=== PATIENT | female | born 1950 | race Hispanic/Latino ===

== ENCOUNTER 2017-09-08 12:51 | Inpatient (IN) | payer MEDICARE ==
[~2017-09-08] VITALS: Ht 149.9 cm; Wt 135.8 kg
[2017-09-08] MEDS ORDERED: IPRATROPIUM/ALBUTEROL SULFATE 3 ML SOLUTION IH ONE (13:28)
[2017-09-08 13:49] LABS: BASOPHILS % (AUTO) 0.4 % (0.0-5.0); EOSINOPHILS % (AUTO) 0.2 % (0.0-8.0); HEMATOCRIT 46.8 % (36-48); LYMPHOCYTES % (AUTO) 23.1 % (21.0-51.0); MEAN CORPUSCULAR HEMOGLOBIN 30.1 pg (27.0-33.0); MEAN CORPUSCULAR HGB CONC 34.6 g/dL (32.0-36.0); MEAN CORPUSCULAR VOLUME 87.1 fL (79-99); MONOCYTES % (AUTO) 13.9 % (3.0-13.0); NEUTROPHILS % (AUTO) 62.4 % (40.0-77.0); NUCLEATED RED BLOOD CELLS 0.2 % (0.0-0.19); PLATELET COUNT (AUTO) 197 K/uL (130-400); RED BLOOD CELL COUNT(AUTO) 5.38 MIL/uL (4.00-5.50); RED CELL DISTRIBUTION WIDTH 12.9 % (11.0-15.5)
[2017-09-08 14:00] LABS: INR 1.13 (0.85-1.15); PARTIAL THROMBOPLASTIN TIME 31.4 SEC (26.3-35.5); PROTHROMBIN TIME 11.8 SEC (9.6-11.6)
[2017-09-08] MEDS ORDERED: ALBUTEROL SULFATE 0.083% 2.5 MG/3 ML INH IH ONE (14:17)
[2017-09-08] MEDS ORDERED: METHYLPREDNISOLONE SOD SUCC 125MG/2ML VIAL ONE (14:22)
[2017-09-08 14:31] LABS: ALBUMIN 3.3 g/dL (3.5-5.0); BILIRUBIN,TOTAL 0.8 mg/dL (0.2-1.0); CREATINE KINASE MB 2.2 ng/mL (0.5-3.6); CREATININE 0.5 mg/dL (0.5-1.5); POTASSIUM 4.3 mmol/L (3.5-5.1)
[2017-09-08] MEDS ORDERED: OSELTAMIVIR PHOSPHATE 75 MG CAP ONE (15:07)
[2017-09-08] MEDS ORDERED: MORPHINE SULFATE 4 MG/1ML SYG IV PRN (15:45)
[2017-09-08] MEDS ORDERED: POTASSIUM CHLORIDE 20MEQ/100ML 100 ML IV PRN (15:45)
[2017-09-08] MEDS ORDERED: ACETAMINOPHEN-CODEINE 300/30MG TAB PO PRN ×2 (15:45)
[2017-09-08] MEDS: AZITHROMYCIN 500MG+NS 250ML 250 ML IV SCH (15:45)
[2017-09-08] MEDS: METHYLPREDNISOLONE SOD SUCC 125MG/2ML VIAL IVP SCH ×2 (15:45→23:44)
[2017-09-08] MEDS ORDERED: MORPHINE SULFATE 2 MG/ML 1ML SYG IV PRN (15:45)
[2017-09-08] MEDS ORDERED: GUAIFENESIN-DM 200/20 MG 10 ML PO PRN (15:45)
[2017-09-08] MEDS ORDERED: ACETAMINOPHEN 325 MG TAB PO PRN ×2 (15:45)
[2017-09-08] MEDS ORDERED: POTASSIUM CHLORIDE 20 MEQ ERTAB PO PRN (15:45)
[2017-09-08] MEDS ORDERED: POTASSIUM CHLORIDE 10% ELIXIR 20 MEQ/15 ML UDCUP PO PRN (15:45)
[2017-09-08] MEDS ORDERED: LIDOCAINE HCL-MPF 1% 2ML VIAL IVP PRN (15:45)
[2017-09-08] MEDS ORDERED: ONDANSETRON HCL 4 MG/2 ML VIAL IV PRN (15:45)
[2017-09-08 15:56] LABS: CREATININE 0.5 mg/dL (0.5-1.5); POTASSIUM 4.8 mmol/L (3.5-5.1)
[2017-09-08] MEDS ORDERED: AZITHROMYCIN 500MG+NS 250ML 250 ML IV ONE (16:12)
[2017-09-08 17:11] VITALS: BP 193/86
[2017-09-08] MEDS: IPRATROPIUM/ALBUTEROL SULFATE 3 ML SOLUTION IH SCH ×2 (18:56→23:45)
[2017-09-08 20:00] VITALS: BP 158/83
[2017-09-08] MEDS: OSELTAMIVIR PHOSPHATE 75 MG CAP PO SCH (21:11)
[2017-09-08] MEDS: FAMOTIDINE/PF 20 MG/2 ML VIAL IV SCH (21:11)
[2017-09-08] MEDS: SODIUM CHLORIDE 0.9% 1000ML 1,000 ML IV SCH (21:11)
[2017-09-08] MEDS ORDERED: AMLO5TAB2 PO (22:28)
[2017-09-08] MEDS ORDERED: VITA400C73 PO (22:28)
[2017-09-08] MEDS ORDERED: METO100T14 PO (22:28)
[2017-09-08] MEDS ORDERED: AMLO1CAP11 PO (22:28)
[2017-09-08] MEDS ORDERED: CHOL200012 PO (22:28)
[2017-09-08] MEDS ORDERED: METF500T6 PO (22:28)
[2017-09-08] MEDS ORDERED: GLYB5TAB8 PO (22:28)
[2017-09-08] MEDS ORDERED: FISH1CAP27 PO (22:28)
[2017-09-08] MEDS ORDERED: DOCU-272 PO (22:28)
[2017-09-08] MEDS ORDERED: ZOLPIDEM TARTRATE 5 MG TAB PO PRN (22:30)
[2017-09-09] VITALS: BP 161/77
[2017-09-09] MEDS: HYDRALAZINE HCL 20 MG/ML VIAL IV PRN (00:15)
[2017-09-09] MEDS: SODIUM CHLORIDE 0.9% 1000ML 1,000 ML IV SCH ×2 (01:49→17:15)
[2017-09-09 04:00] VITALS: BP 160/78
[2017-09-09] MEDS: IPRATROPIUM/ALBUTEROL SULFATE 3 ML SOLUTION IH SCH ×4 (04:59→23:15)
[2017-09-09] MEDS: INSULIN HUMULIN R 100 UNIT/ML 3ML SQ SCH ×4 (06:15→21:06)
[2017-09-09] MEDS: METHYLPREDNISOLONE SOD SUCC 125MG/2ML VIAL IVP SCH ×2 (06:54→09:16)
[2017-09-09 07:30] VITALS: BP 159/81
[2017-09-09] MEDS: Cholecalciferol (Vitamin D3) 2,000 UNIT PO SCH (09:00)
[2017-09-09] MEDS: METOPROLOL TARTRATE 50 MG TAB PO SCH ×2 (09:12→20:42)
[2017-09-09] MEDS: DOCUSATE SODIUM 100 MG CAP PO SCH ×2 (09:12→20:41)
[2017-09-09] MEDS: AMLODIPINE BESYLATE 5 MG TAB PO SCH (09:13)
[2017-09-09] MEDS: GLYBURIDE 5 MG TABLET PO SCH ×2 (09:13→16:48)
[2017-09-09] MEDS: METFORMIN HCL 500 MG TABLET PO SCH ×2 (09:13→16:48)
[2017-09-09] MEDS: OSELTAMIVIR PHOSPHATE 75 MG CAP PO SCH ×2 (09:14→20:42)
[2017-09-09] MEDS: FISH OIL 1000 MG/CAP PO SCH (09:14)
[2017-09-09] MEDS: FAMOTIDINE/PF 20 MG/2 ML VIAL IV SCH ×2 (09:14→20:42)
[2017-09-09] MEDS: ENOXAPARIN SODIUM 40 MG/0.4 ML SYRINGE SQ SCH (09:17)
[2017-09-09] MEDS: VITAMIN E 400 UNIT CAPSULE PO SCH (09:29)
[2017-09-09] MEDS: AMLODIPINE-BENAZEPRIL 5-10 MG PO SCH (09:29)
[2017-09-09 11:00] VITALS: BP 143/73
[2017-09-09 13:00] LABS: CREATININE 0.8 mg/dL (0.5-1.5); POTASSIUM 4.3 mmol/L (3.5-5.1)
[2017-09-09 16:00] VITALS: BP 164/78
[2017-09-09] MEDS ORDERED: SODIUM CHLORIDE 0.9% 1000ML 1,000 ML IV ONE (16:43)
[2017-09-09] MEDS: AZITHROMYCIN 500MG+NS 250ML 250 ML IV SCH (16:45)
[2017-09-09 20:00] VITALS: BP 152/64
[2017-09-09] MEDS: METHYLPREDNISOLONE SOD SUCC 40MG/ML 1ML IVP SCH (20:41)
[2017-09-10] VITALS: BP 153/66
[2017-09-10] MEDS: SODIUM CHLORIDE 0.9% 1000ML 1,000 ML IV SCH ×3 (02:44→23:15)
[2017-09-10 04:00] VITALS: BP 161/69
[2017-09-10] MEDS: IPRATROPIUM/ALBUTEROL SULFATE 3 ML SOLUTION IH SCH ×3 (04:39→17:51)
[2017-09-10 05:37] LABS: HEMATOCRIT 41.1 % (36-48); MEAN CORPUSCULAR HEMOGLOBIN 31.3 pg (27.0-33.0); MEAN CORPUSCULAR HGB CONC 35.8 g/dL (32.0-36.0); MEAN CORPUSCULAR VOLUME 87.5 fL (79-99); PLATELET COUNT (AUTO) 190 K/uL (130-400); RED CELL DISTRIBUTION WIDTH 12.9 % (11.0-15.5)
[2017-09-10 05:41] LABS: CREATININE 0.6 mg/dL (0.5-1.5); POTASSIUM 4.6 mmol/L (3.5-5.1)
[2017-09-10] MEDS: HYDRALAZINE HCL 20 MG/ML VIAL IV PRN (06:17)
[2017-09-10] MEDS: INSULIN HUMULIN R 100 UNIT/ML 3ML SQ SCH ×4 (06:22→21:02)
[2017-09-10 07:30] VITALS: BP 156/75
[2017-09-10] MEDS: Cholecalciferol (Vitamin D3) 2,000 UNIT PO SCH (09:00)
[2017-09-10] MEDS: FISH OIL 1000 MG/CAP PO SCH (09:39)
[2017-09-10] MEDS: AMLODIPINE-BENAZEPRIL 5-10 MG PO SCH (09:39)
[2017-09-10] MEDS: METOPROLOL TARTRATE 50 MG TAB PO SCH ×2 (09:40→20:51)
[2017-09-10] MEDS: AMLODIPINE BESYLATE 5 MG TAB PO SCH (09:40)
[2017-09-10] MEDS: FAMOTIDINE/PF 20 MG/2 ML VIAL IV SCH ×2 (09:40→20:51)
[2017-09-10] MEDS: METHYLPREDNISOLONE SOD SUCC 40MG/ML 1ML IVP SCH ×3 (09:40→20:51)
[2017-09-10] MEDS: OSELTAMIVIR PHOSPHATE 75 MG CAP PO SCH ×2 (09:40→20:51)
[2017-09-10] MEDS: LACTULOSE 20 GM/30 ML UDCUP PO PRN (09:40)
[2017-09-10] MEDS: DOCUSATE SODIUM 100 MG CAP PO SCH ×2 (09:40→20:51)
[2017-09-10] MEDS: VITAMIN E 400 UNIT CAPSULE PO SCH (09:41)
[2017-09-10] MEDS: ENOXAPARIN SODIUM 40 MG/0.4 ML SYRINGE SQ SCH (09:41)
[2017-09-10] MEDS: METFORMIN HCL 500 MG TABLET PO SCH ×2 (09:43→17:11)
[2017-09-10] MEDS: GLYBURIDE 5 MG TABLET PO SCH ×2 (09:43→17:11)
[2017-09-10 11:00] VITALS: BP 149/81
[2017-09-10] MEDS ORDERED: SODIUM CHLORIDE 0.9% 1000ML 1,000 ML IV SCH (12:58)
[2017-09-10] MEDS ORDERED: CEFTRIAXONE 1GM/D5W 50ML 50 ML IV SCH (13:15)
[2017-09-10] MEDS: CEFTRIAXONE SODIUM 1 GM IVP SCH (14:57)
[2017-09-10] MEDS: AZITHROMYCIN 500MG+NS 250ML 250 ML IV SCH (15:05)
[2017-09-10] MEDS: INSULIN NPH 100 UNIT/ML 3ML SQ SCH (15:16)
[2017-09-10 16:00] VITALS: BP 109/75
[2017-09-10] MEDS: BUDESONIDE 0.5 MG/2 ML INH IH SCH ×2 (18:00→18:17)
[2017-09-10 20:00] VITALS: BP 152/75
[2017-09-10] MEDS: ALBUTEROL SULFATE 0.083% 2.5 MG/3 ML INH IH SCH (23:04)
[2017-09-11] VITALS (7 sets, daily range): BP systolic 143–177; BP diastolic 72–89
[2017-09-11] MEDS: IPRATROPIUM/ALBUTEROL SULFATE 3 ML SOLUTION IH SCH ×4 (04:45→16:35)
[2017-09-11] MEDS: BUDESONIDE 0.5 MG/2 ML INH IH SCH (04:51)
[2017-09-11 05:21] LABS: CREATININE 0.5 mg/dL (0.5-1.5); POTASSIUM 4.8 mmol/L (3.5-5.1)
[2017-09-11] MEDS: ALBUTEROL SULFATE 0.083% 2.5 MG/3 ML INH IH SCH ×3 (06:00→18:00)
[2017-09-11] MEDS: INSULIN HUMULIN R 100 UNIT/ML 3ML SQ SCH ×4 (06:32→21:46)
[2017-09-11] MEDS: INSULIN NPH 100 UNIT/ML 3ML SQ SCH ×2 (07:04→17:02)
[2017-09-11] MEDS: Cholecalciferol (Vitamin D3) 2,000 UNIT PO SCH (09:00)
[2017-09-11] MEDS: METOPROLOL TARTRATE 50 MG TAB PO SCH ×2 (10:03→21:23)
[2017-09-11] MEDS: AMLODIPINE-BENAZEPRIL 5-10 MG PO SCH (10:03)
[2017-09-11] MEDS: VITAMIN E 400 UNIT CAPSULE PO SCH (10:03)
[2017-09-11] MEDS: FISH OIL 1000 MG/CAP PO SCH (10:04)
[2017-09-11] MEDS: GLYBURIDE 5 MG TABLET PO SCH ×2 (10:04→16:58)
[2017-09-11] MEDS: METHYLPREDNISOLONE SOD SUCC 40MG/ML 1ML IVP SCH ×3 (10:04→21:24)
[2017-09-11] MEDS: AMLODIPINE BESYLATE 5 MG TAB PO SCH (10:04)
[2017-09-11] MEDS: DOCUSATE SODIUM 100 MG CAP PO SCH ×2 (10:04→21:23)
[2017-09-11] MEDS: FAMOTIDINE/PF 20 MG/2 ML VIAL IV SCH ×2 (10:04→21:24)
[2017-09-11] MEDS: OSELTAMIVIR PHOSPHATE 75 MG CAP PO SCH ×2 (10:04→21:23)
[2017-09-11] MEDS: METFORMIN HCL 500 MG TABLET PO SCH ×2 (10:04→16:58)
[2017-09-11] MEDS: ENOXAPARIN SODIUM 40 MG/0.4 ML SYRINGE SQ SCH (10:06)
[2017-09-11] MEDS ORDERED: SODIUM CHLORIDE 3% FOR INHALATION 4 ML/AMP VIAL.NEB IH ONE (12:26)
[2017-09-11] MEDS: CEFTRIAXONE SODIUM 1 GM IVP SCH (13:22)
[2017-09-11] MEDS ORDERED: ACETYLCYSTEINE 20% 200MG/ML 4ML VIAL IH SCH (14:00)
[2017-09-11] MEDS: AZITHROMYCIN 500MG+NS 250ML 250 ML IV SCH (14:54)
[2017-09-11] MEDS: HYDRALAZINE HCL 20 MG/ML VIAL IV PRN (23:18)
[2017-09-12] VITALS (10 sets, daily range): BP systolic 132–188; BP diastolic 63–88
[2017-09-12] MEDS: IPRATROPIUM/ALBUTEROL SULFATE 3 ML SOLUTION IH SCH ×4 (00:32→20:34)
[2017-09-12] MEDS: BUDESONIDE 0.5 MG/2 ML INH IH SCH ×3 (00:32→20:49)
[2017-09-12 05:08] LABS: HEMATOCRIT 41.8 % (36-48); MEAN CORPUSCULAR HEMOGLOBIN 30.5 pg (27.0-33.0); MEAN CORPUSCULAR HGB CONC 34.3 g/dL (32.0-36.0); PLATELET COUNT (AUTO) 211 K/uL (130-400); RED CELL DISTRIBUTION WIDTH 13.5 % (11.0-15.5); WHITE BLOOD COUNT (AUTO) 11.8 K/uL (4.8-10.8)
[2017-09-12 05:17] LABS: CREATININE 0.5 mg/dL (0.5-1.5); POTASSIUM 4.5 mmol/L (3.5-5.1)
[2017-09-12] MEDS: ALBUTEROL SULFATE 0.083% 2.5 MG/3 ML INH IH SCH ×3 (06:00→18:00)
[2017-09-12] MEDS: INSULIN HUMULIN R 100 UNIT/ML 3ML SQ SCH ×4 (07:30→20:45)
[2017-09-12] MEDS ORDERED: SODIUM CHLORIDE 3% FOR INHALATION 4 ML/AMP VIAL.NEB IH ONE (07:42)
[2017-09-12] MEDS: FAMOTIDINE/PF 20 MG/2 ML VIAL IV SCH ×2 (08:35→20:13)
[2017-09-12] MEDS: METHYLPREDNISOLONE SOD SUCC 40MG/ML 1ML IVP SCH ×2 (08:35→20:13)
[2017-09-12] MEDS: VITAMIN E 400 UNIT CAPSULE PO SCH (08:36)
[2017-09-12] MEDS: ENOXAPARIN SODIUM 40 MG/0.4 ML SYRINGE SQ SCH (08:36)
[2017-09-12] MEDS: OSELTAMIVIR PHOSPHATE 75 MG CAP PO SCH ×2 (08:36→20:13)
[2017-09-12] MEDS: AMLODIPINE BESYLATE 5 MG TAB PO SCH (08:36)
[2017-09-12] MEDS: AMLODIPINE-BENAZEPRIL 5-10 MG PO SCH (08:36)
[2017-09-12] MEDS: FISH OIL 1000 MG/CAP PO SCH (08:36)
[2017-09-12] MEDS: DOCUSATE SODIUM 100 MG CAP PO SCH ×2 (08:37→20:13)
[2017-09-12] MEDS: METFORMIN HCL 500 MG TABLET PO SCH ×2 (08:37→16:56)
[2017-09-12] MEDS: GLYBURIDE 5 MG TABLET PO SCH ×2 (08:37→16:56)
[2017-09-12] MEDS: METOPROLOL TARTRATE 50 MG TAB PO SCH ×2 (08:37→16:57)
[2017-09-12] MEDS: Cholecalciferol (Vitamin D3) 2,000 UNIT PO SCH (09:00)
[2017-09-12] MEDS: INSULIN NPH 100 UNIT/ML 3ML SQ SCH ×2 (09:01→17:06)
[2017-09-12] MEDS: LACTULOSE 20 GM/30 ML UDCUP PO PRN (09:05)
[2017-09-12] MEDS: HYDRALAZINE HCL 20 MG/ML VIAL IV PRN ×2 (13:00→20:29)
[2017-09-12] MEDS: CEFTRIAXONE SODIUM 1 GM IVP SCH (13:00)
[2017-09-12] MEDS: AZITHROMYCIN 500MG+NS 250ML 250 ML IV SCH (16:01)
[2017-09-12] MEDS ORDERED: INSULIN NPH 100 UNIT/ML 3ML SQ ONE (16:50)
[2017-09-13] VITALS: BP 178/78
[2017-09-13] MEDS: IPRATROPIUM/ALBUTEROL SULFATE 3 ML SOLUTION IH SCH ×4 (00:27→19:27)
[2017-09-13 04:00] VITALS: BP 168/82
[2017-09-13] MEDS: HYDRALAZINE HCL 20 MG/ML VIAL IV PRN (05:23)
[2017-09-13] MEDS: BUDESONIDE 0.5 MG/2 ML INH IH SCH ×2 (05:55→19:42)
[2017-09-13] MEDS: ALBUTEROL SULFATE 0.083% 2.5 MG/3 ML INH IH SCH ×3 (06:00→12:00)
[2017-09-13] MEDS ORDERED: SODIUM CHLORIDE 3% FOR INHALATION 4 ML/AMP VIAL.NEB IH ONE (06:28)
[2017-09-13] MEDS: INSULIN HUMULIN R 100 UNIT/ML 3ML SQ SCH ×4 (06:42→21:00)
[2017-09-13] MEDS: INSULIN NPH 100 UNIT/ML 3ML SQ SCH ×2 (06:43→15:56)
[2017-09-13 07:40] VITALS: BP 155/71
[2017-09-13] MEDS: Cholecalciferol (Vitamin D3) 2,000 UNIT PO SCH (09:00)
[2017-09-13] MEDS: FAMOTIDINE/PF 20 MG/2 ML VIAL IV SCH ×2 (09:36→20:18)
[2017-09-13] MEDS: METHYLPREDNISOLONE SOD SUCC 40MG/ML 1ML IVP SCH ×2 (09:36→20:18)
[2017-09-13] MEDS: VITAMIN E 400 UNIT CAPSULE PO SCH (09:37)
[2017-09-13] MEDS: METOPROLOL TARTRATE 50 MG TAB PO SCH ×2 (09:37→20:17)
[2017-09-13] MEDS: AMLODIPINE-BENAZEPRIL 5-10 MG PO SCH (09:37)
[2017-09-13] MEDS: GLYBURIDE 5 MG TABLET PO SCH ×2 (09:37→16:12)
[2017-09-13] MEDS: METFORMIN HCL 500 MG TABLET PO SCH ×2 (09:37→16:12)
[2017-09-13] MEDS: AMLODIPINE BESYLATE 5 MG TAB PO SCH (09:38)
[2017-09-13] MEDS: DOCUSATE SODIUM 100 MG CAP PO SCH ×2 (09:38→20:18)
[2017-09-13] MEDS: OSELTAMIVIR PHOSPHATE 75 MG CAP PO SCH (09:38)
[2017-09-13] MEDS: FISH OIL 1000 MG/CAP PO SCH (09:39)
[2017-09-13] MEDS: ENOXAPARIN SODIUM 40 MG/0.4 ML SYRINGE SQ SCH (09:39)
[2017-09-13 11:18] VITALS: BP 135/65
[2017-09-13] MEDS: HYDRALAZINE HCL 25 MG TABLET PO SCH ×2 (15:45→20:18)
[2017-09-13] MEDS: CEFTRIAXONE SODIUM 1 GM IVP SCH (15:45)
[2017-09-13] MEDS: AZITHROMYCIN 500MG+NS 250ML 250 ML IV SCH (15:45)
[2017-09-13 16:10] VITALS: BP 162/73
[2017-09-13 19:00] VITALS: BP 188/79
[2017-09-14] VITALS: BP 150/69
[2017-09-14] MEDS: IPRATROPIUM/ALBUTEROL SULFATE 3 ML SOLUTION IH SCH ×2 (00:10→06:40)
[2017-09-14 04:00] VITALS: BP 175/77
[2017-09-14] MEDS: INSULIN HUMULIN R 100 UNIT/ML 3ML SQ SCH (05:24)
[2017-09-14 05:40] LABS: HEMATOCRIT 43.5 % (36-48); MEAN CORPUSCULAR HEMOGLOBIN 30.3 pg (27.0-33.0); MEAN CORPUSCULAR HGB CONC 34.3 g/dL (32.0-36.0); MEAN CORPUSCULAR VOLUME 88.3 fL (79-99); NUCLEATED RED BLOOD CELLS 0.1 % (0.0-0.19); PLATELET COUNT (AUTO) 245 K/uL (130-400); RED BLOOD CELL COUNT(AUTO) 4.93 MIL/uL (4.00-5.50); RED CELL DISTRIBUTION WIDTH 13.2 % (11.0-15.5); WHITE BLOOD COUNT (AUTO) 10.7 K/uL (4.8-10.8)
[2017-09-14 05:56] LABS: CREATININE 0.7 mg/dL (0.5-1.5); POTASSIUM 4.6 mmol/L (3.5-5.1)
[2017-09-14] MEDS: BUDESONIDE 0.5 MG/2 ML INH IH SCH (06:00)
[2017-09-14] MEDS: ALBUTEROL SULFATE 0.083% 2.5 MG/3 ML INH IH SCH ×2 (06:00)
[2017-09-14] MEDS: INSULIN NPH 100 UNIT/ML 3ML SQ SCH (07:51)
[2017-09-14 08:00] VITALS: BP 163/72
[2017-09-14] MEDS: DOCUSATE SODIUM 100 MG CAP PO SCH (08:55)
[2017-09-14] MEDS: FAMOTIDINE/PF 20 MG/2 ML VIAL IV SCH (08:55)
[2017-09-14] MEDS: AMLODIPINE BESYLATE 5 MG TAB PO SCH (08:55)
[2017-09-14] MEDS: HYDRALAZINE HCL 25 MG TABLET PO SCH (08:55)
[2017-09-14] MEDS: METFORMIN HCL 500 MG TABLET PO SCH (08:56)
[2017-09-14] MEDS: FISH OIL 1000 MG/CAP PO SCH (08:56)
[2017-09-14] MEDS: METHYLPREDNISOLONE SOD SUCC 40MG/ML 1ML IVP SCH (08:56)
[2017-09-14] MEDS: METOPROLOL TARTRATE 50 MG TAB PO SCH (08:56)
[2017-09-14] MEDS: ENOXAPARIN SODIUM 40 MG/0.4 ML SYRINGE SQ SCH (08:57)
[2017-09-14] MEDS: Cholecalciferol (Vitamin D3) 2,000 UNIT PO SCH (09:00)
[2017-09-14] MEDS: AMLODIPINE-BENAZEPRIL 5-10 MG PO SCH (10:11)
[2017-09-14] MEDS: VITAMIN E 400 UNIT CAPSULE PO SCH (10:11)
[2017-09-14] MEDS: GLYBURIDE 5 MG TABLET PO SCH (10:12)
[2017-09-14] MEDS: LACTULOSE 20 GM/30 ML UDCUP PO PRN (10:12)
== END 2017-09-14 12:00 | disposition home or self-care (01) | DRG 194 ==
LOC: EDH 12:51 → OBSVTOIN 15:35 → EDHIP 15:35 → 4BH 17:04
PROVIDERS: ADMIT Internal Medicine; ATTEND Internal Medicine
DX: J10.00 Influenza due to other identified influenza virus with unspecified type of pneumonia (principal); E87.1 Hypo-osmolality and hyponatremia; E66.01 Morbid (severe) obesity due to excess calories; E11.9 Type 2 diabetes mellitus without complications; I10 Essential (primary) hypertension; J20.9 Acute bronchitis, unspecified; Z91.19 Patient's noncompliance with other medical treatment and regimen; G47.33 Obstructive sleep apnea (adult) (pediatric)
CPT/HCPCS: 36415; 71010; 71045; 71046; 80048; 80053; 82550; 82553; 82948; 83880; 84484; 85025; 85027; 85610; 85730; 87804; 93005; 94640; 94664; A4218; J0360; J0456; J0696; J1650; J1815; J2920; J2930; J3490; J7030

== ENCOUNTER → 2018-08-28 | Outpatient (CLI) | payer MEDICARE ==
[~2018-08-28] MED LIST: AMLO1CAP PO; CHOL200012 PO; CLON0.2T PO; DOCU-272 PO; FISH1CAP27 PO; GLIM4TAB3 PO; HYDR25 PO; METF-444 PO; METO100T14 PO; VITA400C73 PO
== END | disposition home or self-care (01) ==
LOC: RAH 10:40
PROVIDERS: ATTEND Specialist
DX: Z12.31 Encounter for screening mammogram for malignant neoplasm of breast (principal)
CPT/HCPCS: 77067

== ENCOUNTER 2019-04-06 10:58 | Emergency (ER) | payer MEDICARE ==
[2019-04-06] MEDS ORDERED: ACETAMINOPHEN-CODEINE 300/30MG TAB ONE (11:16)
== END 2019-04-06 14:23 | disposition home or self-care (01) ==
LOC: EDH 10:58
DX: S80.02XA Contusion of left knee, initial encounter (principal); E11.9 Type 2 diabetes mellitus without complications; I10 Essential (primary) hypertension; Z90.710 Acquired absence of both cervix and uterus; W18.39XA Other fall on same level, initial encounter; Y93.01 Activity, walking, marching and hiking; Y92.22 Religious institution as the place of occurrence of the external cause; Y99.8 Other external cause status
CPT/HCPCS: 73502; 73552; 73562

== ENCOUNTER 2019-07-02 20:23 | Emergency (ER) | payer MEDICARE ==
[~2019-07-02 20:23] MED LIST changes: -GLIM4TAB3 PO; +GLIM4TAB5 PO
== END 2019-07-02 21:28 | disposition home or self-care (01) ==
LOC: EDH 20:23
DX: R04.0 Epistaxis (principal); I10 Essential (primary) hypertension; E11.9 Type 2 diabetes mellitus without complications; Z90.710 Acquired absence of both cervix and uterus
CPT/HCPCS: 99281

== ENCOUNTER → 2019-08-29 | Outpatient (CLI) | payer MEDICARE | END | disposition home or self-care (01) | LOC: RAH 10:56 | PROVIDERS: ATTEND Family Medicine | DX: Z12.31 Encounter for screening mammogram for malignant neoplasm of breast (principal) | CPT/HCPCS: 77067 ==

== ENCOUNTER 2023-05-18 21:59 | Inpatient (IN) | payer MEDICARE ==
[~2023-05-18] VITALS: Ht 157.5 cm; Wt 129.5 kg
[~2023-05-18 21:59] MED LIST changes: -DOCU-272 PO; +DOCU-280 PO; +GLIM4TAB36 PO; -GLIM4TAB5 PO
[2023-05-18 22:47] LABS: BASOPHILS # (AUTO) 0.02 K/uL (0.00-0.20); BASOPHILS % (AUTO) 0.1 % (0.0-5.0); EOSINOPHILS # (AUTO) 0.03 K/uL (0.00-0.70); EOSINOPHILS % (AUTO) 0.2 % (0.0-8.0); IMMATURE GRANULOCYTE ABSOLUTE 0.16 K/uL (0-1); LYMPHOCYTES # (AUTO) 1.4 K/uL (1.0-4.8); LYMPHOCYTES % (AUTO) 10.3 % (21.0-51.0); MEAN CORPUSCULAR HEMOGLOBIN 30.6 pg (27.0-33.0); MEAN CORPUSCULAR HGB CONC 32.6 g/dL (32.0-36.0); MEAN CORPUSCULAR VOLUME 94.1 fL (79-99); MONOCYTES # (AUTO) 1.5 K/uL (0.1-1.0); MONOCYTES % (AUTO) 10.9 % (3.0-13.0); NEUTROPHILS # (AUTO) 10.5 K/uL (1.8-7.7); NEUTROPHILS % (AUTO) 77.3 % (40.0-77.0); PLATELET COUNT (AUTO) 196 K/uL (130-400); RED BLOOD CELL COUNT(AUTO) 4.57 MIL/uL (4.00-5.50); RED CELL DISTRIBUTION WIDTH 13.2 % (11.0-15.5); WHITE BLOOD COUNT (AUTO) 13.7 K/uL (4.8-10.8)
[2023-05-18 22:55] LABS: SARS-CoV-2, RNA, NAAT NEGATIVE SARS CoV-2 (NEGATIVE)
[2023-05-18 22:56] LABS: CREATININE 0.5 mg/dL (0.5-1.5); POTASSIUM 4.8 mmol/L (3.5-5.1)
[2023-05-18 22:59] LABS: INFLUENZA TYPE A Negative For Type A (NEGATIVE); INFLUENZA TYPE B Negative For Type B (NEGATIVE)
[2023-05-18] MEDS ORDERED: ALBUTEROL 0.083% 2.5 MG/3 ML INH IH ONE (23:00)
[2023-05-18 23:01] LABS: BILIRUBIN,TOTAL 0.8 mg/dL (0.2-1.0); TOTAL PROTEIN, SERUM 6.8 g/dL (6.0-8.3)
[2023-05-18 23:04] VITALS: PULSE 80; RESP 22
[2023-05-18 23:20] LABS: B-TYPE NATRIURETIC PEPTIDE 153 pg/mL (0-100)
[2023-05-18 23:36] LABS: ABG BASE EXCESS 2.9 mmol/L (-2.0-3.0); ABG HCO3 31.5 mmol/L (21.0-28.0); ABG OXYGEN SATURATION 86.4 % (95.0-99.0); ABG PCO2 66 mmHg (32-45); ABG PH 7.295 (7.35-7.450); PO2, ARTERIAL BG 58.2 mmHg (83.0-108.0); VENT MODE, BG ROOM AIR (ROOM AIR)
[2023-05-19] VITALS (17 sets, daily range): BP systolic 133–155; BP diastolic 52–92; PULSE 72–94; RESP 18–28; O2SAT 95–100
[2023-05-19] MEDS ORDERED: AZITHROMYCIN 500MG+NS 250ML 250 ML ONE (00:30)
[2023-05-19] MEDS ORDERED: CEFTRIAXONE 2GM VIAL IVPB ONE (00:30)
[2023-05-19] MEDS ORDERED: MORPHINE 2 MG SYG IV PRN (01:00)
[2023-05-19] MEDS ORDERED: MORPHINE 4 MG SYG IV PRN (01:00)
[2023-05-19] MEDS ORDERED: GUAIFENESIN-DM 200/20 MG 10 ML PO PRN (01:00)
[2023-05-19] MEDS ORDERED: SOLU-MEDROL 125MG VIAL IVP ONE (01:00)
[2023-05-19] MEDS ORDERED: ACETAMINOPHEN 325 MG TAB PO PRN ×2 (01:00)
[2023-05-19] MEDS ORDERED: ONDANSETRON 4MG INJ IV PRN (01:00)
[2023-05-19 01:29] LABS: ABG BASE EXCESS -0.3 mmol/L (-2.0-3.0); ABG HCO3 29.4 mmol/L (21.0-28.0); ABG PCO2 72 mmHg (32-45); ABG PH 7.231 (7.35-7.450)
[2023-05-19 01:58] LABS: APPEARANCE,URINE CLEAR (CLEAR); BILIRUBIN,URINE NEGATIVE (NEGATIVE); COLOR,URINE YELLOW (YELLOW); GLUCOSE, URINE (UA) NEGATIVE (NEGATIVE); KETONES,URINE NEGATIVE (NEGATIVE); LEUKOCYTE ESTERASE ,URINE NEGATIVE Leu/uL (NEGATIVE); NITRATE,URINE NEGATIVE (NEGATIVE); OCCULT BLOOD,URINE NEGATIVE (NEGATIVE); PROTEIN,URINE 10 mg/dL (NEGATIVE); UROBILINOGEN,URINE 3 mg/dL (0.2-1.0)
[2023-05-19 02:02] LABS: ADD UA MICROSCOPIC NO
[2023-05-19] MEDS: AZITHROMYCIN 500MG+NS 250ML IVPB SCH (02:16)
[2023-05-19] MEDS: LACTATED RINGERS 1000ML 1,000 ML IV SCH ×2 (02:16→18:00)
[2023-05-19] MEDS ORDERED: LACTATED RINGERS IV ONE (02:30)
[2023-05-19] MEDS: ZOSYN 3.375GM+NS 50ML 50 ML IVPB SCH ×3 (04:28→21:54)
[2023-05-19 04:46] LABS: ABG BASE EXCESS 5.4 mmol/L (-2.0-3.0); ABG HCO3 34.3 mmol/L (21.0-28.0); ABG OXYGEN SATURATION 93.2 % (95.0-99.0); ABG PCO2 70 mmHg (32-45); ABG PH 7.309 (7.35-7.450); PO2, ARTERIAL BG 74.6 mmHg (83.0-108.0)
[2023-05-19] MEDS ORDERED: SODIUM CHLORIDE 3% FOR INHALATION 4 ML/AMP VIAL.NEB IH ONE ×3 (06:12→18:05)
[2023-05-19 06:48] LABS: BASOPHILS # (AUTO) 0.02 K/uL (0.00-0.20); BASOPHILS % (AUTO) 0.2 % (0.0-5.0); EOSINOPHILS # (AUTO) 0.01 K/uL (0.00-0.70); EOSINOPHILS % (AUTO) 0.1 % (0.0-8.0); HEMATOCRIT 41.8 % (36-48); IMMATURE GRANULOCYTE ABSOLUTE 0.06 K/uL (0-1); LYMPHOCYTES # (AUTO) 0.6 K/uL (1.0-4.8); LYMPHOCYTES % (AUTO) 6.1 % (21.0-51.0); MEAN CORPUSCULAR HEMOGLOBIN 30.8 pg (27.0-33.0); MEAN CORPUSCULAR HGB CONC 32.5 g/dL (32.0-36.0); MEAN CORPUSCULAR VOLUME 94.6 fL (79-99); MONOCYTES # (AUTO) 0.4 K/uL (0.1-1.0); MONOCYTES % (AUTO) 3.8 % (3.0-13.0); NEUTROPHILS # (AUTO) 9.3 K/uL (1.8-7.7); NEUTROPHILS % (AUTO) 89.2 % (40.0-77.0); PLATELET COUNT (AUTO) 154 K/uL (130-400); RED BLOOD CELL COUNT(AUTO) 4.42 MIL/uL (4.00-5.50); RED CELL DISTRIBUTION WIDTH 13.2 % (11.0-15.5); WHITE BLOOD COUNT (AUTO) 10.4 K/uL (4.8-10.8)
[2023-05-19] MEDS: ALBUTEROL 0.083% 2.5 MG/3 ML INH IH SCH ×4 (06:55→22:44)
[2023-05-19] MEDS: INSULIN HUMULIN R 100 UNIT/ML 3ML SQ SCH ×4 (07:30→21:56)
[2023-05-19 08:08] LABS: CREATININE 0.6 mg/dL (0.5-1.5); MAGNESIUM 1.3 mg/dL (1.80-2.40); PHOSPHORUS 3.6 mg/dL (2.5-4.9); POTASSIUM 4.6 mmol/L (3.5-5.1)
[2023-05-19] MEDS ORDERED: SOLU-MEDROL 40MG VIAL IVP SCH (09:00)
[2023-05-19] MEDS: APIXABAN 5 MG TABLET PO SCH ×2 (09:21→21:54)
[2023-05-19] MEDS: FAMOTIDINE 20MG VIAL IV SCH (09:21)
[2023-05-19] MEDS: BALSAM PERU/CASTOR OIL 60 GM TUBE TP SCH ×3 (09:22→22:02)
[2023-05-19] MEDS ORDERED: POTASSIUM CHLORIDE 10% ELIXIR 20 MEQ/15 ML UDCUP PO PRN (11:30)
[2023-05-19] MEDS ORDERED: KCL 20 MEQ ERTAB PO PRN (11:30)
[2023-05-19] MEDS ORDERED: POTASSIUM CHLORIDE 20MEQ/100ML 100 ML IV PRN ×2 (11:30)
[2023-05-19] MEDS: SOLU-MEDROL 40MG VIAL IVP SCH (21:54)
[2023-05-20] VITALS (16 sets, daily range): BP systolic 113–132; BP diastolic 54–71; PULSE 70–79; RESP 18–27; O2SAT 93–100
[2023-05-20] MEDS: AZITHROMYCIN 500MG+NS 250ML IVPB SCH ×2 (01:08→23:58)
[2023-05-20 03:43] LABS: BASOPHILS # (AUTO) 0.01 K/uL (0.00-0.20); BASOPHILS % (AUTO) 0.1 % (0.0-5.0); HEMATOCRIT 38.1 % (36-48); IMMATURE GRANULOCYTE ABSOLUTE 0.13 K/uL (0-1); LYMPHOCYTES # (AUTO) 0.8 K/uL (1.0-4.8); LYMPHOCYTES % (AUTO) 7.6 % (21.0-51.0); MEAN CORPUSCULAR HEMOGLOBIN 31.3 pg (27.0-33.0); MEAN CORPUSCULAR HGB CONC 32.8 g/dL (32.0-36.0); MEAN CORPUSCULAR VOLUME 95.3 fL (79-99); MONOCYTES # (AUTO) 0.6 K/uL (0.1-1.0); MONOCYTES % (AUTO) 5.8 % (3.0-13.0); NEUTROPHILS # (AUTO) 8.8 K/uL (1.8-7.7); NEUTROPHILS % (AUTO) 85.2 % (40.0-77.0); PLATELET COUNT (AUTO) 153 K/uL (130-400); RED CELL DISTRIBUTION WIDTH 13.2 % (11.0-15.5); WHITE BLOOD COUNT (AUTO) 10.4 K/uL (4.8-10.8)
[2023-05-20 04:10] LABS: CREATININE 0.5 mg/dL (0.5-1.5); MAGNESIUM 1.5 mg/dL (1.80-2.40); POTASSIUM 4.6 mmol/L (3.5-5.1)
[2023-05-20] MEDS: ZOSYN 3.375GM+NS 50ML 50 ML IVPB SCH ×3 (05:08→20:01)
[2023-05-20] MEDS: INSULIN HUMULIN R 100 UNIT/ML 3ML SQ SCH ×4 (06:17→20:18)
[2023-05-20] MEDS: ALBUTEROL 0.083% 2.5 MG/3 ML INH IH SCH ×4 (06:50→23:14)
[2023-05-20] MEDS: SOLU-MEDROL 40MG VIAL IVP SCH ×2 (08:44→20:00)
[2023-05-20] MEDS: FAMOTIDINE 20MG VIAL IV SCH (08:44)
[2023-05-20] MEDS: APIXABAN 5 MG TABLET PO SCH ×2 (08:48→20:01)
[2023-05-20] MEDS: BALSAM PERU/CASTOR OIL 60 GM TUBE TP SCH ×3 (08:48→20:12)
[2023-05-20] MEDS: MAGNESIUM 2GM PREMIX 50ML 50 ML IV PRN (10:39)
[2023-05-20] MEDS ORDERED: POTASSIUM CHLORIDE 10% ELIXIR 20 MEQ/15 ML UDCUP PO PRN (11:30)
[2023-05-20] MEDS ORDERED: MAGNESIUM 2GM PREMIX 50ML 50 ML IV PRN (11:30)
[2023-05-20] MEDS ORDERED: KCL 20 MEQ ERTAB PO PRN (11:30)
[2023-05-20] MEDS ORDERED: POTASSIUM CHLORIDE 20MEQ/100ML 100 ML IV PRN ×2 (11:30)
[2023-05-20 11:46] LABS: ABG OXYGEN SATURATION 81.9 % (95.0-99.0); BASE EXCESS,VENOUS BLOOD GAS 3.9 (-2.0-3.0); DEVICE COMMENT RN SERGIO; HCO3,VENOUS BLOOD GAS 32.9 (21.0-28.0); PCO2,VENOUS BLOOD GAS 70 (32-45); PH,VENOUS BLOOD GAS 7.291 (7.350-7.450); PO2,VENOUS BLOOD GAS 52.3 mmHg (35.0-45.0); VENT MODE, BG NC (ROOM AIR)
[2023-05-20] MEDS: FUROSEMIDE 40MG VIAL IV SCH (12:52)
[2023-05-20] MEDS: DOCUSATE NA 100MG/10ML UDCUP PO SCH (17:30)
[2023-05-20] MEDS ORDERED: POLYETHYLENE GLYCOL 3350 17 GM POWD.PACK PO ONE (17:30)
[2023-05-20] MEDS ORDERED: DOCUSATE SODIUM 100 MG CAP PO ONE (17:38)
[2023-05-20] MEDS ORDERED: POLYETHYLENE GLYCOL 3350 17 GM POWD.PACK ONE (17:38)
[2023-05-21] VITALS (16 sets, daily range): BP systolic 116–142; BP diastolic 61–80; PULSE 61–85; RESP 18–26; O2SAT 95–99
[2023-05-21 03:47] LABS: BASOPHILS # (AUTO) 0.01 K/uL (0.00-0.20); BASOPHILS % (AUTO) 0.1 % (0.0-5.0); HEMATOCRIT 39.4 % (36-48); IMMATURE GRANULOCYTE ABSOLUTE 0.08 K/uL (0-1); LYMPHOCYTES # (AUTO) 0.8 K/uL (1.0-4.8); LYMPHOCYTES % (AUTO) 7.2 % (21.0-51.0); MEAN CORPUSCULAR HEMOGLOBIN 30.7 pg (27.0-33.0); MEAN CORPUSCULAR VOLUME 96.1 fL (79-99); MONOCYTES # (AUTO) 0.7 K/uL (0.1-1.0); NEUTROPHILS # (AUTO) 9.4 K/uL (1.8-7.7); PLATELET COUNT (AUTO) 141 K/uL (130-400); RED CELL DISTRIBUTION WIDTH 13.1 % (11.0-15.5)
[2023-05-21 04:01] LABS: CREATININE 0.6 mg/dL (0.5-1.5); MAGNESIUM 1.9 mg/dL (1.80-2.40); PHOSPHORUS 3.2 mg/dL (2.5-4.9); POTASSIUM 4.5 mmol/L (3.5-5.1)
[2023-05-21] MEDS: ZOSYN 3.375GM+NS 50ML 50 ML IVPB SCH ×3 (04:52→21:34)
[2023-05-21] MEDS: INSULIN HUMULIN R 100 UNIT/ML 3ML SQ SCH ×4 (06:45→21:37)
[2023-05-21] MEDS: ALBUTEROL 0.083% 2.5 MG/3 ML INH IH SCH ×4 (07:33→23:50)
[2023-05-21] MEDS: APIXABAN 5 MG TABLET PO SCH ×2 (09:23→21:34)
[2023-05-21] MEDS: FUROSEMIDE 40MG VIAL IV SCH (09:24)
[2023-05-21] MEDS: SOLU-MEDROL 40MG VIAL IVP SCH (09:24)
[2023-05-21] MEDS: POLYETHYLENE GLYCOL 3350 17 GM POWD.PACK PO SCH (09:24)
[2023-05-21] MEDS: FAMOTIDINE 20MG VIAL IV SCH (09:24)
[2023-05-21] MEDS: BALSAM PERU/CASTOR OIL 60 GM TUBE TP SCH ×3 (09:25→21:45)
[2023-05-21] MEDS: MAGNESIUM 2GM PREMIX 50ML 50 ML IV PRN (09:25)
[2023-05-21] MEDS: DOCUSATE NA 100MG/10ML UDCUP PO SCH (17:04)
[2023-05-21] MEDS: LACTULOSE 20 GM/30 ML UDCUP PO SCH (21:34)
[2023-05-22] VITALS (13 sets, daily range): BP systolic 119–167; BP diastolic 52–86; PULSE 72–86; RESP 18–26; O2SAT 95–98
[2023-05-22] MEDS: AZITHROMYCIN 500MG+NS 250ML IVPB SCH (00:11)
[2023-05-22 03:58] LABS: BASOPHILS # (AUTO) 0.02 K/uL (0.00-0.20); BASOPHILS % (AUTO) 0.2 % (0.0-5.0); EOSINOPHILS # (AUTO) 0.03 K/uL (0.00-0.70); EOSINOPHILS % (AUTO) 0.2 % (0.0-8.0); HEMATOCRIT 39.4 % (36-48); IMMATURE GRANULOCYTE ABSOLUTE 0.12 K/uL (0-1); LYMPHOCYTES # (AUTO) 1.3 K/uL (1.0-4.8); LYMPHOCYTES % (AUTO) 10.1 % (21.0-51.0); MEAN CORPUSCULAR HEMOGLOBIN 30.9 pg (27.0-33.0); MEAN CORPUSCULAR HGB CONC 32.5 g/dL (32.0-36.0); MEAN CORPUSCULAR VOLUME 95.2 fL (79-99); MONOCYTES # (AUTO) 1.4 K/uL (0.1-1.0); MONOCYTES % (AUTO) 10.3 % (3.0-13.0); NEUTROPHILS # (AUTO) 10.4 K/uL (1.8-7.7); NEUTROPHILS % (AUTO) 78.3 % (40.0-77.0); PLATELET COUNT (AUTO) 133 K/uL (130-400); RED BLOOD CELL COUNT(AUTO) 4.14 MIL/uL (4.00-5.50); RED CELL DISTRIBUTION WIDTH 12.9 % (11.0-15.5); WHITE BLOOD COUNT (AUTO) 13.3 K/uL (4.8-10.8)
[2023-05-22 04:08] LABS: CREATININE 0.6 mg/dL (0.5-1.5); POTASSIUM 4.5 mmol/L (3.5-5.1)
[2023-05-22] MEDS: ZOSYN 3.375GM+NS 50ML 50 ML IVPB SCH ×3 (04:51→20:47)
[2023-05-22] MEDS: INSULIN HUMULIN R 100 UNIT/ML 3ML SQ SCH ×4 (06:35→20:49)
[2023-05-22] MEDS: ALBUTEROL 0.083% 2.5 MG/3 ML INH IH SCH ×4 (07:46→23:57)
[2023-05-22] MEDS: LACTULOSE 20 GM/30 ML UDCUP PO SCH ×3 (09:00→20:47)
[2023-05-22 09:07] LABS: ABG BASE EXCESS 13.7 mmol/L (-2.0-3.0); ABG HCO3 41.3 mmol/L (21.0-28.0); ABG OXYGEN SATURATION 96.6 % (95.0-99.0); ABG PCO2 64 mmHg (32-45); ABG PH 7.429 (7.35-7.450); PO2, ARTERIAL BG 87.4 mmHg (83.0-108.0)
[2023-05-22] MEDS: SOLU-MEDROL 40MG VIAL IVP SCH (11:26)
[2023-05-22] MEDS: POLYETHYLENE GLYCOL 3350 17 GM POWD.PACK PO SCH (11:27)
[2023-05-22] MEDS: APIXABAN 5 MG TABLET PO SCH ×2 (11:27→20:48)
[2023-05-22] MEDS: FAMOTIDINE 20MG VIAL IV SCH (11:27)
[2023-05-22] MEDS: FUROSEMIDE 40MG VIAL IV SCH (11:27)
[2023-05-22] MEDS: BALSAM PERU/CASTOR OIL 60 GM TUBE TP SCH ×3 (11:28→20:51)
[2023-05-22] MEDS: DOCUSATE NA 100MG/10ML UDCUP PO SCH (16:49)
[2023-05-23] VITALS (11 sets, daily range): BP systolic 115–141; BP diastolic 51–76; PULSE 64–79; RESP 18–24; O2SAT 96–97
[2023-05-23] MEDS: AZITHROMYCIN 500MG+NS 250ML IVPB SCH (00:01)
[2023-05-23 05:09] LABS: BASOPHILS # (AUTO) 0.02 K/uL (0.00-0.20); BASOPHILS % (AUTO) 0.2 % (0.0-5.0); EOSINOPHILS # (AUTO) 0.05 K/uL (0.00-0.70); EOSINOPHILS % (AUTO) 0.5 % (0.0-8.0); HEMATOCRIT 40.7 % (36-48); IMMATURE GRANULOCYTE ABSOLUTE 0.13 K/uL (0-1); LYMPHOCYTES # (AUTO) 1.2 K/uL (1.0-4.8); LYMPHOCYTES % (AUTO) 11.6 % (21.0-51.0); MEAN CORPUSCULAR HEMOGLOBIN 30.6 pg (27.0-33.0); MEAN CORPUSCULAR HGB CONC 32.7 g/dL (32.0-36.0); MEAN CORPUSCULAR VOLUME 93.8 fL (79-99); MONOCYTES # (AUTO) 1.1 K/uL (0.1-1.0); MONOCYTES % (AUTO) 9.9 % (3.0-13.0); NEUTROPHILS # (AUTO) 8.1 K/uL (1.8-7.7); NEUTROPHILS % (AUTO) 76.6 % (40.0-77.0); PLATELET COUNT (AUTO) 150 K/uL (130-400); RED BLOOD CELL COUNT(AUTO) 4.34 MIL/uL (4.00-5.50); RED CELL DISTRIBUTION WIDTH 12.7 % (11.0-15.5); WHITE BLOOD COUNT (AUTO) 10.6 K/uL (4.8-10.8)
[2023-05-23 05:22] LABS: ALBUMIN 2.5 g/dL (3.5-5.0); BILIRUBIN,TOTAL 0.9 mg/dL (0.2-1.0); CREATININE 0.5 mg/dL (0.5-1.5); MAGNESIUM 1.6 mg/dL (1.80-2.40); POTASSIUM 4.5 mmol/L (3.5-5.1); TOTAL PROTEIN, SERUM 5.5 g/dL (6.0-8.3)
[2023-05-23] MEDS: ZOSYN 3.375GM+NS 50ML 50 ML IVPB SCH ×2 (05:58→12:17)
[2023-05-23] MEDS: MAGNESIUM 2GM PREMIX 50ML 50 ML IV PRN (06:03)
[2023-05-23] MEDS: INSULIN HUMULIN R 100 UNIT/ML 3ML SQ SCH ×3 (06:08→16:08)
[2023-05-23] MEDS: ALBUTEROL 0.083% 2.5 MG/3 ML INH IH SCH ×2 (07:03→11:20)
[2023-05-23] MEDS ORDERED: MAGNESIUM 2GM PREMIX 50ML 50 ML IV SCH (08:00)
[2023-05-23] MEDS: FUROSEMIDE 40MG VIAL IV SCH (08:19)
[2023-05-23] MEDS: FAMOTIDINE 20MG VIAL IV SCH (08:19)
[2023-05-23] MEDS: POLYETHYLENE GLYCOL 3350 17 GM POWD.PACK PO SCH (08:19)
[2023-05-23] MEDS: LACTULOSE 20 GM/30 ML UDCUP PO SCH ×2 (08:20→14:00)
[2023-05-23] MEDS: APIXABAN 5 MG TABLET PO SCH (08:20)
[2023-05-23] MEDS: BALSAM PERU/CASTOR OIL 60 GM TUBE TP SCH ×2 (08:21→14:46)
[2023-05-23] MEDS: DOCUSATE NA 100MG/10ML UDCUP PO SCH (16:08)
== END 2023-05-23 16:41 | DRG 871 ==
LOC: EDH 21:59 → EDHIP 05-19 00:38 → 2AH 05-19 01:50
PROVIDERS: ADMIT Internal Medicine; ATTEND Internal Medicine
PROC: 5A09357 Assistance with Respiratory Ventilation, Less than 24 Consecutive Hours, Continuous Positive Airway Pressure (ICD-10-PCS; principal; 2023-05-19)
PROC: 5A09357 Assistance with Respiratory Ventilation, Less than 24 Consecutive Hours, Continuous Positive Airway Pressure (ICD-10-PCS; 2023-05-20)
PROC: 5A09357 Assistance with Respiratory Ventilation, Less than 24 Consecutive Hours, Continuous Positive Airway Pressure (ICD-10-PCS; 2023-05-21)
PROC: 5A09357 Assistance with Respiratory Ventilation, Less than 24 Consecutive Hours, Continuous Positive Airway Pressure (ICD-10-PCS; 2023-05-22)
PROC: 5A09357 Assistance with Respiratory Ventilation, Less than 24 Consecutive Hours, Continuous Positive Airway Pressure (ICD-10-PCS; 2023-05-23)
DX: A41.9 Sepsis, unspecified organism (principal); J18.9 Pneumonia, unspecified organism; J96.01 Acute respiratory failure with hypoxia; J96.02 Acute respiratory failure with hypercapnia; E87.29 Other acidosis; J44.0 Chronic obstructive pulmonary disease with (acute) lower respiratory infection; Z68.43 Body mass index [BMI] 50.0-59.9, adult; Z20.822 Contact with and (suspected) exposure to COVID-19; I10 Essential (primary) hypertension; E11.9 Type 2 diabetes mellitus without complications; E66.01 Morbid (severe) obesity due to excess calories; E78.00 Pure hypercholesterolemia, unspecified; L30.4 Erythema intertrigo; I48.91 Unspecified atrial fibrillation; G47.33 Obstructive sleep apnea (adult) (pediatric); I25.10 Atherosclerotic heart disease of native coronary artery without angina pectoris; Z51.5 Encounter for palliative care; Z79.01 Long term (current) use of anticoagulants; Z90.710 Acquired absence of both cervix and uterus; Z86.73 Personal history of transient ischemic attack (TIA), and cerebral infarction without residual deficits
CPT/HCPCS: 36415; 36600; 71045; 80048; 80053; 81003; 82803; 82948; 83036; 83605; 83735; 83880; 84100; 84145; 84484; 85025; 85378; 87040; 87070; 87076; 87635; 87804; 92522; 92610; 93005; 93306; 94640; 94660; 94664; 97039; A6250; C9803; G0378; J0456; J0696; J1815; J1940; J2543; J2920; J2930; J3475; J3490

== ENCOUNTER 2025-06-22 13:20 | Inpatient (IN) | payer MEDICARE ==
[~2025-06-22] VITALS: Ht 142.2 cm; Wt 127.0 kg
[2025-06-22] VITALS (27 sets, daily range): BP systolic 109–161; BP diastolic 46–83; PULSE 44–71; RESP 18–82; TEMP 96.7–97.6; O2SAT 96–98
--- NOTE | 2025-06-22 13:53 | NUR ---
SWABS STREP/COVID/FLU COLLECTED, LABELED AND SENT TO LAB
[2025-06-22 14:09] LABS: IMMATURE GRANULOCYTE ABSOLUTE 0.13 K/uL (0-1); NUCLEATED RED BLOOD CELLS 0.0 % (0.0-0.19); PLATELET COUNT (AUTO) 171 K/uL (130-400); RED BLOOD CELL COUNT(AUTO) 4.93 MIL/uL (4.00-5.50); RED CELL DISTRIBUTION WIDTH 11.9 % (11.0-15.5); WHITE BLOOD COUNT (AUTO) 9.9 K/uL (4.8-10.8)
[2025-06-22 14:20] LABS: CREATININE 0.4 mg/dL (0.5-1.0); GLOMERULAR FILTR. RATE CALC 103.0 mL/min (>90); GLUCOSE,RANDOM 183.0 mg/dL (70-105); SODIUM SERUM 114.0 mmol/L (136-145); UREA NITROGEN, BLOOD 13.0 mg/dL (7-18)
[2025-06-22 14:24] LABS: ABG BASE EXCESS 2.7 mmol/L (-2.0-3.0); ABG HCO3 28.8 mmol/L (21.0-28.0); ABG OXYGEN SATURATION 98.6 % (94.0-98.0); ABG PCO2 50 mmHg (32-45); ABG PH 7.379 (7.350-7.450); CARBON MONOXIDE 1.6 % (0.5-1.5); PO2, ARTERIAL BG 127.5 mmHg (83.0-108.0); TEMPERATURE, CELSIUS BG 37.0 CELSIUS (35.5-37.0); VENT MODE, BG NC (ROOM AIR)
[2025-06-22 14:34] LABS: RAPID GROUP A STREP negative (NEGATIVE)
--- NOTE | 2025-06-22 14:34 | EKG ---
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
[2025-06-22 14:41] LABS: SARS-CoV-2, RNA, NAAT NEGATIVE SARS CoV-2 (NEGATIVE)
--- NOTE | 2025-06-22 14:43 | HMCIMG ---
EXAM: CR Chest, 1 View. CLINICAL HISTORY: sob COMPARISON: May 22 2023 FINDINGS: LUNGS: There is no mass, infiltrate, or acute pulmonary abnormality. PLEURAL SPACES: No evidence of pleural effusion or pneumothorax. MEDIASTINUM: There is cardiomegaly BONES: No aggressive appearing osseous lesion seen. IMPRESSION: No acute cardiopulmonary pathology is evident. /[place]
[2025-06-22 14:44] LABS: INFLUENZA TYPE A Negative For Type A (NEGATIVE)
[2025-06-22 14:51] LABS: INFLUENZA TYPE B Positive For Type B (NEGATIVE)
[2025-06-22] MEDS: 0.9% NACL 500ML IV.SOLN 500 ML IV ONE (14:59)
--- NOTE | 2025-06-22 15:02 | ERN ---
General Chief Complaint: Mechanical Fall Stated Complaint: FALL WITH WEAKNESS AND LEFT KNEE PAIN Time Seen by MD: 13:25 Source: patient History of Present Illness Initial Comments Patient is a 74-year-old female coming in to be evaluated for shortness of breath and generalized body weakness. Per patient these symptoms began earlier today. Patient states he has a history of COPD and asthma. EMS states that patient was saturating in the low 90s. Allergies: Coded Allergies: No Known Drug Allergies (Verified Allergy, 12/27/12) Home Meds Active Scripts Hydralazine HCl (Apresoline) 25 Mg Tab, 50 MG PO TID for 30 Days, TAB Prov:GAL ALVAREZ [facility] 05/05/18 Amlodipine Besylate/Benazepril (Lotrel 10-20 mg Capsule) 1 Each Capsule, 1 EACH PO DAILY, #30 CAP Prov:GAL ALVAREZ [facility] 05/05/18 Reported Medications Glimepiride (Glimepiride) 4 Mg Tablet, 4 MG PO BIDAC, TAB 05/04/18 Clonidine HCl (Clonidine HCl) 0.2 Mg Tablet, 0.2 MG PO [id number] PRN for IF SBP GREATER THAN 150, TAB 05/04/18 [place]-3 Fatty Acids/Fish Oil ([place] 3 1,000 mg Softgel) 1 Each Capsule, 1 EACH PO DAILY, CAP 09/08/17 Docusate Sodium (Stool Softener) 100 Mg Capsule, 100 MG PO BID, CAP 09/08/17 Cholecalciferol (Vitamin D3) (D3-2000) 2,000 Unit Capsule, 2000 UNIT PO DAILY, CAP 09/08/17 Vitamin E Acetate (Vitamin E) 400 Unit Capsule, 400 UNIT PO DAILY, CAP 09/08/17 Metoprolol Tartrate (Metoprolol Tartrate) 100 Mg Tablet, 100 MG PO BID, TAB 09/08/17 Metformin HCl (Metformin HCl) 500 Mg Tablet, 1000 MG PO BID, TAB 09/08/17 Past Medical History Past Medical History: A-Fib, Diabetes-Type II, High Cholesterol, Hypertension Past Surgical History: Hysterectomy, Other Surgical History Other: BILATERAL OVARIAN CYSTS, L FEMUR FX W/APPLIANCE 13 YRS AGO ROS Dictation CONSTITUTIONAL: No chills, no fever, no weakness, no diaphoresis, no malaise. HEAD/FACE: No signs of trauma. EENT: No eye pain, no blurred vision, no tearing, no double vision, no ear pain, no ear discharge, no nose pain, no nasal congestion, no throat pain, no throat swelling, no mouth pain. RESPIRATORY: No cough, no orthopnea, SOB, no stridor, no wheezing. CARDIOVASCULAR: No chest pain, no edema, no palpitations, no syncope. GASTROINTESTINAL/ABDOMINAL: No abdominal pain, no constipation, no diarrhea, no nausea, no vomiting. GENITOURINARY: No abnormal discharge, no dysuria, no frequent urination, no hematuria. No complaints of pain in the genitals. MUSCULOSKELETAL: No back pain, no gout, no joint pain, no joint swelling, no muscle pain, no muscle stiffness, no neck pain. INTEGUMENTARY: No change in color, no change in hair/nails, no dryness, no lesion, no lumps, no rash. NEUROLOGICAL/PSYCH: No anxiety, not depressed, no emotional problem, no h eadache, no numbness, no pre-existing deficit, no history of seizures, no tremors, no weakness. HEMATOLOGIC/LYMPHATIC: Not anemic, no history of blood clots, no apparent bleeding, no bruising, glands not swollen. All Systems Negative, Except as Noted. Physical Exam Physical Exam Dictation VITAL SIGNS: Reviewed. GENERAL APPEARANCE: Alert, oriented x3, no acute distress, obese. HEAD AND FACE: Non-traumatic. EYES: PERRL, pink conjunctivas, eyelid no trauma, anterior chamber clear. EARS: Pinnas intact and no signs of trauma or erythema. Ear canals clear and no discharge. TMs no erythema. NOSE: No discharge, no bleeding. OROPHARYNX: Mouth normal, teeth no caries, tongue pink. Pharynx clear, no erythema. Tonsils no exudates, no abscesses noted. Mucous membrane moist. NECK: Supple, non-tender, no thyromegaly, no masses, no JVD, no bruits. BREAST: Deferred. CHEST: No tenderness, no crepitus, no paradoxical movement, no retractions. LUNGS: Clear, well-ventilated, symmetric, no rales, no wheezing, no rhonchi, no stridor, good breath sounds bilaterally. HEART: Regular rate, regular rhythm, no murmur, no gallops. VASCULAR: No peripheral edema. ABDOMEN: Soft, positive bowel sounds, nondistended, no guarding, nontender, no rebound, no masses no hepatomegaly, no splenomegaly, no Manley's sign, no hernias. RECTAL: Deferred. GENITAL: Deferred. NEUROLOGICAL: Normal speech, gross motor function intact, gross sensory function intact. MUSCULOSKELETAL: Neck nontender, full range of motion, back nontender, full range of motion. EXTREMITIES: Nontender, full range of motion. SKIN: Color pink, dry, no turgor, no rash, no lacerations, no abrasions, no contusions. LYMPHATICS: Deferred. Results Laboratory and Microbiology Lab and Micro Result Laboratory Tests Test 06/22/25 13:48 06/22/25 13:50 06/22/25 14:19 06/22/25 14:22 White Blood Count 9.9 K/uL (4.8-10.8) Red Blood Count 4.93 MIL/uL (4.00-5.50) Hemoglobin 15.3 g/dL (12.0-16.0) Hematocrit 40.6 % (36-48) Mean Corpuscular Volume 82.4 fL (79-99) Mean Corpuscular Hemoglobin 31.0 pg (27.0-33.0) Mean Corpuscular Hemoglobin Concent 37.7 g/dL (32.0-36.0) H Red Cell Distribution Width 11.9 % (11.0-15.5) Platelet Count 171 K/uL (130-400) Mean Platelet Volume 10.8 fL (7.5-10.5) H Immature Granulocyte % (Auto) 1.3 % (0-1) H Neutrophils (%) (Auto) 82.5 % (40.0-77.0) H Lymphocytes (%) (Auto) 8.8 % (21.0-51.0) L Monocytes (%) (Auto) 7.0 % (3.0-13.0) Eosinophils (%) (Auto) 0.1 % (0.0-8.0) Basophils (%) (Auto) 0.3 % (0.0-5.0) Neutrophils # (Auto) 8.2 K/uL (1.8-7.7) H Lymphocytes # (Auto) 0.9 K/uL (1.0-4.8) L Monocytes # (Auto) 0.7 K/uL (0.1-1.0) Eosinophils # (Auto) 0.01 K/uL (0.00-0.70) Basophils # (Auto) 0.03 K/uL (0.00-0.20) Absolute Immature Granulocyte (auto 0.13 K/uL (0-1) Nucleated Red Blood Cells 0.0 % (0.0-0.19) Sodium Level 114 mmol/L (136-145) L Potassium Level 4.2 mmol/L (3.5-5.1) Chloride Level 76 mmol/L (101-111) *L Carbon Dioxide Level 31 mmol/L (21-32) Blood Urea Nitrogen 13 mg/dL (7-18) Creatinine 0.4 mg/dL (0.5-1.0) L Glomerular Filtration Rate Calc 103 mL/min (>90) Random Glucose 183 mg/dL (70-105) H Total Calcium 8.5 mg/dL (8.5-10.1) Magnesium Level 1.30 mg/dL (1.80-2.40) L Troponin I High Sensitivity 11 ng/L (4-50) B-Type Natriuretic Peptide 146 pg/mL (0-100) H Influenza Type A Antigen Negative For Type A Influenza Type B Antigen Positive For Type B SARS-CoV-2, RNA, NAAT NEGATIVE SARS CoV-2 Group A Streptococcus Rapid negative (NEGATIVE) Blood Gas Specimen Type Arterial Arterial Arterial Blood pH 7.362 (7.350-7.450) 7.379 (7.350-7.450) Arterial Blood Partial Pressure CO2 54 mmHg (32-45) H 50 mmHg (32-45) H Arterial Blood HCO3 29.8 mmol/L (21.0-28.0) H 28.8 mmol/L (21.0-28.0) H Arterial Blood Oxygen Saturation 98.4 % (94.0-98.0) H 98.6 % (94.0-98.0) H Arterial Blood Base Excess 3.0 mmol/L (-2.0-3.0) 2.7 mmol/L (-2.0-3.0) Hemoglobin (Blood Gas) 15.8 g/dL (12.0-16.0) 15.7 g/dL (12.0-16.0) Sodium (Blood Gas) 111 MMOL/L (136-145) L 111 MMOL/L (136-145) L Bedside Potassium (Blood Gas) 4.1 MMOL/L (3.4-4.5) 4.0 MMOL/L (3.4-4.5) Bedside Chloride (Blood Gas) 77 MMOL/L (98-107) *L 77 MMOL/L (98-107) *L Bedside Glucose (Blood Gas) 180 MG/DL (65-95) H 175 MG/DL (65-95) H Bedside Ionized Calcium (Blood Gas) 1.09 MMOL/L (1.15-1.33) L 1.06 MMOL/L (1.15-1.33) L Bedside Lactic Acid (Blood Gas) 1.41 MMOL/L (0.36-0.75) H 1.40 MMOL/L (0.36-0.75) H Blood Gas Temperature 37.0 CELSIUS (35.5-37.0) 37.0 CELSIUS (35.5-37.0) Blood Gas Flow-by 3.00 L/min (0.00-15.00) 3.00 L/min (0.00-15.00) Blood Gas Vent Mode NC (ROOM AIR) NC (ROOM AIR) FiO2 32.0 % 32.0 % Blood Gas Specimen Comment RR DR WEEMS RR DR WEEMS Arterial Blood Partial Pressure O2 127.5 mmHg (83.0-108.0) H Labs Reviewed?: Yes EKG/XRAY/US/CT/MRI EKG Comment 10/23/2024 time 2:18 p.m. Ventricular rate [address] wave elevation or depression X-RAY Comment IMAGING REPORT Signed PATIENT: YUMIKO CARLOS MR#: [id number] : 1950 SEX: F AGE: 74 LOCATION: [facility] ORDER 36 STATUS: REG ER REPORT#: [id number] SERVICE 34 REASON: sob ORDERING PHYSICIAN: SATISH WEEMS MD PROCEDURE: CXR1VW - CHEST 1VW EXAM: CR Chest, 1 View. CLINICAL HISTORY: sob COMPARISON: May 22 2023 FINDINGS: LUNGS: There is no mass, infiltrate, or acute pulmonary abnormality. PLEURAL SPACES: No evidence of pleural effusion or pneumothorax. MEDIASTINUM: There is cardiomegaly BONES: No aggressive appearing osseous lesion seen. IMPRESSION: No acute cardiopulmonary pathology is evident. /[place] DICTATED BY: SWATHI AHM MD DATE: 06/22/251541 ELECTRONICALLY SIGNED BY: SWATHI HAM MD DATE: 06/22/251541 MDM MDM: Differential diagnosis: Shortness of breath, hyponatremia, hypochloremia, influenza, Rationale: Tests considered and ordered secondary to shared decision making inc lude: labs, ECG and radiology Previous outside records reviewed: Old ER visits. Risk of complication and/or morbidity or mortality of patient management: None Medications-Per medication reconciliation Need for hospitalization: Patient does meet criteria for hospitalization. Need for emergency major/minor surgery: No There are no social concerns with this patient. Prescription drug management Prescriptions will include symptomatic care Patient's prior external medical records from other ER visits were reviewed by me as indicated. Prior testing and results from previous visits were reviewed. Prior tests were taken into account with medical decision making and resource utilization, independent historian/historians were used to obtain complete medical history. I independently interpreted the test that were performed, results were reviewed by me and considered findings on radiology if ordered. Medical management and examination interpretation discussions were had by me with other qualified healthcare professionals as indicated for the patient's care. Patient will be admitted under the care of hospitalist group. ED Course Orders Procedure Category Date Status Time Cbc With Differential LAB 06/22/25 In Process 13:35 Chest 1vw RAD 06/22/25 Resulted 13:35 12 Lead Ekg Tracing- EKG 06/22/25 Complete Technical 13:35 Magnesium LAB 06/22/25 Complete 13:35 Troponin I High LAB 06/22/25 Complete Sensitivity 13:35 Urinalysis Profile LAB 06/22/25 Logged 13:35 Basic Metabolic Panel LAB 06/22/25 Complete 13:35 Arterial Blood Gas + RT 06/22/25 Transmitted 13:35 Covid Rna Naat LAB 06/22/25 Complete 13:35 Influenza Type A & B, LAB 06/22/25 Complete Rapid 13:35 Rapid (Group A Strep) LAB 06/22/25 Complete 13:35 B-Type Natriuretic LAB 06/22/25 In Process Peptide 13:35 Arterial Blood Gas LAB 06/22/25 In Process Arterial + 14:19 Arterial Blood Gas LAB 06/22/25 Complete Arterial + 14:22 0.9% Nacl 500ml PHA 06/22/25 In Process Iv.Soln (Ns 500ml 15:00 Ipratropium/Albuterol PHA 06/22/25 Logged Neb (Duoneb) 15:30 Current Medications Medications (Trade) Dose Ordered Sig/Conchis Route PRN Reason Start Time Stop Time Status Last Admin Dose Admin Albuterol (DUOneb) 2 udvial ONCE ONCE IH 06/22/25 15:30 06/22/25 15:31 UNV Sodium Chloride 500 ml @ 125 mls/hr Q4H ONCE IV 06/22/25 15:00 06/22/25 18:59 06/22/25 14:59 Vital Signs Date Time Temp Pulse Resp B/P (MAP) Pulse Ox O2 Delivery O2 Flow Rate FiO2 06/22/25 14:41 97.7 65 22 197/91 99 Room Air* 0 21 06/22/25 13:24 98.2 72 24 187/78 99 Nasal Cannula 3.0 DX & DISP Disposition: Inpatient Decision to Admit Time: 15:05 Departure Impression: Primary Impression: Respiratory distress Additional Impressions: Influenza, Hyponatremia, Hypochloremia Condition: Stable Referrals: CARIDAD OLSEN (PCP) SATISH WEEMS MD Jun 22, 2025 15:02
[2025-06-22] MEDS ORDERED: PoTASSium chl 10% ELIXIR 20MEQ 20 MEQ/15 ML UDCUP PO PRN (15:30)
[2025-06-22] MEDS ORDERED: PoTASSium chloRIDE 20MEQ ER 20 MEQ ERTAB PO PRN (15:30)
[2025-06-22 16:02] LABS: INR 1.47 (0.85-1.15)
[2025-06-22] MEDS: 0.9%NACL 1000ML 1,000 ML IV SCH (16:03)
[2025-06-22] MEDS: OSELTAMIVIR PHOSPHATE 75 MG CAP PO ONE (16:04)
[2025-06-22] MEDS: MAGNESIUM 2GM PREMIX 50ML 50 ML IV SCH (16:04)
[2025-06-22 16:23] LABS: ASPARTATE AMINOTRANSFERASE 28.0 U/L (10-37); LACTATE DEHYDROGENASE 257.0 U/L (81-234); TOTAL PROTEIN, SERUM 6.9 g/dL (6.0-8.3)
[2025-06-22] MEDS ORDERED: CARV25TA PO (16:33)
[2025-06-22] MEDS ORDERED: APIX5TAB PO (16:33)
[2025-06-22] MEDS ORDERED: HYDR25TA PO (16:33)
[2025-06-22] MEDS ORDERED: ATOR10 PO (16:33)
[2025-06-22] MEDS ORDERED: [UNRECOGNIZED DRUG - CODE] PO (16:33)
[2025-06-22] MEDS ORDERED: LOSA100T59 PO (16:33)
--- NOTE | 2025-06-22 16:47 | HP ---
[facility] PHYS[facility] Date of Service: Jun 22, 2025 Time of Service: 16:32 HISTORY OF PRESENT ILLNESS: Date of service: 06/22/2025, patient was seen in ER room 18 This is a 74-year-old female with underlying history of severe morbid obesity, suspected ohs/LINDA with chronic hypercapnic respiratory failure, history of atrial fibrillation maintained on chronic anticoagulation with Eliquis, hyperlip idemia presented to the ER secondary to fall, dizziness, poor oral intake with nausea. Patient states that as she was ambulating to the restroom, she lost balance and fell and landed on her back. Denies hitting her head. She has been maintained on chronic anticoagulation with Eliquis as outpatient. She is followed by Cardiology as outpatient due to prior history of atrial fibri llation. She is mostly sedentary at home and has been having issues with weight for long time. She reports that she has been slowly gaining weight over the last several years. She is having pain involving the left knee since the fall. She does report having history of sleep apnea but does not use CPAP machine at home. She reports drinking about 2L of water daily to maintain hydration. Has been having some cough, congestion and mild wheezing. Denies any previous history of COPD or asthma. She has been having some mild nausea but denies any headache or significant weakness of bilateral upper or lower extremity. She does have history of hypertension and is maintained on antihypertensives with losartan 100 mg daily, [id number] mg b.i.d., HCTZ 25 mg daily. She reports taking all her antihypertensives this morning prior to coming to the ER. On presentation to the hospital, patient was noted to have T-max of 98.2 F, heart rate of 72, blood pressure of 187/78. Labs on presentation showed WBC count of 9900, hemoglobin 15.3, platelet count of [id number]. BMP remarkable for sodium of 114, potassium 4.2, chloride of 76, creatinine of 0.4, magnesium 1.3, BNP of 146. Chest x-ray showed no acute infiltrates. Patient will be admitted to ICU for management of severe hyponatremia, hypertensive urgency, active influenza infection, and we will monitor this patient closely due to underlying obesity and underlying comorbidities. Including untreated OHS/LINDA All antihypertensives will be resumed. Condition remains critical. REVIEW OF SYSTEMS: CONSTITUTIONAL: generalized malaise, weight gain, obesity NEUROLOGICAL: Denies headache, amaurosis fugax, motor weakness, sensory deficit, vertigo/spinning sensation, gait abnormalities, or tremors. ENT: No hearing loss, otalgia, otorrhea, rhinitis, rhinorrhea, hoarseness, or sore throat. CARDIOVASCULAR: denies any chest pain, denies palpitations PULMONARY: cough, congestion , rhinorrhea SLEEP: Denies morning headaches, daytime somnolence or napping. Denies difficulty falling asleep, staying asleep, waking from sleep. Denies knowledge of snoring. GASTROINTESTINAL: Denies any type of dysphagia to either liquids or solids. Denies nausea, vomiting, pyrosis, early satiety, abdominal pain, diarrhea, constipation, or changes in stool consistency or caliber. Denies coffee-ground emesis, hematemesis, hematochezia, or melanotic stools. GENITOURINARY: Denies frequency, urgency, nocturia, hematuria or incontinence (Storage/Irritative symptoms.) Low urinary stream, straining to void, urinary intermittency or hesitancy, splitting of the voiding stream, terminal dribbling. ENDOCRINOLOGIC: Denies polyuria, polydipsia, polyphagia or heat/cold intolera nces. HEMATOLOGIC: Denies thrombophilia/previous clots, or coagulopathy/bleeding disorders. ONCOLOGIC: Denies personal history of malignancy. DERMATOLOGIC: Denies rashes or pruritus. PSYCHIATRIC: Denies any suicidal or homicidal ideation. Denies hallucinations. ADDITIONAL PAST MEDICAL HISTORY: [Diabetes mellitus type 2, severe morbid obesity, hypertension, A-fib on chronic anticoagulation with Eliquis 5 mg twice daily, untreated LINDA/OHS] SOCIAL HISTORY: [Negative for smoking, alcohol use, drug use. Patient requires assistance with IADLs. 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 neurological exam is non focal, patient has pain to left knee, strength exam is limited due to pain HEENT: Face is symmetric. Pupils are equal and reactive. Extraocular movements are intact. NECK: Supple. No JVD. No thyromegaly. No submental, submandibular, pre- /postauricular, occipital or supraclavicular lymphadenopathy. CHEST: Normal chest expansion. No Telemetry. LUNGS: minimal crackles noted of the bilateral lung bases CARDIOVASCULAR: Regular. S1 and S2 normal. No appreciable rubs, murmurs or gallops. ABDOMEN: Soft, nontender, and nondistended. There is no rebound, voluntary guarding, or rigidity. : Deferred. No Sharpe. EXTREMITIES: trace edema noted of the bilateral lower extremities SKIN: No skin breakdown. Vital Sign (Last 24 Hours) 06/22/25 06/22/25 06/22/25 14:41 16:04 16:05 Temp 97.7 Pulse 61 Resp 18 B/P (MAP) 193/83 Pulse Ox 99 O2 Delivery N/Cannula Low lpm O2 Flow Rate 2.0 FiO2 28 LABS: Laboratory: Test 06/22/25 14:22 06/22/25 13:58 06/22/25 13:50 06/22/25 13:48 Range/Units Blood Gas Specimen Type Arterial Arterial Blood pH 7.379 7.350-7.450 Arterial Blood Partial Pressure CO2 50 H 32-45 mmHg Arterial Blood Partial Pressure O2 127.5 H 83.0-108.0 mmHg Arterial Blood HCO3 28.8 H 21.0-28.0 mmol/L Arterial Blood Oxygen Saturation 98.6 H 94.0-98.0 % Arterial Blood Base Excess 2.7 -2.0-3.0 mmol/L Hemoglobin (Blood Gas) 15.7 12.0-16.0 g/dL Sodium (Blood Gas) 111 L 136-145 MMOL/L Bedside Potassium (Blood Gas) 4.0 3.4-4.5 MMOL/L Bedside Chloride (Blood Gas) 77 *L 98-107 MMOL/L Bedside Glucose (Blood Gas) 175 H 65-95 MG/DL Bedside Ionized Calcium (Blood Gas) 1.06 L 1.15-1.33 MMOL/L Bedside Lactic Acid (Blood Gas) 1.40 H 0.36-0.75 MMOL/L Blood Gas Temperature 37.0 35.5-37.0 CELSIUS Blood Gas Flow-by 3.00 0.00-15.00 L/min Blood Gas Vent Mode NC ROOM AIR FiO2 32.0 % Blood Gas Specimen Comment RR DR WEEMS Prothrombin Time 15.0 H 9.6-11.6 SEC Prothromb Time International Ratio 1.47 H 0.85-1.15 Activated Partial Thromboplast Time 33.6 26.3-35.5 SEC Influenza Type A Antigen Negative For Type A NEGATIVE Influenza Type B Antigen Positive For Type B *A NEGATIVE SARS-CoV-2, RNA, NAAT NEGATIVE SARS CoV-2 NEGATIVE Group A Streptococcus Rapid negative NEGATIVE White Blood Count 9.9 4.8-10.8 K/uL Red Blood Count 4.93 4.00-5.50 MIL/uL Hemoglobin 15.3 12.0-16.0 g/dL Hematocrit 40.6 36-48 % Mean Corpuscular Volume 82.4 79-99 fL Mean Corpuscular Hemoglobin 31.0 27.0-33.0 pg Mean Corpuscular Hemoglobin Concent 37.7 H 32.0-36.0 g/dL Red Cell Distribution Width 11.9 11.0-15.5 % Platelet Count 171 130-400 K/uL Mean Platelet Volume 10.8 H 7.5-10.5 fL Immature Granulocyte % (Auto) 1.3 H 0-1 % Neutrophils (%) (Auto) 82.5 H 40.0-77.0 % Lymphocytes (%) (Auto) 8.8 L 21.0-51.0 % Monocytes (%) (Auto) 7.0 3.0-13.0 % Eosinophils (%) (Auto) 0.1 0.0-8.0 % Basophils (%) (Auto) 0.3 0.0-5.0 % Neutrophils # (Auto) 8.2 H 1.8-7.7 K/uL Lymphocytes # (Auto) 0.9 L 1.0-4.8 K/uL Monocytes # (Auto) 0.7 0.1-1.0 K/uL Eosinophils # (Auto) 0.01 0.00-0.70 K/uL Basophils # (Auto) 0.03 0.00-0.20 K/uL Absolute Immature Granulocyte (auto 0.13 0-1 K/uL Nucleated Red Blood Cells 0.0 0.0-0.19 % White Cell Morphology Comment See comments Red Blood Cell Morphology See comments Erythrocyte Sedimentation Rate 15 0-30 MM/HR Sodium Level 114 L 136-145 mmol/L Potassium Level 4.2 3.5-5.1 mmol/L Chloride Level 76 *L 101-111 mmol/L Carbon Dioxide Level 31 21-32 mmol/L Blood Urea Nitrogen 13 7-18 mg/dL Creatinine 0.4 L 0.5-1.0 mg/dL Glomerular Filtration Rate Calc 103 >90 mL/min Random Glucose 183 H 70-105 mg/dL Hemoglobin A1c 6.1 H 4.0-6.0 % Estimated Average Glucose (eAG) 128 H 70-126 mg/dL Total Calcium 8.5 8.5-10.1 mg/dL Magnesium Level 1.30 L 1.80-2.40 mg/dL Total Bilirubin 1.4 H 0.2-1.0 mg/dL Direct Bilirubin 0.5 H 0.0-0.3 mg/dL Aspartate Amino Transf (AST/SGOT) 28 10-37 U/L Alanine Aminotransferase (ALT/SGPT) 27 12-78 U/L Alkaline Phosphatase 84 50-136 U/L Lactate Dehydrogenase 257 H 81-234 U/L Troponin I High Sensitivity 11 4-50 ng/L C-Reactive Protein, Quantitative 3.40 H 0.5-3.0 mg/L B-Type Natriuretic Peptide 146 H 0-100 pg/mL Total Protein 6.9 6.0-8.3 g/dL Albumin 3.3 L 3.5-5.0 g/dL Thyroid Stimulating Hormone (TSH) 1.91 0.36-3.74 uIU/mL Current Medications Medications (Trade) Dose Ordered Sig/Conchis Route PRN Reason Start Time Stop Time Status Last Admin Dose Admin Acetaminophen (TYLenol 325MG TAB) 650 mg Q6H PRN PO MILD PAIN (1-3) 06/22/25 15:30 07/22/25 15:29 Budesonide (Pulmicort 0.5 Mg/2ml) 0.5 mg BIDRESP IH 06/22/25 18:00 07/22/25 17:59 Carvedilol (Coreg 25MG) 25 mg BID PO 06/22/25 21:00 07/22/25 20:59 Ceftriaxone Sodium (ROCEphine 1G INJ) 1 gm Q12H IVPB 06/22/25 15:30 07/02/25 15:29 06/22/25 16:04 1 GM Doxycycline Hyclate (Doxycycline Hyclate) 100 mg BID PO 06/22/25 21:00 07/02/25 20:59 Hydralazine HCl (APRESOLine 20MG INJ) 10 mg Q6H PRN IV ADMINISTER FOR SBP > 170 06/22/25 15:30 07/22/25 15:29 06/22/25 16:05 10 MG Insulin Human Regular (humuLIN R 100 UNIT/ML 3ML) INSULIN SLIDING SCAL... ACHS SQ 06/22/25 16:30 07/22/25 16:29 Ipratropium [place] (AtrovENT UD) 0.5 mg [id number] IH 06/22/25 18:00 07/22/25 17:59 Losartan Potassium (CozAAR 100MG TAB) 100 mg DAILY PO 06/23/25 09:00 07/23/25 08:59 Magnesium Sulfate 50 ml @ 0 mls/hr PROTOCOL IV 06/22/25 15:30 07/22/25 15:29 06/22/25 16:04 25 MLS/HR Ondansetron HCl (zoFRAN 4MG INJ) 4 mg Q6H PRN IVP NAUSEA/VOMITING 06/22/25 15:30 07/22/25 15:29 Oseltamivir Phosphate (Tamiflu) 75 mg BID PO 06/22/25 21:00 06/27/25 20:59 Potassium Chloride 100 ml @ 100 mls/hr AD PRN IV POTASSIUM PROTOCOL 06/22/25 15:30 07/22/25 15:29 Potassium Chloride (K-Dur/Klor-Con 20meq) 20 meq AD PRN PO POTASSIUM PROTOCOL 06/22/25 15:30 07/22/25 15:29 Potassium Chloride (KCl 10% Elixir 20meq/15ml) 20 meq AD PRN PO POTASSIUM PROTOCOL 06/22/25 15:30 07/22/25 15:29 Sodium Chloride 1,000 ml @ 75 mls/hr [id number] IV 06/22/25 15:30 07/22/25 15:29 06/22/25 16:03 75 MLS/HR Thiamine HCl (Vitamin B-1) 100 mg DAILY IVP 06/23/25 09:00 07/23/25 08:59 DIAGNOSTICS / RADIOLOGY: SERVICE 1335 REASON: sob ORDERING PHYSICIAN: SATISH WEEMS MD PROCEDURE: CXR1VW - CHEST 1VW EXAM: CR Chest, 1 View. CLINICAL HISTORY: sob COMPARISON: May 22 2023 FINDINGS: LUNGS: There is no mass, infiltrate, or acute pulmonary abnormality. PLEURAL SPACES: No evidence of pleural effusion or pneumothorax. MEDIASTINUM: There is cardiomegaly BONES: No aggressive appearing osseous lesion seen. IMPRESSION: No acute cardiopulmonary pathology is evident. /[place] DICTATED BY: SWATHI HAM MD DATE: 06/22/251541 ELECTRONICALLY SIGNED BY: SWATHI HAM MD DATE: 06/22/251541 ASSESSMENT: Severe hyponatremia, POA Hypertensive urgency, POA History of HCTZ use as outpatient, POA Active influenza bronchitis, POA Super morbid obesity (BMI 62), POA Underlying history of atrial fibrillation, POA History of chronic anticoagulation with Eliquis, POA Hypomagnesemia, POA Debility, POA Chronic hypercapnic respiratory failure, POA Untreated ohs/LINDA, POA History of hypertension, POA Hyperlipidemia, POA Type 2 diabetes mellitus, POA PLAN: Patient is presenting with severe hyponatremia, fall, hypertensive urgency with active influenza infection Patient will be admitted to ICU We will start patient on gentle IV hydration with NS at 75 mL/hour, HCTZ will be discontinued altogether, we will keep patient on fluid restrictions of 1.5 L daily We will check BMP q.6 hours, in case of any worsening neurologic deterioration, we will consider hypertonic saline,but for now, patient is alert and oriented and mentating well, we will keep patient on gentle IV hydration and avoid any hypotonic fluids We will aim for correction of sodium of 6-8 mEq per24 hours We will start patient on thiamine supplementation Consultation with Nephrology and fashion merchandiser will be requested We will keep patient on IV hydralazine 10 mg q.6 hours p.r.n. for SBP greater than 170, all antihypertensives including losartan 100 mg daily and carvedilol will be resumed, if blood pressure remains uncontrolled tonight, we will consider starting nicardipine drip, we will have ICU service follow up with blo od pressure control We will obtain a 2D echocardiogram We will start patient on [id number] mg twice daily, we will keep patient on IV Rocephin/doxycycline to reduce the risk of superimposed bacterial pneumonia, patient remains high-risk due to severe obesity and chronic hypercapnic respiratory failure with metabolic compensation Patient does report having fall at home, she has been maintained on anticoagulation with Eliquis, we will follow up CT head without contrast, we will obtain a CT chest as well We will request consultation with Physical therapy in the morning We will obtain radiographs including x-rays of the knee and pelvis to rule out any fractures post fall We will check TSH, cortisol, A1c level, patient will benefit from endocrinologic evaluation, we will rule out Dillard's disease, patient will benefit from outpatient follow up for weight loss medication as well We will avoid any narcotics/sedatives to reduce risk of any worsening acute on chronic hypercapnia Patient will benefit from BiPAP/CPAP therapy at bedtime All labs will be repeated in the morning Condition remains critical, critical care minutes: 45 minutes Date of service: 06/22/2025 Plan of care was discussed with patient and at bedside, Rai Coker MD Advanced Care Planning: Which of the following were discussed: Hospice care: Yes __ No _X_ Therapeutic options: Yes _X_ No __ Advance directives: Yes _X_ No __ Other discussions: Discussed with who?: Patient Voluntary nature of this service was explained to the patient? Yes _x_ No __ Amount of time spent: 20 minutes RAI COKER MD Jun 22, 2025 16:47
--- NOTE | 2025-06-22 17:59 | HMCIMG ---
EXAM: CT Head Without IV contrast. CLINICAL HISTORY: fall, on eliquis, hyponatremia TECHNIQUE: Axial computed tomography images of the head/brain without intravenous contrast. COMPARISON: None provided. FINDINGS: BRAIN: No evidence of acute hemorrhage. No mass lesion. No CT evidence for acute territorial infarct. No midline shift or extra-axial collections. VENTRICLES: No hydrocephalus. ORBITS: The orbits are unremarkable. SINUSES AND MASTOIDS: The paranasal sinuses and mastoid air cells are clear. BONES: No fracture. SOFT TISSUES: Unremarkable. IMPRESSION: No acute intracranial abnormality. /[place]
[2025-06-22] MEDS: BUDESONIDE 0.5 MG/2 ML INH IH SCH (18:46)
--- NOTE | 2025-06-22 18:52 | HMCIMG ---
EXAM: CR Pelvis, 1 View. CLINICAL HISTORY: s/p fall, r/o any fractures COMPARISON: None provided. FINDINGS: BONES: Generalized osteopenia No definitive acute fracture JOINTS: Degenerative changes SOFT TISSUES: The soft tissues are unremarkable. IMPRESSION: 1. Degenerative changes 2. Generalized osteopenia 3. No definitive acute fracture /[place]
--- NOTE | 2025-06-22 19:06 | CONS ---
[facility] CONSULTATION NOTE Date Patient Seen: Jun 22, 2025 Time of Visit: 19:06 Supervising Physician: Dr. Lucius Dunne Reason for Consultation: Severe hyponatremia Consulting Physician: Hospitalist Outpatient Specialists: [ ] Inpatient Consults: [ ] PROBLEM LIST: Acute hypoxic respiratory failure, likely from viral infection POA Positive for influenza, POA Ground level fall, POA Hyponatremia, initial sodium level of 114, currently on NS at 75 cc/ hour, POA Obesity hypoventilation syndrome, does not use CPAP at home, POA Paroxysmal atrial fibrillation, rate controlled, currently on Eliquis Hyperlipidemia, POA Hypertension urgency, POA PLAN: Admit per primary Continue slow sodium correction, 6-8 mEq in 24 hours BNP q.6 Continue NS at 75 cc an hour Continue O2 to keep O2 saturation above 90% May use CPAP at night DuoNeb q.6 Aspiration precaution Isolation precaution Continue Tamiflu Pulmonary toilet Early mobilization Keep SBP less than 160 P.r.n. hydralazine and labetalol Treat fever aggressively Monitor temperature curve CBC, CMP, magnesium level daily HPI: 74-year-old female with past medical history of paroxysmal atrial fibrillation, on chronic anticoagulation, morbidly obese, hyperlipidemia, LINDA/obesity hypoventilation syndrome who presented to ED via EMS with complaint of fall, with associated shortness of breaths and generalized body weakness and found to have hypertensive urgency, severe hyponatremia, and acute respiratory failure. Patient was seen and examined in ED with no relatives present at bedside. At present patient is currently on nasal cannula with appropriate oxygen saturation, according to her she has been having generalized body weakness, and shortness of breaths for the past several days had multiple abscess of falling at home. Initial evaluation in ED patient was noted to have T-max of 98.2 F, heart rate of 72, blood pressure of 187/78. BMP is remarkable for sodium of 114, potassium 4.2, chloride of 76, creatinine of 0.4, magnesium 1.3, BNP of 146. Chest x-ray showed no acute infiltrates on consolidation, CT of the head unrevealing for any acute injury. Patient was also found to be positive with flu virus. Patient is currently on Tamiflu. ICU consulted for critical care evaluation and hyponatremia management. At present patient is currently hemodynamically stable, GCS 15, able to answer q uestions appropriately, still with scattered wheezing on auscultation, and mild respiratory distress. In ED patient was given1 L of NS then subsequently decreased to 75 cc/hour. PAST MEDICAL HX: see above PAST SURGICAL HX: noncontributory SOCIAL HISTORY: No tobacco, ETOH, or illicit drug use Coded Allergies: No Known Drug Allergies (Verified Allergy, 12/27/12) REVIEW OF SYSTEMS: 12 point ROS reviewed with patient. Pertinent positives mentioned above. Otherwise negative. PHYSICAL EXAM: GENERAL: alert, weak, awake oriented x 3 HEENT: EOMI, Sclera non icteric, moist mucosa NECK: Supple, no JVD, trachea midline LUNGS: Coarse bilateral lung sounds on auscultation HEART: Regular rate and rhythm. Normal S1 and S2, without murmurs ABD: Large body habitus EXT: No clubbing cyanosis or edema NEURO: Alert and oriented to person, follows commands Vital Signs (last 8hr) Date Time Temp Pulse Resp B/P (MAP) Pulse Ox O2 Delivery O2 Flow Rate FiO2 06/22/25 18:49 61 22 N/Cannula Low lpm 3.0 32 06/22/25 18:48 61 22 06/22/25 18:25 97.5 67 25 167/81 97 Nasal Cannula* 3 32 06/22/25 16:05 61 193/83 06/22/25 16:04 18 N/Cannula Low lpm 2.0 28 06/22/25 15:40 71 18 06/22/25 14:41 97.7 65 22 197/91 99 Room Air* 0 21 06/22/25 13:24 98.2 72 24 187/78 99 Nasal Cannula 3.0 LABS: Hematology Labs: Test 06/22/25 13:48 Range/Units White Blood Count 9.9 4.8-10.8 K/uL Red Blood Count 4.93 4.00-5.50 MIL/uL Hemoglobin 15.3 12.0-16.0 g/dL Hematocrit 40.6 36-48 % Mean Corpuscular Volume 82.4 79-99 fL Mean Corpuscular Hemoglobin 31.0 27.0-33.0 pg Mean Corpuscular Hemoglobin Concent 37.7 H 32.0-36.0 g/dL Red Cell Distribution Width 11.9 11.0-15.5 % Platelet Count 171 130-400 K/uL Mean Platelet Volume 10.8 H 7.5-10.5 fL Immature Granulocyte % (Auto) 1.3 H 0-1 % Neutrophils (%) (Auto) 82.5 H 40.0-77.0 % Lymphocytes (%) (Auto) 8.8 L 21.0-51.0 % Monocytes (%) (Auto) 7.0 3.0-13.0 % Eosinophils (%) (Auto) 0.1 0.0-8.0 % Basophils (%) (Auto) 0.3 0.0-5.0 % Neutrophils # (Auto) 8.2 H 1.8-7.7 K/uL Lymphocytes # (Auto) 0.9 L 1.0-4.8 K/uL Monocytes # (Auto) 0.7 0.1-1.0 K/uL Eosinophils # (Auto) 0.01 0.00-0.70 K/uL Basophils # (Auto) 0.03 0.00-0.20 K/uL Absolute Immature Granulocyte (auto 0.13 0-1 K/uL Nucleated Red Blood Cells 0.0 0.0-0.19 % White Cell Morphology Comment See comments Red Blood Cell Morphology See comments Erythrocyte Sedimentation Rate 15 0-30 MM/HR Chemistry Labs: Test 06/22/25 18:06 06/22/25 13:48 Range/Units Whole Blood Glucose 167 H 70-110 MG/DL Sodium Level 114 L 136-145 mmol/L Potassium Level 4.2 3.5-5.1 mmol/L Chloride Level 76 *L 101-111 mmol/L Carbon Dioxide Level 31 21-32 mmol/L Blood Urea Nitrogen 13 7-18 mg/dL Creatinine 0.4 L 0.5-1.0 mg/dL Glomerular Filtration Rate Calc 103 >90 mL/min Random Glucose 183 H 70-105 mg/dL Hemoglobin A1c 6.1 H 4.0-6.0 % Estimated Average Glucose (eAG) 128 H 70-126 mg/dL Total Calcium 8.5 8.5-10.1 mg/dL Magnesium Level 1.30 L 1.80-2.40 mg/dL Total Bilirubin 1.4 H 0.2-1.0 mg/dL Direct Bilirubin 0.5 H 0.0-0.3 mg/dL Aspartate Amino Transf (AST/SGOT) 28 10-37 U/L Alanine Aminotransferase (ALT/SGPT) 27 12-78 U/L Alkaline Phosphatase 84 50-136 U/L Lactate Dehydrogenase 257 H 81-234 U/L Troponin I High Sensitivity 11 4-50 ng/L C-Reactive Protein, Quantitative 3.40 H 0.5-3.0 mg/L B-Type Natriuretic Peptide 146 H 0-100 pg/mL Total Protein 6.9 6.0-8.3 g/dL Albumin 3.3 L 3.5-5.0 g/dL Procalcitonin < 0.05 L 0.05-0.5 ng/mL Thyroid Stimulating Hormone (TSH) 1.91 0.36-3.74 uIU/mL Coagulation Labs: Test 06/22/25 13:58 Range/Units Prothrombin Time 15.0 H 9.6-11.6 SEC Prothromb Time International Ratio 1.47 H 0.85-1.15 Activated Partial Thromboplast Time 33.6 26.3-35.5 SEC DIAGNOSTICS / RADIOLOGY RESULTS: EXAM: CT Head Without IV contrast. CLINICAL HISTORY: fall, on eliquis, hyponatremia TECHNIQUE: Axial computed tomography images of the head/brain without intravenous contrast. COMPARISON: None provided. FINDINGS: BRAIN: No evidence of acute hemorrhage. No mass lesion. No CT evidence for acute territorial infarct. No midline shift or extra-axial collections. VENTRICLES: No hydrocephalus. ORBITS: The orbits are unremarkable. SINUSES AND MASTOIDS: The paranasal sinuses and mastoid air cells are clear. BONES: No fracture. SOFT TISSUES: Unremarkable. IMPRESSION: No acute intracranial abnormality. EXAM: CR Chest, 1 View. CLINICAL HISTORY: sob COMPARISON: May 22 2023 FINDINGS: LUNGS: There is no mass, infiltrate, or acute pulmonary abnormality. PLEURAL SPACES: No evidence of pleural effusion or pneumothorax. MEDIASTINUM: There is cardiomegaly BONES: No aggressive appearing osseous lesion seen. IMPRESSION: No acute cardiopulmonary pathology is evident. PLAN NEURO: Minimize central acting medications as possible. Fall Precautions. Well lighted room through the day and minimize interruptions through the night to prevent acute delirium. PULMONARY: Supplemental 02 as needed Titrate Fio2 to keep Spo2 > or = 90% DuoNebs and CPT as needed IS hourly while awake for pulmonary hygiene Out of bed to chair as tolerated CARDIOVASCULAR: Follow hemodynamics. Titrate vasopressor to keep MAP >65 or systolic blood pressure >95mmHg DIPS: Normal saline at 75 cc an hour LINES: PIV GI & NUTRITION: Continue nutritional support Aspirations precautions Prokinetic agents and laxatives as needed KIDNEYS & ELECTROLYTES: Strict monitoring of intake and output Daily weights Avoid nephrotoxic agents Monitor electrolytes and replace as needed Goal urine output of 30mL/hr or 0.5mL/kg/hr ENDOCRINE: Maintain blood glucose between 100-180 at all times. Insulin sliding scale for blood glucose management INFECTIOUS DISEASE: Trend temperature. Leigh-culture if febrile. Micro: [ ] Antibiotics: [ ] HEMATOLOGY & COAGULATION: Monitor H&H. Keep Hgb > 7 Transfuse 1 unit of PRBC for Hgb < 7 Transfuse 1 pack of platelets of platelets < 20, 000 Watch for any signs and symptoms of bleeding SKIN: Pressure ulcer prevention per facility protocol Rehab: PT/OT Prophylaxis: GI: PPI DVT: Bilateral SCDs Code Status: Full Resuscitation Disposition: ICU Other: Total patient care time exceeds 35 minutes excluding all procedures. Supervising physician: WILFREDO Bee AGACNP Jun 22, 2025 19:06
--- NOTE | 2025-06-22 19:09 | HMCIMG ---
EXAM: XR Both Knees, AP and Lateral (2) Views. CLINICAL HISTORY: Status post fall; clinical query for fracture or hardware-related complication. Known history of prior distal femur fixation. COMPARISON: No immediate prior imaging available for comparison. FINDINGS: BONES: No new acute fracture or focal osseous lesion identified in either knee. Left Knee (Post-operative Site): Internal plate fixation noted along the distal femur, consistent with prior fracture fixation. Cortical remodeling and signs of bony union seen at the prior fracture site ??? no evidence of non-union or millie-hardware lucency. One or more screw fixators appear broken at the proximal/superior end of the fixation plate, suggesting hardware fatigue or prior mechanical stress. No acute periprosthetic fracture or hardware migration seen. Right Knee: No prior fixation hardware or periarticular collection. JOINTS: No dislocation identified in either knee. Severe degenerative osteoarthritic changes seen in both knees, more pronounced in the medial tibiofemoral compartments. Marked reduction of tibiofemoral and patellofemoral joint spaces, with large periarticular osteophyte formation and subchondral sclerosis, consistent with advanced osteoarthritis. SOFT TISSUES: Mild diffuse periarticular soft tissue thickening noted, likely chronic degenerative or post-traumatic in nature. No significant joint effusion or soft tissue gas. IMPRESSION: 1. No acute fracture or dislocation in either knee. 2. Status post left distal femur fixation with plate and screws, with bony union. Broken screw(s) at the proximal aspect of the fixation plate without acute periprosthetic fracture or hardware migration. 3. Severe tricompartmental osteoarthritic changes in both knees, more pronounced in the medial tibiofemoral compartments. /[place]
[2025-06-22 19:13] LABS: CREATININE 0.4 mg/dL (0.5-1.0); GLOMERULAR FILTR. RATE CALC 103.0 mL/min (>90); GLUCOSE,RANDOM 161.0 mg/dL (70-105); SODIUM SERUM 114.0 mmol/L (136-145); UREA NITROGEN, BLOOD 13.0 mg/dL (7-18)
--- NOTE | 2025-06-22 19:49 | NUR ---
PATIENT REPORT GIVEN TO SIMON TODD
--- NOTE | 2025-06-22 20:07 | HMCIMG ---
EXAM: COMPUTED TOMOGRAPHY OF THE CHEST WITHOUT INTRAVENOUS CONTRAST Technique: Computed tomography of the chest was performed without intravenous contrast from the thoracic inlet through the upper abdomen with axial acquisition and coronal and sagittal reformations. Dose optimization included automated exposure control, patient size???based tube current and tube voltage modulation, and iterative reconstruction. Cardiac and vascular assessment is limited without contrast. Clinical Information: Influenza positive; morbid obesity; evaluation for pneumonia versus edema. Comparison: No prior chest computed tomography available. Findings: The chest wall and imaged lower neck soft tissues show no focal mass or acute abnormality. The trachea and main bronchi are patent without endoluminal lesion. There is no focal lobar consolidation identified. There are no suspicious pulmonary nodules identified. There are minimal bilateral pleural effusions. There is dependent basilar atelectasis adjacent to the effusions. There is no pneumothorax detected. The cardiac silhouette is mildly enlarged. There is no pericardial effusion identified. There are mild calcifications of the thoracic aorta. There are mild calcifications of the coronary arteries. There is calcification along the mitral annulus. There is no mediastinal or hilar lymphadenopathy by size criteria. The visualized upper abdomen shows no acute abnormality. The visualized osseous structures show mild degenerative changes of the thoracic spine without acute fracture. Impression: * Minimal bilateral pleural effusions with adjacent dependent basilar atelectasis; no focal lobar consolidation to suggest bacterial pneumonia on this noncontrast computed tomography. * Mild cardiomegaly. Interlobular septal prominence. Pulmonary venous congestion likely * Atherosclerotic calcifications of the thoracic aorta and coronary arteries, and mitral annular calcification. /[place]
--- NOTE | 2025-06-22 20:36 | HMCIMG ---
EXAM: US Duplex BILATERAL Lower Extremity Veins. CLINICAL HISTORY: Swelling after a fall with clinical concern for deep venous thrombosis of the lower extremities. TECHNIQUE: Grayscale imaging with compression maneuvers, color Doppler, and pulsed-wave spectral Doppler was performed where anatomically feasible from the common femoral veins through the femoral, popliteal, and calf veins bilaterally. Respiratory phasicity and augmentation responses were assessed when obtainable. Evaluation of the left common femoral and left popliteal veins is limited by body habitus. COMPARISON: None provided. FINDINGS: DEEP VEINS: The right common femoral vein is fully compressible without intraluminal echogenic thrombus. The right femoral vein is fully compressible with normal color Doppler filling and normal spectral Doppler phasicity. The right popliteal vein is fully compressible without thrombus. The right posterior tibial veins are compressible without thrombus. The left femoral vein is fully compressible with normal color Doppler filling and normal spectral Doppler phasicity. The left posterior tibial veins are compressible without thrombus. The left common femoral vein is not adequately visualized because of body habitus, and compressibility could not be assessed; thrombus at this nonvisualized level cannot be excluded. The left popliteal vein is not adequately visualized because of body habitus, and compressibility could not be assessed; thrombus at this nonvisualized level cannot be excluded. No abnormal focal fluid collection is identified along the imaged course of the veins. SUPERFICIAL VEINS: Superficial veins were not evaluated. SOFT TISSUES: No popliteal fossa cyst or other abnormalities. IMPRESSION: 1. No sonographic evidence of deep venous thrombosis in the visualized segments of the right lower extremity and in the visualized segments of the left femoral and left posterior tibial veins. 2. Technical limitation: the left common femoral vein and the left popliteal vein are not adequately visualized because of body habitus; thrombus at these nonvisualized levels cannot be excluded. /[place]
[2025-06-22] MEDS: DOXYCYCLINE HYCLATE 100 MG TABLET PO SCH (21:18)
[2025-06-22] MEDS: OSELTAMIVIR PHOSPHATE 75 MG CAP PO SCH (21:19)
--- NOTE | 2025-06-22 21:33 | HMCIMG ---
EXAM: CT Abdomen and Pelvis without Intravenous Contrast CLINICAL HISTORY: Persistent nausea for one week, hyponatremia, abdominal bloating, and morbid obesity. TECHNIQUE: Axial helical CT scan of the abdomen and pelvis was performed without intravenous contrast. Multiplanar reformatted images were obtained in coronal and sagittal planes. Radiation dose optimization techniques utilized (CTDIvol: 26.9 mGy; DLP: 1698.6 mGy???cm). CONTRAST: Without COMPARISON: No prior CT available for comparison. FINDINGS: LUNG BASES: Visualized bilateral lung bases show mild pleural-based thickening and subpleural scarring, likely representing chronic post-inflammatory or fibrotic change. No active consolidation or pleural effusion. Cardiomegaly with calcific atherosclerosis involving coronary arteries, notably along the LAD and RCA courses. LIVER: Liver normal in size and contour with homogeneous attenuation; no focal hepatic lesions or biliary dilatation. GALLBLADDER AND BILE DUCTS: Gallbladder contains a large calcified calculus (3.5 x 2.5 cm) with normal wall thickness and no pericholecystic fluid or surrounding inflammatory change. Common bile duct of normal caliber. PANCREAS: Pancreas appears normal with preserved morphology and attenuation. No focal lesion or peripancreatic fat stranding. SPLEEN: Spleen appears normal with preserved morphology and attenuation. ADRENAL GLANDS: Adrenal glands appear normal with preserved morphology and attenuation. KIDNEYS, URETERS, AND BLADDER: Right mid-pole cortical scarring with coarse calcification consistent with prior inflammatory or ischemic insult. Mild bilateral perinephric fat stranding, nonspecific???may reflect chronic venous congestion or low-grade inflammation. No hydronephrosis, renal calculus, or hydroureter. Urinary bladder well distended, normal wall thickness, no intraluminal calculi. STOMACH AND BOWEL: Stomach and small bowel loops are mildly distended but nondilated; normal wall thickness. Colonic diverticulosis involving sigmoid and descending colon without pericolic stranding???uncomplicated diverticulosis. APPENDIX: Appendix visualized, normal in caliber with no periappendiceal inflammation???no CT evidence of appendicitis. PERITONEUM: Minimal localized internal fluid collection noted in the lower abdomen, measuring small in volume and without gas locules???nonspecific, could represent mild sterile or resolving inflammatory collection. Calcified intraperitoneal lymph node (2.3 x 1.6 cm) in right anterior lower abdomen???likely chronic, healed granulomatous origin. No ascites or pneumoperitoneum. LYMPH NODES: Calcified intraperitoneal lymph node (2.3 x 1.6 cm) in right anterior lower abdomen???likely chronic, healed granulomatous origin. No other significant lymphadenopathy. REPRODUCTIVE: Uterus surgically absent. Adnexal regions and pelvic soft tissues appear unremarkable. VASCULATURE: No aortic aneurysm. ABDOMINAL WALL AND SOFT TISSUES: Anterior abdominal wall oedema, most prominent in the lumbar region extending into bilateral iliac fossae. BONES: Age-appropriate thoracolumbar spondylosis with anterior osteophytes and facet arthropathy. No acute fracture or lytic/sclerotic lesions. IMPRESSION: 1. No acute intraabdominal or pelvic findings. 2. Mild gastric and small bowel distension without obstruction. 3. Minimal localized internal fluid collection in the lower abdomen, nonspecific. 4. Large gallbladder calculus (3.5 ??? 2.5 cm) without acute cholecystitis. 5. Right mid-pole renal cortical scarring with coarse calcification. 6. Uncomplicated colonic diverticulosis. 7. Age-appropriate thoracolumbar spondylosis with anterior osteophytes and facet arthropathy. 8. Several stable chronic and incidental findings are noted, as detailed in the body of the report, including mild pleural/subpleural scarring at the lung bases, cardiomegaly with coronary artery atherosclerosis, mild bilateral perinephric fat stranding, calcified intraperitoneal lymph node likely granulomatous in origin, anterior abdominal wall edema, and postsurgical absence of the uterus. /[place]
[2025-06-22 23:49] LABS: ABG BASE EXCESS 2.1 mmol/L (-2.0-3.0); ABG HCO3 29.6 mmol/L (21.0-28.0); ABG OXYGEN SATURATION 97.8 % (94.0-98.0); ABG PCO2 58 mmHg (32-45); ABG PH 7.324 (7.350-7.450); CARBON MONOXIDE 1.5 % (0.5-1.5); DEVICE COMMENT CRYSTAL RN, RB; PO2, ARTERIAL BG 106.0 mmHg (83.0-108.0); TEMPERATURE, CELSIUS BG 37.0 CELSIUS (35.5-37.0); VENT MODE, BG A.M (ROOM AIR)
[2025-06-23] VITALS (57 sets, daily range): BP systolic 93–156; BP diastolic 42–91; PULSE 38–79; RESP 8–41; TEMP 96.8–98.1; O2SAT 97–98
[2025-06-23 01:19] LABS: CREATININE 0.4 mg/dL (0.5-1.0); GLOMERULAR FILTR. RATE CALC 103.0 mL/min (>90); GLUCOSE,RANDOM 107.0 mg/dL (70-105); SODIUM SERUM 116.0 mmol/L (136-145); UREA NITROGEN, BLOOD 14.0 mg/dL (7-18)
--- NOTE | 2025-06-23 02:06 | EKG ---
[facility] Test Date: 2025-06-23 Test Time: 00:52:54 Pat Name: YUMIKO CARLOS Department: [facility] Room: 210 1 Gender: F Fiction And Nonfiction Author: Morteza SIMMONS RN : 1950 Requested By: WILFREDO BENZ Order Number: [id number] Reading MD: Hoa Dodge Measurements Intervals [place] Rate: 50 P: 0 WV: 0 QRS: 73 QRSD: 70 T: 43 QT: 468 QTc: 426 Interpretive Statements Atrial fibrillation with slow ventricular response Nonspecific ST and T wave abnormality Compared to ECG 06/22/2025 14:18:02 ST (T wave) deviation now present Electronically Signed On 06-24-2025 10:24:15 CDT by Hoa Dodge Please click the below link to view image of tracing.
--- NOTE | 2025-06-23 03:58 | CONS ---
NEPHROLOGY CONSULTATION REASON FOR CONSULTATION: The patient has hyponatremia htn and multiple other comorbidities. HISTORY OF PRESENT ILLNESS: This 74-year-old lady who came to the emergency room, critically ill, morbidly obese, suspected sleep apnea, history of atrial fibrillation. The patient had a fall. The patient also has very low sodium of 114 and the patient has a low magnesium. Severe hypertension has been detected. The patient is detected of influenza and being admitted with these problems to the ICU. PAST MEDICAL HISTORY: As above, significant for diabetes, obesity, hypertension, atrial fibrillation, and possibly obstructive sleep apnea. PAST SURGICAL HISTORY: Hysterectomy. SOCIAL HISTORY: No reported smoking or alcohol or drug abuse reported. ALLERGIES: None. MEDICATIONS: None. FAMILY HISTORY: Unremarkable. REVIEW OF SYSTEMS: CONSTITUTIONAL: Has been weak. No fever, chills, or rigors. HEENT: No headache,With no headache or sore throat or difficulty swallowing. No new vision complaints. RESPIRATORY: No hemoptysis or shortness of breath. Cough and congestion present. GASTROINTESTINAL: Negative for nausea, vomiting or diarrhea. : Negative for hematuria. DERMATOLOGIC: No rashes, pruritus or skin lesion. ENDOCRINE: No polyuria, polydipsia or polyphagia. PSYCHIATRIC: Negative for anxiety, depression or hallucinations. NEUROLOGIC: No seizures or syncope. PHYSICAL EXAMINATION: GENERAL: Pale, in no other distress or deformities. Lying in bed. VITAL SIGNS: Blood pressure is 193/83, pulse 61. Respiratory rate is 18 and afebrile. HEENT: Head is atraumatic, normocephalic. Pupils are round, reactive to light. Sclerae anicteric. Conjunctivae not pale. Oral mucosa is not dry. NECK: Without masses or bruits. Thyroid is palpable. Neck has no bruits. CHEST: Shows equal thoracic percussion note being resonant in all areas. CARDIAC: Regular rhythm. No rubs. No S3 or S4. No parasternal heave. ABDOMEN: No guarding or tenderness. Bowel sounds are normoactive. No free fluid. EXTREMITIES: Extremities with no edema and no cyanosis or clubbing. BACK: No back tenderness or back deformities. LYMPHATIC: Lymphatic with no lymph node swelling. NEUROLOGIC: Awake, alert, nonfocal ____. LABORATORY DATA: We have reviewed available labs and hemoglobin is up to 15.3, hematocrit is 40.6. The patient has low sodium of 114, BUN of 13, creatinine 0.4. TSH is normal. Magnesium has been low. A1c was 6.1. IMAGING STUDIES: We have reviewed the imaging studies personally. Abdominal and pelvic CT has been ordered. X-rays, head CT was reviewed with no acute findings. Old records have been reviewed. External records reviewed. PROBLEMS: Include: * Severe hyponatremia. * The patient has underlying diabetes. * Underlying hypertension, was on hydrochlorothiazide at home. * Underlying obesity. * Underlying anemia. * Underlying type 2 diabetes. * Atrial fibrillation, on anticoagulation. * The patient has influenza now positive, B positive. PLAN: * The patient is critically ill being admitted to ICU. * Hydrochlorothiazide should be stopped. * Free water should be restricted. * Monitor blood pressure. * Alternating antihypertensives to use. * Serum osmolarity. * Uric acid. * TSH. * Urine electrolytes * Urine osmolality. * Serial monitoring of electrolytes very closely. * If neurological symptoms, hypotonic saline can be considered. For rate of correction, try not to exceed 6 to 8 mEq in a day. I will suggest to follow up on electrolyte, renal function and blood pressure overall status. We have discussed with Dr. Coker personally. We have reviewed the old record, external records. We have ordered the followup labs for continued monitoring on all these issues. Condition is critical and guarded. I will avoid drugs which can potentiate hyponatremia. Thank you for this patient. TID: [id number] RECEIPT: [id number] [facility] SYSTEM[facility]
[2025-06-23 08:16] LABS: ASPARTATE AMINOTRANSFERASE 35.0 U/L (10-37); CREATININE 0.3 mg/dL (0.5-1.0); GLOMERULAR FILTR. RATE CALC 110.0 mL/min (>90); GLUCOSE,RANDOM 95.0 mg/dL (70-105); PHOSPHORUS 3.2 mg/dL (2.5-4.9); SODIUM SERUM 115.0 mmol/L (136-145); TOTAL PROTEIN, SERUM 5.9 g/dL (6.0-8.3); UREA NITROGEN, BLOOD 14.0 mg/dL (7-18)
[2025-06-23] MEDS: [UNRECOGNIZED DRUG - OTHER] PO SCH (09:00)
[2025-06-23] MEDS: INULIN PO SCH (09:00)
[2025-06-23] MEDS: FISH OIL 1000 MG/CAP PO SCH (09:05)
[2025-06-23] MEDS: THIAMINE HCL 100 MG/ML 2ML VIAL IVP SCH (09:06)
--- NOTE | 2025-06-23 09:35 | NUR ---
consult was called in to Dr. Rodriguez's office .Spoke to [place].
[2025-06-23 09:40] LABS: APPEARANCE,URINE CLOUDY (CLEAR); GLUCOSE, URINE (UA) NEGATIVE (NEGATIVE); LEUKOCYTE ESTERASE ,URINE 250 Leu/uL (NEGATIVE); NITRATE,URINE NEGATIVE (NEGATIVE); OCCULT BLOOD,URINE LARGE (NEGATIVE)
--- NOTE | 2025-06-23 09:47 | NUR ---
DCP: [facility] lives a home with her Nigel Montes[id number]. 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 Pt reports she requires assist with her ADLS, transportation, home management, meal prep, shopping and her does it. Pt has no provider, HH or HD services. Pt has a walker, w/c, and shower chair. PCP is Han Garcia and uses [facility] for rx needs. Pt feels she would benefit from SNF for PT, has been to [facility] in past and wants to go there again. Consent signed and on chart. Luba WOOD made aware, Addendum: 06/23/25 at 0953 by WESLY GILL Amended: Links added.
[2025-06-23 09:48] LABS: CREATININE,URINE RANDOM 141.83 mg/dL (30-135)
[2025-06-23 09:51] LABS: ADD UA MICROSCOPIC YES
[2025-06-23 10:03] LABS: NON-SQUAMOUS EPITHELIAL CELL 2 /HPF (0-2); OTHER CASTS, URINE 4 /LPF (None Seen); SQUAMOUS EPITHELIAL CELL,UR RARE /HPF (0-2)
--- NOTE | 2025-06-23 11:00 | NUR ---
TOBIAS Thompson of Dr. Suero came and saw the patient. He okayed to start the patient on heparin or whatever anticoagulation will be ordered. TOBIAS Yo was notified . Addendum: 06/23/25 at 1248 by CHRISTIANA DAVIES RN RN above note charted on the wrong patient.
--- NOTE | 2025-06-23 11:29 | NUR ---
Spoke to Dr. Wood and got clarification for the heparin. ordered to start him on the heparin drip, TOBIAS Yo was notified. Addendum: 06/23/25 at 1248 by CHRISTIANA DAVIES RN RN Above note for another patient.-charted wrong.patient.
[2025-06-23] MEDS ORDERED: HYDROcodone/APAP 5/325 1 TAB TABLET PO PRN (11:30)
--- NOTE | 2025-06-23 12:41 | NUR ---
Dr. Bell was made aware that coreg was not given this morning due to HR in the low 50's though not sustained.MD ordered to put it on hold for now.
--- NOTE | 2025-06-23 13:09 | HMCSR ---
APPROVED REPORT EXAM: Two-dimensional and M-mode echocardiogram with Doppler and color Doppler. Study Details: Hx: A-Fib INDICATION ICD: Rule out cardiomyopathy 2D Dimensions RVDd4.3 cmLVEF(%)77.4 (>50%)LVED Vol(simp.)40.0 mL IVSd1.2 (0.7-1.1cm)FS(%)45 %LVES Vol(simp.)15.0 mL LVDd3.6 (3.8-5.6cm)LA (2D)4.5 (1.6-4.0cm)LVEF(%, simp.)62 % PWd1.3 (0.7-1.1cm)Ao Root(2D)2.6 (2.0-3.7cm)LA ESV INDEX (4CH)32.22 mL/m2 IVSs1.4 cmLVOT diam1.5 (1.8-2.4cm) LVDs2.0 (2.5-4.0cm) PWs1.7 cm M-Mode Dimensions EPSS0.4 cm LA (MM)4.0 (1.6-4.0cm) Ao Root(MM)2.4 (2.0-3.7cm) Aortic Valve AoV Vmax1.4 m/Cee Peak GR7.3 mmHgLVOT Vmax1.0 m/s AoV VTI0.3 mAo Mean GR3.7 mmHgLVOT VTI0.21 m [place] (VMAX)1.30 cm2AVA (VTI) 1.4 cm2 Mitral Valve MV E Zexq166.1 cm/sDECEL Fdkl383 ms MV A Vmax43.6 cm/sP 1/2 T44 ms E/A ratio3.1MVA (PHT)5.0 cm2 TDI E/E' Jsweqh07.1E/E' Jqyxjra03.6 Medial E' Peak V4.78 cm/sLateral E' Peak V3.57 cm/s Pulmonary Valve PV Vmax0.8 m/sPV VTI0.16 mPV Mean GR1.1 mmHg PV Peak GR2.5 mmHgPI End Gladis. Alexandr 64.3 cm/s Tricuspid Valve TR Vmax2.8 m/sRAP (EST) 3 idLdLTHV52.8 mmHg TR Peak GR33.8 mmHg Left Ventricle Left ventricular cavity size is normal. There is normal LV segmental wall motion. There is mild left ventricular wall thickness. The LVEF is > 65%. Stage III diastolic dysfunction. Right Ventricle The right ventricle is normal size. The right ventricular systolic function is normal. Atria The left atrium is mildly dilated. The right atrium is mildly dilated by visual assessment. Aortic Valve The aortic valve is normal in structure. No aortic regurgitation is present. There is no aortic valvu lar stenosis. Mitral Valve The mitral valve is normal in structure and function. There is trace mitral valve regurgitation noted . There is no mitral valve stenosis. Tricuspid Valve The tricuspid valve is normal in structure. There is trace of tricuspid valve regurgitation noted. Pulmonic Valve Pulmonic valve is not well visualized. There is trace of pulmonic valvular regurgitation. Great Vessels The aortic root is normal in size. The IVC is normal in size and collapses >50% with inspiration. Pericardium There is no pericardial effusion. Other Information Quality : Technically difficult study due to body habitus Conclusion Left ventricular cavity size is normal. The LVEF is > 65% with normal LV segmental wall motion. There is mild left ventricular wall thickness. Stage III diastolic dysfunction. The right ventricular systolic function is normal. The left atrium is mildly dilated. No hemodynamically signifcant valvular abnormalities. There is no pericardial effusion.
[2025-06-23] MEDS: SODIUM CHLORIDE 1,000 MG TAB PO SCH (14:39)
--- NOTE | 2025-06-23 14:45 | NUR ---
[facility] Consult: Patient assessed by wound healing team. Patient with moisture associated skin breakdown to labia. Assessment and recommendations provided to primary nurse. Education provided. Addendum: 06/24/25 at 1527 by PARISH QUINONES RN RN/ Amended: Links added.
--- NOTE | 2025-06-23 14:48 | PN ---
NEPHROLOGY PROGRESS NOTE Date/Time Patient Seen: Jun 23, 2025 SUBJECTIVE: This is a 74-year-old female with underlying history of severe morbid obesity, suspected ohs/LINDA with chronic hypercapnic respiratory failure, history of atrial fibrillation maintained on chronic anticoagulation with damari Baugh She presented to the ER secondary to fall, dizziness, poor oral intake with nausea. The patient had a fall. The patient also has very low sodium of 114 and the patient has a low magnesium. Severe hypertension has been detected. The patient is detected of influenza and being admitted with these problems to the ICU. She continues on gentle IV hydration. She continues on Tamiflu and antibiotics We are consulted for hyponatremia Sodium today was 115 mmol/L Renal function is stable Medication list was reviewed She was seen in the ICU, in no acute distress Family at the bedside Condition is critical REVIEW OF SYSTEMS: GENERAL: Negative for any nausea, vomiting, fevers, chills, or weight loss. NEUROLOGIC: Negative for any blurry vision, blind spots, double vision, facial asymmetry, dysphagia, dysarthria, hemiparesis, hemisensory deficits, vertigo, ataxia. HEENT: Negative for any head trauma, neck trauma, neck stiffness, photophobia, phonophobia, sinusitis, rhinitis. CARDIAC: Negative for any chest pain, dyspnea on exertion, paroxysmal nocturnal dyspnea, peripheral edema. PULMONARY: Negative for any shortness of breath, wheezing, COPD, or TB exposure. GASTROINTESTINAL: Negative for any abdominal pain, nausea, vomiting, bright red blood per rectum, melena. GENITOURINARY: Negative for any dysuria, hematuria, incontinence. INTEGUMENTARY: Negative for any rashes, cuts, insect bites. RHEUMATOLOGIC: Negative for any joint pains, photosensitive rashes, history of vasculitis or kidney problems. HEMATOLOGIC: Negative for any abnormal bruising, frequent infections or bleeding. Vital Signs (last 8hr) Date Time Temp Pulse Resp B/P (MAP) Pulse Ox O2 Delivery O2 Flow Rate FiO2 06/23/25 12:00 98 Nasal Cannula* 3 N/A Bi-PAP+ 06/23/25 12:00 97.9 06/23/25 11:39 52 20 124/61 (82) 97 06/23/25 11:20 60 22 06/23/25 11:19 60 18 N/Cannula Low lpm 2.0 28 06/23/25 11:09 57 19 135/66 (89) 98 06/23/25 10:39 59 20 125/57 (79) 97 06/23/25 10:09 60 20 133/54 (80) 96 06/23/25 09:39 62 19 139/55 (83) 94 06/23/25 09:09 67 18 118/61 (80) 96 06/23/25 08:59 67 25 107/61 (76) 95 06/23/25 08:39 64 25 93/69 (77) 96 06/23/25 08:12 97.3 06/23/25 08:09 60 41 124/62 (82) 95 06/23/25 08:00 98 Nasal Cannula* 3 N/A Bi-PAP+ 06/23/25 07:39 44 23 142/56 (84) 95 06/23/25 07:32 53 16 150/63 (92) 95 06/23/25 06:43 60 18 30 06/23/25 06:43 60 22 PHYSICAL EXAM: GENERAL: Alert and oriented x 3. No acute distress. Well-nourished. EYES: EOMI. Anicteric. HENT: Moist mucous membranes. No scleral icterus. No cervical lymphadenopathy. LUNGS: Clear to auscultation bilaterally. No accessory muscle use. CARDIOVASCULAR: Regular rate and rhythm. No murmur. No JVD. ABDOMEN: Soft, non-tender and non-distended. No palpable masses. EXTREMITIES: No edema. Non-tender. SKIN: No rashes or lesions. Warm. NEUROLOGIC: No focal neurological deficits. CN II-XII grossly intact, but not individually tested. PSYCHIATRIC: Cooperative. Appropriate mood and affect. Current Medications Medications (Trade) Dose Ordered Sig/Conchis Route PRN Reason Start Time Stop Time Status Last Admin Dose Admin Acetaminophen (TYLenol 325MG TAB) 650 mg Q6H PRN PO MILD PAIN (1-3) 06/22/25 15:30 07/22/25 15:29 Acetaminophen/ Hydrocodone Bitart (NORco 5/325MG) 1 tab Q6H PRN PO MODERATE PAIN (4-6) 06/23/25 11:30 06/23/25 11:13 DC Apixaban (EliquIS) 5 mg BID PO 06/23/25 09:00 07/23/25 08:59 06/23/25 09:05 5 MG Atorvastatin Calcium (LIPItor 10MG) 10 mg HS PO 06/22/25 21:00 07/22/25 20:59 06/22/25 21:18 10 MG Budesonide (Pulmicort 0.5 Mg/2ml) 0.5 mg BIDRESP IH 06/22/25 18:00 07/22/25 17:59 06/23/25 06:42 0.5 MG Carvedilol (Coreg 25MG) 25 mg BID PO 06/22/25 21:00 06/23/25 13:35 DC 06/22/25 21:18 25 MG Ceftriaxone Sodium (ROCEphine 1G INJ) 1 gm Q12H IVPB 06/22/25 15:30 07/02/25 15:29 06/23/25 03:29 1 GM Docusate Sodium (COLace 100MG CAP) 100 mg BID PO 06/22/25 21:00 07/22/25 20:59 06/23/25 09:05 100 MG Doxycycline Hyclate (Doxycycline Hyclate) 100 mg BID PO 06/22/25 21:00 07/02/25 20:59 06/23/25 09:05 100 MG Famotidine (Pepcid 20mg Tab) 20 mg BID PO 06/23/25 21:00 07/23/25 20:59 Fish Oil (Fish Oil 1000 Mg/Cap) 1,000 mg DAILY PO 06/23/25 09:00 07/23/25 08:59 06/23/25 09:05 1,000 MG Home Med (Home Medication) Soluble [place] Fiber/ Inu... DAILY PO 06/23/25 09:00 07/23/25 08:59 Hydralazine HCl (APRESOLine 20MG INJ) 10 mg Q6H PRN IV ADMINISTER FOR SBP > 170 06/22/25 15:30 07/22/25 15:29 06/22/25 16:05 10 MG Insulin Human Regular (humuLIN R 100 UNIT/ML 3ML) INSULIN SLIDING SCAL... ACHS SQ 06/22/25 16:30 07/22/25 16:29 Ipratropium [place] (AtrovENT UD) 0.5 mg [id number] IH 06/22/25 18:00 07/22/25 17:59 06/23/25 11:18 0.5 MG Losartan Potassium (CozAAR 100MG TAB) 100 mg DAILY PO 06/23/25 09:00 06/23/25 13:35 DC 06/23/25 10:19 100 MG Magnesium Sulfate 50 ml @ 0 mls/hr PROTOCOL IV 06/22/25 15:30 07/22/25 15:29 06/22/25 16:04 25 MLS/HR Ondansetron HCl (zoFRAN 4MG INJ) 4 mg Q6H PRN IVP NAUSEA/VOMITING 06/22/25 15:30 07/22/25 15:29 Oseltamivir Phosphate (Tamiflu) 75 mg BID PO 06/22/25 21:00 06/27/25 20:59 06/23/25 09:05 75 MG Potassium Chloride 100 ml @ 100 mls/hr AD PRN IV POTASSIUM PROTOCOL 06/22/25 15:30 07/22/25 15:29 Potassium Chloride (K-Dur/Klor-Con 20meq) 20 meq AD PRN PO POTASSIUM PROTOCOL 06/22/25 15:30 07/22/25 15:29 Potassium Chloride (KCl 10% Elixir 20meq/15ml) 20 meq AD PRN PO POTASSIUM PROTOCOL 06/22/25 15:30 07/22/25 15:29 Sodium Chloride 1,000 ml @ 75 mls/hr [id number] IV 06/22/25 15:30 06/23/25 13:34 DC 06/23/25 04:42 75 MLS/HR Sodium Chloride (Sodium Chloride) 2,000 mg Q8H6 PO 06/23/25 14:00 07/23/25 13:59 Thiamine HCl (Vitamin B-1) 100 mg DAILY IVP 06/23/25 09:00 07/23/25 08:59 06/23/25 09:06 100 MG LABORATORY: [ ] Hematology Labs: Test 06/22/25 13:48 Range/Units White Blood Count 9.9 4.8-10.8 K/uL Red Blood Count 4.93 4.00-5.50 MIL/uL Hemoglobin 15.3 12.0-16.0 g/dL Hematocrit 40.6 36-48 % Mean Corpuscular Volume 82.4 79-99 fL Mean Corpuscular Hemoglobin 31.0 27.0-33.0 pg Mean Corpuscular Hemoglobin Concent 37.7 H 32.0-36.0 g/dL Red Cell Distribution Width 11.9 11.0-15.5 % Platelet Count 171 130-400 K/uL Mean Platelet Volume 10.8 H 7.5-10.5 fL Immature Granulocyte % (Auto) 1.3 H 0-1 % Neutrophils (%) (Auto) 82.5 H 40.0-77.0 % Lymphocytes (%) (Auto) 8.8 L 21.0-51.0 % Monocytes (%) (Auto) 7.0 3.0-13.0 % Eosinophils (%) (Auto) 0.1 0.0-8.0 % Basophils (%) (Auto) 0.3 0.0-5.0 % Neutrophils # (Auto) 8.2 H 1.8-7.7 K/uL Lymphocytes # (Auto) 0.9 L 1.0-4.8 K/uL Monocytes # (Auto) 0.7 0.1-1.0 K/uL Eosinophils # (Auto) 0.01 0.00-0.70 K/uL Basophils # (Auto) 0.03 0.00-0.20 K/uL Absolute Immature Granulocyte (auto 0.13 0-1 K/uL Nucleated Red Blood Cells 0.0 0.0-0.19 % White Cell Morphology Comment See comments Red Blood Cell Morphology See comments Erythrocyte Sedimentation Rate 15 0-30 MM/HR Chemistry Labs: Test 06/23/25 12:14 06/23/25 07:16 06/22/25 13:48 Range/Units Whole Blood Glucose 134 H 70-110 MG/DL Sodium Level 115 L 136-145 mmol/L Potassium Level 4.4 3.5-5.1 mmol/L Chloride Level 79 *L 101-111 mmol/L Carbon Dioxide Level 33 H 21-32 mmol/L Blood Urea Nitrogen 14 7-18 mg/dL Creatinine 0.3 L 0.5-1.0 mg/dL Glomerular Filtration Rate Calc 110 >90 mL/min Random Glucose 95 70-105 mg/dL Uric Acid 2.0 L 2.6-7.2 mg/dL Total Calcium 8.1 L 8.5-10.1 mg/dL Phosphorus Level 3.2 2.5-4.9 mg/dL Magnesium Level 1.70 L 1.80-2.40 mg/dL Total Bilirubin 1.0 # 0.2-1.0 mg/dL Aspartate Amino Transf (AST/SGOT) 35 10-37 U/L Alanine Aminotransferase (ALT/SGPT) 28 12-78 U/L Alkaline Phosphatase 73 50-136 U/L Total Protein 5.9 L 6.0-8.3 g/dL Albumin 2.9 L 3.5-5.0 g/dL Hemoglobin A1c 6.1 H 4.0-6.0 % Estimated Average Glucose (eAG) 128 H 70-126 mg/dL Serum Osmolality 247 L 278-305 mOsm/kg Direct Bilirubin 0.5 H 0.0-0.3 mg/dL Lactate Dehydrogenase 257 H 81-234 U/L Troponin I High Sensitivity 11 4-50 ng/L C-Reactive Protein, Quantitative 3.40 H 0.5-3.0 mg/L B-Type Natriuretic Peptide 146 H 0-100 pg/mL Procalcitonin < 0.05 L 0.05-0.5 ng/mL Thyroid Stimulating Hormone (TSH) 1.91 0.36-3.74 uIU/mL Coagulation Labs: Test 06/22/25 13:58 Range/Units Prothrombin Time 15.0 H 9.6-11.6 SEC Prothromb Time International Ratio 1.47 H 0.85-1.15 Activated Partial Thromboplast Time 33.6 26.3-35.5 [facility] / RADIOLOGY: [place] [address] IMAGING REPORT Signed PATIENT: YUMIKO CARLOS MR#: [id number] : 1950 SEX: F AGE: 74 LOCATION: [facility] ORDER [id number] STATUS: ADM IN [facility] REPORT#: [id number] SERVICE 0818 REASON: hx of a fib, r/o cardiomyopathy ORDERING PHYSICIAN: MALIK VELASQUEZ MD PROCEDURE: ECHO CMP - ECHO 2-D COMPLETE APPROVED REPORT EXAM: Two-dimensional and M-mode echocardiogram with Doppler and color Doppler. Study Details: Hx: A-Fib INDICATION ICD: Rule out cardiomyopathy 2D Dimensions RVDd 4.3 cm LVEF(%) 77.4 (>50%) LVED Vol(simp.) 40.0 mL IVSd 1.2 (0.7-1.1cm) FS(%) 45 % LVES Vol(simp.) 15.0 mL LVDd 3.6 (3.8-5.6cm) LA (2D) 4.5 (1.6-4.0cm) LVEF(%, simp.) 62 % PWd 1.3 (0.7-1.1cm) Ao Root(2D) 2.6 (2.0-3.7cm) LA ESV INDEX (4CH) 32.22 mL/m2 IVSs 1.4 cm LVOT diam 1.5 (1.8-2.4cm) LVDs 2.0 (2.5-4.0cm) PWs 1.7 cm M-Mode Dimensions EPSS 0.4 cm LA (MM) 4.0 (1.6-4.0cm) Ao Root(MM) 2.4 (2.0-3.7cm) Aortic Valve AoV Vmax 1.4 m/s Ao Peak GR 7.3 mmHg LVOT Vmax 1.0 m/s AoV VTI 0.3 m Ao Mean GR 3.7 mmHg LVOT VTI 0.21 m DALLAS (VMAX) 1.30 cm2 D[place]AS (VTI) 1.4 cm2 Mitral Valve MV E Vmax 134.1 cm/s DECEL Time 192 ms MV A Vmax 43.6 cm/s P 1/2 T 44 ms E/A ratio 3.1 MVA (PHT) 5.0 cm2 TDI E/E' Medial 28.1 E/E' Lateral 37.6 Medial E' Peak V 4.78 cm/s Lateral E' Peak V 3.57 cm/s Pulmonary Valve PV Vmax 0.8 m/s PV VTI 0.16 m PV Mean GR 1.1 mmHg PV Peak GR 2.5 mmHg PI End Gladis. Alexandr 64.3 cm/s Tricuspid Valve TR Vmax 2.8 m/s RAP (EST) 3 mmHg RVSP 36.8 mmHg TR Peak GR 33.8 mmHg Left Ventricle Left ventricular cavity size is normal. There is normal LV segmental wall motion. There is mild left ventricular wall thickness. The LVEF is > 65%. Stage III diastolic dysfunction. Right Ventricle The right ventricle is normal size. The right ventricular systolic function is normal. Atria The left atrium is mildly dilated. The right atrium is mildly dilated by visual assessment. Aortic Valve The aortic valve is normal in structure. No aortic regurgitation is present. There is no aortic valvular stenosis. Mitral Valve The mitral valve is normal in structure and function. There is trace mitral valve regurgitation noted. There is no mitral valve stenosis. Tricuspid Valve The tricuspid valve is normal in structure. There is trace of tricuspid valve regurgitation noted. Pulmonic Valve Pulmonic valve is not well visualized. There is trace of pulmonic valvular regurgitation. Great Vessels The aortic root is normal in size. The IVC is normal in size and collapses >50% with inspiration. Pericardium There is no pericardial effusion. Other Information Quality : Technically difficult study due to body habitus Conclusion Left ventricular cavity size is normal. The LVEF is > 65% with normal LV segmental wall motion. There is mild left ventricular wall thickness. Stage III diastolic dysfunction. The right ventricular systolic function is normal. The left atrium is mildly dilated. No hemodynamically signifcant valvular abnormalities. There is no pericardial effusion. DICTATED BY: ROCHELLE BARRY MD DATE: 06/23/25826 ELECTRONICALLY SIGNED BY: ROCHELLE BARRY MD DATE: 06/23/251308 PATIENT: YUMIKO CARLOS MR#: [id number] : 1950 SEX: F AGE: 74 LOCATION: [facility] ORDER 44 STATUS: ADM IN REPORT#: [id number] SERVICE 42 REASON: persistent nausea x 1 week, hyponatremia, bloating, morbid obesity ORDERING PHYSICIAN: MALIK VELASQUEZ MD PROCEDURE: ABD PEL WO - CT ABDOMEN/PELVIS W/O CONTRAST EXAM: CT Abdomen and Pelvis without Intravenous Contrast CLINICAL HISTORY: Persistent nausea for one week, hyponatremia, abdominal bloating, and morbid obesity. TECHNIQUE: Axial helical CT scan of the abdomen and pelvis was performed without intravenous contrast. Multiplanar reformatted images were obtained in coronal and sagittal planes. Radiation dose optimization techniques utilized (CTDIvol: 26.9 mGy; DLP: 1698.6 mGy???cm). CONTRAST: Without COMPARISON: No prior CT available for comparison. FINDINGS: LUNG BASES: Visualized bilateral lung bases show mild pleural-based thickening and subpleural scarring, likely representing chronic post-inflammatory or fibrotic change. No active consolidation or pleural effusion. Cardiomegaly with calcific atherosclerosis involving coronary arteries, notably along the LAD and RCA courses. LIVER: Liver normal in size and contour with homogeneous attenuation; no focal hepatic lesions or biliary dilatation. GALLBLADDER AND BILE DUCTS: Gallbladder contains a large calcified calculus (3.5 x 2.5 cm) with normal wall thickness and no pericholecystic fluid or surrounding inflammatory change. Common bile duct of normal caliber. PANCREAS: Pancreas appears normal with preserved morphology and attenuation. No focal lesion or peripancreatic fat stranding. SPLEEN: Spleen appears normal with preserved morphology and attenuation. ADRENAL GLANDS: Adrenal glands appear normal with preserved morphology and attenuation. KIDNEYS, URETERS, AND BLADDER: Right mid-pole cortical scarring with coarse calcification consistent with prior inflammatory or ischemic insult. Mild bilateral perinephric fat stranding, nonspecific???may reflect chronic venous congestion or low-grade inflammation. No hydronephrosis, renal calculus, or hydroureter. Urinary bladder well distended, normal wall thickness, no intraluminal calculi. STOMACH AND BOWEL: Stomach and small bowel loops are mildly distended but nondilated; normal wall thickness. Colonic diverticulosis involving sigmoid and descending colon without pericolic stranding???uncomplicated diverticulosis. APPENDIX: Appendix visualized, normal in caliber with no periappendiceal inflammation???no CT evidence of appendicitis. PERITONEUM: Minimal localized internal fluid collection noted in the lower abdomen, measuring small in volume and without gas locules???nonspecific, could represent mild sterile or resolving inflammatory collection. Calcified intraperitoneal lymph node (2.3 x 1.6 cm) in right anterior lower abdomen???likely chronic, healed granulomatous origin. No ascites or pneumoperitoneum. LYMPH NODES: Calcified intraperitoneal lymph node (2.3 x 1.6 cm) in right anterior lower abdomen???likely chronic, healed granulomatous origin. No other significant lymphadenopathy. REPRODUCTIVE: Uterus surgically absent. Adnexal regions and pelvic soft tissues appear unremarkable. VASCULATURE: No aortic aneurysm. ABDOMINAL WALL AND SOFT TISSUES: Anterior abdominal wall oedema, most prominent in the lumbar region extending into bilateral iliac fossae. BONES: Age-appropriate thoracolumbar spondylosis with anterior osteophytes and facet arthropathy. No acute fracture or lytic/sclerotic lesions. IMPRESSION: 1. No acute intraabdominal or pelvic findings. 2. Mild gastric and small bowel distension without obstruction. 3. Minimal localized internal fluid collection in the lower abdomen, nonspecific. 4. Large gallbladder calculus (3.5 ??? 2.5 cm) without acute cholecystitis. 5. Right mid-pole renal cortical scarring with coarse calcification. 6. Uncomplicated colonic diverticulosis. 7. Age-appropriate thoracolumbar spondylosis with anterior osteophytes and facet arthropathy. 8. Several stable chronic and incidental findings are noted, as detailed in the body of the report, including mild pleural/subpleural scarring at the lung bases, cardiomegaly with coronary artery atherosclerosis, mild bilateral perinephric fat stranding, calcified intraperitoneal lymph node likely granulomatous in origin, anterior abdominal wall edema, and postsurgical absence of the uterus. /[place] DICTATED BY: KRYSTLE VEGA MD DATE: 06/22/252231 ELECTRONICALLY SIGNED BY: KRYSTLE VEGA MD DATE: 06/22/252231 PATIENT: YUMIKO CARLOS MR#: [id number] : 1950 SEX: F AGE: 74 LOCATION: [facility] ORDER 35 STATUS: ADM IN REPORT#: [id number] SERVICE 33 REASON: influenza positive, morbid obesity, r/o pneumonia vs edema ORDERING PHYSICIAN: MALIK VELASQUEZ MD PROCEDURE: CHEST WO - CT CHEST W/O CONTRAST EXAM: COMPUTED TOMOGRAPHY OF THE CHEST WITHOUT INTRAVENOUS CONTRAST Technique: Computed tomography of the chest was performed without intravenous contrast from the thoracic inlet through the upper abdomen with axial acquisition and coronal and sagittal reformations. Dose optimization included automated exposure control, patient size???based tube current and tube voltage modulation, and iterative reconstruction. Cardiac and vascular assessment is limited without contrast. Clinical Information: Influenza positive; morbid obesity; evaluation for pneumonia versus edema. Comparison: No prior chest computed tomography available. Findings: The chest wall and imaged lower neck soft tissues show no focal mass or acute abnormality. The trachea and main bronchi are patent without endoluminal lesion. There is no focal lobar consolidation identified. There are no suspicious pulmonary nodules identified. There are minimal bilateral pleural effusions. There is dependent basilar atelectasis adjacent to the effusions. There is no pneumothorax detected. The cardiac silhouette is mildly enlarged. There is no pericardial effusion identified. There are mild calcifications of the thoracic aorta. There are mild calcifications of the coronary arteries. There is calcification along the mitral annulus. There is no mediastinal or hilar lymphadenopathy by size criteria. The visualized upper abdomen shows no acute abnormality. The visualized osseous structures show mild degenerative changes of the thoracic spine without acute fracture. Impression: * Minimal bilateral pleural effusions with adjacent dependent basilar atelectasis; no focal lobar consolidation to suggest bacterial pneumonia on this noncontrast computed tomography. * Mild cardiomegaly. Interlobular septal prominence. Pulmonary venous congestion likely * Atherosclerotic calcifications of the thoracic aorta and coronary arteries, and mitral annular calcification. /[place] DICTATED BY: ROCHELLE COVARRUBIAS MD DATE: 06/22/252105 ELECTRONICALLY SIGNED BY: ROCHELLE COVARRUBIAS MD DATE: 06/22/252105 PATIENT: YUMIKO CARLOS MR#: [id number] : 1950 SEX: F AGE: 74 LOCATION: [facility] ORDER 33 STATUS: ADM IN REPORT#: [id number] SERVICE 153 REASON: fall, on eliquis, hyponatremia ORDERING PHYSICIAN: MALIK VELASQUEZ MD PROCEDURE: HEAD WO - CT HEAD/BRAIN W/O CONTRAST EXAM: CT Head Without IV contrast. CLINICAL HISTORY: fall, on eliquis, hyponatremia TECHNIQUE: Axial computed tomography images of the head/brain without intravenous contrast. COMPARISON: None provided. FINDINGS: BRAIN: No evidence of acute hemorrhage. No mass lesion. No CT evidence for acute territorial infarct. No midline shift or extra-axial collections. VENTRICLES: No hydrocephalus. ORBITS: The orbits are unremarkable. SINUSES AND MASTOIDS: The paranasal sinuses and mastoid air cells are clear. BONES: No fracture. SOFT TISSUES: Unremarkable. IMPRESSION: No acute intracranial abnormality. /[place] DICTATED BY: ROCHELLE COVARRUBIAS MD DATE: 06/22/251857 ELECTRONICALLY SIGNED BY: ROCHELLE COVARRUBIAS MD DATE: 06/22/251857 PATIENT: YUMIKO CARLOS MR#: [id number] : 1950 SEX: F AGE: 74 LOCATION: [facility] ORDER 31 STATUS: ADM IN REPORT#: [id number] SERVICE 29 REASON: s/p fall, r/o any fractures ORDERING PHYSICIAN: MALIK VELASQUEZ MD PROCEDURE: PELVIS - PELVIS 1-2VWS EXAM: CR Pelvis, 1 View. CLINICAL HISTORY: s/p fall, r/o any fractures COMPARISON: None provided. FINDINGS: BONES: Generalized osteopenia No definitive acute fracture JOINTS: Degenerative changes SOFT TISSUES: The soft tissues are unremarkable. IMPRESSION: 1. Degenerative changes 2. Generalized osteopenia 3. No definitive acute fracture /[place] DICTATED BY: ROCHELLE COVARRUBIAS MD DATE: 06/22/251950 ELECTRONICALLY SIGNED BY: ROCHELLE COVARRUBIAS MD DATE: 06/22/251950 PATIENT: YUMIKO CARLOS MR#: [id number] : 1950 SEX: F AGE: 74 LOCATION: [facility] ORDER 31 [facility]: [facility] REPORT#: [id number] SERVICE 29 REASON: s/p fall, r/o any fractures ORDERING PHYSICIAN: MALIK VELASQUEZ MD PROCEDURE: KNEE 2VBIL - KNEE 2VW BILATERAL EXAM: XR Both Knees, AP and Lateral (2) Views. CLINICAL HISTORY: Status post fall; clinical query for fracture or hardware-related complication. Known history of prior distal femur fixation. COMPARISON: No immediate prior imaging available for comparison. FINDINGS: BONES: No new acute fracture or focal osseous lesion identified in either knee. Left Knee (Post-operative Site): Internal plate fixation noted along the distal femur, consistent with prior fracture fixation. Cortical remodeling and signs of bony union seen at the prior fracture site ??? no evidence of non-union or millie-hardware lucency. One or more screw fixators appear broken at the proximal/superior end of the fixation plate, suggesting hardware fatigue or prior mechanical stress. No acute periprosthetic fracture or hardware migration seen. Right Knee: No prior fixation hardware or periarticular collection. JOINTS: No dislocation identified in either knee. Severe degenerative osteoarthritic changes seen in both knees, more pronounced in the medial tibiofemoral compartments. Marked reduction of tibiofemoral and patellofemoral joint spaces, with large periarticular osteophyte formation and subchondral sclerosis, consistent with advanced osteoarthritis. SOFT TISSUES: Mild diffuse periarticular soft tissue thickening noted, likely chronic degenerative or post-traumatic in nature. No significant joint effusion or soft tissue gas. IMPRESSION: 1. No acute fracture or dislocation in either knee. 2. Status post left distal femur fixation with plate and screws, with bony union. Broken screw(s) at the proximal aspect of the fixation plate without acute periprosthetic fracture or hardware migration. 3. Severe tricompartmental osteoarthritic changes in both knees, more pronounced in the medial tibiofemoral compartments. /[place] DICTATED BY: KRYSTLE VEGA MD DATE: 06/22/252008 ELECTRONICALLY SIGNED BY: KRYSTLE VEGA MD DATE: 06/22/252008 PATIENT: YUMIKO CARLOS MR#: [id number] : 1950 SEX: F AGE: 74 LOCATION: [facility] ORDER 28 STATUS: ADM IN REPORT#: [id number] SERVICE 24 REASON: r/o any DVT of the lowe etxremities, swellng, fall ORDERING PHYSICIAN: MALIK VELASQUEZ MD PROCEDURE: VENOUS BINA - US VENOUS DOPPLER BILATERAL EXAM: US Duplex BILATERAL Lower Extremity Veins. CLINICAL HISTORY: Swelling after a fall with clinical concern for deep venous thrombosis of the lower extremities. TECHNIQUE: Grayscale imaging with compression maneuvers, color Doppler, and pulsed-wave spectral Doppler was performed where anatomically feasible from the common femoral veins through the femoral, popliteal, and calf veins bilaterally. Respiratory phasicity and augmentation responses were assessed when obtainable. Evaluation of the left common femoral and left popliteal veins is limited by body habitus. COMPARISON: None provided. FINDINGS: DEEP VEINS: The right common femoral vein is fully compressible without intraluminal echogenic thrombus. The right femoral vein is fully compressible with normal color Doppler filling and normal spectral Doppler phasicity. The right popliteal vein is fully compressible without thrombus. The right posterior tibial veins are compressible without thrombus. The left femoral vein is fully compressible with normal color Doppler filling and normal spectral Doppler phasicity. The left posterior tibial veins are compressible without thrombus. The left common femoral vein is not adequately visualized because of body habitus, and compressibility could not be assessed; thrombus at this nonvisualized level cannot be excluded. The left popliteal vein is not adequately visualized because of body habitus, and compressibility could not be assessed; thrombus at this nonvisualized level cannot be excluded. No abnormal focal fluid collection is identified along the imaged course of the veins. SUPERFICIAL VEINS: Superficial veins were not evaluated. SOFT TISSUES: No popliteal fossa cyst or other abnormalities. IMPRESSION: 1. No sonographic evidence of deep venous thrombosis in the visualized segments of the right lower extremity and in the visualized segments of the left femoral and left posterior tibial veins. 2. Technical limitation: the left common femoral vein and the left popliteal vein are not adequately visualized because of body habitus; thrombus at these nonvisualized levels cannot be excluded. /[place] DICTATED BY: KRYSTLE VEGA MD DATE: 06/22/252134 ELECTRONICALLY SIGNED BY: KRYSTLE VEGA MD DATE: 06/22/252134 PATIENT: YUMIKO CARLOS MR#: [id number] : 1950 SEX: F AGE: 74 LOCATION: [facility] ORDER 36 STATUS: REG ER REPORT#: [id number] SERVICE 34 REASON: sob ORDERING PHYSICIAN: SATISH WEEMS MD PROCEDURE: CXR1VW - CHEST 1VW EXAM: CR Chest, 1 View. CLINICAL HISTORY: sob COMPARISON: May 22 2023 FINDINGS: LUNGS: There is no mass, infiltrate, or acute pulmonary abnormality. PLEURAL SPACES: No evidence of pleural effusion or pneumothorax. MEDIASTINUM: There is cardiomegaly BONES: No aggressive appearing osseous lesion seen. IMPRESSION: No acute cardiopulmonary pathology is evident. /[place] DICTATED BY: SWATHI HAM MD DATE: 06/22/251541 ELECTRONICALLY SIGNED BY: SWATHI HAM MD DATE: 06/22/251541 ASSESSMENT: Severe hyponatremia Acute hypoxic respiratory failure, likely from viral infection Positive for influenza Ground level fall Obesity hypoventilation syndrome, does not use CPAP at home Paroxysmal atrial fibrillation, rate controlled, currently on Eliquis Hyperlipidemia Hypertension urgency PLAN: Labs, diagnostic, radiologic exams reviewed and interpreted by myself and supervising physician. We have reviewed external records in detail Hydrochlorothiazide should be stopped. 1 L fluid restriction Hold antihypertensive medication Neurological symptoms, hypotonic saline can be considered For renal correction, try not to exceed 6-8 mEq in a day Avoid drugs which can potentiate hyponatremia Require close monitoring of renal function and electrolytes Order CBC, CMP, and electrolytes in am Continue with antibiotics BiPAP as necessary, for respiratory distress IV pressors as needed Monitor blood pressure adjust medication doses as needed Avoid hypotensive episodes May use Dilaudid 0.5 mg IV every 6 hours as needed for severe pain Monitor blood sugars Strict intake, output, and daily weight should be monitored Continue to monitor renal function, anemia, electrolytes Treatment plan discussed with patient Questions were answered We have discussed with the other team physicians in detail about the care plan We will continue to monitor the patient closely Total critical care time spent with patient, nursing staff, critical care team over 35 minutes ATTESTATION BY PHYSICIAN I have seen and examined the patient. I reviewed the documentation, medical decision making, and treatment plan as noted by the mid-level provider above. I agree with the findings and plan of care. ALENA PHILLIPS MD, [facility] Jun 23, 2025 14:48
--- NOTE | 2025-06-23 17:57 | PN ---
[facility] PROGRESS NOTE Date of Service: Jun 23, 2025 Time of Service: 17:45 SUBJECTIVE: This is a 74-year-old female with underlying history of severe morbid obesity, suspected ohs/LINDA with chronic hypercapnic respiratory failure, history of atrial fibrillation maintained on chronic anticoagulation with Eliquis, hyperlipidemia presented to the ER secondary to fall, dizziness, poor oral intake with nausea. Patient states that as she was ambulating to the restroom, she lost balance and fell and landed on her back. Denies hitting her head. She has been maintained on chronic anticoagulation with Eliquis as outpatient. She is followed by Cardiology as outpatient due to prior history of atrial fibrillation. She is mostly sedentary at home and has been having issues with weight for long time. She reports that she has been slowly gaining weight over the last several years. She is having pain involving the left knee since the fall. She does report having history of sleep apnea but does not use CPAP machi ne at home. She reports drinking about 2L of water daily to maintain hydration. Has been having some cough, congestion and mild wheezing. Denies any previous history of COPD or asthma. She has been having some mild nausea but denies any headache or significant weakness of bilateral upper or lower extremity. She does have history of hypertension and is maintained on antihypertensives with losartan 100 mg daily, [id number] mg b.i.d., HCTZ 25 mg daily. She reports taking all her antihypertensives this morning prior to coming to the ER. On presentation to the hospital, patient was noted to have T- max of 98.2 F, heart rate of 72, blood pressure of 187/78. Labs on presentation showed WBC count of 9900, hemoglobin 15.3, platelet count of 777003. BMP remarka ble for sodium of 114, potassium 4.2, chloride of 76, creatinine of 0.4, magnesium 1.3, BNP of 146. Chest x-ray showed no acute infiltrates. Patient will be admitted to ICU for management of severe hyponatremia, hypertensive urgency, active influenza infection, and we will monitor this patient closely due to underlying obesity and underlying comorbidities. Including untreated OHS /LINDA All antihypertensives will be resumed. Condition remains critical. 06/23/2025: Patient was seen and examined bedside in room 210. Patient is awake, alert, oriented x3. patient tested positive for influenza type B antigen, started on droplet precaution. Patient is receiving Tamiflu, IV doxycycline and Rocephin to prevent secondary bacterial infection. Lab shows sodium 116, potassium 3.7 and patient is on 1.5 L fluid restriction, receiving IV fluids NaCl at 75 mL/hour. Pending cortisol, urine sodium, urine potassium, echo 2D. nephrology on board, we will follow up with the recommendations. REVIEW OF SYSTEMS: CONSTITUTIONAL: generalized malaise, weight gain, obesity NEUROLOGICAL: Denies headache, amaurosis fugax, motor weakness, sensory deficit, vertigo/spinning sensation, gait abnormalities, or tremors. ENT: No hearing loss, otalgia, otorrhea, rhinitis, rhinorrhea, hoarseness, or sore throat. CARDIOVASCULAR: denies any chest pain, denies palpitations PULMONARY: cough, congestion , rhinorrhea SLEEP: Denies morning headaches, daytime somnolence or napping. Denies difficulty falling asleep, staying asleep, waking from sleep. Denies knowledge of snoring. GASTROINTESTINAL: Denies any type of dysphagia to either liquids or solids. Denies nausea, vomiting, pyrosis, early satiety, abdominal pain, diarrhea, constipation, or changes in stool consistency or caliber. Denies coffee-ground emesis, hematemesis, hematochezia, or melanotic stools. GENITOURINARY: Denies frequency, urgency, nocturia, hematuria or incontinence (Storage/Irritative symptoms.) Low urinary stream, straining to void, urinary intermittency or hesitancy, splitting of the voiding stream, terminal dribbling. ENDOCRINOLOGIC: Denies polyuria, polydipsia, polyphagia or heat/cold intolerances. HEMATOLOGIC: Denies thrombophilia/previous clots, or coagulopathy/bleeding disorders. ONCOLOGIC: Denies personal history of malignancy. DERMATOLOGIC: Denies rashes or pruritus. PSYCHIATRIC: Denies any suicidal or homicidal ideation. Denies hallucinations. PHYSICAL EXAM GENERAL APPEARANCE: The patient is awake, alert, appears chronically ill, on 2 L of O2 by nasal canula, patient is morbidly obese NEUROLOGICAL: Cranial nerves II-XII grossly intact. neurological exam is non focal, patient has pain to left knee, strength exam is limited due to pain HEENT: Face is symmetric. Pupils are equal and reactive. Extraocular movements are intact. NECK: Supple. No JVD. No thyromegaly. No submental, submandibular, pre- /postauricular, occipital or supraclavicular lymphadenopathy. CHEST: Normal chest expansion. No Telemetry. LUNGS: minimal crackles noted of the bilateral lung bases CARDIOVASCULAR: Regular. S1 and S2 normal. No appreciable rubs, murmurs or gallops. ABDOMEN: Soft, nontender, and nondistended. There is no rebound, voluntary guarding, or rigidity. : Deferred. No Sharpe. EXTREMITIES: trace edema noted of the bilateral lower extremities SKIN: No skin breakdown. Vital Signs (last 8hr) Date Time Temp Pulse Resp B/P (MAP) Pulse Ox O2 Delivery O2 Flow Rate FiO2 06/23/25 16:00 97.9 79 23 123/91 94 Nasal Cannula 2.0 06/23/25 12:00 98 Nasal Cannula* 3 N/A Bi-PAP+ 06/23/25 12:00 97.9 06/23/25 11:39 52 20 124/61 (82) 97 06/23/25 11:20 60 22 06/23/25 11:19 60 18 N/Cannula Low lpm 2.0 28 06/23/25 11:09 57 19 135/66 (89) 98 06/23/25 10:39 59 20 125/57 (79) 97 06/23/25 10:09 60 20 133/54 (80) 96 LABS: Laboratory: Test 06/23/25 12:14 06/23/25 09:20 06/23/25 07:16 06/22/25 23:47 Range/Units Whole Blood Glucose 134 H 70-110 MG/DL Urine Color YELLOW YELLOW Urine Appearance CLOUDY H CLEAR Urine pH 6.5 5.0-8.0 Urine Specific Fitzpatrick 1.026 1.001-1.031 Urine Protein 50 H NEGATIVE mg/dL Urine Glucose (UA) NEGATIVE NEGATIVE mg/dL Urine Ketones NEGATIVE NEGATIVE mg/dL Urine Occult Blood LARGE H NEGATIVE Urine Nitrate NEGATIVE NEGATIVE Urine Bilirubin NEGATIVE NEGATIVE mg/dL Urine Urobilinogen 4.0 H 0.2-1.0 mg/dL Urine Leukocyte Esterase 250 H NEGATIVE Dinora/uL Urine RBC TNTC H 0-1 /HPF Urine WBC 51-100 H 0-1 /HPF Urine Squamous Epithelial Cells RARE 0-2 /HPF Urine Non-Squamous Epithelial Cells 2 0-2 /HPF Urine Bacteria None None Seen /HPF Urine Other Casts 4 None Seen /LPF Urine Osmolality 676 50-1200 mOsm/kg Urine Random Creatinine 141.83 H 30-135 mg/dL Urine Random Sodium < 13 L 40-220 mmol/l Urine Random Potassium 14 L 25-125 mmol/L Urine Random Chloride < 21 L 110-250 mmol/L Sodium Level 115 L 136-145 mmol/L Potassium Level 4.4 3.5-5.1 mmol/L Chloride Level 79 *L 101-111 mmol/L Carbon Dioxide Level 33 H 21-32 mmol/L Blood Urea Nitrogen 14 7-18 mg/dL Creatinine 0.3 L 0.5-1.0 mg/dL Glomerular Filtration Rate Calc 110 >90 mL/min Random Glucose 95 70-105 mg/dL Uric Acid 2.0 L 2.6-7.2 mg/dL Total Calcium 8.1 L 8.5-10.1 mg/dL Phosphorus Level 3.2 2.5-4.9 mg/dL Magnesium Level 1.70 L 1.80-2.40 mg/dL Total Bilirubin 1.0 # 0.2-1.0 mg/dL Aspartate Amino Transf (AST/SGOT) 35 10-37 U/L Alanine Aminotransferase (ALT/SGPT) 28 12-78 U/L Alkaline Phosphatase 73 50-136 U/L Total Protein 5.9 L 6.0-8.3 g/dL Albumin 2.9 L 3.5-5.0 g/dL Blood Gas Specimen Type Arterial Arterial Blood pH 7.324 L 7.350-7.450 Arterial Blood Partial Pressure CO2 58 H 32-45 mmHg Arterial Blood Partial Pressure O2 106.0 83.0-108.0 mmHg Arterial Blood HCO3 29.6 H 21.0-28.0 mmol/L Arterial Blood Oxygen Saturation 97.8 94.0-98.0 % Arterial Blood Base Excess 2.1 -2.0-3.0 mmol/L Hemoglobin (Blood Gas) 14.7 12.0-16.0 g/dL Sodium (Blood Gas) 114 L 136-145 MMOL/L Bedside Potassium (Blood Gas) 3.7 3.4-4.5 MMOL/L Bedside Chloride (Blood Gas) 79 *L 98-107 MMOL/L Bedside Glucose (Blood Gas) 102 H 65-95 MG/DL Bedside Ionized Calcium (Blood Gas) 1.11 L 1.15-1.33 MMOL/L Bedside Lactic Acid (Blood Gas) 0.87 H 0.36-0.75 MMOL/L Blood Gas Temperature 37.0 35.5-37.0 CELSIUS Blood Gas Flow-by 5.00 0.00-15.00 L/min Blood Gas Vent Mode A.M ROOM AIR FiO2 40.0 % Blood Gas Specimen Comment CRYSTAL RN, RB Test 06/22/25 13:58 06/22/25 13:50 06/22/25 13:48 Range/Units Prothrombin Time 15.0 H 9.6-11.6 SEC Prothromb Time International Ratio 1.47 H 0.85-1.15 Activated Partial Thromboplast Time 33.6 26.3-35.5 SEC Influenza Type A Antigen Negative For Type A NEGATIVE Influenza Type B Antigen Positive For Type B *A NEGATIVE SARS-CoV-2, RNA, NAAT NEGATIVE SARS CoV-2 NEGATIVE Group A Streptococcus Rapid negative NEGATIVE White Blood Count 9.9 4.8-10.8 K/uL Red Blood Count 4.93 4.00-5.50 MIL/uL Hemoglobin 15.3 12.0-16.0 g/dL Hematocrit 40.6 36-48 % Mean Corpuscular Volume 82.4 79-99 fL Mean Corpuscular Hemoglobin 31.0 27.0-33.0 pg Mean Corpuscular Hemoglobin Concent 37.7 H 32.0-36.0 g/dL Red Cell Distribution Width 11.9 11.0-15.5 % Platelet Count 171 130-400 K/uL Mean Platelet Volume 10.8 H 7.5-10.5 fL Immature Granulocyte % (Auto) 1.3 H 0-1 % Neutrophils (%) (Auto) 82.5 H 40.0-77.0 % Lymphocytes (%) (Auto) 8.8 L 21.0-51.0 % Monocytes (%) (Auto) 7.0 3.0-13.0 % Eosinophils (%) (Auto) 0.1 0.0-8.0 % Basophils (%) (Auto) 0.3 0.0-5.0 % Neutrophils # (Auto) 8.2 H 1.8-7.7 K/uL Lymphocytes # (Auto) 0.9 L 1.0-4.8 K/uL Monocytes # (Auto) 0.7 0.1-1.0 K/uL Eosinophils # (Auto) 0.01 0.00-0.70 K/uL Basophils # (Auto) 0.03 0.00-0.20 K/uL Absolute Immature Granulocyte (auto 0.13 0-1 K/uL Nucleated Red Blood Cells 0.0 0.0-0.19 % White Cell Morphology Comment See comments Red Blood Cell Morphology See comments Erythrocyte Sedimentation Rate 15 0-30 MM/HR Hemoglobin A1c 6.1 H 4.0-6.0 % Estimated Average Glucose (eAG) 128 H 70-126 mg/dL Serum Osmolality 247 L 278-305 mOsm/kg Direct Bilirubin 0.5 H 0.0-0.3 mg/dL Lactate Dehydrogenase 257 H 81-234 U/L Troponin I High Sensitivity 11 4-50 ng/L C-Reactive Protein, Quantitative 3.40 H 0.5-3.0 mg/L B-Type Natriuretic Peptide 146 H 0-100 pg/mL Procalcitonin < 0.05 L 0.05-0.5 ng/mL Thyroid Stimulating Hormone (TSH) 1.91 0.36-3.74 uIU/mL Current Medications Medications (Trade) Dose Ordered Sig/Conchis Route PRN Reason Start Time Stop Time Status Last Admin Dose Admin Acetaminophen (TYLenol 325MG TAB) 650 mg Q6H PRN PO MILD PAIN (1-3) 06/22/25 15:30 07/22/25 15:29 Acetaminophen/ Hydrocodone Bitart (NORco 5/325MG) 1 tab Q6H PRN PO MODERATE PAIN (4-6) 06/23/25 11:30 06/23/25 11:13 DC Apixaban (EliquIS) 5 mg BID PO 06/23/25 09:00 07/23/25 08:59 06/23/25 09:05 5 MG Atorvastatin Calcium (LIPItor 10MG) 10 mg HS PO 06/22/25 21:00 07/22/25 20:59 06/22/25 21:18 10 MG Budesonide (Pulmicort 0.5 Mg/2ml) 0.5 mg BIDRESP IH 06/22/25 18:00 07/22/25 17:59 06/23/25 06:42 0.5 MG Carvedilol (Coreg 25MG) 25 mg BID PO 06/22/25 21:00 06/23/25 13:35 DC 06/22/25 21:18 25 MG Ceftriaxone Sodium (ROCEphine 1G INJ) 1 gm Q12H IVPB 06/22/25 15:30 07/02/25 15:29 06/23/25 14:40 1 GM Docusate Sodium (COLace 100MG CAP) 100 mg BID PO 06/22/25 21:00 07/22/25 20:59 06/23/25 09:05 100 MG Doxycycline Hyclate (Doxycycline Hyclate) 100 mg BID PO 06/22/25 21:00 07/02/25 20:59 06/23/25 09:05 100 MG Famotidine (Pepcid 20mg Tab) 20 mg BID PO 06/23/25 21:00 07/23/25 20:59 Fish Oil (Fish Oil 1000 Mg/Cap) 1,000 mg DAILY PO 06/23/25 09:00 07/23/25 08:59 06/23/25 09:05 1,000 MG Home Med (Home Medication) Soluble [place] Fiber/ Inu... DAILY PO 06/23/25 09:00 07/23/25 08:59 Hydralazine HCl (APRESOLine 20MG INJ) 10 mg Q6H PRN IV ADMINISTER FOR SBP > 170 06/22/25 15:30 07/22/25 15:29 06/22/25 16:05 10 MG Insulin Human Regular (humuLIN R 100 UNIT/ML 3ML) INSULIN SLIDING SCAL... ACHS SQ 06/22/25 16:30 07/22/25 16:29 Ipratropium [place] (AtrovENT UD) 0.5 mg [id number] IH 06/22/25 18:00 07/22/25 17:59 06/23/25 11:18 0.5 MG Losartan Potassium (CozAAR 100MG TAB) 100 mg DAILY PO 06/23/25 09:00 06/23/25 13:35 DC 06/23/25 10:19 100 MG Magnesium Sulfate 50 ml @ 0 mls/hr PROTOCOL IV 06/22/25 15:30 07/22/25 15:29 06/22/25 16:04 25 MLS/HR Ondansetron HCl (zoFRAN 4MG INJ) 4 mg Q6H PRN IVP NAUSEA/VOMITING 06/22/25 15:30 07/22/25 15:29 Oseltamivir Phosphate (Tamiflu) 75 mg BID PO 06/22/25 21:00 06/27/25 20:59 06/23/25 09:05 75 MG Potassium Chloride 100 ml @ 100 mls/hr AD PRN IV POTASSIUM PROTOCOL 06/22/25 15:30 07/22/25 15:29 Potassium Chloride (K-Dur/Klor-Con 20meq) 20 meq AD PRN PO POTASSIUM PROTOCOL 06/22/25 15:30 07/22/25 15:29 Potassium Chloride (KCl 10% Elixir 20meq/15ml) 20 meq AD PRN PO POTASSIUM PROTOCOL 06/22/25 15:30 07/22/25 15:29 Sodium Chloride 1,000 ml @ 75 mls/hr [id number] IV 06/22/25 15:30 06/23/25 13:34 DC 06/23/25 04:42 75 MLS/HR Sodium Chloride (Sodium Chloride) 2,000 mg Q8H6 PO 06/23/25 14:00 07/23/25 13:59 06/23/25 14:39 2,000 MG Thiamine HCl (Vitamin B-1) 100 mg DAILY IVP 06/23/25 09:00 07/23/25 08:59 06/23/25 09:06 100 MG DIAGNOSTICS / RADIOLOGY: [ ] [place] [address] IMAGING REPORT Signed PATIENT: YUMIKO CARLOS MR#: [id number] : 1950 SEX: F AGE: 74 LOCATION: H ORDER 36 STATUS: REG ER REPORT#: [id number] SERVICE 34 REASON: sob ORDERING PHYSICIAN: SATISH WEEMS MD PROCEDURE: CXR1VW - CHEST 1VW EXAM: CR Chest, 1 View. CLINICAL HISTORY: sob COMPARISON: May 22 2023 FINDINGS: LUNGS: There is no mass, infiltrate, or acute pulmonary abnormality. PLEURAL SPACES: No evidence of pleural effusion or pneumothorax. MEDIASTINUM: There is cardiomegaly BONES: No aggressive appearing osseous lesion seen. IMPRESSION: No acute cardiopulmonary pathology is evident. /[place] DICTATED BY: SWATHI HAM MD DATE: 06/22/251541 ELECTRONICALLY SIGNED BY: SWATHI HAM MD DATE: 06/22/251541 [facility] [address] [place] [address] IMAGING REPORT Signed PATIENT: YUMIKO CARLOS MR#: [id number] : 1950 SEX: F AGE: 74 LOCATION: 2BH ORDER 28 STATUS: ADM IN REPORT#: [id number] SERVICE 24 REASON: r/o any DVT of the lowe etxremities, swellng, fall ORDERING PHYSICIAN: MALIK VELASQUEZ MD PROCEDURE: VENOUS BINA - US VENOUS DOPPLER BILATERAL EXAM: US Duplex BILATERAL Lower Extremity Veins. CLINICAL HISTORY: Swelling after a fall with clinical concern for deep venous thrombosis of the lower extremities. TECHNIQUE: Grayscale imaging with compression maneuvers, color Doppler, and pulsed-wave spectral Doppler was performed where anatomically feasible from the common femoral veins through the femoral, popliteal, and calf veins bilaterally. Respiratory phasicity and augmentation responses were assessed when obtainable. Evaluation of the left common femoral and left popliteal veins is limited by body habitus. COMPARISON: None provided. FINDINGS: DEEP VEINS: The right common femoral vein is fully compressible without intraluminal echogenic thrombus. The right femoral vein is fully compressible with normal color Doppler filling and normal spectral Doppler phasicity. The right popliteal vein is fully compressible without thrombus. The right posterior tibial veins are compressible without thrombus. The left femoral vein is fully compressible with normal color Doppler filling and normal spectral Doppler phasicity. The left posterior tibial veins are compressible without thrombus. The left common femoral vein is not adequately visualized because of body habitus, and compressibility could not be assessed; thrombus at this nonvisualized level cannot be excluded. The left popliteal vein is not adequately visualized because of body habitus, and compressibility could not be assessed; thrombus at this nonvisualized level cannot be excluded. No abnormal focal fluid collection is identified along the imaged course of the veins. SUPERFICIAL VEINS: Superficial veins were not evaluated. SOFT TISSUES: No popliteal fossa cyst or other abnormalities. IMPRESSION: 1. No sonographic evidence of deep venous thrombosis in the visualized segments of the right lower extremity and in the visualized segments of the left femoral and left posterior tibial veins. 2. Technical limitation: the left common femoral vein and the left popliteal vein are not adequately visualized because of body habitus; thrombus at these nonvisualized levels cannot be excluded. /[place] DICTATED BY: KRYSTLE VEGA MD DATE: 06/22/252134 ELECTRONICALLY SIGNED BY: KRYSTLE VEGA MD DATE: 06/22/252134 [address] [address] IMAGING REPORT Signed PATIENT: YUMIKO CARLOS MR#: [id number] : 1950 SEX: F AGE: 74 LOCATION: [facility] ORDER 31 [facility]: [facility] REPORT#: [id number] SERVICE 29 REASON: s/p fall, r/o any fractures ORDERING PHYSICIAN: MALIK VELASQUEZ MD PROCEDURE: KNEE 2VBIL - KNEE 2VW BILATERAL EXAM: XR Both Knees, AP and Lateral (2) Views. CLINICAL HISTORY: Status post fall; clinical query for fracture or hardware-related complication. Known history of prior distal femur fixation. COMPARISON: No immediate prior imaging available for comparison. FINDINGS: BONES: No new acute fracture or focal osseous lesion identified in either knee. Left Knee (Post-operative Site): Internal plate fixation noted along the distal femur, consistent with prior fracture fixation. Cortical remodeling and signs of bony union seen at the prior fracture site ??? no evidence of non-union or millie-hardware lucency. One or more screw fixators appear broken at the proximal/superior end of the fixation plate, suggesting hardware fatigue or prior mechanical stress. No acute periprosthetic fracture or hardware migration seen. Right Knee: No prior fixation hardware or periarticular collection. JOINTS: No dislocation identified in either knee. Severe degenerative osteoarthritic changes seen in both knees, more pronounced in the medial tibiofemoral compartments. Marked reduction of tibiofemoral and patellofemoral joint spaces, with large periarticular osteophyte formation and subchondral sclerosis, consistent with advanced osteoarthritis. SOFT TISSUES: Mild diffuse periarticular soft tissue thickening noted, likely chronic degenerative or post-traumatic in nature. No significant joint effusion or soft tissue gas. IMPRESSION: 1. No acute fracture or dislocation in either knee. 2. Status post left distal femur fixation with plate and screws, with bony union. Broken screw(s) at the proximal aspect of the fixation plate without acute periprosthetic fracture or hardware migration. 3. Severe tricompartmental osteoarthritic changes in both knees, more pronounced in the medial tibiofemoral compartments. /[place] DICTATED BY: KRYSTLE VEGA MD DATE: 06/22/252008 ELECTRONICALLY SIGNED BY: KRYSTLE VEGA MD DATE: 06/22/252008 [place] [address] IMAGING REPORT Signed PATIENT: YUMIKO CARLOS MR#: [id number] : 1950 SEX: F AGE: 74 LOCATION: [facility] ORDER 1532 STATUS: [facility] REPORT#: [id number] SERVICE 1530 REASON: s/p fall, r/o any fractures ORDERING PHYSICIAN: MALIK VELASQUEZ MD PROCEDURE: KNEE 2VBIL - KNEE 2VW BILATERAL EXAM: XR Both Knees, AP and Lateral (2) Views. CLINICAL HISTORY: Status post fall; clinical query for fracture or hardware-related complication. Known history of prior distal femur fixation. COMPARISON: No immediate prior imaging available for comparison. FINDINGS: BONES: No new acute fracture or focal osseous lesion identified in either knee. Left Knee (Post-operative Site): Internal plate fixation noted along the distal femur, consistent with prior fracture fixation. Cortical remodeling and signs of bony union seen at the prior fracture site ??? no evidence of non-union or millie-hardware lucency. One or more screw fixators appear broken at the proximal/superior end of the fixation plate, suggesting hardware fatigue or prior mechanical stress. No acute periprosthetic fracture or hardware migration seen. Right Knee: No prior fixation hardware or periarticular collection. JOINTS: No dislocation identified in either knee. Severe degenerative osteoarthritic changes seen in both knees, more pronounced in the medial tibiofemoral compartments. Marked reduction of tibiofemoral and patellofemoral joint spaces, with large periarticular osteophyte formation and subchondral sclerosis, consistent with advanced osteoarthritis. SOFT TISSUES: Mild diffuse periarticular soft tissue thickening noted, likely chronic degenerative or post-traumatic in nature. No significant joint effusion or soft tissue gas. IMPRESSION: 1. No acute fracture or dislocation in either knee. 2. Status post left distal femur fixation with plate and screws, with bony union. Broken screw(s) at the proximal aspect of the fixation plate without acute periprosthetic fracture or hardware migration. 3. Severe tricompartmental osteoarthritic changes in both knees, more pronounced in the medial tibiofemoral compartments. /[place] DICTATED BY: KRYSTLE VEGA MD DATE: 06/22/252008 ELECTRONICALLY SIGNED BY: KRYSTLE VEGA MD DATE: 06/22/252008 [place] [address] IMAGING REPORT Signed PATIENT: YUMIKO CARLOS MR#: [id number] : 1950 SEX: F AGE: 74 LOCATION: [facility] ORDER 1534 STATUS: ADM IN REPORT#: [id number] SERVICE 1532 REASON: fall, on eliquis, hyponatremia ORDERING PHYSICIAN: MALIK VELASQUEZ MD PROCEDURE: HEAD WO - CT HEAD/BRAIN W/O CONTRAST EXAM: CT Head Without IV contrast. CLINICAL HISTORY: fall, on eliquis, hyponatremia TECHNIQUE: Axial computed tomography images of the head/brain without intravenous contrast. COMPARISON: None provided. FINDINGS: BRAIN: No evidence of acute hemorrhage. No mass lesion. No CT evidence for acute territorial infarct. No midline shift or extra-axial collections. VENTRICLES: No hydrocephalus. ORBITS: The orbits are unremarkable. SINUSES AND MASTOIDS: The paranasal sinuses and mastoid air cells are clear. BONES: No fracture. SOFT TISSUES: Unremarkable. IMPRESSION: No acute intracranial abnormality. /[place] DICTATED BY: ROCHELLE COVARRUBIAS MD DATE: 06/22/251857 ELECTRONICALLY SIGNED BY: ROCHELLE COVARRUBIAS MD DATE: 06/22/251857 [address] [address] IMAGING REPORT Signed PATIENT: YUMIKO CARLOS MR#: [id number] : 1950 SEX: F AGE: 74 LOCATION: [facility] ORDER 35 STATUS: ADM IN REPORT#: [id number] SERVICE 33 REASON: influenza positive, morbid obesity, r/o pneumonia vs edema ORDERING PHYSICIAN: MALIK VELASQUEZ MD PROCEDURE: CHEST WO - CT CHEST W/O CONTRAST EXAM: COMPUTED TOMOGRAPHY OF THE CHEST WITHOUT INTRAVENOUS CONTRAST Technique: Computed tomography of the chest was performed without intravenous contrast from the thoracic inlet through the upper abdomen with axial acquisition and coronal and sagittal reformations. Dose optimization included automated exposure control, patient size???based tube current and tube voltage modulation, and iterative reconstruction. Cardiac and vascular assessment is limited without contrast. Clinical Information: Influenza positive; morbid obesity; evaluation for pneumonia versus edema. Comparison: No prior chest computed tomography available. Findings: The chest wall and imaged lower neck soft tissues show no focal mass or acute abnormality. The trachea and main bronchi are patent without endoluminal lesion. There is no focal lobar consolidation identified. There are no suspicious pulmonary nodules identified. There are minimal bilateral pleural effusions. There is dependent basilar atelectasis adjacent to the effusions. There is no pneumothorax detected. The cardiac silhouette is mildly enlarged. There is no pericardial effusion identified. There are mild calcifications of the thoracic aorta. There are mild calcifications of the coronary arteries. There is calcification along the mitral annulus. There is no mediastinal or hilar lymphadenopathy by size criteria. The visualized upper abdomen shows no acute abnormality. The visualized osseous structures show mild degenerative changes of the thoracic spine without acute fracture. Impression: * Minimal bilateral pleural effusions with adjacent dependent basilar atelectasis; no focal lobar consolidation to suggest bacterial pneumonia on this noncontrast computed tomography. * Mild cardiomegaly. Interlobular septal prominence. Pulmonary venous congestion likely * Atherosclerotic calcifications of the thoracic aorta and coronary arteries, and mitral annular calcification. /[place] DICTATED BY: ROCHELLE COVARRUBIAS MD DATE: 06/22/252105 ELECTRONICALLY SIGNED BY: ROCHELLE COVARRUBIAS MD DATE: 06/22/252105 [address] [address] IMAGING REPORT Signed PATIENT: YUMIKO CARLOS MR#: [id number] : 1950 SEX: F AGE: 74 LOCATION: 2BH ORDER 44 STATUS: ADM IN REPORT#: [id number] SERVICE 42 REASON: persistent nausea x 1 week, hyponatremia, bloating, morbid obesity ORDERING PHYSICIAN: MALIK VELASQUEZ MD PROCEDURE: ABD PEL WO - CT ABDOMEN/PELVIS W/O CONTRAST EXAM: CT Abdomen and Pelvis without Intravenous Contrast CLINICAL HISTORY: Persistent nausea for one week, hyponatremia, abdominal bloating, and morbid obesity. TECHNIQUE: Axial helical CT scan of the abdomen and pelvis was performed without intravenous contrast. Multiplanar reformatted images were obtained in coronal and sagittal planes. Radiation dose optimization techniques utilized (CTDIvol: 26.9 mGy; DLP: 1698.6 mGy???cm). CONTRAST: Without COMPARISON: No prior CT available for comparison. FINDINGS: LUNG BASES: Visualized bilateral lung bases show mild pleural-based thickening and subpleural scarring, likely representing chronic post-inflammatory or fibrotic change. No active consolidation or pleural effusion. Cardiomegaly with calcific atherosclerosis involving coronary arteries, notably along the LAD and RCA courses. LIVER: Liver normal in size and contour with homogeneous attenuation; no focal hepatic lesions or biliary dilatation. GALLBLADDER AND BILE DUCTS: Gallbladder contains a large calcified calculus (3.5 x 2.5 cm) with normal wall thickness and no pericholecystic fluid or surrounding inflammatory change. Common bile duct of normal caliber. PANCREAS: Pancreas appears normal with preserved morphology and attenuation. No focal lesion or peripancreatic fat stranding. SPLEEN: Spleen appears normal with preserved morphology and attenuation. ADRENAL GLANDS: Adrenal glands appear normal with preserved morphology and attenuation. KIDNEYS, URETERS, AND BLADDER: Right mid-pole cortical scarring with coarse calcification consistent with prior inflammatory or ischemic insult. Mild bilateral perinephric fat stranding, nonspecific???may reflect chronic venous congestion or low-grade inflammation. No hydronephrosis, renal calculus, or hydroureter. Urinary bladder well distended, normal wall thickness, no intraluminal calculi. STOMACH AND BOWEL: Stomach and small bowel loops are mildly distended but nondilated; normal wall thickness. Colonic diverticulosis involving sigmoid and descending colon without pericolic stranding???uncomplicated diverticulosis. APPENDIX: Appendix visualized, normal in caliber with no periappendiceal inflammation???no CT evidence of appendicitis. PERITONEUM: Minimal localized internal fluid collection noted in the lower abdomen, measuring small in volume and without gas locules???nonspecific, could represent mild sterile or resolving inflammatory collection. Calcified intraperitoneal lymph node (2.3 x 1.6 cm) in right anterior lower abdomen???likely chronic, healed granulomatous origin. No ascites or pneumoperitoneum. LYMPH NODES: Calcified intraperitoneal lymph node (2.3 x 1.6 cm) in right anterior lower abdomen???likely chronic, healed granulomatous origin. No other significant lymphadenopathy. REPRODUCTIVE: Uterus surgically absent. Adnexal regions and pelvic soft tissues appear unremarkable. VASCULATURE: No aortic aneurysm. ABDOMINAL WALL AND SOFT TISSUES: Anterior abdominal wall oedema, most prominent in the lumbar region extending into bilateral iliac fossae. BONES: Age-appropriate thoracolumbar spondylosis with anterior osteophytes and facet arthropathy. No acute fracture or lytic/sclerotic lesions. IMPRESSION: 1. No acute intraabdominal or pelvic findings. 2. Mild gastric and small bowel distension without obstruction. 3. Minimal localized internal fluid collection in the lower abdomen, nonspecific. 4. Large gallbladder calculus (3.5 ??? 2.5 cm) without acute cholecystitis. 5. Right mid-pole renal cortical scarring with coarse calcification. 6. Uncomplicated colonic diverticulosis. 7. Age-appropriate thoracolumbar spondylosis with anterior osteophytes and facet arthropathy. 8. Several stable chronic and incidental findings are noted, as detailed in the body of the report, including mild pleural/subpleural scarring at the lung bases, cardiomegaly with coronary artery atherosclerosis, mild bilateral perinephric fat stranding, calcified intraperitoneal lymph node likely granulomatous in origin, anterior abdominal wall edema, and postsurgical absence of the uterus. /[place] DICTATED BY: KYRSTLE VEGA MD DATE: 06/22/252231 ELECTRONICALLY SIGNED BY: KRYSTLE VEGA MD DATE: 06/22/252231 ASSESSMENT: Severe hyponatremia, POA Hypertensive urgency, POA History of HCTZ use as outpatient, POA Active influenza bronchitis, POA Super morbid obesity (BMI 62), POA Underlying history of atrial fibrillation, POA History of chronic anticoagulation with Eliquis, POA Hypomagnesemia, POA Debility, POA Chronic hypercapnic respiratory failure, POA Untreated ohs/LINDA, POA History of hypertension, POA Hyperlipidemia, POA Type 2 diabetes mellitus, POA PLAN: Severe hyponatremia, POA -patient's sodium level at presentation was 114. -we started IV fluid with normal saline at 75 mL/hour. -correction of sodium of 6-8 mEq per24 hours -hydrochlorothiazide was stopped and patient was put on fluid restriction of 1.5 L daily. -we will trend BMP 6 hourly -nephrology on board, we will follow up with the recommendations. Hypertensive urgency, POA -on presentation patient's blood pressure was 187/78 -patient received 1 dose of hydralazine 10 mg in ED -we will continue patient's home medication losartan 100 mg daily, carvedilol 25 mg b.i.d. -hydrochlorothiazide was discontinued due to severe hyponatremia -hydralazine 10 mg IV p.r.n. if systolic blood pressure greater than 170 mmHg. Active influenza bronchitis, POA -on presentation to ED patient tested positive for influenza type B antigen -patient was started on Tamiflu 75 mg b.i.d. PO -doxycycline 100 mg b.i.d. PO, Rocephin 1 g IV q.12h started to prevent secondary bacterial infection. -budesonide 0.5 mg b.i.d. resp IH, ipratropium bromide 0.5 mg Q 6 resp IH Underlying history of atrial fibrillation, POA -patient is known case of atrial fibrillation, on Eliquis 5 mg daily at home -EKG on presentation showed atrial fibrillation -patient was started on Eliquis 5 mg b.i.d. PO Patient receiving thiamine supplementation Patient remains high-risk due to severe obesity and chronic hypercapnic r espiratory failure with metabolic compensation We will request consultation with Physical therapy in the morning We will avoid any narcotics/sedatives to reduce risk of any worsening acute on chronic hypercapnia Patient will benefit from BiPAP/CPAP therapy at bedtime All labs will be repeated in the morning ATTESTATION BY PHYSICIAN I have seen and examined the patient. I reviewed the documentation, medical decision making, and treatment plan as noted by the resident physician above. I agree with the findings and plan of care. JANES CM MD, ADIL SHAH QUADRI MD Jun 23, 2025 17:57
[2025-06-23] MEDS: FAMOTIDINE 20MG TAB PO SCH (21:30)
[2025-06-23 22:01] LABS: CREATININE 0.3 mg/dL (0.5-1.0); GLOMERULAR FILTR. RATE CALC 110.0 mL/min (>90); GLUCOSE,RANDOM 113.0 mg/dL (70-105); SODIUM SERUM 117.0 mmol/L (136-145); UREA NITROGEN, BLOOD 17.0 mg/dL (7-18)
[2025-06-24] VITALS (16 sets, daily range): BP systolic 120–172; BP diastolic 40–76; PULSE 53–75; RESP 18–25; TEMP 97.3–97.6; O2SAT 97–99
[2025-06-24 04:32] LABS: NUCLEATED RED BLOOD CELLS 0.0 % (0.0-0.19); PLATELET COUNT (AUTO) 115 K/uL (130-400); RED BLOOD CELL COUNT(AUTO) 4.64 MIL/uL (4.00-5.50); RED CELL DISTRIBUTION WIDTH 12.0 % (11.0-15.5); WHITE BLOOD COUNT (AUTO) 8.4 K/uL (4.8-10.8)
[2025-06-24 04:41] LABS: CREATININE 0.3 mg/dL (0.5-1.0); GLOMERULAR FILTR. RATE CALC 110.0 mL/min (>90); GLUCOSE,RANDOM 72.0 mg/dL (70-105); SODIUM SERUM 117.0 mmol/L (136-145); UREA NITROGEN, BLOOD 14.0 mg/dL (7-18)
[2025-06-24 05:11] LABS: BAND NEUTROPHILS % (MANUAL) 1 % (0-2); EOSINOPHILS % (MANUAL) 1 % (1-6); LYMPHOCYTES % (MANUAL) 10 % (22-44); MAN.DIFF COMMENT-IMPRESSION MANUAL DIFFERENTIAL; MONOCYTES % (MANUAL) 6 % (2-9); PLATELET MORPHOLOGY COMMENT SLIGHTLY DECREASED; SEGMENTED NEUTROPHILS % 82 % (40-70)
[2025-06-24 06:26] LABS: ASPARTATE AMINOTRANSFERASE 23.0 U/L (10-37); LDL DIRECT 58.0 mg/dL (0-99); TOTAL PROTEIN, SERUM 6.2 g/dL (6.0-8.3)
--- NOTE | 2025-06-24 07:34 | CONS ---
CONSULT NOTE: Endocrinology Consult Chief complaint:secondary to fall, dizziness, poor oral intake with nausea. Reason for consult: rule out traci's disease DOS:06/24/25 HISTORY OF PRESENT ILLNESS: This is a 74-year-old female with underlying history of severe morbid obesity, suspected ohs/LINDA with chronic hypercapnic respiratory failure, history of atrial fibrillation maintained on chronic anticoagulation with Eliquis, hyperlipidemia presented to the ER secondary to fall, dizziness, poor oral intake with nausea. She has been maintained on chronic anticoagulation with E liquis as outpatient. She is followed by Cardiology as outpatient due to prior history of atrial fibrillation. She is mostly sedentary at home and has been having issues with weight for long time. She reports that she has been slowly gaining weight over the last several years. She is having pain involving the left knee since the fall. She does report having history of sleep apnea but does not use CPAP machine at home. She reports drinking about 2L of water daily to maintain hydration. Has been having some cough, congestion and mild wheezing. Denies any previous history of COPD or asthma. She has been having some mild nausea but denies any headache or significant weakness of bilateral upper or lower extremity. She does have history of hypertension and is maintained on antihypertensives with losartan 100 mg daily, [id number] mg b.i.d., HCTZ 25 mg daily. She reports taking all her antihypertensives this morning prior to coming to the ER. On presentation to the hospital, patient was noted to have T-max of 98.2 F, heart rate of 72, blood pressure of 187/78. Labs on presentation showed WBC count of 9900, hemoglobin 15.3, platelet count of [id number]. BMP remarkable for sodium of 114, potassium 4.2, chloride of 76, creatinine of 0.4, magnesium 1.3, BNP of 146. Chest x-ray showed no acute infiltrates. am cortisol 16.9, tsh 1.91 patient sodium was low at 114 that is improving to 124 now. neprology is following and hyponatremia likely caused by HCTZ. reports that she gained more than 30 lbs weight but otherwise denies any other signs/symptoms of traci syndrome. denies steroid intake. Hba1c 6.1% REVIEW OF SYSTEMS: CONSTITUTIONAL: generalized malaise, weight gain, obesity NEUROLOGICAL: Denies headache, amaurosis fugax, motor weakness, sensory deficit, vertigo/spinning sensation, gait abnormalities, or tremors. ENT: No hearing loss, otalgia, otorrhea, rhinitis, rhinorrhea, hoarseness, or sore throat. CARDIOVASCULAR: denies any chest pain, denies palpitations PULMONARY: cough, congestion , rhinorrhea SLEEP: Denies morning headaches, daytime somnolence or napping. Denies difficulty falling asleep, staying asleep, waking from sleep. Denies knowledge of snoring. GASTROINTESTINAL: Denies any type of dysphagia to either liquids or solids. Denies nausea, vomiting, pyrosis, early satiety, abdominal pain, diarrhea, constipation, or changes in stool consistency or caliber. Denies coffee-ground emesis, hematemesis, hematochezia, or melanotic stools. GENITOURINARY: Denies frequency, urgency, nocturia, hematuria or incontinence (Storage/Irritative symptoms.) Low urinary stream, straining to void, urinary intermittency or hesitancy, splitting of the voiding stream, terminal dribbling. ENDOCRINOLOGIC: Denies polyuria, polydipsia, polyphagia or heat/cold intolerances. HEMATOLOGIC: Denies thrombophilia/previous clots, or coagulopathy/bleeding disorders. ONCOLOGIC: Denies personal history of malignancy. DERMATOLOGIC: Denies rashes or pruritus. PSYCHIATRIC: Denies any suicidal or homicidal ideation. Denies hallucinations. ADDITIONAL PAST MEDICAL HISTORY: [Diabetes mellitus type 2, severe morbid obesity, hypertension, A-fib on chronic anticoagulation with Eliquis 5 mg twice daily, untreated LINDA/OHS] SOCIAL HISTORY: [Negative for smoking, alcohol use, drug use. Patient requires assistance with IADLs. 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 neurological exam is non focal, patient has pain to left knee, strength exam is limited due to pain HEENT: Face is symmetric. Pupils are equal and reactive. Extraocular movements are intact. NECK: Supple. No JVD. No thyromegaly. No submental, submandibular, pre-/post auricular, occipital or supraclavicular lymphadenopathy. CHEST: Normal chest expansion. No Telemetry. LUNGS: minimal crackles noted of the bilateral lung bases CARDIOVASCULAR: Regular. S1 and S2 normal. No appreciable rubs, murmurs or gallops. ABDOMEN: Soft, nontender, and nondistended. There is no rebound, voluntary guarding, or rigidity. : Deferred. No Sharpe. EXTREMITIES: trace edema noted of the bilateral lower extremities SKIN: No skin breakdown. DIAGNOSTICS / RADIOLOGY: SERVICE 34 REASON: sob ORDERING PHYSICIAN: SATISH WEEMS MD PROCEDURE: CXR1VW - CHEST 1VW EXAM: CR Chest, 1 View. CLINICAL HISTORY: sob COMPARISON: May 22 2023 FINDINGS: LUNGS: There is no mass, infiltrate, or acute pulmonary abnormality. PLEURAL SPACES: No evidence of pleural effusion or pneumothorax. MEDIASTINUM: There is cardiomegaly BONES: No aggressive appearing osseous lesion seen. IMPRESSION: No acute cardiopulmonary pathology is evident. /[place] DICTATED BY: SWATHI HAM MD DATE: 06/22/251541 ELECTRONICALLY SIGNED BY: SWATHI HAM MD DATE: 06/22/251541 ASSESSMENT: Severe hyponatremia, POA am cortisol 16.9, tsh 1.91 patient sodium was low at 114 that is improving to 124 now. nephrology is following and hyponatremia likely caused by HCTZ. reports that she gained more than 30 lbs weight but otherwise denies any other signs/symptoms of traci syndrome. denies steroid intake. Hypertensive urgency, POA History of HCTZ use as outpatient, POA Active influenza bronchitis, POA Super morbid obesity (BMI 62), POA Type 2 diabetes mellitus, POA Hba1c 6.1% controlled with diet Underlying history of atrial fibrillation, POA History of chronic anticoagulation with Eliquis, POA Hypomagnesemia, POA Debility, POA Chronic hypercapnic respiratory failure, POA Untreated ohs/LINDA, POA History of hypertension, POA Hyperlipidemia, POA PLAN: Patient wants traci work up as outpatient and will do detail traci labs as outpatient. off HCTZ monitor sodium. Monitor glucose q x 12 hourly. Continue carb consistent diet. Thanks for allowing me to participate in patient care and will continue to follow up. Vital Signs 06/23/25 06/23/25 06/24/25 06/24/25 06/24/25 16:00 22:30 04:00 06:45 06:46 Temp 97.5 Pulse 53 Resp 18 B/P (MAP) 120/40 Pulse Ox 96 O2 Delivery Bi-PAP+ O2 Flow Rate 2.0 FiO2 30 Hematology Labs: Test 06/24/25 04:01 06/22/25 13:48 Range/Units White Blood Count 8.4 4.8-10.8 K/uL Red Blood Count 4.64 4.00-5.50 MIL/uL Hemoglobin 14.4 12.0-16.0 g/dL Hematocrit 40.2 36-48 % Mean Corpuscular Volume 86.6 79-99 fL Mean Corpuscular Hemoglobin 31.0 27.0-33.0 pg Mean Corpuscular Hemoglobin Concent 35.8 32.0-36.0 g/dL Red Cell Distribution Width 12.0 11.0-15.5 % Platelet Count 115 #L 130-400 K/uL Mean Platelet Volume 10.5 7.5-10.5 fL Segmented Neutrophils % 82 H 40-70 % Band Neutrophils % 1 0-2 % Lymphocytes % (Manual) 10 L 22-44 % Monocytes % (Manual) 6 2-9 % Eosinophils % (Manual) 1 1-6 % Nucleated Red Blood Cells 0.0 0.0-0.19 % Differential Comment MANUAL DIFFERENTIAL White Cell Morphology Comment See comments Platelet Morphology Comment SLIGHTLY DECREASED Red Blood Cell Morphology NORMAL Immature Granulocyte % (Auto) 1.3 H 0-1 % Neutrophils (%) (Auto) 82.5 H 40.0-77.0 % Lymphocytes (%) (Auto) 8.8 L 21.0-51.0 % Monocytes (%) (Auto) 7.0 3.0-13.0 % Eosinophils (%) (Auto) 0.1 0.0-8.0 % Basophils (%) (Auto) 0.3 0.0-5.0 % Neutrophils # (Auto) 8.2 H 1.8-7.7 K/uL Lymphocytes # (Auto) 0.9 L 1.0-4.8 K/uL Monocytes # (Auto) 0.7 0.1-1.0 K/uL Eosinophils # (Auto) 0.01 0.00-0.70 K/uL Basophils # (Auto) 0.03 0.00-0.20 K/uL Absolute Immature Granulocyte (auto 0.13 0-1 K/uL Erythrocyte Sedimentation Rate 15 0-30 MM/HR Chemistry Labs: Test 06/24/25 06:02 06/24/25 05:50 06/24/25 04:01 06/23/25 07:16 Range/Units Whole Blood Glucose 80 70-110 MG/DL Total Bilirubin 0.8 0.2-1.0 mg/dL Direct Bilirubin 0.4 H 0.0-0.3 mg/dL Aspartate Amino Transf (AST/SGOT) 23 10-37 U/L Alanine Aminotransferase (ALT/SGPT) 25 12-78 U/L Alkaline Phosphatase 72 50-136 U/L Total Protein 6.2 6.0-8.3 g/dL Albumin 2.8 L 3.5-5.0 g/dL Triglycerides Level 45 30-200 mg/dL Cholesterol Level 108 <200 mg/dL LDL Cholesterol 58 0-99 mg/dL HDL Cholesterol 43 35-85 mg/dL Sodium Level 117 L 136-145 mmol/L Potassium Level 4.1 3.5-5.1 mmol/L Chloride Level 84 *L 101-111 mmol/L Carbon Dioxide Level 29 21-32 mmol/L Blood Urea Nitrogen 14 7-18 mg/dL Creatinine 0.3 L 0.5-1.0 mg/dL Glomerular Filtration Rate Calc 110 >90 mL/min Random Glucose 72 70-105 mg/dL Total Calcium 8.0 L 8.5-10.1 mg/dL Uric Acid 2.0 L 2.6-7.2 mg/dL Phosphorus Level 3.2 2.5-4.9 mg/dL Magnesium Level 1.70 L 1.80-2.40 mg/dL Test 06/22/25 13:48 Range/Units Hemoglobin A1c 6.1 H 4.0-6.0 % Estimated Average Glucose (eAG) 128 H 70-126 mg/dL Serum Osmolality 247 L 278-305 mOsm/kg Lactate Dehydrogenase 257 H 81-234 U/L Troponin I High Sensitivity 11 4-50 ng/L C-Reactive Protein, Quantitative 3.40 H 0.5-3.0 mg/L B-Type Natriuretic Peptide 146 H 0-100 pg/mL Procalcitonin < 0.05 L 0.05-0.5 ng/mL Thyroid Stimulating Hormone (TSH) 1.91 0.36-3.74 uIU/mL Coagulation Labs: Test 06/22/25 13:58 Range/Units Prothrombin Time 15.0 H 9.6-11.6 SEC Prothromb Time International Ratio 1.47 H 0.85-1.15 Activated Partial Thromboplast Time 33.6 26.3-35.5 SEC Current Medications Medications (Trade) Dose Ordered Sig/[place] Route Start Time Stop Time Status Last Admin Dose Admin Apixaban (EliquIS) 5 mg BID PO 06/23/25 09:00 07/23/25 08:59 06/23/25 21:30 5 MG Atorvastatin Calcium (LIPItor 10MG) 10 mg HS PO 06/22/25 21:00 07/22/25 20:59 06/23/25 21:30 10 MG Budesonide (Pulmicort 0.5 Mg/2ml) 0.5 mg BIDRESP IH 06/22/25 18:00 07/22/25 17:59 06/24/25 06:46 0.5 MG Carvedilol (Coreg 25MG) 25 mg BID PO 06/22/25 21:00 06/23/25 13:35 DC 06/22/25 21:18 25 MG Ceftriaxone Sodium (ROCEphine 1G INJ) 1 gm Q12H IVPB 06/22/25 15:30 07/02/25 15:29 06/24/25 03:32 1 GM Docusate Sodium (COLace 100MG CAP) 100 mg BID PO 06/22/25 21:00 07/22/25 20:59 06/23/25 21:30 100 MG Doxycycline Hyclate (Doxycycline Hyclate) 100 mg BID PO 06/22/25 21:00 07/02/25 20:59 06/23/25 21:30 100 MG Famotidine (Pepcid 20mg Tab) 20 mg BID PO 06/23/25 21:00 07/23/25 20:59 06/23/25 21:30 20 MG Fish Oil (Fish Oil 1000 Mg/Cap) 1,000 mg DAILY PO 06/23/25 09:00 07/23/25 08:59 06/23/25 09:05 1,000 MG Home Med (Home Medication) Soluble [place] Fiber/ Inu... DAILY PO 06/23/25 09:00 07/23/25 08:59 Insulin Human Regular (humuLIN R 100 UNIT/ML 3ML) INSULIN SLIDING SCAL... ACHS SQ 06/22/25 16:30 07/22/25 16:29 Ipratropium [place] (AtrovENT UD) 0.5 mg [id number] IH 06/22/25 18:00 07/22/25 17:59 06/24/25 06:46 0.5 MG Losartan Potassium (CozAAR 100MG TAB) 100 mg DAILY PO 06/23/25 09:00 06/23/25 13:35 DC 06/23/25 10:19 100 MG Magnesium Sulfate 50 ml @ 0 mls/hr PROTOCOL IV 06/22/25 15:30 07/22/25 15:29 06/24/25 04:23 25 MLS/HR Oseltamivir Phosphate (Tamiflu) 75 mg BID PO 06/22/25 21:00 06/27/25 20:59 06/23/25 21:30 75 MG Sodium Chloride 1,000 ml @ 75 mls/hr [id number] IV 06/22/25 15:30 06/23/25 13:34 DC 06/23/25 04:42 75 MLS/HR Sodium Chloride (Sodium Chloride) 2,000 mg Q8H6 PO 06/23/25 14:00 07/23/25 13:59 06/24/25 05:58 2,000 MG Thiamine HCl (Vitamin B-1) 100 mg DAILY IVP 06/23/25 09:00 07/23/25 08:59 06/23/25 09:06 100 MG JASSON TURJILLO MD Jun 24, 2025 07:34
[2025-06-24 09:16] LABS: CREATININE 0.3 mg/dL (0.5-1.0); GLOMERULAR FILTR. RATE CALC 110.0 mL/min (>90); GLUCOSE,RANDOM 96.0 mg/dL (70-105); SODIUM SERUM 120.0 mmol/L (136-145); UREA NITROGEN, BLOOD 13.0 mg/dL (7-18)
--- NOTE | 2025-06-24 12:07 | PN ---
[facility] PROGRESS NOTE Date of Service: Jun 24, 2025 Time of Service: 11:33 SUBJECTIVE: This is a 74-year-old female with underlying history of severe morbid obesity, suspected ohs/LINDA with chronic hypercapnic respiratory failure, history of atrial fibrillation maintained on chronic anticoagulation with Eliquis, hyperlipidemia presented to the ER secondary to fall, dizziness, poor oral intake with nausea. Patient states that as she was ambulating to the restroom, she lost balance and fell and landed on her back. Denies hitting her head. She has been maintained on chronic anticoagulation with Eliquis as outpatient. She is followed by Cardiology as outpatient due to prior history of atrial fibrillation. She is mostly sedentary at home and has been having issues with weight for long time. She reports that she has been slowly gaining weight over the last several years. She is having pain involving the left knee since the fall. She does report having history of sleep apnea but does not use CPAP machi ne at home. She reports drinking about 2L of water daily to maintain hydration. Has been having some cough, congestion and mild wheezing. Denies any previous history of COPD or asthma. She has been having some mild nausea but denies any headache or significant weakness of bilateral upper or lower extremity. She does have history of hypertension and is maintained on antihypertensives with losartan 100 mg daily, tuoshyspri16 mg b.i.d., HCTZ 25 mg daily. She reports taking all her antihypertensives this morning prior to coming to the ER. On presentation to the hospital, patient was noted to have T- max of 98.2 F, heart rate of 72, blood pressure of 187/78. Labs on presentation showed WBC count of 9900, hemoglobin 15.3, platelet count of [id number]. BMP remarka ble for sodium of 114, potassium 4.2, chloride of 76, creatinine of 0.4, magnesium 1.3, BNP of 146. Chest x-ray showed no acute infiltrates. Patient will be admitted to ICU for management of severe hyponatremia, hypertensive urgency, active influenza infection, and we will monitor this patient closely due to underlying obesity and underlying comorbidities. Including untreated OHS /LINDA All antihypertensives will be resumed. Condition remains critical. 06/23/2025: Patient was seen and examined bedside in room 210. Patient is awake, alert, oriented x3. patient tested positive for influenza type B antigen, started on droplet precaution. Patient is receiving Tamiflu, IV doxycycline and Rocephin to prevent secondary bacterial infection. Lab shows sodium 116, potassium 3.7 and patient is on 1.5 L fluid restriction, receiving IV fluids NaCl at 75 mL/hour. Pending cortisol, urine sodium, urine potassium, echo 2D. nephrology on board, we will follow up with the recommendations. 06/24/2025: Patient was seen and examined bedside in room 210. Patient is awake, alert, oriented x3. patient is requiring BiPAP with FiO2 30 during night probably due to obstructive sleep apnea. Her sodium has been improved from 116 to 120. Stopped NaCl75 mL/hour, losartan 100 mg and started sodium chloride pills 2g Q 8 as per Nephrology recommendation. 2D echo showed left ventricular ejection fraction > 65, stage III diastolic dysfunction. Urine Positive for leukocyte esterase, urine culture shows no growth at 18-24 hours. We will continue Tamiflu, IV antibiotics, salt pills. REVIEW OF SYSTEMS: CONSTITUTIONAL: generalized malaise, weight gain, obesity NEUROLOGICAL: Denies headache, amaurosis fugax, motor weakness, sensory deficit, vertigo/spinning sensation, gait abnormalities, or tremors. ENT: No hearing loss, otalgia, otorrhea, rhinitis, rhinorrhea, hoarseness, or sore throat. CARDIOVASCULAR: denies any chest pain, denies palpitations PULMONARY: cough, congestion , rhinorrhea SLEEP: Denies morning headaches, daytime somnolence or napping. Denies difficulty falling asleep, staying asleep, waking from sleep. Denies knowledge of snoring. GASTROINTESTINAL: Denies any type of dysphagia to either liquids or solids. Denies nausea, vomiting, pyrosis, early satiety, abdominal pain, diarrhea, constipation, or changes in stool consistency or caliber. Denies coffee-ground emesis, hematemesis, hematochezia, or melanotic stools. GENITOURINARY: Denies frequency, urgency, nocturia, hematuria or incontinence (Storage/Irritative symptoms.) Low urinary stream, straining to void, urinary intermittency or hesitancy, splitting of the voiding stream, terminal dribbling. ENDOCRINOLOGIC: Denies polyuria, polydipsia, polyphagia or heat/cold intolerances. HEMATOLOGIC: Denies thrombophilia/previous clots, or coagulopathy/bleeding disorders. ONCOLOGIC: Denies personal history of malignancy. DERMATOLOGIC: Denies rashes or pruritus. PSYCHIATRIC: Denies any suicidal or homicidal ideation. Denies hallucinations. PHYSICAL EXAM GENERAL APPEARANCE: The patient is awake, alert, appears chronically ill, on 2 L of O2 by nasal canula, patient is morbidly obese NEUROLOGICAL: Cranial nerves II-XII grossly intact. neurological exam is non focal, patient has pain to left knee, strength exam is limited due to pain HEENT: Face is symmetric. Pupils are equal and reactive. Extraocular movements are intact. NECK: Supple. No JVD. No thyromegaly. No submental, submandibular, pre- /postauricular, occipital or supraclavicular lymphadenopathy. CHEST: Normal chest expansion. No Telemetry. LUNGS: minimal crackles noted of the bilateral lung bases CARDIOVASCULAR: Regular. S1 and S2 normal. No appreciable rubs, murmurs or g allops. ABDOMEN: Soft, nontender, and nondistended. There is no rebound, voluntary gua rding, or rigidity. : Deferred. No Sharpe. EXTREMITIES: trace edema noted of the bilateral lower extremities SKIN: No skin breakdown. Vital Signs (last 8hr) Date Time Temp Pulse Resp B/P (MAP) Pulse Ox O2 Delivery O2 Flow Rate FiO2 06/24/25 11:16 97.3 65 21 143/68 100 Nasal Cannula 2.0 06/24/25 08:00 67 20 N/Cannula Low lpm 2.0 28 06/24/25 08:00 97.3 62 20 146/55 98 Nasal Cannula 2.0 06/24/25 08:00 97 Nasal Cannula* 2 28 06/24/25 06:46 53 18 06/24/25 06:45 53 18 30 06/24/25 04:20 60 18 30 06/24/25 04:00 97.5 58 19 120/40 96 LABS: Laboratory: Test 06/24/25 09:01 06/24/25 06:02 06/24/25 05:50 06/24/25 04:01 Range/Units Sodium Level 120 L 136-145 mmol/L Potassium Level 4.5 3.5-5.1 mmol/L Chloride Level 86 *L 101-111 mmol/L Carbon Dioxide Level 32 21-32 mmol/L Blood Urea Nitrogen 13 7-18 mg/dL Creatinine 0.3 L 0.5-1.0 mg/dL Glomerular Filtration Rate Calc 110 >90 mL/min Random Glucose 96 70-105 mg/dL Total Calcium 8.3 L 8.5-10.1 mg/dL Whole Blood Glucose 80 70-110 MG/DL Magnesium Level 1.90 1.80-2.40 mg/dL Total Bilirubin 0.8 0.2-1.0 mg/dL Direct Bilirubin 0.4 H 0.0-0.3 mg/dL Aspartate Amino Transf (AST/SGOT) 23 10-37 U/L Alanine Aminotransferase (ALT/SGPT) 25 12-78 U/L Alkaline Phosphatase 72 50-136 U/L Total Protein 6.2 6.0-8.3 g/dL Albumin 2.8 L 3.5-5.0 g/dL Triglycerides Level 45 30-200 mg/dL Cholesterol Level 108 <200 mg/dL LDL Cholesterol 58 0-99 mg/dL HDL Cholesterol 43 35-85 mg/dL White Blood Count 8.4 4.8-10.8 K/uL Red Blood Count 4.64 4.00-5.50 MIL/uL Hemoglobin 14.4 12.0-16.0 g/dL Hematocrit 40.2 36-48 % Mean Corpuscular Volume 86.6 79-99 fL Mean Corpuscular Hemoglobin 31.0 27.0-33.0 pg Mean Corpuscular Hemoglobin Concent 35.8 32.0-36.0 g/dL Red Cell Distribution Width 12.0 11.0-15.5 % Platelet Count 115 #L 130-400 K/uL Mean Platelet Volume 10.5 7.5-10.5 fL Segmented Neutrophils % 82 H 40-70 % Band Neutrophils % 1 0-2 % Lymphocytes % (Manual) 10 L 22-44 % Monocytes % (Manual) 6 2-9 % Eosinophils % (Manual) 1 1-6 % Nucleated Red Blood Cells 0.0 0.0-0.19 % Differential Comment MANUAL DIFFERENTIAL White Cell Morphology Comment See comments Platelet Morphology Comment SLIGHTLY DECREASED Red Blood Cell Morphology NORMAL Test 06/23/25 09:20 06/23/25 07:16 06/22/25 23:47 06/22/25 13:58 Range/Units Urine Color YELLOW YELLOW Urine Appearance CLOUDY H CLEAR Urine pH 6.5 5.0-8.0 Urine Specific [place] 1.026 1.001-1.031 Urine Protein 50 H NEGATIVE mg/dL Urine Glucose (UA) NEGATIVE NEGATIVE mg/dL Urine Ketones NEGATIVE NEGATIVE mg/dL Urine Occult Blood LARGE H NEGATIVE Urine Nitrate NEGATIVE NEGATIVE Urine Bilirubin NEGATIVE NEGATIVE mg/dL Urine Urobilinogen 4.0 H 0.2-1.0 mg/dL Urine Leukocyte Esterase 250 H NEGATIVE [place]ora/uL Urine RBC TNTC H 0-1 /HPF Urine WBC 51-100 H 0-1 /HPF Urine Squamous Epithelial Cells RARE 0-2 /HPF Urine Non-Squamous Epithelial Cells 2 0-2 /HPF Urine Bacteria None None Seen /HPF Urine Other Casts 4 None Seen /LPF Urine Osmolality 676 50-1200 mOsm/kg Urine Random Creatinine 141.83 H 30-135 mg/dL Urine Random Sodium < 13 L 40-220 mmol/l Urine Random Potassium 14 L 25-125 mmol/L Urine Random Chloride < 21 L 110-250 mmol/L Uric Acid 2.0 L 2.6-7.2 mg/dL Phosphorus Level 3.2 2.5-4.9 mg/dL Blood Gas Specimen Type Arterial Arterial Blood pH 7.324 L 7.350-7.450 Arterial Blood Partial Pressure CO2 58 H 32-45 mmHg Arterial Blood Partial Pressure O2 106.0 83.0-108.0 mmHg Arterial Blood HCO3 29.6 H 21.0-28.0 mmol/L Arterial Blood Oxygen Saturation 97.8 94.0-98.0 % Arterial Blood Base Excess 2.1 -2.0-3.0 mmol/L Hemoglobin (Blood Gas) 14.7 12.0-16.0 g/dL Sodium (Blood Gas) 114 L 136-145 MMOL/L Bedside Potassium (Blood Gas) 3.7 3.4-4.5 MMOL/L Bedside Chloride (Blood Gas) 79 *L 98-107 MMOL/L Bedside Glucose (Blood Gas) 102 H 65-95 MG/DL Bedside Ionized Calcium (Blood Gas) 1.11 L 1.15-1.33 MMOL/L Bedside Lactic Acid (Blood Gas) 0.87 H 0.36-0.75 MMOL/L Blood Gas Temperature 37.0 35.5-37.0 CELSIUS Blood Gas Flow-by 5.00 0.00-15.00 L/min Blood Gas Vent Mode A.M ROOM AIR FiO2 40.0 % Blood Gas Specimen Comment CRYSTAL RN, RB Prothrombin Time 15.0 H 9.6-11.6 SEC Prothromb Time International Ratio 1.47 H 0.85-1.15 Activated Partial Thromboplast Time 33.6 26.3-35.5 SEC Test 06/22/25 13:50 06/22/25 13:48 Range/Units Influenza Type A Antigen Negative For Type A NEGATIVE Influenza Type B Antigen Positive For Type B *A NEGATIVE SARS-CoV-2, RNA, NAAT NEGATIVE SARS CoV-2 NEGATIVE Group A Streptococcus Rapid negative NEGATIVE Immature Granulocyte % (Auto) 1.3 H 0-1 % Neutrophils (%) (Auto) 82.5 H 40.0-77.0 % Lymphocytes (%) (Auto) 8.8 L 21.0-51.0 % Monocytes (%) (Auto) 7.0 3.0-13.0 % Eosinophils (%) (Auto) 0.1 0.0-8.0 % Basophils (%) (Auto) 0.3 0.0-5.0 % Neutrophils # (Auto) 8.2 H 1.8-7.7 K/uL Lymphocytes # (Auto) 0.9 L 1.0-4.8 K/uL Monocytes # (Auto) 0.7 0.1-1.0 K/uL Eosinophils # (Auto) 0.01 0.00-0.70 K/uL Basophils # (Auto) 0.03 0.00-0.20 K/uL Absolute Immature Granulocyte (auto 0.13 0-1 K/uL Erythrocyte Sedimentation Rate 15 0-30 MM/HR Hemoglobin A1c 6.1 H 4.0-6.0 % Estimated Average Glucose (eAG) 128 H 70-126 mg/dL Serum Osmolality 247 L 278-305 mOsm/kg Lactate Dehydrogenase 257 H 81-234 U/L Troponin I High Sensitivity 11 4-50 ng/L C-Reactive Protein, Quantitative 3.40 H 0.5-3.0 mg/L B-Type Natriuretic Peptide 146 H 0-100 pg/mL Procalcitonin < 0.05 L 0.05-0.5 ng/mL Thyroid Stimulating Hormone (TSH) 1.91 0.36-3.74 uIU/mL Current Medications Medications (Trade) Dose Ordered Sig/Conchis Route PRN Reason Start Time Stop Time Status Last Admin Dose Admin Acetaminophen (TYLenol 325MG TAB) 650 mg Q6H PRN PO MILD PAIN (1-3) 06/22/25 15:30 07/22/25 15:29 Acetaminophen/ Hydrocodone Bitart (NORco 5/325MG) 1 tab Q6H PRN PO MODERATE PAIN (4-6) 06/23/25 11:30 06/23/25 11:13 DC Apixaban (EliquIS) 5 mg BID PO 06/23/25 09:00 07/23/25 08:59 06/24/25 08:42 5 MG Atorvastatin Calcium (LIPItor 10MG) 10 mg HS PO 06/22/25 21:00 07/22/25 20:59 06/23/25 21:30 10 MG Budesonide (Pulmicort 0.5 Mg/2ml) 0.5 mg BIDRESP IH 06/22/25 18:00 07/22/25 17:59 06/24/25 06:46 0.5 MG Carvedilol (Coreg 25MG) 25 mg BID PO 06/22/25 21:00 06/23/25 13:35 DC 06/22/25 21:18 25 MG Ceftriaxone Sodium (ROCEphine 1G INJ) 1 gm Q12H IVPB 06/22/25 15:30 07/02/25 15:29 06/24/25 03:32 1 GM Docusate Sodium (COLace 100MG CAP) 100 mg BID PO 06/22/25 21:00 07/22/25 20:59 06/24/25 08:42 100 MG Doxycycline Hyclate (Doxycycline Hyclate) 100 mg BID PO 06/22/25 21:00 07/02/25 20:59 06/24/25 08:42 100 MG Famotidine (Pepcid 20mg Tab) 20 mg BID PO 06/23/25 21:00 07/23/25 20:59 06/24/25 08:42 20 MG Fish Oil (Fish Oil 1000 Mg/Cap) 1,000 mg DAILY PO 06/23/25 09:00 07/23/25 08:59 06/24/25 08:42 1,000 MG Home Med (Home Medication) Soluble [place] Fiber/ Inu... DAILY PO 06/23/25 09:00 07/23/25 08:59 Hydralazine HCl (APRESOLine 20MG INJ) 10 mg Q6H PRN IV ADMINISTER FOR SBP > 170 06/22/25 15:30 07/22/25 15:29 06/22/25 16:05 10 MG Insulin Human Regular (humuLIN R 100 UNIT/ML 3ML) INSULIN SLIDING SCAL... ACHS SQ 06/22/25 16:30 07/22/25 16:29 Ipratropium [place] (AtrovENT UD) 0.5 mg [id number] IH 06/22/25 18:00 07/22/25 17:59 06/24/25 06:46 0.5 MG Losartan Potassium (CozAAR 100MG TAB) 100 mg DAILY PO 06/23/25 09:00 06/23/25 13:35 DC 06/23/25 10:19 100 MG Magnesium Sulfate 50 ml @ 0 mls/hr PROTOCOL IV 06/22/25 15:30 07/22/25 15:29 06/24/25 04:23 25 MLS/HR Ondansetron HCl (zoFRAN 4MG INJ) 4 mg Q6H PRN IVP NAUSEA/VOMITING 06/22/25 15:30 07/22/25 15:29 Oseltamivir Phosphate (Tamiflu) 75 mg BID PO 06/22/25 21:00 06/27/25 20:59 06/24/25 08:42 75 MG Potassium Chloride 100 ml @ 100 mls/hr AD PRN IV POTASSIUM PROTOCOL 06/22/25 15:30 07/22/25 15:29 Potassium Chloride (K-Dur/Klor-Con 20meq) 20 meq AD PRN PO POTASSIUM PROTOCOL 06/22/25 15:30 07/22/25 15:29 Potassium Chloride (KCl 10% Elixir 20meq/15ml) 20 meq AD PRN PO POTASSIUM PROTOCOL 06/22/25 15:30 07/22/25 15:29 Sodium Chloride 1,000 ml @ 75 mls/hr [id number] IV 06/22/25 15:30 06/23/25 13:34 DC 06/23/25 04:42 75 MLS/HR Sodium Chloride (Sodium Chloride) 2,000 mg Q8H6 PO 06/23/25 14:00 07/23/25 13:59 06/24/25 05:58 2,000 MG Thiamine HCl (Vitamin B-1) 100 mg DAILY IVP 06/23/25 09:00 07/23/25 08:59 06/24/25 08:43 100 MG DIAGNOSTICS / RADIOLOGY: [place] [id number] [place] [id number] IMAGING REPORT Signed PATIENT: YUMIKO CARLOS MR#: [id number] : 1950 SEX: F AGE: 74 LOCATION: 2B ORDER [id number] STATUS: ADM IN [facility] REPORT#: [id number] SERVICE REASON: hx of a fib, r/o cardiomyopathy ORDERING PHYSICIAN: MALIK VELASQUEZ MD PROCEDURE: ECHO CMP - ECHO 2-D COMPLETE APPROVED REPORT EXAM: Two-dimensional and M-mode echocardiogram with Doppler and color Doppler. Study Details: Hx: A-Fib INDICATION ICD: Rule out cardiomyopathy 2D Dimensions RVDd 4.3 cm LVEF(%) 77.4 (>50%) LVED Vol(simp.) 40.0 mL IVSd 1.2 (0.7-1.1cm) FS(%) 45 % LVES Vol(simp.) 15.0 mL LVDd 3.6 (3.8-5.6cm) LA (2D) 4.5 (1.6-4.0cm) LVEF(%, simp.) 62 % PWd 1.3 (0.7-1.1cm) Ao Root(2D) 2.6 (2.0-3.7cm) LA ESV INDEX (4CH) 32.22 mL/m2 IVSs 1.4 cm LVOT diam 1.5 (1.8-2.4cm) LVDs 2.0 (2.5-4.0cm) PWs 1.7 cm M-Mode Dimensions EPSS 0.4 cm LA (MM) 4.0 (1.6-4.0cm) Ao Root(MM) 2.4 (2.0-3.7cm) Aortic Valve AoV Vmax 1.4 m/s Ao Peak GR 7.3 mmHg LVOT Vmax 1.0 m/s AoV VTI 0.3 m Ao Mean GR 3.7 mmHg LVOT VTI 0.21 m [place] (VMAX) 1.30 cm2 [place] (VTI) 1.4 cm2 Mitral Valve MV E Vmax 134.1 cm/s DECEL Time 192 ms MV A Vmax 43.6 cm/s P 1/2 T 44 ms E/A ratio 3.1 MVA (PHT) 5.0 cm2 TDI E/E' Medial 28.1 E/E' Lateral 37.6 Medial E' Peak V 4.78 cm/s Lateral E' Peak V 3.57 cm/s Pulmonary Valve PV Vmax 0.8 m/s PV VTI 0.16 m PV Mean GR 1.1 mmHg PV Peak GR 2.5 mmHg PI End Gladis. Alexandr 64.3 cm/s Tricuspid Valve TR Vmax 2.8 m/s RAP (EST) 3 mmHg RVSP 36.8 mmHg TR Peak GR 33.8 mmHg Left Ventricle Left ventricular cavity size is normal. There is normal LV segmental wall motion. There is mild left ventricular wall thickness. The LVEF is > 65%. Stage III diastolic dysfunction. Right Ventricle The right ventricle is normal size. The right ventricular systolic function is normal. Atria The left atrium is mildly dilated. The right atrium is mildly dilated by visual assessment. Aortic Valve The aortic valve is normal in structure. No aortic regurgitation is present. There is no aortic valvular stenosis. Mitral Valve The mitral valve is normal in structure and function. There is trace mitral valve regurgitation noted. There is no mitral valve stenosis. Tricuspid Valve The tricuspid valve is normal in structure. There is trace of tricuspid valve regurgitation noted. Pulmonic Valve Pulmonic valve is not well visualized. There is trace of pulmonic valvular regurgitation. Great Vessels The aortic root is normal in size. The IVC is normal in size and collapses >50% with inspiration. Pericardium There is no pericardial effusion. Other Information Quality : Technically difficult study due to body habitus Conclusion Left ventricular cavity size is normal. The LVEF is > 65% with normal LV segmental wall motion. There is mild left ventricular wall thickness. Stage III diastolic dysfunction. The right ventricular systolic function is normal. The left atrium is mildly dilated. No hemodynamically signifcant valvular abnormalities. There is no pericardial effusion. DICTATED BY: ROCHELLE BARRY MD DATE: 06/23/25 2747 ELECTRONICALLY SIGNED BY: ROCHELLE BARRY MD DATE: 06/23/25 1309 ASSESSMENT: Severe hyponatremia, POA Hypertensive urgency, POA History of HCTZ use as outpatient, POA Active influenza bronchitis, POA Super morbid obesity (BMI 62), POA Underlying history of atrial fibrillation, POA History of chronic anticoagulation with Eliquis, POA Hypomagnesemia, POA Debility, POA Chronic hypercapnic respiratory failure, POA Untreated ohs/LINDA, POA History of hypertension, POA Hyperlipidemia, POA Type 2 diabetes mellitus, POA Urinary tract infection, POA PLAN: Severe hyponatremia, POA -patient's sodium level at presentation was 114. -patient's sodium level has been improved to 120 this morning. -started on sodium chloride2 g pills Q8 as per Nephrology recommendation. -correction of sodium of 6-8 mEq per24 hours -hydrochlorothiazide was stopped and patient was put on fluid restriction of 1 L daily. -stopped IV fluids, losartan as per Nephrology recommendations. -we will trend BMP 6 hourly -nephrology on board, we will follow up with the recommendations. Hypertensive urgency, POA -on presentation patient's blood pressure was 187/78 -patient received 1 dose of hydralazine 10 mg in ED -hydrochlorothiazide was discontinued due to severe hyponatremia -hydralazine 10 mg IV p.r.n. if systolic blood pressure greater than 170 mmHg. Active influenza bronchitis, POA -on presentation to ED patient tested positive for influenza type B antigen -patient was started on Tamiflu 75 mg b.i.d. PO (day 3) -doxycycline 100 mg b.i.d. PO (day 3) , Rocephin 1 g IV q.12h (day 3) to prevent secondary bacterial infection. -budesonide 0.5 mg b.i.d. resp IH, ipratropium bromide 0.5 mg Q 6 resp IH Urinary tract infection, POA -patient's urine positive for leukocyte esterase, WBC. -urine culture showed no growth after 18-24 hours. -continue Rocephin 1 g IV q.12h (day 3) -we will follow-up with final culture report. Underlying history of atrial fibrillation, POA -patient is known case of atrial fibrillation, on Eliquis 5 mg daily at home -EKG on presentation showed atrial fibrillation -patient was started on Eliquis 5 mg b.i.d. PO Super morbid obesity (BMI 62), POA -patients BMI was 62 on presentation to ED -patient is requiring BiPAP during night her maintaining saturations probably due to obstructive sleep apnea -we will recommend sleep study Patient receiving thiamine supplementation Patient remains high-risk due to severe obesity and chronic hypercapnic respiratory failure with metabolic compensation We will request consultation with Physical therapy in the morning We will avoid any narcotics/sedatives to reduce risk of any worsening acute on chronic hypercapnia Patient will benefit from BiPAP/CPAP therapy at bedtime All labs will be repeated in the morning ATTESTATION BY PHYSICIAN I have seen and examined the patient. I reviewed the documentation, medical decision making, and treatment plan as noted by the resident physician above. I agree with the findings and plan of care. JANES CM MD, ADIL SHAH QUADRI MD Jun 24, 2025 12:07
--- NOTE | 2025-06-24 12:26 | CONS ---
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 Physician: Hospitalist Outpatient Specialists: [ ] Inpatient Consults: [ ] PROBLEM LIST: Acute hypoxic respiratory failure, Positive for influenza, Hyponatremia Obesity hypoventilation syndrome, Paroxysmal atrial fibrillation on chronic anticoagulation therapy Hyperlipidemia Hypertension urgency HPI: 74-year-old female with past medical history of paroxysmal atrial fibrillation, on chronic anticoagulation, morbidly obese, hyperlipidemia, LINDA/obesity hypoventilation syndrome who presented to ED via EMS with complaint of fall, with associated shortness of breaths and generalized body weakness and found to have hypertensive urgency, severe hyponatremia, and acute respiratory failure. Patient was also found to be positive with flu virus. Patient is currently on Tamiflu. At present patient is currently hemodynamically stable, GCS 15, able to answer questions appropriately, still with scattered wheezing on auscultation, and mild respiratory distress. Patient's sodium level was 120 today. PAST MEDICAL HX: see above PAST SURGICAL HX: noncontributory SOCIAL HISTORY: No tobacco, ETOH, or illicit drug use Coded Allergies: No Known Drug Allergies (Verified Allergy, 12/27/12) REVIEW OF SYSTEMS: 12 point ROS reviewed with patient. Pertinent positives mentioned above. Otherwise negative. PHYSICAL EXAM: GENERAL: alert, weak, awake oriented x 3 HEENT: EOMI, Sclera non icteric, moist mucosa NECK: Supple, no JVD, trachea midline LUNGS: Coarse bilateral lung sounds on auscultation HEART: Regular rate and rhythm. Normal S1 and S2, without murmurs ABD: Large body habitus EXT: No clubbing cyanosis or edema NEURO: Alert and oriented to person, follows commands Vital Signs (last 8hr) Date Time Temp Pulse Resp B/P (MAP) Pulse Ox O2 Delivery O2 Flow Rate FiO2 06/24/25 11:16 97.3 65 21 143/68 100 Nasal Cannula 2.0 06/24/25 08:00 67 20 N/Cannula Low lpm 2.0 28 06/24/25 08:00 97.3 62 20 146/55 98 Nasal Cannula 2.0 06/24/25 08:00 97 Nasal Cannula* 2 28 06/24/25 06:46 53 18 06/24/25 06:45 53 18 30 LABS: Hematology Labs: Test 06/24/25 04:01 10/13/25 13:48 Range/Units White Blood Count 8.4 4.8-10.8 K/uL Red Blood Count 4.64 4.00-5.50 MIL/uL Hemoglobin 14.4 12.0-16.0 g/dL Hematocrit 40.2 36-48 % Mean Corpuscular Volume 86.6 79-99 fL Mean Corpuscular Hemoglobin 31.0 27.0-33.0 pg Mean Corpuscular Hemoglobin Concent 35.8 32.0-36.0 g/dL Red Cell Distribution Width 12.0 11.0-15.5 % Platelet Count 115 #L 130-400 K/uL Mean Platelet Volume 10.5 7.5-10.5 fL Segmented Neutrophils % 82 H 40-70 % Band Neutrophils % 1 0-2 % Lymphocytes % (Manual) 10 L 22-44 % Monocytes % (Manual) 6 2-9 % Eosinophils % (Manual) 1 1-6 % Nucleated Red Blood Cells 0.0 0.0-0.19 % Differential Comment MANUAL DIFFERENTIAL White Cell Morphology Comment See comments Platelet Morphology Comment SLIGHTLY DECREASED Red Blood Cell Morphology NORMAL Immature Granulocyte % (Auto) 1.3 H 0-1 % Neutrophils (%) (Auto) 82.5 H 40.0-77.0 % Lymphocytes (%) (Auto) 8.8 L 21.0-51.0 % Monocytes (%) (Auto) 7.0 3.0-13.0 % Eosinophils (%) (Auto) 0.1 0.0-8.0 % Basophils (%) (Auto) 0.3 0.0-5.0 % Neutrophils # (Auto) 8.2 H 1.8-7.7 K/uL Lymphocytes # (Auto) 0.9 L 1.0-4.8 K/uL Monocytes # (Auto) 0.7 0.1-1.0 K/uL Eosinophils # (Auto) 0.01 0.00-0.70 K/uL Basophils # (Auto) 0.03 0.00-0.20 K/uL Absolute Immature Granulocyte (auto 0.13 0-1 K/uL Erythrocyte Sedimentation Rate 15 0-30 MM/HR Chemistry Labs: Test 06/24/25 11:42 06/24/25 09:01 06/24/25 05:50 06/23/25 07:16 Range/Units Whole Blood Glucose 138 #H 70-110 MG/DL Sodium Level 120 L 136-145 mmol/L Potassium Level 4.5 3.5-5.1 mmol/L Chloride Level 86 *L 101-111 mmol/L Carbon Dioxide Level 32 21-32 mmol/L Blood Urea Nitrogen 13 7-18 mg/dL Creatinine 0.3 L 0.5-1.0 mg/dL Glomerular Filtration Rate Calc 110 >90 mL/min Random Glucose 96 70-105 mg/dL Total Calcium 8.3 L 8.5-10.1 mg/dL Magnesium Level 1.90 1.80-2.40 mg/dL Total Bilirubin 0.8 0.2-1.0 mg/dL Direct Bilirubin 0.4 H 0.0-0.3 mg/dL Aspartate Amino Transf (AST/SGOT) 23 10-37 U/L Alanine Aminotransferase (ALT/SGPT) 25 12-78 U/L Alkaline Phosphatase 72 50-136 U/L Total Protein 6.2 6.0-8.3 g/dL Albumin 2.8 L 3.5-5.0 g/dL Triglycerides Level 45 30-200 mg/dL Cholesterol Level 108 <200 mg/dL LDL Cholesterol 58 0-99 mg/dL HDL Cholesterol 43 35-85 mg/dL Uric Acid 2.0 L 2.6-7.2 mg/dL Phosphorus Level 3.2 2.5-4.9 mg/dL Test 06/22/25 13:48 Range/Units Hemoglobin A1c 6.1 H 4.0-6.0 % Estimated Average Glucose (eAG) 128 H 70-126 mg/dL Serum Osmolality 247 L 278-305 mOsm/kg Lactate Dehydrogenase 257 H 81-234 U/L Troponin I High Sensitivity 11 4-50 ng/L C-Reactive Protein, Quantitative 3.40 H 0.5-3.0 mg/L B-Type Natriuretic Peptide 146 H 0-100 pg/mL Procalcitonin < 0.05 L 0.05-0.5 ng/mL Thyroid Stimulating Hormone (TSH) 1.91 0.36-3.74 uIU/mL Coagulation Labs: Test 06/22/25 13:58 Range/Units Prothrombin Time 15.0 H 9.6-11.6 SEC Prothromb Time International Ratio 1.47 H 0.85-1.15 Activated Partial Thromboplast Time 33.6 26.3-35.5 SEC DIAGNOSTICS / RADIOLOGY RESULTS: [ ] PLAN: Patient's sodium level was 120 today We will sign off case Thank you for allowing us to participate in the care. NEURO: Minimize central acting medications as possible. Fall Precautions. Well lighted room through the day and minimize interruptions through the night to prevent acute delirium. PULMONARY: Supplemental 02 as needed Titrate Fio2 to keep Spo2 > or = 90% DuoNebs and CPT as needed IS hourly while awake for pulmonary hygiene Out of bed to chair as tolerated CARDIOVASCULAR: Follow hemodynamics. Titrate vasopressor to keep MAP >65 or systolic blood pressure >95mmHg DIPS: Normal saline at 75 cc an hour LINES: PIV GI & NUTRITION: Continue nutritional support Aspirations precautions Prokinetic agents and laxatives as needed KIDNEYS & ELECTROLYTES: Strict monitoring of intake and output Daily weights Avoid nephrotoxic agents Monitor electrolytes and replace as needed Goal urine output of 30mL/hr or 0.5mL/kg/hr ENDOCRINE: Maintain blood glucose between 100-180 at all times. Insulin sliding scale for blood glucose management INFECTIOUS DISEASE: Trend temperature. Leigh-culture if febrile. Micro: [ ] Antibiotics: [ ] HEMATOLOGY & COAGULATION: Monitor H&H. Keep Hgb > 7 Transfuse 1 unit of PRBC for Hgb < 7 Transfuse 1 pack of platelets of platelets < 20, 000 Watch for any signs and symptoms of bleeding SKIN: Pressure ulcer prevention per facility protocol Rehab: PT/OT Prophylaxis: GI: PPI DVT: Bilateral SCDs Code Status: Full Resuscitation Disposition: Telemetry Other: Total patient care time exceeds 35 minutes excluding all procedures. BELEN GAN PAC Jun 24, 2025 12:26
--- NOTE | 2025-06-24 14:09 | PN ---
NEPHROLOGY PROGRESS NOTE Date/Time Patient Seen: Jun 24, 2025 SUBJECTIVE: This is a 74-year-old female with underlying history of severe morbid obesity, suspected ohs/LINDA with chronic hypercapnic respiratory failure, history of atrial fibrillation maintained on chronic anticoagulation with damari Baugh She presented to the ER secondary to fall, dizziness, poor oral intake with nausea. The patient had a fall. The patient also has very low sodium of 114 and the patient has a low magnesium. Severe hypertension has been detected. The patient is detected of influenza and being admitted with these problems to the ICU. She continues on Tamiflu and antibiotics We are consulted for hyponatremia Sodium today was 120 mmol/L Renal function is stable Medication list was reviewed She has been started on sodium chloride tablets as per primary team She was seen in the ICU, in no acute distress Family at the bedside Condition is critical REVIEW OF SYSTEMS: GENERAL: Negative for any nausea, vomiting, fevers, chills, or weight loss. NEUROLOGIC: Negative for any blurry vision, blind spots, double vision, facial asymmetry, dysphagia, dysarthria, hemiparesis, hemisensory deficits, vertigo, ataxia. HEENT: Negative for any head trauma, neck trauma, neck stiffness, photophobia, phonophobia, sinusitis, rhinitis. CARDIAC: Negative for any chest pain, dyspnea on exertion, paroxysmal nocturnal dyspnea, peripheral edema. PULMONARY: Negative for any shortness of breath, wheezing, COPD, or TB exposure. GASTROINTESTINAL: Negative for any abdominal pain, nausea, vomiting, bright red blood per rectum, melena. GENITOURINARY: Negative for any dysuria, hematuria, incontinence. INTEGUMENTARY: Negative for any rashes, cuts, insect bites. RHEUMATOLOGIC: Negative for any joint pains, photosensitive rashes, history of vasculitis or kidney problems. HEMATOLOGIC: Negative for any abnormal bruising, frequent infections or bleeding. Vital Signs (last 8hr) Date Time Temp Pulse Resp B/P (MAP) Pulse Ox O2 Delivery O2 Flow Rate FiO2 06/24/25 12:32 65 20 06/24/25 12:32 65 20 N/Cannula Low lpm 2.0 28 06/24/25 11:16 97.3 65 21 143/68 100 Nasal Cannula 2.0 06/24/25 08:00 67 20 N/Cannula Low lpm 2.0 28 06/24/25 08:00 97.3 62 20 146/55 98 Nasal Cannula 2.0 06/24/25 08:00 97 Nasal Cannula* 2 28 06/24/25 06:46 53 18 06/24/25 06:45 53 18 30 PHYSICAL EXAM: GENERAL: Alert and oriented x 3. No acute distress. Well-nourished. EYES: EOMI. Anicteric. HENT: Moist mucous membranes. No scleral icterus. No cervical lymphadenopathy. LUNGS: Clear to auscultation bilaterally. No accessory muscle use. CARDIOVASCULAR: Regular rate and rhythm. No murmur. No JVD. ABDOMEN: Soft, non-tender and non-distended. No palpable masses. EXTREMITIES: No edema. Non-tender. SKIN: No rashes or lesions. Warm. NEUROLOGIC: No focal neurological deficits. CN II-XII grossly intact, but not individually tested. PSYCHIATRIC: Cooperative. Appropriate mood and affect. Current Medications Medications (Trade) Dose Ordered Sig/Conchis Route PRN Reason Start Time Stop Time Status Last Admin Dose Admin Acetaminophen (TYLenol 325MG TAB) 650 mg Q6H PRN PO MILD PAIN (1-3) 06/22/25 15:30 07/22/25 15:29 Acetaminophen/ Hydrocodone Bitart (NORco 5/325MG) 1 tab Q6H PRN PO MODERATE PAIN (4-6) 06/23/25 11:30 06/23/25 11:13 DC Apixaban (EliquIS) 5 mg BID PO 06/23/25 09:00 07/23/25 08:59 06/23/25 09:05 5 MG Atorvastatin Calcium (LIPItor 10MG) 10 mg HS PO 06/22/25 21:00 07/22/25 20:59 06/22/25 21:18 10 MG Budesonide (Pulmicort 0.5 Mg/2ml) 0.5 mg BIDRESP IH 06/22/25 18:00 07/22/25 17:59 06/23/25 06:42 0.5 MG Carvedilol (Coreg 25MG) 25 mg BID PO 06/22/25 21:00 06/23/25 13:35 DC 06/22/25 21:18 25 MG Ceftriaxone Sodium (ROCEphine 1G INJ) 1 gm Q12H IVPB 06/22/25 15:30 07/02/25 15:29 06/23/25 03:29 1 GM Docusate Sodium (COLace 100MG CAP) 100 mg BID PO 06/22/25 21:00 07/22/25 20:59 06/23/25 09:05 100 MG Doxycycline Hyclate (Doxycycline Hyclate) 100 mg BID PO 06/22/25 21:00 07/02/25 20:59 06/23/25 09:05 100 MG Famotidine (Pepcid 20mg Tab) 20 mg BID PO 06/23/25 21:00 07/23/25 20:59 Fish Oil (Fish Oil 1000 Mg/Cap) 1,000 mg DAILY PO 06/23/25 09:00 07/23/25 08:59 06/23/25 09:05 1,000 MG Home Med (Home Medication) Soluble [place] Fiber/ Inu... DAILY PO 06/23/25 09:00 07/23/25 08:59 Hydralazine HCl (APRESOLine 20MG INJ) 10 mg Q6H PRN IV ADMINISTER FOR SBP > 170 06/22/25 15:30 07/22/25 15:29 06/22/25 16:05 10 MG Insulin Human Regular (humuLIN R 100 UNIT/ML 3ML) INSULIN SLIDING SCAL... ACHS SQ 06/22/25 16:30 07/22/25 16:29 Ipratropium [place] (AtrovENT UD) 0.5 mg [id number] IH 06/22/25 18:00 07/22/25 17:59 06/23/25 11:18 0.5 MG Losartan Potassium (CozAAR 100MG TAB) 100 mg DAILY PO 06/23/25 09:00 06/23/25 13:35 DC 06/23/25 10:19 100 MG Magnesium Sulfate 50 ml @ 0 mls/hr PROTOCOL IV 06/22/25 15:30 07/22/25 15:29 06/22/25 16:04 25 MLS/HR Ondansetron HCl (zoFRAN 4MG INJ) 4 mg Q6H PRN IVP NAUSEA/VOMITING 06/22/25 15:30 07/22/25 15:29 Oseltamivir Phosphate (Tamiflu) 75 mg BID PO 06/22/25 21:00 06/27/25 20:59 06/23/25 09:05 75 MG Potassium Chloride 100 ml @ 100 mls/hr AD PRN IV POTASSIUM PROTOCOL 06/22/25 15:30 07/22/25 15:29 Potassium Chloride (K-Dur/Klor-Con 20meq) 20 meq AD PRN PO POTASSIUM PROTOCOL 06/22/25 15:30 07/22/25 15:29 Potassium Chloride (KCl 10% Elixir 20meq/15ml) 20 meq AD PRN PO POTASSIUM PROTOCOL 06/22/25 15:30 07/22/25 15:29 Sodium Chloride 1,000 ml @ 75 mls/hr [id number] IV 06/22/25 15:30 06/23/25 13:34 DC 06/23/25 04:42 75 MLS/HR Sodium Chloride (Sodium Chloride) 2,000 mg Q8H6 PO 06/23/25 14:00 07/23/25 13:59 Thiamine HCl (Vitamin B-1) 100 mg DAILY IVP 06/23/25 09:00 07/23/25 08:59 06/23/25 09:06 100 MG LABORATORY: [ ] Hematology Labs: Test 06/24/25 04:01 Range/Units White Blood Count 8.4 4.8-10.8 K/uL Red Blood Count 4.64 4.00-5.50 MIL/uL Hemoglobin 14.4 12.0-16.0 g/dL Hematocrit 40.2 36-48 % Mean Corpuscular Volume 86.6 79-99 fL Mean Corpuscular Hemoglobin 31.0 27.0-33.0 pg Mean Corpuscular Hemoglobin Concent 35.8 32.0-36.0 g/dL Red Cell Distribution Width 12.0 11.0-15.5 % Platelet Count 115 #L 130-400 K/uL Mean Platelet Volume 10.5 7.5-10.5 fL Segmented Neutrophils % 82 H 40-70 % Band Neutrophils % 1 0-2 % Lymphocytes % (Manual) 10 L 22-44 % Monocytes % (Manual) 6 2-9 % Eosinophils % (Manual) 1 1-6 % Nucleated Red Blood Cells 0.0 0.0-0.19 % Differential Comment MANUAL DIFFERENTIAL White Cell Morphology Comment See comments Platelet Morphology Comment SLIGHTLY DECREASED Red Blood Cell Morphology NORMAL Chemistry Labs: Test 06/24/25 11:42 06/24/25 09:01 06/24/25 05:50 06/23/25 07:16 Range/Units Whole Blood Glucose 138 #H 70-110 MG/DL Sodium Level 120 L 136-145 mmol/L Potassium Level 4.5 3.5-5.1 mmol/L Chloride Level 86 *L 101-111 mmol/L Carbon Dioxide Level 32 21-32 mmol/L Blood Urea Nitrogen 13 7-18 mg/dL Creatinine 0.3 L 0.5-1.0 mg/dL Glomerular Filtration Rate Calc 110 >90 mL/min Random Glucose 96 70-105 mg/dL Total Calcium 8.3 L 8.5-10.1 mg/dL Magnesium Level 1.90 1.80-2.40 mg/dL Total Bilirubin 0.8 0.2-1.0 mg/dL Direct Bilirubin 0.4 H 0.0-0.3 mg/dL Aspartate Amino Transf (AST/SGOT) 23 10-37 U/L Alanine Aminotransferase (ALT/SGPT) 25 12-78 U/L Alkaline Phosphatase 72 50-136 U/L Total Protein 6.2 6.0-8.3 g/dL Albumin 2.8 L 3.5-5.0 g/dL Triglycerides Level 45 30-200 mg/dL Cholesterol Level 108 <200 mg/dL LDL Cholesterol 58 0-99 mg/dL HDL Cholesterol 43 35-85 mg/dL Uric Acid 2.0 L 2.6-7.2 mg/dL Phosphorus Level 3.2 2.5-4.9 mg/dL Cortisol AM Sample 16.9 6.2-19.4 ug/dL DIAGNOSTICS / RADIOLOGY: [address] [address] IMAGING REPORT Signed PATIENT: YUMIKO CARLOS MR#: [id number] : 1950 SEX: F AGE: 74 LOCATION: [facility] ORDER 35 STATUS: ADM IN [facility] REPORT#: [id number] SERVICE REASON: hx of a fib, r/o cardiomyopathy ORDERING PHYSICIAN: MALIK VELASQUEZ MD PROCEDURE: ECHO CMP - ECHO 2-D COMPLETE APPROVED REPORT EXAM: Two-dimensional and M-mode echocardiogram with Doppler and color Doppler. Study Details: Hx: A-Fib INDICATION ICD: Rule out cardiomyopathy 2D Dimensions RVDd 4.3 cm LVEF(%) 77.4 (>50%) LVED Vol(simp.) 40.0 mL IVSd 1.2 (0.7-1.1cm) FS(%) 45 % LVES Vol(simp.) 15.0 mL LVDd 3.6 (3.8-5.6cm) LA (2D) 4.5 (1.6-4.0cm) LVEF(%, simp.) 62 % PWd 1.3 (0.7-1.1cm) Ao Root(2D) 2.6 (2.0-3.7cm) LA ESV INDEX (4CH) 32.22 mL/m2 IVSs 1.4 cm LVOT diam 1.5 (1.8-2.4cm) LVDs 2.0 (2.5-4.0cm) PWs 1.7 cm M-Mode Dimensions EPSS 0.4 cm LA (MM) 4.0 (1.6-4.0cm) Ao Root(MM) 2.4 (2.0-3.7cm) Aortic Valve AoV Vmax 1.4 m/s Ao Peak GR 7.3 mmHg LVOT Vmax 1.0 m/s AoV VTI 0.3 m Ao Mean GR 3.7 mmHg LVOT VTI 0.21 m [place] (VMAX) 1.30 cm2 [place] (VTI) 1.4 cm2 Mitral Valve MV E Vmax 134.1 cm/s DECEL Time 192 ms MV A Vmax 43.6 cm/s P 1/2 T 44 ms E/A ratio 3.1 MVA (PHT) 5.0 cm2 TDI E/E' Medial 28.1 E/E' Lateral 37.6 Medial E' Peak V 4.78 cm/s Lateral E' Peak V 3.57 cm/s Pulmonary Valve PV Vmax 0.8 m/s PV VTI 0.16 m PV Mean GR 1.1 mmHg PV Peak GR 2.5 mmHg PI End Gladis. Alexandr 64.3 cm/s Tricuspid Valve TR Vmax 2.8 m/s RAP (EST) 3 mmHg RVSP 36.8 mmHg TR Peak GR 33.8 mmHg Left Ventricle Left ventricular cavity size is normal. There is normal LV segmental wall motion. There is mild left ventricular wall thickness. The LVEF is > 65%. Stage III diastolic dysfunction. Right Ventricle The right ventricle is normal size. The right ventricular systolic function is normal. Atria The left atrium is mildly dilated. The right atrium is mildly dilated by visual assessment. Aortic Valve The aortic valve is normal in structure. No aortic regurgitation is present. There is no aortic valvular stenosis. Mitral Valve The mitral valve is normal in structure and function. There is trace mitral valve regurgitation noted. There is no mitral valve stenosis. Tricuspid Valve The tricuspid valve is normal in structure. There is trace of tricuspid valve regurgitation noted. Pulmonic Valve Pulmonic valve is not well visualized. There is trace of pulmonic valvular regurgitation. Great Vessels The aortic root is normal in size. The IVC is normal in size and collapses >50% with inspiration. Pericardium There is no pericardial effusion. Other Information Quality : Technically difficult study due to body habitus Conclusion Left ventricular cavity size is normal. The LVEF is > 65% with normal LV segmental wall motion. There is mild left ventricular wall thickness. Stage III diastolic dysfunction. The right ventricular systolic function is normal. The left atrium is mildly dilated. No hemodynamically signifcant valvular abnormalities. There is no pericardial effusion. DICTATED BY: ROCHELLE BARRY MD DATE: 06/23/25826 ELECTRONICALLY SIGNED BY: ROCHELLE BARRY MD DATE: 06/23/25 1309 PATIENT: YUMIKO CARLOS MR#: [id number] : 1950 SEX: F AGE: 74 LOCATION: [facility] ORDER 44 STATUS: ADM IN REPORT#: [id number] SERVICE 42 REASON: persistent nausea x 1 week, hyponatremia, bloating, morbid obesity ORDERING PHYSICIAN: MALIK VELASQUEZ MD PROCEDURE: ABD PEL WO - CT ABDOMEN/PELVIS W/O CONTRAST EXAM: CT Abdomen and Pelvis without Intravenous Contrast CLINICAL HISTORY: Persistent nausea for one week, hyponatremia, abdominal bloating, and morbid obesity. TECHNIQUE: Axial helical CT scan of the abdomen and pelvis was performed without intravenous contrast. Multiplanar reformatted images were obtained in coronal and sagittal planes. Radiation dose optimization techniques utilized (CTDIvol: 26.9 mGy; DLP: 1698.6 mGy???cm). CONTRAST: Without COMPARISON: No prior CT available for comparison. FINDINGS: LUNG BASES: Visualized bilateral lung bases show mild pleural-based thickening and subpleural scarring, likely representing chronic post-inflammatory or fibrotic change. No active consolidation or pleural effusion. Cardiomegaly with calcific atherosclerosis involving coronary arteries, notably along the LAD and RCA courses. LIVER: Liver normal in size and contour with homogeneous attenuation; no focal hepatic lesions or biliary dilatation. GALLBLADDER AND BILE DUCTS: Gallbladder contains a large calcified calculus (3.5 x 2.5 cm) with normal wall thickness and no pericholecystic fluid or surrounding inflammatory change. Common bile duct of normal caliber. PANCREAS: Pancreas appears normal with preserved morphology and attenuation. No focal lesion or peripancreatic fat stranding. SPLEEN: Spleen appears normal with preserved morphology and attenuation. ADRENAL GLANDS: Adrenal glands appear normal with preserved morphology and attenuation. KIDNEYS, URETERS, AND BLADDER: Right mid-pole cortical scarring with coarse calcification consistent with prior inflammatory or ischemic insult. Mild bilateral perinephric fat stranding, nonspecific???may reflect chronic venous congestion or low-grade inflammation. No hydronephrosis, renal calculus, or hydroureter. Urinary bladder well distended, normal wall thickness, no intraluminal calculi. STOMACH AND BOWEL: Stomach and small bowel loops are mildly distended but nondilated; normal wall thickness. Colonic diverticulosis involving sigmoid and descending colon without pericolic stranding???uncomplicated diverticulosis. APPENDIX: Appendix visualized, normal in caliber with no periappendiceal inflammation???no CT evidence of appendicitis. PERITONEUM: Minimal localized internal fluid collection noted in the lower abdomen, measuring small in volume and without gas locules???nonspecific, could represent mild sterile or resolving inflammatory collection. Calcified intraperitoneal lymph node (2.3 x 1.6 cm) in right anterior lower abdomen???likely chronic, healed granulomatous origin. No ascites or pneumoperitoneum. LYMPH NODES: Calcified intraperitoneal lymph node (2.3 x 1.6 cm) in right anterior lower abdomen???likely chronic, healed granulomatous origin. No other significant lymphadenopathy. REPRODUCTIVE: Uterus surgically absent. Adnexal regions and pelvic soft tissues appear unremarkable. VASCULATURE: No aortic aneurysm. ABDOMINAL WALL AND SOFT TISSUES: Anterior abdominal wall oedema, most prominent in the lumbar region extending into bilateral iliac fossae. BONES: Age-appropriate thoracolumbar spondylosis with anterior osteophytes and facet arthropathy. No acute fracture or lytic/sclerotic lesions. IMPRESSION: 1. No acute intraabdominal or pelvic findings. 2. Mild gastric and small bowel distension without obstruction. 3. Minimal localized internal fluid collection in the lower abdomen, nonspecific. 4. Large gallbladder calculus (3.5 ??? 2.5 cm) without acute cholecystitis. 5. Right mid-pole renal cortical scarring with coarse calcification. 6. Uncomplicated colonic diverticulosis. 7. Age-appropriate thoracolumbar spondylosis with anterior osteophytes and facet arthropathy. 8. Several stable chronic and incidental findings are noted, as detailed in the body of the report, including mild pleural/subpleural scarring at the lung bases, cardiomegaly with coronary artery atherosclerosis, mild bilateral perinephric fat stranding, calcified intraperitoneal lymph node likely granulomatous in origin, anterior abdominal wall edema, and postsurgical absence of the uterus. /[facility] DICTATED BY: KRYSTLE VEGA MD DATE: 06/22/252231 ELECTRONICALLY SIGNED BY: KRYSTLE VEGA MD DATE: 06/22/252231 PATIENT: YUMIKO CARLOS MR#: [id number] : 1950 SEX: F AGE: 74 LOCATION: [facility] ORDER 35 STATUS: ADM IN REPORT#: [id number] SERVICE 33 REASON: influenza positive, morbid obesity, r/o pneumonia vs edema ORDERING PHYSICIAN: MALIK VELASQUEZ MD PROCEDURE: CHEST WO - CT CHEST W/O CONTRAST EXAM: COMPUTED TOMOGRAPHY OF THE CHEST WITHOUT INTRAVENOUS CONTRAST Technique: Computed tomography of the chest was performed without intravenous contrast from the thoracic inlet through the upper abdomen with axial acquisition and coronal and sagittal reformations. Dose optimization included automated exposure control, patient size???based tube current and tube voltage modulation, and iterative reconstruction. Cardiac and vascular assessment is limited without contrast. Clinical Information: Influenza positive; morbid obesity; evaluation for pneumonia versus edema. Comparison: No prior chest computed tomography available. Findings: The chest wall and imaged lower neck soft tissues show no focal mass or acute abnormality. The trachea and main bronchi are patent without endoluminal lesion. There is no focal lobar consolidation identified. There are no suspicious pulmonary nodules identified. There are minimal bilateral pleural effusions. There is dependent basilar atelectasis adjacent to the effusions. There is no pneumothorax detected. The cardiac silhouette is mildly enlarged. There is no pericardial effusion identified. There are mild calcifications of the thoracic aorta. There are mild calcifications of the coronary arteries. There is calcification along the mitral annulus. There is no mediastinal or hilar lymphadenopathy by size criteria. The visualized upper abdomen shows no acute abnormality. The visualized osseous structures show mild degenerative changes of the thoracic spine without acute fracture. Impression: * Minimal bilateral pleural effusions with adjacent dependent basilar atelectasis; no focal lobar consolidation to suggest bacterial pneumonia on this noncontrast computed tomography. * Mild cardiomegaly. Interlobular septal prominence. Pulmonary venous congestion likely * Atherosclerotic calcifications of the thoracic aorta and coronary arteries, and mitral annular calcification. /[facility] DICTATED BY: ROCHELLE COVARRUBIAS MD DATE: 06/22/252105 ELECTRONICALLY SIGNED BY: ROCHELLE COVARRUBIAS MD DATE: 06/22/252105 PATIENT: YUMIKO CARLOS MR#: [id number] : 1950 SEX: F AGE: 74 LOCATION: [facility] ORDER 33 STATUS: ADM IN REPORT#: [id number] SERVICE 31 REASON: fall, on eliquis, hyponatremia ORDERING PHYSICIAN: MALIK VELASQUEZ MD PROCEDURE: HEAD WO - CT HEAD/BRAIN W/O CONTRAST EXAM: CT Head Without IV contrast. CLINICAL HISTORY: fall, on eliquis, hyponatremia TECHNIQUE: Axial computed tomography images of the head/brain without intravenous contrast. COMPARISON: None provided. FINDINGS: BRAIN: No evidence of acute hemorrhage. No mass lesion. No CT evidence for acute territorial infarct. No midline shift or extra-axial collections. VENTRICLES: No hydrocephalus. ORBITS: The orbits are unremarkable. SINUSES AND MASTOIDS: The paranasal sinuses and mastoid air cells are clear. BONES: No fracture. SOFT TISSUES: Unremarkable. IMPRESSION: No acute intracranial abnormality. /[facility] DICTATED BY: ROCHELLE COVARRUBIAS MD DATE: 06/22/251857 ELECTRONICALLY SIGNED BY: ROCHELLE COVARRUBIAS MD DATE: 06/22/251857 PATIENT: YUMIKO CARLOS MR#: [id number] : 1950 SEX: F AGE: 74 LOCATION: [facility] ORDER 31 STATUS: ADM IN REPORT#: [id number] SERVICE 29 REASON: s/p fall, r/o any fractures ORDERING PHYSICIAN: MALIK VELASQUEZ MD PROCEDURE: PELVIS - PELVIS 1-2VWS EXAM: CR Pelvis, 1 View. CLINICAL HISTORY: s/p fall, r/o any fractures COMPARISON: None provided. FINDINGS: BONES: Generalized osteopenia No definitive acute fracture JOINTS: Degenerative changes SOFT TISSUES: The soft tissues are unremarkable. IMPRESSION: 1. Degenerative changes 2. Generalized osteopenia 3. No definitive acute fracture /[facility] DICTATED BY: ROCHELLE COVARRUBIAS MD DATE: 06/22/251950 ELECTRONICALLY SIGNED BY: ROCHELLE COVARRUBIAS MD DATE: 06/22/251950 PATIENT: YUMIKO CARLOS MR#: [id number] : 1950 SEX: F AGE: 74 LOCATION: [facility] ORDER 31 STATUS: ADM [facility] REPORT#: [id number] SERVICE 29 REASON: s/p fall, r/o any fractures ORDERING PHYSICIAN: MALIK VELASQUEZ MD PROCEDURE: KNEE 2VBIL - KNEE 2VW BILATERAL EXAM: XR Both Knees, AP and Lateral (2) Views. CLINICAL HISTORY: Status post fall; clinical query for fracture or hardware-related complication. Known history of prior distal femur fixation. COMPARISON: No immediate prior imaging available for comparison. FINDINGS: BONES: No new acute fracture or focal osseous lesion identified in either knee. Left Knee (Post-operative Site): Internal plate fixation noted along the distal femur, consistent with prior fracture fixation. Cortical remodeling and signs of bony union seen at the prior fracture site ??? no evidence of non-union or millie-hardware lucency. One or more screw fixators appear broken at the proximal/superior end of the fixation plate, suggesting hardware fatigue or prior mechanical stress. No acute periprosthetic fracture or hardware migration seen. Right Knee: No prior fixation hardware or periarticular collection. JOINTS: No dislocation identified in either knee. Severe degenerative osteoarthritic changes seen in both knees, more pronounced in the medial tibiofemoral compartments. Marked reduction of tibiofemoral and patellofemoral joint spaces, with large periarticular osteophyte formation and subchondral sclerosis, consistent with advanced osteoarthritis. SOFT TISSUES: Mild diffuse periarticular soft tissue thickening noted, likely chronic degenerative or post-traumatic in nature. No significant joint effusion or soft tissue gas. IMPRESSION: 1. No acute fracture or dislocation in either knee. 2. Status post left distal femur fixation with plate and screws, with bony union. Broken screw(s) at the proximal aspect of the fixation plate without acute periprosthetic fracture or hardware migration. 3. Severe tricompartmental osteoarthritic changes in both knees, more pronounced in the medial tibiofemoral compartments. /[facility] DICTATED BY: KRYSTLE VEGA MD DATE: 06/22/252008 ELECTRONICALLY SIGNED BY: KRYSTLE VEGA MD DATE: 06/22/252008 PATIENT: YUMIKO CARLOS MR#: [id number] : 1950 SEX: F AGE: 74 LOCATION: [facility] ORDER 1528 STATUS: ADM IN REPORT#: [id number] SERVICE 1525 REASON: r/o any DVT of the lowe etxremities, swellng, fall ORDERING PHYSICIAN: MALIK VELASQUEZ MD PROCEDURE: VENOUS BINA - US VENOUS DOPPLER BILATERAL EXAM: US Duplex BILATERAL Lower Extremity Veins. CLINICAL HISTORY: Swelling after a fall with clinical concern for deep venous thrombosis of the lower extremities. TECHNIQUE: Grayscale imaging with compression maneuvers, color Doppler, and pulsed-wave spectral Doppler was performed where anatomically feasible from the common femoral veins through the femoral, popliteal, and calf veins bilaterally. Respiratory phasicity and augmentation responses were assessed when obtainable. Evaluation of the left common femoral and left popliteal veins is limited by body habitus. COMPARISON: None provided. FINDINGS: DEEP VEINS: The right common femoral vein is fully compressible without intraluminal echogenic thrombus. The right femoral vein is fully compressible with normal color Doppler filling and normal spectral Doppler phasicity. The right popliteal vein is fully compressible without thrombus. The right posterior tibial veins are compressible without thrombus. The left femoral vein is fully compressible with normal color Doppler filling and normal spectral Doppler phasicity. The left posterior tibial veins are compressible without thrombus. The left common femoral vein is not adequately visualized because of body habitus, and compressibility could not be assessed; thrombus at this nonvisualized level cannot be excluded. The left popliteal vein is not adequately visualized because of body habitus, and compressibility could not be assessed; thrombus at this nonvisualized level cannot be excluded. No abnormal focal fluid collection is identified along the imaged course of the veins. SUPERFICIAL VEINS: Superficial veins were not evaluated. SOFT TISSUES: No popliteal fossa cyst or other abnormalities. IMPRESSION: 1. No sonographic evidence of deep venous thrombosis in the visualized segments of the right lower extremity and in the visualized segments of the left femoral and left posterior tibial veins. 2. Technical limitation: the left common femoral vein and the left popliteal vein are not adequately visualized because of body habitus; thrombus at these nonvisualized levels cannot be excluded. /[facility] DICTATED BY: KRYSTLE VEGA MD DATE: 06/22/252134 ELECTRONICALLY SIGNED BY: KRYSTLE VEGA MD DATE: 06/22/252134 PATIENT: YUMIKO CARLOS MR#: [id number] : 1950 SEX: F AGE: 74 LOCATION: [facility] ORDER 36 STATUS: REG ER REPORT#: [id number] SERVICE 34 REASON: sob ORDERING PHYSICIAN: SATISH WEEMS MD PROCEDURE: CXR1VW - CHEST 1VW EXAM: CR Chest, 1 View. CLINICAL HISTORY: sob COMPARISON: May 22 2023 FINDINGS: LUNGS: There is no mass, infiltrate, or acute pulmonary abnormality. PLEURAL SPACES: No evidence of pleural effusion or pneumothorax. MEDIASTINUM: There is cardiomegaly BONES: No aggressive appearing osseous lesion seen. IMPRESSION: No acute cardiopulmonary pathology is evident. /[place] DICTATED BY: SWATHI HAM MD DATE: 06/22/251541 ELECTRONICALLY SIGNED BY: SWATHI HAM MD DATE: 06/22/251541 ASSESSMENT: Severe hyponatremia Acute hypoxic respiratory failure, likely from viral infection Positive for influenza Ground level fall Obesity hypoventilation syndrome, does not use CPAP at home Paroxysmal atrial fibrillation, rate controlled, currently on Eliquis Hyperlipidemia Hypertension urgency PLAN: Labs, diagnostic, radiologic exams reviewed and interpreted by myself and supervising physician. We have reviewed external records in detail Decrease sodium chloride tablets1 g p.o. b.i.d.. Hydrochlorothiazide should be stopped. 1 L fluid restriction Avoid drugs which can potentiate hyponatremia Require close monitoring of renal function and electrolytes Order CBC, CMP, and electrolytes in am Continue with antibiotics BiPAP as necessary, for respiratory distress IV pressors as needed Monitor blood pressure adjust medication doses as needed Avoid hypotensive episodes May use Dilaudid 0.5 mg IV every 6 hours as needed for severe pain Monitor blood sugars Strict intake, output, and daily weight should be monitored Continue to monitor renal function, anemia, electrolytes Treatment plan discussed with patient Questions were answered We have discussed with the other team physicians in detail about the care plan We will continue to monitor the patient closely Total critical care time spent with patient, nursing staff, critical care team over 35 minutes ATTESTATION BY PHYSICIAN I have seen and examined the patient. I reviewed the documentation, medical decision making, and treatment plan as noted by the mid-level provider above. I agree with the findings and plan of care. ALENA PHILLIPS MD, [facility] Jun 24, 2025 14:09
--- NOTE | 2025-06-24 14:51 | CONS ---
CONSULTATION NOTE Date of Service: Jun 24, 2025 Reason for Consultation: [ labial wound] Requesting Physician: [ ] HISTORY OF PRESENT ILLNESS: The patient is being evaluated at bedside in room 210 for initial wound care evaluation for wound to labial region. The patient reports she noted pain to left labial region about 1 week ago but denies any drainage noted. The patient is a 74-year-old female with underlying history of severe morbid obesity, suspected ohs/LINDA with chronic hypercapnic respiratory failure, history of atrial fibrillation maintained on chronic anticoagulation with Eliquis, hyperlipidemia presented to the ER secondary to fall, dizziness, poor oral intake with nausea. Patient states that as she was ambulating to the restroom, she lost balance and fell and landed on her back. Denies hitting her head. She has been maintained on chronic anticoagulation with Eliquis as outpatient. She is followed by Cardiology as outpatient due to prior history of atrial fibrillation. She is mostly sedentary at home and has been having issues with weight for long time. She reports that she has been slowly gaining weight over the last several years. She is having pain involving the left knee since the fall. She does report having history of sleep apnea but does not use CPAP machine at home. Chest x-ray showed no acute infiltrates. The patient is admitted to ICU for management of severe hyponatremia, hypertensive urgency, and active influenza infection. REVIEW OF SYSTEMS CONSTITUTIONAL: Denies fever, chills, or fatigue. HEAD/FACE: No signs of trauma. EENT: Denies eye pain, blurred vision, double vision, or light sensitivity. RESPIRATORY: Denies shortness of breath, cough, wheezing CARDIOVASCULAR: Denies chest pain, palpitation, syncope GASTROINTESTINAL/ABDOMINAL: Denies abdominal pain, constipation, diarrhea, nausea or vomiting GENITOURINARY: Denies dysuria or hematuria. MUSCULOSKELETAL: Denies joint pain, tenderness, or trauma. INTEGUMENTARY: Denies rash or itchiness NEUROLOGICAL/PSYCH: Denies anxiety, depression, heat or cold intolerance. PAST MEDICAL HISTORY: [Diabetes mellitus type 2, severe morbid obesity, hypertension, A-fib on chronic anticoagulation with Eliquis 5 mg twice daily, untreated LINDA/OHS] SOCIAL HISTORY: [Negative for smoking, alcohol use, drug use. Patient requires assistance with IADLs. 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 Pupils equal and reactive. HENT: No oral thrush seen, moist Oral mucosa NECK: Supple, no JVD or thyromegaly. LUNGS: Good air entry. No rales, no rhonchi. CARDIOVASCULAR: S1, S2 regular. No murmur heard. ABDOMEN: Soft, non tender, bowel sounds present, no organomegaly CENTRAL NERVOUS SYSTEM: Awake, alert, oriented x 3. No focal deficits. SKIN: No rashes, no swelling. LYMPHATICS: No peripheral lymphadenopathy MUSCULOSKELETAL: No joint swelling, erythema or tenderness. EXTREMITIES: No cyanosis or clubbing BACK: No deformity, no pressure ulcer. GENITOURINARY: small abrasion noted to left labia majora, noted with granulation, no drainage noted Vital Sign (Last 24 Hours) 06/24/25 06/24/25 11:16 12:32 Temp 97.3 Pulse 65 Resp 20 B/P (MAP) 143/68 Pulse Ox 100 O2 Delivery N/Cannula Low lpm O2 Flow Rate 2.0 FiO2 28 Intake & Output (last 24hrs) 06/23/25 06/23/25 06/24/25 15:00 23:00 07:00 Intake Total 670.0 ml 100.0 ml Output Total 200 ml 1050 ml Balance 670.0 ml -200 ml -950.0 ml LABS: Laboratory: Test 06/24/25 11:42 06/24/25 09:01 06/24/25 05:50 06/24/25 04:01 Range/Units Whole Blood Glucose 138 #H 70-110 MG/DL Sodium Level 120 L 136-145 mmol/L Potassium Level 4.5 3.5-5.1 mmol/L Chloride Level 86 *L 101-111 mmol/L Carbon Dioxide Level 32 21-32 mmol/L Blood Urea Nitrogen 13 7-18 mg/dL Creatinine 0.3 L 0.5-1.0 mg/dL Glomerular Filtration Rate Calc 110 >90 mL/min Random Glucose 96 70-105 mg/dL Total Calcium 8.3 L 8.5-10.1 mg/dL Magnesium Level 1.90 1.80-2.40 mg/dL Total Bilirubin 0.8 0.2-1.0 mg/dL Direct Bilirubin 0.4 H 0.0-0.3 mg/dL Aspartate Amino Transf (AST/SGOT) 23 10-37 U/L Alanine Aminotransferase (ALT/SGPT) 25 12-78 U/L Alkaline Phosphatase 72 50-136 U/L Total Protein 6.2 6.0-8.3 g/dL Albumin 2.8 L 3.5-5.0 g/dL Triglycerides Level 45 30-200 mg/dL Cholesterol Level 108 <200 mg/dL LDL Cholesterol 58 0-99 mg/dL HDL Cholesterol 43 35-85 mg/dL White Blood Count 8.4 4.8-10.8 K/uL Red Blood Count 4.64 4.00-5.50 MIL/uL Hemoglobin 14.4 12.0-16.0 g/dL Hematocrit 40.2 36-48 % Mean Corpuscular Volume 86.6 79-99 fL Mean Corpuscular Hemoglobin 31.0 27.0-33.0 pg Mean Corpuscular Hemoglobin Concent 35.8 32.0-36.0 g/dL Red Cell Distribution Width 12.0 11.0-15.5 % Platelet Count 115 #L 130-400 K/uL Mean Platelet Volume 10.5 7.5-10.5 fL Segmented Neutrophils % 82 H 40-70 % Band Neutrophils % 1 0-2 % Lymphocytes % (Manual) 10 L 22-44 % Monocytes % (Manual) 6 2-9 % Eosinophils % (Manual) 1 1-6 % Nucleated Red Blood Cells 0.0 0.0-0.19 % Differential Comment MANUAL DIFFERENTIAL White Cell Morphology Comment See comments Platelet Morphology Comment SLIGHTLY DECREASED Red Blood Cell Morphology NORMAL Test 06/23/25 09:20 06/23/25 07:16 06/22/25 23:47 Range/Units Urine Color YELLOW YELLOW Urine Appearance CLOUDY H CLEAR Urine pH 6.5 5.0-8.0 Urine Specific [place] 1.026 1.001-1.031 Urine Protein 50 H NEGATIVE mg/dL Urine Glucose (UA) NEGATIVE NEGATIVE mg/dL Urine Ketones NEGATIVE NEGATIVE mg/dL Urine Occult Blood LARGE H NEGATIVE Urine Nitrate NEGATIVE NEGATIVE Urine Bilirubin NEGATIVE NEGATIVE mg/dL Urine Urobilinogen 4.0 H 0.2-1.0 mg/dL Urine Leukocyte Esterase 250 H NEGATIVE [place]/uL Urine RBC TNTC H 0-1 /HPF Urine WBC 51-100 H 0-1 /HPF Urine Squamous Epithelial Cells RARE 0-2 /HPF Urine Non-Squamous Epithelial Cells 2 0-2 /HPF Urine Bacteria None None Seen /HPF Urine Other Casts 4 None Seen /LPF Urine Osmolality 676 50-1200 mOsm/kg Urine Random Creatinine 141.83 H 30-135 mg/dL Urine Random Sodium < 13 L 40-220 mmol/l Urine Random Potassium 14 L 25-125 mmol/L Urine Random Chloride < 21 L 110-250 mmol/L Uric Acid 2.0 L 2.6-7.2 mg/dL Phosphorus Level 3.2 2.5-4.9 mg/dL Cortisol AM Sample 16.9 6.2-19.4 ug/dL Blood Gas Specimen Type Arterial Arterial Blood pH 7.324 L 7.350-7.450 Arterial Blood Partial Pressure CO2 58 H 32-45 mmHg Arterial Blood Partial Pressure O2 106.0 83.0-108.0 mmHg Arterial Blood HCO3 29.6 H 21.0-28.0 mmol/L Arterial Blood Oxygen Saturation 97.8 94.0-98.0 % Arterial Blood Base Excess 2.1 -2.0-3.0 mmol/L Hemoglobin (Blood Gas) 14.7 12.0-16.0 g/dL Sodium (Blood Gas) 114 L 136-145 MMOL/L Bedside Potassium (Blood Gas) 3.7 3.4-4.5 MMOL/L Bedside Chloride (Blood Gas) 79 *L 98-107 MMOL/L Bedside Glucose (Blood Gas) 102 H 65-95 MG/DL Bedside Ionized Calcium (Blood Gas) 1.11 L 1.15-1.33 MMOL/L Bedside Lactic Acid (Blood Gas) 0.87 H 0.36-0.75 MMOL/L Blood Gas Temperature 37.0 35.5-37.0 CELSIUS Blood Gas Flow-by 5.00 0.00-15.00 L/min Blood Gas Vent Mode A.M ROOM AIR FiO2 40.0 % Blood Gas Specimen Comment CRYSTAL RN, RB DIAGNOSTICS / RADIOLOGY: [ ] PROBLEM LIST : Medical Problems: Unspecified open wound of unspecified external genital organs, female, initial encounter PLAN: Wound care to left labia wound: Cleanse with normal saline, pat dry, apply mupirocin ointment bid Keep wounds clean and dry Offloading/reposition q 2 hours Comorbidities per primary care team Further Management per hospital course. Thank You for the consult and allowing us to participate in the care of this patient. ATTESTATION BY PHYSICIAN I have seen and examined the patient. I reviewed the documentation, medical decision making, and treatment plan as noted by the mid-level provider above. I agree with the findings and plan of care. CASANDRA FUNG MD, [facility] Jun 24, 2025 14:51
[2025-06-24 15:40] LABS: CREATININE 0.4 mg/dL (0.5-1.0); GLOMERULAR FILTR. RATE CALC 103.0 mL/min (>90); GLUCOSE,RANDOM 117.0 mg/dL (70-105); SODIUM SERUM 124.0 mmol/L (136-145); UREA NITROGEN, BLOOD 15.0 mg/dL (7-18)
[2025-06-24] MEDS: SODIUM CHLORIDE 1,000 MG TAB PO SCH (20:54)
[2025-06-24 20:55] LABS: CREATININE 0.5 mg/dL (0.5-1.0); GLOMERULAR FILTR. RATE CALC 97.0 mL/min (>90); GLUCOSE,RANDOM 150.0 mg/dL (70-105); SODIUM SERUM 124.0 mmol/L (136-145); UREA NITROGEN, BLOOD 16.0 mg/dL (7-18)
[2025-06-24] MEDS: ARTIFICAL TEARS SOL 15 ML OU ONE (20:59)
[2025-06-24] MEDS: MUPIROCIN OINTMENT 22 GM TUBE TP SCH (21:00)
--- NOTE | 2025-06-24 23:24 | NUR ---
arrival report received by kalyn wong. patient arrived to room 418 from room 210. plan of care discussed with her and she verbalized understanding. patient having shortness of breath, is on 2 liters of oxygen via nasal cannula and the RT, demetri will place her on a bipap for tonight. patient having rash on her breast folds, antifungal cream applied. pictures taken. waffle mattress on, call light within reach, door open, bed alarm on, 2 side rails up. will continue to monitor patient.
[2025-06-25] VITALS (15 sets, daily range): BP systolic 133–163; BP diastolic 66–93; PULSE 61–81; RESP 17–22; TEMP 97.1–97.9; O2SAT 92–98
[2025-06-25 06:32] LABS: NUCLEATED RED BLOOD CELLS 0.0 % (0.0-0.19); PLATELET COUNT (AUTO) 128.0 K/uL (130-400); RED BLOOD CELL COUNT(AUTO) 4.62 MIL/uL (4.00-5.50); RED CELL DISTRIBUTION WIDTH 12.3 % (11.0-15.5); WHITE BLOOD COUNT (AUTO) 10.3 K/uL (4.8-10.8)
[2025-06-25 06:51] LABS: ASPARTATE AMINOTRANSFERASE 22.0 U/L (10-37); CREATININE 0.4 mg/dL (0.5-1.0); GLOMERULAR FILTR. RATE CALC 103.0 mL/min (>90); GLUCOSE,RANDOM 97.0 mg/dL (70-105); SODIUM SERUM 126.0 mmol/L (136-145); TOTAL PROTEIN, SERUM 6.1 g/dL (6.0-8.3); UREA NITROGEN, BLOOD 14.0 mg/dL (7-18)
--- NOTE | 2025-06-25 15:33 | PN ---
[facility] PROGRESS NOTE Date of Service: Jun 25, 2025 Time of Service: 15:24 SUBJECTIVE: This is a 74-year-old female with underlying history of severe morbid obesity, suspected ohs/LINDA with chronic hypercapnic respiratory failure, history of atrial fibrillation maintained on chronic anticoagulation with Eliquis, hyperlipidemia presented to the ER secondary to fall, dizziness, poor oral intake with nausea. Patient states that as she was ambulating to the restroom, she lost balance and fell and landed on her back. Denies hitting her head. She has been maintained on chronic anticoagulation with Eliquis as outpatient. She is followed by Cardiology as outpatient due to prior history of atrial fibrillation. She is mostly sedentary at home and has been having issues with weight for long time. She reports that she has been slowly gaining weight over the last several years. She is having pain involving the left knee since the fall. She does report having history of sleep apnea but does not use CPAP machi ne at home. She reports drinking about 2L of water daily to maintain hydration. Has been having some cough, congestion and mild wheezing. Denies any previous history of COPD or asthma. She has been having some mild nausea but denies any headache or significant weakness of bilateral upper or lower extremity. She does have history of hypertension and is maintained on antihypertensives with losartan 100 mg daily, [id number] mg b.i.d., HCTZ 25 mg daily. She reports taking all her antihypertensives this morning prior to coming to the ER. On presentation to the hospital, patient was noted to have T- max of 98.2 F, heart rate of 72, blood pressure of 187/78. Labs on presentation showed WBC count of 9900, hemoglobin 15.3, platelet count of [id number]. BMP remarka ble for sodium of 114, potassium 4.2, chloride of 76, creatinine of 0.4, magnesium 1.3, BNP of 146. Chest x-ray showed no acute infiltrates. Patient will be admitted to ICU for management of severe hyponatremia, hypertensive urgency, active influenza infection, and we will monitor this patient closely due to underlying obesity and underlying comorbidities. Including untreated OHS /LINDA All antihypertensives will be resumed. Condition remains critical. 06/23/2025: Patient was seen and examined bedside in room 210. Patient is awake, alert, oriented x3. patient tested positive for influenza type B antigen, started on droplet precaution. Patient is receiving Tamiflu, IV doxycycline and Rocephin to prevent secondary bacterial infection. Lab shows sodium 116, potassium 3.7 and patient is on 1.5 L fluid restriction, receiving IV fluids NaCl at 75 mL/hour. Pending cortisol, urine sodium, urine potassium, echo 2D. nephrology on board, we will follow up with the recommendations. 06/24/2025: Patient was seen and examined bedside in room 210. Patient is awake, alert, oriented x3. patient is requiring BiPAP with FiO2 30 during night probably due to obstructive sleep apnea. Her sodium has been improved from 116 to 120. Stopped NaCl75 mL/hour, losartan 100 mg and started sodium chloride pills 2g Q 8 as per Nephrology recommendation. 2D echo showed left ventricular ejection fraction > 65, stage III diastolic dysfunction. Urine Positive for leukocyte esterase, urine culture shows no growth at 18-24 hours. We will continue Tamiflu, IV antibiotics, salt pills. 06/25/2025: Patient was seen and evaluated at bedside in room 418. Case Discussed with RN, no acute overnight events. Patient's sodium level has been improved from 120 to 126 this morning. Dose of salt pills have been reduced from 2 g Q 8 to 1 g q.12h. Final urine culture report showed no growth after 48 hours. Nephrology on board, we will follow up with the recommendations. REVIEW OF SYSTEMS: CONSTITUTIONAL: generalized malaise, weight gain, obesity NEUROLOGICAL: Denies headache, amaurosis fugax, motor weakness, sensory deficit, vertigo/spinning sensation, gait abnormalities, or tremors. ENT: No hearing loss, otalgia, otorrhea, rhinitis, rhinorrhea, hoarseness, or sore throat. CARDIOVASCULAR: denies any chest pain, denies palpitations PULMONARY: cough, congestion , rhinorrhea SLEEP: Denies morning headaches, daytime somnolence or napping. Denies difficulty falling asleep, staying asleep, waking from sleep. Denies knowledge of snoring. GASTROINTESTINAL: Denies any type of dysphagia to either liquids or solids. Denies nausea, vomiting, pyrosis, early satiety, abdominal pain, diarrhea, constipation, or changes in stool consistency or caliber. Denies coffee-ground emesis, hematemesis, hematochezia, or melanotic stools. GENITOURINARY: Denies frequency, urgency, nocturia, hematuria or incontinence (Storage/Irritative symptoms.) Low urinary stream, straining to void, urinary intermittency or hesitancy, splitting of the voiding stream, terminal dribbling. ENDOCRINOLOGIC: Denies polyuria, polydipsia, polyphagia or heat/cold intolerances. HEMATOLOGIC: Denies thrombophilia/previous clots, or coagulopathy/bleeding disorders. ONCOLOGIC: Denies personal history of malignancy. DERMATOLOGIC: Denies rashes or pruritus. PSYCHIATRIC: Denies any suicidal or homicidal ideation. Denies hallucinations. PHYSICAL EXAM GENERAL APPEARANCE: The patient is awake, alert, appears chronically ill, on 2 L of O2 by nasal canula, patient is morbidly obese NEUROLOGICAL: Cranial nerves II-XII grossly intact. neurological exam is non focal, patient has pain to left knee, strength exam is limited due to pain HEENT: Face is symmetric. Pupils are equal and reactive. Extraocular movements are intact. NECK: Supple. No JVD. No thyromegaly. No submental, submandibular, pre- /postauricular, occipital or supraclavicular lymphadenopathy. CHEST: Normal chest expansion. No Telemetry. LUNGS: minimal crackles noted of the bilateral lung bases CARDIOVASCULAR: Regular. S1 and S2 normal. No appreciable rubs, murmurs or gallops. ABDOMEN: Soft, nontender, and nondistended. There is no rebound, voluntary gu arding, or rigidity. : Deferred. No Sharpe. EXTREMITIES: trace edema noted of the bilateral lower extremities SKIN: No skin breakdown. Vital Signs (last 8hr) Date Time Temp Pulse Resp B/P (MAP) Pulse Ox O2 Delivery O2 Flow Rate FiO2 06/25/25 12:00 97.5 70 17 133/74 91 Nasal Cannula 3.0 06/25/25 11:15 64 18 06/25/25 09:42 97 Room Air* 0 21 06/25/25 08:00 97.2 63 18 136/67 97 Room Air LABS: Laboratory: Test 06/25/25 11:45 06/25/25 06:26 06/24/25 05:50 06/24/25 04:01 Range/Units Whole Blood Glucose 193 #H 70-110 MG/DL White Blood Count 10.3 4.8-10.8 K/uL Red Blood Count 4.62 4.00-5.50 MIL/uL Hemoglobin 14.5 12.0-16.0 g/dL Hematocrit 40.3 36-48 % Mean Corpuscular Volume 87.2 79-99 fL Mean Corpuscular Hemoglobin 31.4 27.0-33.0 pg Mean Corpuscular Hemoglobin Concent 36.0 32.0-36.0 g/dL Red Cell Distribution Width 12.3 11.0-15.5 % Platelet Count 128 L 130-400 K/uL Mean Platelet Volume 10.9 H 7.5-10.5 fL Nucleated Red Blood Cells 0.0 0.0-0.19 % Sodium Level 126 L 136-145 mmol/L Potassium Level 4.0 3.5-5.1 mmol/L Chloride Level 89 *L 101-111 mmol/L Carbon Dioxide Level 34 H 21-32 mmol/L Blood Urea Nitrogen 14 7-18 mg/dL Creatinine 0.4 L 0.5-1.0 mg/dL Glomerular Filtration Rate Calc 103 >90 mL/min Random Glucose 97 70-105 mg/dL Total Calcium 7.9 L 8.5-10.1 mg/dL Magnesium Level 1.80 1.80-2.40 mg/dL Total Bilirubin 0.9 0.2-1.0 mg/dL Aspartate Amino Transf (AST/SGOT) 22 10-37 U/L Alanine Aminotransferase (ALT/SGPT) 23 12-78 U/L Alkaline Phosphatase 79 50-136 U/L Total Protein 6.1 6.0-8.3 g/dL Albumin 2.9 L 3.5-5.0 g/dL Direct Bilirubin 0.4 H 0.0-0.3 mg/dL Triglycerides Level 45 30-200 mg/dL Cholesterol Level 108 <200 mg/dL LDL Cholesterol 58 0-99 mg/dL HDL Cholesterol 43 35-85 mg/dL Segmented Neutrophils % 82 H 40-70 % Band Neutrophils % 1 0-2 % Lymphocytes % (Manual) 10 L 22-44 % Monocytes % (Manual) 6 2-9 % Eosinophils % (Manual) 1 1-6 % Differential Comment MANUAL DIFFERENTIAL White Cell Morphology Comment See comments Platelet Morphology Comment SLIGHTLY DECREASED Red Blood Cell Morphology NORMAL Current Medications Medications (Trade) Dose Ordered Sig/Conchis Route PRN Reason Start Time Stop Time Status Last Admin Dose Admin Acetaminophen (TYLenol 325MG TAB) 650 mg Q6H PRN PO MILD PAIN (1-3) 06/22/25 15:30 07/22/25 15:29 Acetaminophen/ Hydrocodone Bitart (NORco 5/325MG) 1 tab Q6H PRN PO MODERATE PAIN (4-6) 06/23/25 11:30 06/23/25 11:13 DC Apixaban (EliquIS) 5 mg BID PO 06/23/25 09:00 07/23/25 08:59 06/25/25 09:38 5 MG Atorvastatin Calcium (LIPItor 10MG) 10 mg HS PO 06/22/25 21:00 07/22/25 20:59 06/24/25 20:54 10 MG Budesonide (Pulmicort 0.5 Mg/2ml) 0.5 mg BIDRESP IH 06/22/25 18:00 07/22/25 17:59 06/25/25 06:34 0.5 MG Carvedilol (Coreg 25MG) 25 mg BID PO 06/22/25 21:00 06/23/25 13:35 DC 06/22/25 21:18 25 MG Ceftriaxone Sodium (ROCEphine 1G INJ) 1 gm Q12H IVPB 06/22/25 15:30 07/02/25 15:29 06/25/25 01:11 1 GM Docusate Sodium (COLace 100MG CAP) 100 mg BID PO 06/22/25 21:00 07/22/25 20:59 06/25/25 09:38 100 MG Doxycycline Hyclate (Doxycycline Hyclate) 100 mg BID PO 06/22/25 21:00 07/02/25 20:59 06/25/25 09:38 100 MG Famotidine (Pepcid 20mg Tab) 20 mg BID PO 06/23/25 21:00 07/23/25 20:59 06/25/25 09:38 20 MG Fish Oil (Fish Oil 1000 Mg/Cap) 1,000 mg DAILY PO 06/23/25 09:00 07/23/25 08:59 06/25/25 09:38 1,000 MG Home Med (Home Medication) Soluble [place] Fiber/ Inu... DAILY PO 06/23/25 09:00 07/23/25 08:59 Hydralazine HCl (APRESOLine 20MG INJ) 10 mg Q6H PRN IV ADMINISTER FOR SBP > 170 06/22/25 15:30 07/22/25 15:29 06/22/25 16:05 10 MG Insulin Human Regular (humuLIN R 100 UNIT/ML 3ML) INSULIN SLIDING SCAL... ACHS SQ 06/22/25 16:30 07/22/25 16:29 06/25/25 13:05 2 UNIT Ipratropium [place] (AtrovENT UD) 0.5 mg [id number] IH 06/22/25 18:00 07/22/25 17:59 06/25/25 11:19 0.5 MG Losartan Potassium (CozAAR 100MG TAB) 100 mg DAILY PO 06/23/25 09:00 06/23/25 13:35 DC 06/23/25 10:19 100 MG Magnesium Sulfate 50 ml @ 0 mls/hr PROTOCOL IV 06/22/25 15:30 07/22/25 15:29 06/25/25 07:31 15 MLS/HR Mupirocin (Bactroban Oint) 1 APPL BID TP 06/24/25 21:00 07/24/25 20:59 06/25/25 09:39 1 APPL Ondansetron HCl (zoFRAN 4MG INJ) 4 mg Q6H PRN IVP NAUSEA/VOMITING 06/22/25 15:30 07/22/25 15:29 Oseltamivir Phosphate (Tamiflu) 75 mg BID PO 06/22/25 21:00 06/27/25 20:59 06/25/25 09:38 75 MG Potassium Chloride 100 ml @ 100 mls/hr AD PRN IV POTASSIUM PROTOCOL 06/22/25 15:30 07/22/25 15:29 Potassium Chloride (K-Dur/Klor-Con 20meq) 20 meq AD PRN PO POTASSIUM PROTOCOL 06/22/25 15:30 07/22/25 15:29 Potassium Chloride (KCl 10% Elixir 20meq/15ml) 20 meq AD PRN PO POTASSIUM PROTOCOL 06/22/25 15:30 07/22/25 15:29 Sodium Chloride 1,000 ml @ 75 mls/hr [id number] IV 06/22/25 15:30 06/23/25 13:34 DC 06/23/25 04:42 75 MLS/HR Sodium Chloride (Sodium Chloride) 1,000 mg BID PO 06/24/25 21:00 07/23/25 13:59 06/25/25 09:38 1,000 MG Sodium Chloride (Sodium Chloride) 2,000 mg Q8H6 PO 06/23/25 14:00 06/24/25 12:37 DC 06/24/25 05:58 2,000 MG Thiamine HCl (Vitamin B-1) 100 mg DAILY IVP 06/23/25 09:00 07/23/25 08:59 06/25/25 09:37 100 MG DIAGNOSTICS / RADIOLOGY: [ ] ASSESSMENT: Severe hyponatremia, POA Hypertensive urgency, POA History of HCTZ use as outpatient, POA Active influenza bronchitis, POA Super morbid obesity (BMI 62), POA Underlying history of atrial fibrillation, POA History of chronic anticoagulation with Eliquis, POA Hypomagnesemia, POA Debility, POA Chronic hypercapnic respiratory failure, POA Untreated ohs/LINDA, POA History of hypertension, POA Hyperlipidemia, POA Type 2 diabetes mellitus, POA Urinary tract infection, POA PLAN: Severe hyponatremia, POA -patient's sodium level at presentation was 114. -patient's sodium level has been improved to 120 this morning. -started on sodium chloride2 g pills Q8 as per Nephrology recommendation. -correction of sodium of 6-8 mEq per24 hours -hydrochlorothiazide was stopped and patient was put on fluid restriction of 1 L daily. -stopped IV fluids, losartan as per Nephrology recommendations. -we will trend BMP 6 hourly -nephrology on board, we will follow up with the recommendations. Hypertensive urgency, POA -on presentation patient's blood pressure was 187/78 -patient received 1 dose of hydralazine 10 mg in ED -hydrochlorothiazide was discontinued due to severe hyponatremia -hydralazine 10 mg IV p.r.n. if systolic blood pressure greater than 170 mmHg. Active influenza bronchitis, POA -on presentation to ED patient tested positive for influenza type B antigen -patient was started on Tamiflu 75 mg b.i.d. PO (day 4) -doxycycline 100 mg b.i.d. PO (day 4) , Rocephin 1 g IV q.12h (day 4) to prevent secondary bacterial infection. -budesonide 0.5 mg b.i.d. resp IH, ipratropium bromide 0.5 mg Q 6 resp IH Urinary tract infection, POA -patient's urine positive for leukocyte esterase, WBC. -urine culture showed no growth after 18-24 hours. -continue Rocephin 1 g IV q.12h (day 4) -final culture reports showed no growth after 48 hours Underlying history of atrial fibrillation, POA -patient is known case of atrial fibrillation, on Eliquis 5 mg daily at home -EKG on presentation showed atrial fibrillation -patient was started on Eliquis 5 mg b.i.d. PO Super morbid obesity (BMI 62), POA -patients BMI was 62 on presentation to ED -patient is requiring BiPAP during night her maintaining saturations probably due to obstructive sleep apnea -we will recommend sleep study Patient receiving thiamine supplementation Patient remains high-risk due to severe obesity and chronic hypercapnic respiratory failure with metabolic compensation We will request consultation with Physical therapy in the morning We will avoid any narcotics/sedatives to reduce risk of any worsening acute on chronic hypercapnia Patient will benefit from BiPAP/CPAP therapy at bedtime All labs will be repeated in the morning ATTESTATION BY PHYSICIAN I have seen and examined the patient. I reviewed the documentation, medical decision making, and treatment plan as noted by the resident physician above. I agree with the findings and plan of care. JANES CM MD, ADIL SHAH QUADRI MD Jun 25, 2025 15:33
--- NOTE | 2025-06-25 20:52 | PN ---
[facility] PROGRESS NOTE Date Patient Seen: Jun 25, 2025 Time of Visit: 20:49 Supervising Physician: KITTY FUNG MD Consulting Physician: Hospitalist Outpatient Specialists: [ ] Inpatient Consults: [ ] PROBLEM LIST: Acute hypoxic respiratory failure, Positive for influenza, Hyponatremia Super Super Obesity Obesity hypoventilation syndrome, Paroxysmal atrial fibrillation on chronic anticoagulation therapy Hyperlipidemia Hypertension urgency on admission INTERVAL HISTORY: Patient downgraded from the MICU Currently on room air She is awake, alert and in no acute distress She is well hydrated No nausea, no vomiting, no diarrhea Denies fevers, denies chills Good appetite Denies chest pain Denies palpitations REVIEW OF SYSTEMS: 12 point ROS reviewed with patient. Pertinent positives mentioned above. Otherwise negative. PHYSICAL EXAM: GENERAL: alert, weak, awake oriented x 3 HEENT: EOMI, Sclera non icteric, moist mucosa NECK: Supple, no JVD, trachea midline LUNGS: Fine crackles bilaterally, no wheezing HEART: Regular rate and rhythm. Normal S1 and S2, without murmurs ABD: Large body habitus EXT: No clubbing cyanosis or edema NEURO: Alert and oriented to person, follows commands Vital Signs (last 8hr) Date Time Temp Pulse Resp B/P (MAP) Pulse Ox O2 Delivery O2 Flow Rate FiO2 06/25/25 18:34 61 18 06/25/25 18:32 61 20 N/Cannula Low lpm 2.0 28 06/25/25 16:00 97.5 71 18 158/85 96 Nasal Cannula 2.0 LABS: Hematology Labs: Test 06/25/25 06:26 06/24/25 04:01 Range/Units White Blood Count 10.3 4.8-10.8 K/uL Red Blood Count 4.62 4.00-5.50 MIL/uL Hemoglobin 14.5 12.0-16.0 g/dL Hematocrit 40.3 36-48 % Mean Corpuscular Volume 87.2 79-99 fL Mean Corpuscular Hemoglobin 31.4 27.0-33.0 pg Mean Corpuscular Hemoglobin Concent 36.0 32.0-36.0 g/dL Red Cell Distribution Width 12.3 11.0-15.5 % Platelet Count 128 L 130-400 K/uL Mean Platelet Volume 10.9 H 7.5-10.5 fL Nucleated Red Blood Cells 0.0 0.0-0.19 % Segmented Neutrophils % 82 H 40-70 % Band Neutrophils % 1 0-2 % Lymphocytes % (Manual) 10 L 22-44 % Monocytes % (Manual) 6 2-9 % Eosinophils % (Manual) 1 1-6 % Differential Comment MANUAL DIFFERENTIAL White Cell Morphology Comment See comments Platelet Morphology Comment SLIGHTLY DECREASED Red Blood Cell Morphology NORMAL Chemistry Labs: Test 06/25/25 16:10 06/25/25 06:26 06/24/25 05:50 Range/Units Whole Blood Glucose 157 H 70-110 MG/DL Sodium Level 126 L 136-145 mmol/L Potassium Level 4.0 3.5-5.1 mmol/L Chloride Level 89 *L 101-111 mmol/L Carbon Dioxide Level 34 H 21-32 mmol/L Blood Urea Nitrogen 14 7-18 mg/dL Creatinine 0.4 L 0.5-1.0 mg/dL Glomerular Filtration Rate Calc 103 >90 mL/min Random Glucose 97 70-105 mg/dL Total Calcium 7.9 L 8.5-10.1 mg/dL Magnesium Level 1.80 1.80-2.40 mg/dL Total Bilirubin 0.9 0.2-1.0 mg/dL Aspartate Amino Transf (AST/SGOT) 22 10-37 U/L Alanine Aminotransferase (ALT/SGPT) 23 12-78 U/L Alkaline Phosphatase 79 50-136 U/L Total Protein 6.1 6.0-8.3 g/dL Albumin 2.9 L 3.5-5.0 g/dL Direct Bilirubin 0.4 H 0.0-0.3 mg/dL Triglycerides Level 45 30-200 mg/dL Cholesterol Level 108 <200 mg/dL LDL Cholesterol 58 0-99 mg/dL HDL Cholesterol 43 35-85 mg/dL DIAGNOSTICS / RADIOLOGY RESULTS: Chest x-ray reviewed PLAN Airborne isolation Complete Tamiflu continue broad spectrum antibiotics continue sodium tablets repeat CMP in the morning NEURO: Minimize central acting medications as possible. Maintain fall precautions, adequate lighting during the day PULMONARY: Supplemental 02 as needed. Maintain aspiration precautions at all times CARDIOVASCULAR: Follow hemodynamics. Vital signs per facility protocol GI & NUTRITION: Continue with nutritional support. Continue stool softeners and laxatives as needed. KIDNEYS & ELECTROLYTES: Strict monitoring of intake, output and overall fluid balance. Avoid nephrotoxic medications to the extent possible. Medications to be dosed according to renal function. Monitor electrolytes and replace as needed ENDOCRINE: Maintain blood glucose between 100-180 at all times. Hypoglycemia protocol in place INFECTIOUS DISEASE: Trend temperature, WBC and procalcitonin level Follow cultures, deescalate antibiotics as soon as possible. Panculture if new onset fever ONCOLOGY/HEMATOLOGY/COAGULATION: Monitor for s/s of bleeding Monitor hemoglobin, coagulation studies as needed SKIN: Pressure ulcer prevention per facility protocol Specialty mattress ORTHO/REHAB: Continue PT/OT Prophylaxis: Continue GI and DVT prophylaxis Code Status: Full Resuscitation Disposition: TBD I personally scribed for KITTY FUNG MD ([email or web address]) on 06/25/25 at 20:52. Electronically submitted by Tai Main ([email or web address]). KITTY FUNG MD Jun 25, 2025 20:52
--- NOTE | 2025-06-25 21:13 | PN ---
Endocrinology progress note DOS:06/25/25 subjective: BMP remarkable for sodium of 114, potassium 4.2, chloride of 76, creatinine of 0.4, magnesium 1.3, BNP of 146. sodium improving to 126 Chest x-ray showed no acute infiltrates. am cortisol 16.9, tsh 1.91 patient sodium was low at 114 that is improving to 124 now. nephrology is following and hyponatremia likely caused by HCTZ. reports that she gained more than 30 lbs weight but otherwise denies any other signs/symptoms of traci syndrome. denies steroid intake. Hba1c 6.1% REVIEW OF SYSTEMS: CONSTITUTIONAL: generalized malaise, weight gain, obesity NEUROLOGICAL: Denies headache, amaurosis fugax, motor weakness, sensory deficit, vertigo/spinning sensation, gait abnormalities, or tremors. ENT: No hearing loss, otalgia, otorrhea, rhinitis, rhinorrhea, hoarseness, or sore throat. CARDIOVASCULAR: denies any chest pain, denies palpitations PULMONARY: cough, congestion , rhinorrhea SLEEP: Denies morning headaches, daytime somnolence or napping. Denies difficulty falling asleep, staying asleep, waking from sleep. Denies knowledge of snoring. GASTROINTESTINAL: Denies any type of dysphagia to either liquids or solids. Denies nausea, vomiting, pyrosis, early satiety, abdominal pain, diarrhea, constipation, or changes in stool consistency or caliber. Denies coffee-ground emesis, hematemesis, hematochezia, or melanotic stools. GENITOURINARY: Denies frequency, urgency, nocturia, hematuria or incontinence (Storage/Irritative symptoms.) Low urinary stream, straining to void, urinary intermittency or hesitancy, splitting of the voiding stream, terminal dribbling. ENDOCRINOLOGIC: Denies polyuria, polydipsia, polyphagia or heat/cold intolerances. HEMATOLOGIC: Denies thrombophilia/previous clots, or coagulopathy/bleeding disorders. ONCOLOGIC: Denies personal history of malignancy. DERMATOLOGIC: Denies rashes or pruritus. PSYCHIATRIC: Denies any suicidal or homicidal ideation. Denies hallucinations. ADDITIONAL PAST MEDICAL HISTORY: [Diabetes mellitus type 2, severe morbid obesity, hypertension, A-fib on chronic anticoagulation with Eliquis 5 mg twice daily, untreated LINDA/OHS] SOCIAL HISTORY: [Negative for smoking, alcohol use, drug use. Patient requires assistance with IADLs. 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 CLINICAL HISTORY: sob COMPARISON: May 22 2023 FINDINGS: LUNGS: There is no mass, infiltrate, or acute pulmonary abnormality. PLEURAL SPACES: No evidence of pleural effusion or pneumothorax. MEDIASTINUM: There is cardiomegaly BONES: No aggressive appearing osseous lesion seen. IMPRESSION: No acute cardiopulmonary pathology is evident. /[place] DICTATED BY: SWATHI HAM MD DATE: 06/22/251541 ELECTRONICALLY SIGNED BY: SWATHI HAM MD DATE: 06/22/251541 ASSESSMENT: Severe hyponatremia, POA am cortisol 16.9, tsh 1.91 patient sodium was low at 114 that is improving to 124-->126 now. nephrology is following and hyponatremia likely caused by HCTZ. reports that she gained more than 30 lbs weight but otherwise denies any other signs/symptoms of traci syndrome. denies steroid intake. Hypertensive urgency, POA History of HCTZ use as outpatient, POA Active influenza bronchitis, POA Super morbid obesity (BMI 62), POA Type 2 diabetes mellitus, POA Hba1c 6.1% controlled with diet Underlying history of atrial fibrillation, POA History of chronic anticoagulation with Eliquis, POA Hypomagnesemia, POA Debility, POA Chronic hypercapnic respiratory failure, POA Untreated ohs/LINDA, POA History of hypertension, POA Hyperlipidemia, POA PLAN: Patient wants traci work up as outpatient and will do detail traci labs as outpatient. off HCTZ monitor sodium. Monitor glucose q x 12 hourly. Continue carb consistent diet. Vitals/Labs Vital Signs Date Time Temp Pulse Resp B/P (MAP) Pulse Ox O2 Delivery O2 Flow Rate FiO2 06/25/25 18:34 61 18 06/25/25 18:32 N/Cannula Low lpm 2.0 28 06/25/25 16:00 97.5 158/85 96 Laboratory Tests 06/25/25 06:26 Medications Current Medications Sodium Chloride 500 ml @ 125 mls/hr Q4H ONCE IV Last administered on 06/22/25 14:59; Start 06/22/25 at 15:00; Stop 06/22/25 at 15:23; Status DC Albuterol 2 udvial ONCE ONCE IH Last administered on 06/22/25at 15:59; Start 06/22/25 at 15:30; Stop 06/22/25 at 15:31; Status DC Oseltamivir Phosphate 75 mg ONCE ONCE PO Last administered on 06/22/25at 16:04; Start 06/22/25 at 15:30; Stop 06/22/25 at 15:31; Status DC Sodium Chloride 1,000 ml @ 75 mls/hr [id number] IV Last administered on 06/23/25at 04:42; Start 06/22/25 at 15:30; Stop 06/23/25 at 13:34; Status DC Ipratropium Corona 0.5 mg [id number] IH Last administered on 06/25/25 18:29; Start 06/22/25 at 18:00; Stop 07/22/25 at 17:59 Budesonide 0.5 mg BIDRESP IH Last administered on 06/25/25at 18:29; Start 06/22/25 at 18:00; Stop 07/22/25 at 17:59 Ceftriaxone Sodium 1 gm Q12H IVPB Last administered on 06/25/25at 16:04; Start 06/22/25 at 15:30; Stop 07/02/25 at 15:29 Doxycycline Hyclate 100 mg BID PO Last administered on 06/25/25at 09:38; Start 06/22/25 at 21:00; Stop 07/02/25 at 20:59 Thiamine HCl 100 mg DAILY IVP Last administered on 06/25/25at 09:37; Start 06/23/25 at 09:00; Stop 07/23/25 at 08:59 Hydralazine HCl 10 mg Q6H PRN IV Last administered on 10/13/25at 16:05; Start 06/22/25 at 15:30; Stop 07/22/25 at 15:29 Magnesium Sulfate 50 ml @ 0 mls/hr PROTOCOL IV Last administered on 06/25/25at 07:31; Start 06/22/25 at 15:30; Stop 07/22/25 at 15:29 Potassium Chloride 100 ml @ 100 mls/hr AD PRN IV; Start 06/22/25 at 15:30; Stop 07/22/25 at 15:29 Potassium Chloride 20 meq AD PRN PO; Start 06/22/25 at 15:30; Stop 07/22/25 at 15:29 Potassium Chloride 20 meq AD PRN PO; Start 06/22/25 at 15:30; Stop 07/22/25 at 15:29 Oseltamivir Phosphate 75 mg BID PO Last administered on 06/25/25at 09:38; Start 06/22/25 at 21:00; Stop 06/27/25 at 20:59 Acetaminophen 650 mg Q6H PRN PO; Start 06/22/25 at 15:30; Stop 07/22/25 at 15:29 Ondansetron HCl 4 mg Q6H PRN IVP; Start 06/22/25 at 15:30; Stop 07/22/25 at 15:29 Losartan Potassium 100 mg DAILY PO Last administered on 06/23/25at 10:19; Start 06/23/25 at 09:00; Stop 06/23/25 at 13:35; Status DC Insulin Human Regular INSULIN SLIDING SCAL... ACHS SQ Last administered on 06/25/25at 13:05; Start 06/22/25 at 16:30; Stop 07/22/25 at 16:29 Carvedilol 25 mg BID PO Last administered on 06/22/25at 21:18; Start 06/22/25 at 21:00; Stop 06/23/25 at 13:35; Status DC Atorvastatin Calcium 10 mg HS PO Last administered on 06/24/25at 20:54; Start 06/22/25 at 21:00; Stop 07/22/25 at 20:59 Docusate Sodium 100 mg BID PO Last administered on 06/25/25at 09:38; Start 06/22/25 at 21:00; Stop 07/22/25 at 20:59 Fish Oil 1,000 mg DAILY PO Last administered on 06/25/25at 09:38; Start 06/23/25 at 09:00; Stop 07/23/25 at 08:59 Home Med Soluble Brokaw Fiber/ Inu... DAILY PO; Start 06/23/25 at 09:00; Stop 07/23/25 at 08:59 Apixaban 5 mg BID PO Last administered on 06/25/25at 09:38; Start 06/23/25 at 09:00; Stop 07/23/25 at 08:59 Acetaminophen/ Hydrocodone Bitart 1 tab Q6H PRN PO; Start 06/23/25 at 11:30; Stop 06/23/25 at 11:13; Status DC Famotidine 20 mg BID PO Last administered on 06/25/25at 09:38; Start 06/23/25 at 21:00; Stop 07/23/25 at 20:59 Sodium Chloride 2,000 mg Q8H6 PO Last administered on 06/24/25at 05:58; Start 06/23/25 at 14:00; Stop 06/24/25 at 12:37; Status DC Artificial Tears 1 DROP DAILY20 ONCE OU; Start 06/24/25 at 20:00; Stop 06/24/25 at 20:01; Status DC Sodium Chloride 1,000 mg BID PO Last administered on 06/25/25at 09:38; Start 06/24/25 at 21:00; Stop 07/23/25 at 13:59 Mupirocin 1 APPL BID TP Last administered on 06/25/25at 09:39; Start 06/24/25 at 21:00; Stop 07/24/25 at 20:59 JASSON TRUJILLO MD Jun 25, 2025 21:13
[2025-06-26] VITALS (16 sets, daily range): BP systolic 143–175; BP diastolic 68–91; PULSE 68–86; RESP 18–20; TEMP 97.8–98.1; O2SAT 94–98
--- NOTE | 2025-06-26 03:36 | NUR ---
bowel movement patient needing to have a bm. she is passing gas. prune juice given. will continue to monitor
--- NOTE | 2025-06-26 05:11 | PN ---
NEPHROLOGY NOTE SUBJECTIVE: This patient has multiple problems including hyponatremia before underlying severe hypertension. The patient was using hydrochlorothiazide and not presumably which has been stopped. The patient has been treated for occluded influenza also and morbid obesity, underlying electrolyte volume including hypomagnesemia, atrial fibrillation, obesity, and hypercapnic respiratory distress. No other associated findings. No other aggravating or relieving factors. No other associated symptoms. REVIEW OF SYSTEMS: CONSTITUTIONAL: No fevers, chills, or rigors. HEENT: With no headache, difficulty swallowing reported. RESPIRATORY: With no cough, expectoration, hemoptysis, or pleuritic pain. CARDIOVASCULAR: No orthopnea. GASTROINTESTINAL: Negative for nausea, vomiting or diarrhea. GENITOURINARY: Negative for hematuria. PHYSICAL EXAMINATION: VITAL SIGNS: Blood pressure is 133/74, pulse 70, respiratory rate is 17. HEENT: Head is atraumatic, normocephalic. Pupils are round and reactive to light. Sclerae are anicteric. Conjunctivae not pale. Oral mucosa is not dry. NECK: Without masses or bruits. Neck has no bruit. CHEST: Shows equal thoracic percussion, note being resonant in all areas. CARDIAC: Regular rhythm. No rub. No S2, S4. No parasternal heave. ABDOMEN: No guarding or tenderness. Bowel sounds heard. EXTREMITIES: No edema. No cyanosis or clubbing. NEUROLOGIC: Neurologically unchanged, nonfocal. No . LABORATORY DATA: We have reviewed the labs. Sodium is still 126. Other electrolytes have been reviewed. Creatinine 0.4. Uric acid has been low. IMAGING STUDIES: Imaging and urine studies are personally reviewed. Old records have been reviewed. PROBLEMS: 1. Severe hyponatremia. 2. Underlying severe hypertension before. 3. Recent influenza . 4. Obesity. 5. Hypercapnic respiratory failure. 6. Atrial fibrillation. 7. Electrolyte problems. 8. Chronic anticoagulation. 9. Underlying diabetes. PLAN: The patient will continue monitoring. Follow up on renal function. Follow up on electrolytes. I suggest moderate free water restriction. The patient has underlying history of atrial fibrillation, anticoagulation, obesity, and the patient has influenza and history of hydrochlorothiazide. I will suggest to continue monitoring of sodium level. No need for hypotonic saline. Sodium chloride can be slowly weaned off and hydrochlorothiazide should be avoided. Low-dose IV Dilaudid can be used. Fluid should be stopped. Losartan can be resumed again when blood pressure starts to rise. The patient will trend on the sodium level closely. Please avoid any other drugs, which can potentially hyponatremia. I have discussed with the team physician. Old record and external records reviewed. Continued followup on electrolyte, renal function, and blood pressure. Seen several times today. Condition remained guarded. TID: [id number] RECEIPT: [id number]
[2025-06-26 05:29] LABS: IMMATURE GRANULOCYTE ABSOLUTE 0.07 K/uL (0-1); NUCLEATED RED BLOOD CELLS 0.0 % (0.0-0.19); PLATELET COUNT (AUTO) 137 K/uL (130-400); RED BLOOD CELL COUNT(AUTO) 4.65 MIL/uL (4.00-5.50); RED CELL DISTRIBUTION WIDTH 12.4 % (11.0-15.5); WHITE BLOOD COUNT (AUTO) 8.8 K/uL (4.8-10.8)
[2025-06-26 05:54] LABS: ASPARTATE AMINOTRANSFERASE 21.0 U/L (10-37); CREATININE 0.4 mg/dL (0.5-1.0); GLOMERULAR FILTR. RATE CALC 103.0 mL/min (>90); GLUCOSE,RANDOM 122.0 mg/dL (70-105); SODIUM SERUM 129.0 mmol/L (136-145); TOTAL PROTEIN, SERUM 6.3 g/dL (6.0-8.3); UREA NITROGEN, BLOOD 13.0 mg/dL (7-18)
--- NOTE | 2025-06-26 05:57 | NUR ---
julián martinez and I asked the patient several times for a bed bath. she refused and said she feels "too tired and weak." she said she wants to sleep.
[2025-06-26] MEDS: LACTULOSE 20 GM/30 ML UDCUP PO ONE (13:33)
--- NOTE | 2025-06-26 13:40 | NUR ---
[facility] Follow-up: Patient re-assessed by wound healing team, Wound improving. Assessment and recommendations provided to primary nurse Education provided. Addendum: 06/26/25 at 1515 by PARISH QUINONES RN RN/ Amended: Links added.
--- NOTE | 2025-06-26 13:46 | PN ---
[facility] PROGRESS NOTE Date of Service: Jun 26, 2025 Time of Service: 13:19 SUBJECTIVE: This is a 74-year-old female with underlying history of severe morbid obesity, suspected ohs/LINDA with chronic hypercapnic respiratory failure, history of atrial fibrillation maintained on chronic anticoagulation with Eliquis, hyperlipidemia presented to the ER secondary to fall, dizziness, poor oral intake with nausea. Patient states that as she was ambulating to the restroom, she lost balance and fell and landed on her back. Denies hitting her head. She has been maintained on chronic anticoagulation with Eliquis as outpatient. She is followed by Cardiology as outpatient due to prior history of atrial fibrillation. She is mostly sedentary at home and has been having issues with weight for long time. She reports that she has been slowly gaining weight over the last several years. She is having pain involving the left knee since the fall. She does report having history of sleep apnea but does not use CPAP machi ne at home. She reports drinking about 2L of water daily to maintain hydration. Has been having some cough, congestion and mild wheezing. Denies any previous history of COPD or asthma. She has been having some mild nausea but denies any headache or significant weakness of bilateral upper or lower extremity. She does have history of hypertension and is maintained on antihypertensives with losartan 100 mg daily, [id number] mg b.i.d., HCTZ 25 mg daily. She reports taking all her antihypertensives this morning prior to coming to the ER. On presentation to the hospital, patient was noted to have T- max of 98.2 F, heart rate of 72, blood pressure of 187/78. Labs on presentation showed WBC count of 9900, hemoglobin 15.3, platelet count of [id number]. BMP remarka ble for sodium of 114, potassium 4.2, chloride of 76, creatinine of 0.4, magnesium 1.3, BNP of 146. Chest x-ray showed no acute infiltrates. Patient will be admitted to ICU for management of severe hyponatremia, hypertensive urgency, active influenza infection, and we will monitor this patient closely due to underlying obesity and underlying comorbidities. Including untreated OHS /LINDA All antihypertensives will be resumed. Condition remains critical. 06/23/2025: Patient was seen and examined bedside in room 210. Patient is awake, alert, oriented x3. patient tested positive for influenza type B antigen, started on droplet precaution. Patient is receiving Tamiflu, IV doxycycline and Rocephin to prevent secondary bacterial infection. Lab shows sodium 116, potassium 3.7 and patient is on 1.5 L fluid restriction, receiving IV fluids NaCl at 75 mL/hour. Pending cortisol, urine sodium, urine potassium, echo 2D. nephrology on board, we will follow up with the recommendations. 06/24/2025: Patient was seen and examined bedside in room 210. Patient is awake, alert, oriented x3. patient is requiring BiPAP with FiO2 30 during night probably due to obstructive sleep apnea. Her sodium has been improved from 116 to 120. Stopped NaCl75 mL/hour, losartan 100 mg and started sodium chloride pills 2g Q 8 as per Nephrology recommendation. 2D echo showed left ventricular ejection fraction > 65, stage III diastolic dysfunction. Urine Positive for leukocyte esterase, urine culture shows no growth at 18-24 hours. We will continue Tamiflu, IV antibiotics, salt pills. 06/25/2025: Patient was seen and evaluated at bedside in room 418. Case Discussed with RN, no acute overnight events. Patient's sodium level has been improved from 120 to 126 this morning. Dose of salt pills have been reduced from 2 g Q 8 to 1 g q.12h. Final urine culture report showed no growth after 48 hours. Nephrology on board, we will follow up with the recommendations. 06/26/2025: Patient was seen and evaluated at bedside in room 418. Discussed with RN, no acute overnight events. Patient's sodium level has been improved from 126 to 129 this morning. We will continue salt pills, IV antibiotics Tamiflu. Nephrology, pulmonology on board we will follow up with their recommendations. REVIEW OF SYSTEMS: CONSTITUTIONAL: generalized malaise, weight gain, obesity NEUROLOGICAL: Denies headache, amaurosis fugax, motor weakness, sensory deficit, vertigo/spinning sensation, gait abnormalities, or tremors. ENT: No hearing loss, otalgia, otorrhea, rhinitis, rhinorrhea, hoarseness, or sore throat. CARDIOVASCULAR: denies any chest pain, denies palpitations PULMONARY: cough, congestion , rhinorrhea SLEEP: Denies morning headaches, daytime somnolence or napping. Denies difficul ty falling asleep, staying asleep, waking from sleep. Denies knowledge of snoring. GASTROINTESTINAL: Denies any type of dysphagia to either liquids or solids. Denies nausea, vomiting, pyrosis, early satiety, abdominal pain, diarrhea, constipation, or changes in stool consistency or caliber. Denies coffee-ground emesis, hematemesis, hematochezia, or melanotic stools. GENITOURINARY: Denies frequency, urgency, nocturia, hematuria or incontinence (Storage/Irritative symptoms.) Low urinary stream, straining to void, urinary intermittency or hesitancy, splitting of the voiding stream, terminal dribbling. ENDOCRINOLOGIC: Denies polyuria, polydipsia, polyphagia or heat/cold intolerances. HEMATOLOGIC: Denies thrombophilia/previous clots, or coagulopathy/bleeding disorders. ONCOLOGIC: Denies personal history of malignancy. DERMATOLOGIC: Denies rashes or pruritus. PSYCHIATRIC: Denies any suicidal or homicidal ideation. Denies hallucinations. PHYSICAL EXAM GENERAL APPEARANCE: The patient is awake, alert, appears chronically ill, on 2 L of O2 by nasal canula, patient is morbidly obese NEUROLOGICAL: Cranial nerves II-XII grossly intact. neurological exam is non focal, patient has pain to left knee, strength exam is limited due to pain HEENT: Face is symmetric. Pupils are equal and reactive. Extraocular movements are intact. NECK: Supple. No JVD. No thyromegaly. No submental, submandibular, pre- /postauricular, occipital or supraclavicular lymphadenopathy. CHEST: Normal chest expansion. No Telemetry. LUNGS: minimal crackles noted of the bilateral lung bases CARDIOVASCULAR: Regular. S1 and S2 normal. No appreciable rubs, murmurs or gallops. ABDOMEN: Soft, nontender, and nondistended. There is no rebound, voluntary guarding, or rigidity. : Deferred. No Sharpe. EXTREMITIES: trace edema noted of the bilateral lower extremities SKIN: No skin breakdown. Vital Signs (last 8hr) Date Time Temp Pulse Resp B/P (MAP) Pulse Ox O2 Delivery O2 Flow Rate FiO2 06/26/25 12:00 98.1 82 18 175/76 95 Nasal Cannula 2.0 06/26/25 11:18 78 18 06/26/25 08:00 97.9 83 18 160/88 92 Nasal Cannula 2.0 06/26/25 06:45 70 18 06/26/25 06:39 70 18 06/26/25 06:38 70 20 N/Cannula Low lpm 2.0 28 LABS: Laboratory: Test 06/26/25 11:49 06/26/25 05:12 Range/Units Whole Blood Glucose 129 H 70-110 MG/DL White Blood Count 8.8 4.8-10.8 K/uL Red Blood Count 4.65 4.00-5.50 MIL/uL Hemoglobin 14.6 12.0-16.0 g/dL Hematocrit 41.5 36-48 % Mean Corpuscular Volume 89.2 79-99 fL Mean Corpuscular Hemoglobin 31.4 27.0-33.0 pg Mean Corpuscular Hemoglobin Concent 35.2 32.0-36.0 g/dL Red Cell Distribution Width 12.4 11.0-15.5 % Platelet Count 137 130-400 K/uL Mean Platelet Volume 10.5 7.5-10.5 fL Immature Granulocyte % (Auto) 0.8 0-1 % Neutrophils (%) (Auto) 76.6 40.0-77.0 % Lymphocytes (%) (Auto) 11.2 L 21.0-51.0 % Monocytes (%) (Auto) 9.7 3.0-13.0 % Eosinophils (%) (Auto) 1.4 0.0-8.0 % Basophils (%) (Auto) 0.3 0.0-5.0 % Neutrophils # (Auto) 6.7 1.8-7.7 K/uL Lymphocytes # (Auto) 1.0 1.0-4.8 K/uL Monocytes # (Auto) 0.9 0.1-1.0 K/uL Eosinophils # (Auto) 0.12 0.00-0.70 K/uL Basophils # (Auto) 0.03 0.00-0.20 K/uL Absolute Immature Granulocyte (auto 0.07 0-1 K/uL Nucleated Red Blood Cells 0.0 0.0-0.19 % Sodium Level 129 L 136-145 mmol/L Potassium Level 3.9 3.5-5.1 mmol/L Chloride Level 91 L 101-111 mmol/L Carbon Dioxide Level 37 H 21-32 mmol/L Blood Urea Nitrogen 13 7-18 mg/dL Creatinine 0.4 L 0.5-1.0 mg/dL Glomerular Filtration Rate Calc 103 >90 mL/min Random Glucose 122 H 70-105 mg/dL Total Calcium 8.2 L 8.5-10.1 mg/dL Magnesium Level 1.90 1.80-2.40 mg/dL Total Bilirubin 0.9 0.2-1.0 mg/dL Aspartate Amino Transf (AST/SGOT) 21 10-37 U/L Alanine Aminotransferase (ALT/SGPT) 24 12-78 U/L Alkaline Phosphatase 85 50-136 U/L Total Protein 6.3 6.0-8.3 g/dL Albumin 2.9 L 3.5-5.0 g/dL Current Medications Medications (Trade) Dose Ordered Sig/Conchis Route PRN Reason Start Time Stop Time Status Last Admin Dose Admin Acetaminophen (TYLenol 325MG TAB) 650 mg Q6H PRN PO MILD PAIN (1-3) 06/22/25 15:30 07/22/25 15:29 Acetaminophen/ Hydrocodone Bitart (NORco 5/325MG) 1 tab Q6H PRN PO MODERATE PAIN (4-6) 06/23/25 11:30 06/23/25 11:13 DC Apixaban (EliquIS) 5 mg BID PO 06/23/25 09:00 07/23/25 08:59 06/26/25 09:33 5 MG Atorvastatin Calcium (LIPItor 10MG) 10 mg HS PO 06/22/25 21:00 07/22/25 20:59 06/25/25 21:27 10 MG Budesonide (Pulmicort 0.5 Mg/2ml) 0.5 mg BIDRESP IH 06/22/25 18:00 07/22/25 17:59 06/26/25 06:36 0.5 MG Carvedilol (Coreg 25MG) 25 mg BID PO 06/22/25 21:00 06/23/25 13:35 DC 06/22/25 21:18 25 MG Ceftriaxone Sodium (ROCEphine 1G INJ) 1 gm Q12H IVPB 06/22/25 15:30 07/02/25 15:29 06/26/25 03:25 1 GM Docusate Sodium (COLace 100MG CAP) 100 mg BID PO 06/22/25 21:00 07/22/25 20:59 06/26/25 09:33 100 MG Doxycycline Hyclate (Doxycycline Hyclate) 100 mg BID PO 06/22/25 21:00 07/02/25 20:59 06/26/25 09:33 100 MG Famotidine (Pepcid 20mg Tab) 20 mg BID PO 06/23/25 21:00 07/23/25 20:59 06/26/25 09:33 20 MG Fish Oil (Fish Oil 1000 Mg/Cap) 1,000 mg DAILY PO 06/23/25 09:00 07/23/25 08:59 06/26/25 09:33 1,000 MG Home Med (Home Medication) Soluble [place] Fiber/ Inu... DAILY PO 06/23/25 09:00 07/23/25 08:59 Hydralazine HCl (APRESOLine 20MG INJ) 10 mg Q6H PRN IV ADMINISTER FOR SBP > 170 06/22/25 15:30 07/22/25 15:29 06/22/25 16:05 10 MG Insulin Human Regular (humuLIN R 100 UNIT/ML 3ML) INSULIN SLIDING SCAL... ACHS SQ 06/22/25 16:30 07/22/25 16:29 06/25/25 13:05 2 UNIT Ipratropium [place] (AtrovENT UD) 0.5 mg [id number] IH 06/22/25 18:00 07/22/25 17:59 06/26/25 11:16 0.5 MG Lactulose (Constulose 20gm/ 30ml Udcup) 20 gm BID PRN PO CONSTIPATION 06/26/25 14:00 07/26/25 13:59 Losartan Potassium (CozAAR 100MG TAB) 100 mg DAILY PO 06/23/25 09:00 06/23/25 13:35 DC 06/23/25 10:19 100 MG Magnesium Sulfate 50 ml @ 0 mls/hr PROTOCOL IV 06/22/25 15:30 07/22/25 15:29 06/25/25 07:31 15 MLS/HR Mupirocin (Bactroban Oint) 1 APPL BID TP 06/24/25 21:00 07/24/25 20:59 06/26/25 09:33 1 APPL Ondansetron HCl (zoFRAN 4MG INJ) 4 mg Q6H PRN IVP NAUSEA/VOMITING 06/22/25 15:30 07/22/25 15:29 Oseltamivir Phosphate (Tamiflu) 75 mg BID PO 06/22/25 21:00 06/27/25 20:59 06/26/25 09:33 75 MG Potassium Chloride 100 ml @ 100 mls/hr AD PRN IV POTASSIUM PROTOCOL 06/22/25 15:30 07/22/25 15:29 Potassium Chloride (K-Dur/Klor-Con 20meq) 20 meq AD PRN PO POTASSIUM PROTOCOL 06/22/25 15:30 07/22/25 15:29 Potassium Chloride (KCl 10% Elixir 20meq/15ml) 20 meq AD PRN PO POTASSIUM PROTOCOL 06/22/25 15:30 07/22/25 15:29 Sodium Chloride 1,000 ml @ 75 mls/hr [id number] IV 06/22/25 15:30 06/23/25 13:34 DC 06/23/25 04:42 75 MLS/HR Sodium Chloride (Sodium Chloride) 1,000 mg BID PO 06/24/25 21:00 07/23/25 13:59 06/26/25 09:33 1,000 MG Sodium Chloride (Sodium Chloride) 2,000 mg Q8H6 PO 06/23/25 14:00 06/24/25 12:37 DC 06/24/25 05:58 2,000 MG Thiamine HCl (Vitamin B-1) 100 mg DAILY IVP 06/23/25 09:00 07/23/25 08:59 06/26/25 09:33 100 MG DIAGNOSTICS / RADIOLOGY: [ ] ASSESSMENT: Severe hyponatremia, POA Hypertensive urgency, POA History of HCTZ use as outpatient, POA Active influenza bronchitis, POA Super morbid obesity (BMI 62), POA Underlying history of atrial fibrillation, POA History of chronic anticoagulation with Eliquis, POA Hypomagnesemia, POA Debility, POA Chronic hypercapnic respiratory failure, POA Untreated ohs/LINDA, POA History of hypertension, POA Hyperlipidemia, POA Type 2 diabetes mellitus, POA Urinary tract infection, POA PLAN: Severe hyponatremia, POA -patient's sodium level at presentation was 114. -patient's sodium level has been improved to 129 this morning. -continue sodium chloride 1 g twice daily -correction of sodium of 6-8 mEq per24 hours -hydrochlorothiazide was stopped and patient was put on fluid restriction of 1 L daily. -stopped IV fluids, losartan as per Nephrology recommendations. -we will trend BMP 6 hourly -nephrology on board, we will follow up with the recommendations. Hypertensive urgency, POA -on presentation patient's blood pressure was 187/78 -patient received 1 dose of hydralazine 10 mg in ED -hydrochlorothiazide was discontinued due to severe hyponatremia -hydralazine 10 mg IV p.r.n. if systolic blood pressure greater than 170 mmHg. Active influenza bronchitis, POA -on presentation to ED patient tested positive for influenza type B antigen -patient was started on Tamiflu 75 mg b.i.d. PO (day 5) -doxycycline 100 mg b.i.d. PO (day 5) , Rocephin 1 g IV q.12h (day 5) to prevent secondary bacterial infection. -budesonide 0.5 mg b.i.d. resp IH, ipratropium bromide 0.5 mg Q 6 resp IH Urinary tract infection, POA -patient's urine positive for leukocyte esterase, WBC. -urine culture showed no growth after 18-24 hours. -final culture reports showed no growth after 48 hours Underlying history of atrial fibrillation, POA -patient is known case of atrial fibrillation, on Eliquis 5 mg daily at home -EKG on presentation showed atrial fibrillation -patient was started on Eliquis 5 mg b.i.d. PO Super morbid obesity (BMI 62), POA -patients BMI was 62 on presentation to ED -patient is requiring BiPAP during night her maintaining saturations probably due to obstructive sleep apnea -we will recommend sleep study Patient receiving thiamine supplementation Patient remains high-risk due to severe obesity and chronic hypercapnic respiratory failure with metabolic compensation We will request consultation with Physical therapy in the morning We will avoid any narcotics/sedatives to reduce risk of any worsening acute on chronic hypercapnia Patient will benefit from BiPAP/CPAP therapy at bedtime All labs will be repeated in the morning ATTESTATION BY PHYSICIAN I have seen and examined the patient. I reviewed the documentation, medical decision making, and treatment plan as noted by the resident physician above. I agree with the findings and plan of care. JANES CM MD, ADIL SHAH QUADRI MD Jun 26, 2025 13:46
--- NOTE | 2025-06-26 14:21 | PN ---
NEPHROLOGY PROGRESS NOTE Date/Time Patient Seen: Jun 26, 2025 SUBJECTIVE: This is a 74-year-old female with underlying history of severe morbid obesity, suspected ohs/LINDA with chronic hypercapnic respiratory failure, history of atrial fibrillation maintained on chronic anticoagulation with damari Baugh She presented to the ER secondary to fall, dizziness, poor oral intake with nausea. The patient had a fall. The patient also has very low sodium of 114 and the patient has a low magnesium. Severe hypertension has been detected. The patient is detected of influenza and being admitted with these problems to the ICU. She continues on Tamiflu and antibiotics We are consulted for hyponatremia Sodium today was 129 mmol/L Renal function is stable Medication list was reviewed She has been started on sodium chloride tablets as per primary team Nurse reports hypertension She was seen in the ICU, in no acute distress Family at the bedside Condition is critical REVIEW OF SYSTEMS: GENERAL: Negative for any nausea, vomiting, fevers, chills, or weight loss. NEUROLOGIC: Negative for any blurry vision, blind spots, double vision, facial asymmetry, dysphagia, dysarthria, hemiparesis, hemisensory deficits, vertigo, ataxia. HEENT: Negative for any head trauma, neck trauma, neck stiffness, photophobia, phonophobia, sinusitis, rhinitis. CARDIAC: Negative for any chest pain, dyspnea on exertion, paroxysmal nocturnal dyspnea, peripheral edema. PULMONARY: Negative for any shortness of breath, wheezing, COPD, or TB exposure. GASTROINTESTINAL: Negative for any abdominal pain, nausea, vomiting, bright red blood per rectum, melena. GENITOURINARY: Negative for any dysuria, hematuria, incontinence. INTEGUMENTARY: Negative for any rashes, cuts, insect bites. RHEUMATOLOGIC: Negative for any joint pains, photosensitive rashes, history of vasculitis or kidney problems. HEMATOLOGIC: Negative for any abnormal bruising, frequent infections or bleeding. Vital Signs (last 8hr) Date Time Temp Pulse Resp B/P (MAP) Pulse Ox O2 Delivery O2 Flow Rate FiO2 06/26/25 12:00 98.1 82 18 175/76 95 Nasal Cannula 2.0 06/26/25 11:18 78 18 06/26/25 08:00 97.9 83 18 160/88 92 Nasal Cannula 2.0 06/26/25 06:45 70 18 06/26/25 06:39 70 18 06/26/25 06:38 70 20 N/Cannula Low lpm 2.0 28 PHYSICAL EXAM: GENERAL: Alert and oriented x 3. No acute distress. Well-nourished. EYES: EOMI. Anicteric. HENT: Moist mucous membranes. No scleral icterus. No cervical lymphadenopathy. LUNGS: Clear to auscultation bilaterally. No accessory muscle use. CARDIOVASCULAR: Regular rate and rhythm. No murmur. No JVD. ABDOMEN: Soft, non-tender and non-distended. No palpable masses. EXTREMITIES: No edema. Non-tender. SKIN: No rashes or lesions. Warm. NEUROLOGIC: No focal neurological deficits. CN II-XII grossly intact, but not individually tested. PSYCHIATRIC: Cooperative. Appropriate mood and affect. Current Medications Medications (Trade) Dose Ordered Sig/Conchis Route PRN Reason Start Time Stop Time Status Last Admin Dose Admin Acetaminophen (TYLenol 325MG TAB) 650 mg Q6H PRN PO MILD PAIN (1-3) 06/22/25 15:30 07/22/25 15:29 Acetaminophen/ Hydrocodone Bitart (NORco 5/325MG) 1 tab Q6H PRN PO MODERATE PAIN (4-6) 06/23/25 11:30 06/23/25 11:13 DC Apixaban (EliquIS) 5 mg BID PO 06/23/25 09:00 07/23/25 08:59 06/23/25 09:05 5 MG Atorvastatin Calcium (LIPItor 10MG) 10 mg HS PO 06/22/25 21:00 07/22/25 20:59 06/22/25 21:18 10 MG Budesonide (Pulmicort 0.5 Mg/2ml) 0.5 mg BIDRESP IH 06/22/25 18:00 07/22/25 17:59 06/23/25 06:42 0.5 MG Carvedilol (Coreg 25MG) 25 mg BID PO 06/22/25 21:00 06/23/25 13:35 DC 06/22/25 21:18 25 MG Ceftriaxone Sodium (ROCEphine 1G INJ) 1 gm Q12H IVPB 06/22/25 15:30 07/02/25 15:29 06/23/25 03:29 1 GM Docusate Sodium (COLace 100MG CAP) 100 mg BID PO 06/22/25 21:00 07/22/25 20:59 06/23/25 09:05 100 MG Doxycycline Hyclate (Doxycycline Hyclate) 100 mg BID PO 06/22/25 21:00 07/02/25 20:59 06/23/25 09:05 100 MG Famotidine (Pepcid 20mg Tab) 20 mg BID PO 06/23/25 21:00 07/23/25 20:59 Fish Oil (Fish Oil 1000 Mg/Cap) 1,000 mg DAILY PO 06/23/25 09:00 07/23/25 08:59 06/23/25 09:05 1,000 MG Home Med (Home Medication) Soluble [place] Fiber/ Inu... DAILY PO 06/23/25 09:00 07/23/25 08:59 Hydralazine HCl (APRESOLine 20MG INJ) 10 mg Q6H PRN IV ADMINISTER FOR SBP > 170 06/22/25 15:30 07/22/25 15:29 06/22/25 16:05 10 MG Insulin Human Regular (humuLIN R 100 UNIT/ML 3ML) INSULIN SLIDING SCAL... ACHS SQ 06/22/25 16:30 07/22/25 16:29 Ipratropium [place] (AtrovENT UD) 0.5 mg [id number] IH 06/22/25 18:00 07/22/25 17:59 06/23/25 11:18 0.5 MG Losartan Potassium (CozAAR 100MG TAB) 100 mg DAILY PO 06/23/25 09:00 06/23/25 13:35 DC 06/23/25 10:19 100 MG Magnesium Sulfate 50 ml @ 0 mls/hr PROTOCOL IV 06/22/25 15:30 07/22/25 15:29 06/22/25 16:04 25 MLS/HR Ondansetron HCl (zoFRAN 4MG INJ) 4 mg Q6H PRN IVP NAUSEA/VOMITING 06/22/25 15:30 07/22/25 15:29 Oseltamivir Phosphate (Tamiflu) 75 mg BID PO 06/22/25 21:00 06/27/25 20:59 06/23/25 09:05 75 MG Potassium Chloride 100 ml @ 100 mls/hr AD PRN IV POTASSIUM PROTOCOL 06/22/25 15:30 07/22/25 15:29 Potassium Chloride (K-Dur/Klor-Con 20meq) 20 meq AD PRN PO POTASSIUM PROTOCOL 06/22/25 15:30 07/22/25 15:29 Potassium Chloride (KCl 10% Elixir 20meq/15ml) 20 meq AD PRN PO POTASSIUM PROTOCOL 06/22/25 15:30 07/22/25 15:29 Sodium Chloride 1,000 ml @ 75 mls/hr [id number] IV 06/22/25 15:30 06/23/25 13:34 DC 06/23/25 04:42 75 MLS/HR Sodium Chloride (Sodium Chloride) 2,000 mg Q8H6 PO 06/23/25 14:00 07/23/25 13:59 Thiamine HCl (Vitamin B-1) 100 mg DAILY IVP 06/23/25 09:00 07/23/25 08:59 06/23/25 09:06 100 MG LABORATORY: [ ] Hematology Labs: Test 06/26/25 05:12 Range/Units White Blood Count 8.8 4.8-10.8 K/uL Red Blood Count 4.65 4.00-5.50 MIL/uL Hemoglobin 14.6 12.0-16.0 g/dL Hematocrit 41.5 36-48 % Mean Corpuscular Volume 89.2 79-99 fL Mean Corpuscular Hemoglobin 31.4 27.0-33.0 pg Mean Corpuscular Hemoglobin Concent 35.2 32.0-36.0 g/dL Red Cell Distribution Width 12.4 11.0-15.5 % Platelet Count 137 130-400 K/uL Mean Platelet Volume 10.5 7.5-10.5 fL Immature Granulocyte % (Auto) 0.8 0-1 % Neutrophils (%) (Auto) 76.6 40.0-77.0 % Lymphocytes (%) (Auto) 11.2 L 21.0-51.0 % Monocytes (%) (Auto) 9.7 3.0-13.0 % Eosinophils (%) (Auto) 1.4 0.0-8.0 % Basophils (%) (Auto) 0.3 0.0-5.0 % Neutrophils # (Auto) 6.7 1.8-7.7 K/uL Lymphocytes # (Auto) 1.0 1.0-4.8 K/uL Monocytes # (Auto) 0.9 0.1-1.0 K/uL Eosinophils # (Auto) 0.12 0.00-0.70 K/uL Basophils # (Auto) 0.03 0.00-0.20 K/uL Absolute Immature Granulocyte (auto 0.07 0-1 K/uL Nucleated Red Blood Cells 0.0 0.0-0.19 % Chemistry Labs: Test 06/26/25 11:49 06/26/25 05:12 Range/Units Whole Blood Glucose 129 H 70-110 MG/DL Sodium Level 129 L 136-145 mmol/L Potassium Level 3.9 3.5-5.1 mmol/L Chloride Level 91 L 101-111 mmol/L Carbon Dioxide Level 37 H 21-32 mmol/L Blood Urea Nitrogen 13 7-18 mg/dL Creatinine 0.4 L 0.5-1.0 mg/dL Glomerular Filtration Rate Calc 103 >90 mL/min Random Glucose 122 H 70-105 mg/dL Total Calcium 8.2 L 8.5-10.1 mg/dL Magnesium Level 1.90 1.80-2.40 mg/dL Total Bilirubin 0.9 0.2-1.0 mg/dL Aspartate Amino Transf (AST/SGOT) 21 10-37 U/L Alanine Aminotransferase (ALT/SGPT) 24 12-78 U/L Alkaline Phosphatase 85 50-136 U/L Total Protein 6.3 6.0-8.3 g/dL Albumin 2.9 L 3.5-5.0 g/dL DIAGNOSTICS / RADIOLOGY: [place] [address] IMAGING REPORT Signed PATIENT: YUMIKO CARLOS MR#: [id number] : 1950 SEX: F AGE: 74 LOCATION: [facility] ORDER 35 STATUS: ADM IN [facility] REPORT#: [id number] SERVICE REASON: hx of a fib, r/o cardiomyopathy ORDERING PHYSICIAN: MALIK VELASQUEZ MD PROCEDURE: ECHO CMP - ECHO 2-D COMPLETE APPROVED REPORT EXAM: Two-dimensional and M-mode echocardiogram with Doppler and color Doppler. Study Details: Hx: A-Fib INDICATION ICD: Rule out cardiomyopathy 2D Dimensions RVDd 4.3 cm LVEF(%) 77.4 (>50%) LVED Vol(simp.) 40.0 mL IVSd 1.2 (0.7-1.1cm) FS(%) 45 % LVES Vol(simp.) 15.0 mL LVDd 3.6 (3.8-5.6cm) LA (2D) 4.5 (1.6-4.0cm) LVEF(%, simp.) 62 % PWd 1.3 (0.7-1.1cm) Ao Root(2D) 2.6 (2.0-3.7cm) LA ESV INDEX (4CH) 32.22 mL/m2 IVSs 1.4 cm LVOT diam 1.5 (1.8-2.4cm) LVDs 2.0 (2.5-4.0cm) PWs 1.7 cm M-Mode Dimensions EPSS 0.4 cm LA (MM) 4.0 (1.6-4.0cm) Ao Root(MM) 2.4 (2.0-3.7cm) Aortic Valve AoV Vmax 1.4 m/s Ao Peak GR 7.3 mmHg LVOT Vmax 1.0 m/s AoV VTI 0.3 m Ao Mean GR 3.7 mmHg LVOT VTI 0.21 m [place] (VMAX) 1.30 cm2 [place] (VTI) 1.4 cm2 Mitral Valve MV E Vmax 134.1 cm/s DECEL Time 192 ms MV A Vmax 43.6 cm/s P 1/2 T 44 ms E/A ratio 3.1 MVA (PHT) 5.0 cm2 TDI E/E' Medial 28.1 E/E' Lateral 37.6 Medial E' Peak V 4.78 cm/s Lateral E' Peak V 3.57 cm/s Pulmonary Valve PV Vmax 0.8 m/s PV VTI 0.16 m PV Mean GR 1.1 mmHg PV Peak GR 2.5 mmHg PI End Gladis. Alexandr 64.3 cm/s Tricuspid Valve TR Vmax 2.8 m/s RAP (EST) 3 mmHg RVSP 36.8 mmHg TR Peak GR 33.8 mmHg Left Ventricle Left ventricular cavity size is normal. There is normal LV segmental wall motion. There is mild left ventricular wall thickness. The LVEF is > 65%. Stage III diastolic dysfunction. Right Ventricle The right ventricle is normal size. The right ventricular systolic function is normal. Atria The left atrium is mildly dilated. The right atrium is mildly dilated by visual assessment. Aortic Valve The aortic valve is normal in structure. No aortic regurgitation is present. There is no aortic valvular stenosis. Mitral Valve The mitral valve is normal in structure and function. There is trace mitral valve regurgitation noted. There is no mitral valve stenosis. Tricuspid Valve The tricuspid valve is normal in structure. There is trace of tricuspid valve regurgitation noted. Pulmonic Valve Pulmonic valve is not well visualized. There is trace of pulmonic valvular r egurgitation. Great Vessels The aortic root is normal in size. The IVC is normal in size and collapses >50% with inspiration. Pericardium There is no pericardial effusion. Other Information Quality : Technically difficult study due to body habitus Conclusion Left ventricular cavity size is normal. The LVEF is > 65% with normal LV segmental wall motion. There is mild left ventricular wall thickness. Stage III diastolic dysfunction. The right ventricular systolic function is normal. The left atrium is mildly dilated. No hemodynamically signifcant valvular abnormalities. There is no pericardial effusion. DICTATED BY: ROCHELLE BARRY MD DATE: 06/23/25826 ELECTRONICALLY SIGNED BY: ROCHELLE BARRY MD DATE: 06/23/25 1309 PATIENT: YUMIKO CARLOS MR#: [id number] : 1950 SEX: F AGE: 74 [facility] ORDER 44 STATUS: ADM IN REPORT#: [id number] SERVICE 42 REASON: persistent nausea x 1 week, hyponatremia, bloating, morbid obesity ORDERING PHYSICIAN: MALIK VELASQUEZ MD PROCEDURE: ABD PEL WO - CT ABDOMEN/PELVIS W/O CONTRAST EXAM: CT Abdomen and Pelvis without Intravenous Contrast CLINICAL HISTORY: Persistent nausea for one week, hyponatremia, abdominal bloating, and morbid obesity. TECHNIQUE: Axial helical CT scan of the abdomen and pelvis was performed without intravenous contrast. Multiplanar reformatted images were obtained in coronal and sagittal planes. Radiation dose optimization techniques utilized (CTDIvol: 26.9 mGy; DLP: 1698.6 mGy???cm). CONTRAST: Without COMPARISON: No prior CT available for comparison. FINDINGS: LUNG BASES: Visualized bilateral lung bases show mild pleural-based thickening and subpleural scarring, likely representing chronic post-inflammatory or fibrotic change. No active consolidation or pleural effusion. Cardiomegaly with calcific atherosclerosis involving coronary arteries, notably along the LAD and RCA courses. LIVER: Liver normal in size and contour with homogeneous attenuation; no focal hepatic lesions or biliary dilatation. GALLBLADDER AND BILE DUCTS: Gallbladder contains a large calcified calculus (3.5 x 2.5 cm) with normal wall thickness and no pericholecystic fluid or surrounding inflammatory change. Common bile duct of normal caliber. PANCREAS: Pancreas appears normal with preserved morphology and attenuation. No focal lesion or peripancreatic fat stranding. SPLEEN: Spleen appears normal with preserved morphology and attenuation. ADRENAL GLANDS: Adrenal glands appear normal with preserved morphology and attenuation. KIDNEYS, URETERS, AND BLADDER: Right mid-pole cortical scarring with coarse calcification consistent with prior inflammatory or ischemic insult. Mild bilateral perinephric fat stranding, nonspecific???may reflect chronic venous congestion or low-grade inflammation. No hydronephrosis, renal calculus, or hydroureter. Urinary bladder well distended, normal wall thickness, no intraluminal calculi. STOMACH AND BOWEL: Stomach and small bowel loops are mildly distended but nondilated; normal wall thickness. Colonic diverticulosis involving sigmoid and descending colon without pericolic stranding???uncomplicated diverticulosis. APPENDIX: Appendix visualized, normal in caliber with no periappendiceal inflammation???no CT evidence of appendicitis. PERITONEUM: Minimal localized internal fluid collection noted in the lower abdomen, measuring small in volume and without gas locules???nonspecific, could represent mild sterile or resolving inflammatory collection. Calcified intraperitoneal lymph node (2.3 x 1.6 cm) in right anterior lower abdomen???likely chronic, healed granulomatous origin. No ascites or pneumoperitoneum. LYMPH NODES: Calcified intraperitoneal lymph node (2.3 x 1.6 cm) in right anterior lower abdomen???likely chronic, healed granulomatous origin. No other significant lymphadenopathy. REPRODUCTIVE: Uterus surgically absent. Adnexal regions and pelvic soft tissues appear unremarkable. VASCULATURE: No aortic aneurysm. ABDOMINAL WALL AND SOFT TISSUES: Anterior abdominal wall oedema, most prominent in the lumbar region extending into bilateral iliac fossae. BONES: Age-appropriate thoracolumbar spondylosis with anterior osteophytes and facet arthropathy. No acute fracture or lytic/sclerotic lesions. IMPRESSION: 1. No acute intraabdominal or pelvic findings. 2. Mild gastric and small bowel distension without obstruction. 3. Minimal localized internal fluid collection in the lower abdomen, nonspecific. 4. Large gallbladder calculus (3.5 ??? 2.5 cm) without acute cholecystitis. 5. Right mid-pole renal cortical scarring with coarse calcification. 6. Uncomplicated colonic diverticulosis. 7. Age-appropriate thoracolumbar spondylosis with anterior osteophytes and facet arthropathy. 8. Several stable chronic and incidental findings are noted, as detailed in the body of the report, including mild pleural/subpleural scarring at the lung bases, cardiomegaly with coronary artery atherosclerosis, mild bilateral perinephric fat stranding, calcified intraperitoneal lymph node likely granulomatous in origin, anterior abdominal wall edema, and postsurgical absence of the uterus. /[place] DICTATED BY: KRYSTLE VEGA MD DATE: 06/22/252231 ELECTRONICALLY SIGNED BY: KRYSTLE VEGA MD DATE: 06/22/252231 PATIENT: YUMIKO CARLOS MR#: [id number] : 1950 SEX: F AGE: 74 LOCATION: [facility] ORDER 35 STATUS: ADM IN REPORT#: [id number] SERVICE 33 REASON: influenza positive, morbid obesity, r/o pneumonia vs edema ORDERING PHYSICIAN: MALIK VELASQUEZ MD PROCEDURE: CHEST WO - CT CHEST W/O CONTRAST EXAM: COMPUTED TOMOGRAPHY OF THE CHEST WITHOUT INTRAVENOUS CONTRAST Technique: Computed tomography of the chest was performed without intravenous contrast from the thoracic inlet through the upper abdomen with axial acquisition and coronal and sagittal reformations. Dose optimization included automated exposure control, patient size???based tube current and tube voltage modulation, and iterative reconstruction. Cardiac and vascular assessment is limited without contrast. Clinical Information: Influenza positive; morbid obesity; evaluation for pneumonia versus edema. Comparison: No prior chest computed tomography available. Findings: The chest wall and imaged lower neck soft tissues show no focal mass or acute abnormality. The trachea and main bronchi are patent without endoluminal lesion. There is no focal lobar consolidation identified. There are no suspicious pulmonary nodules identified. There are minimal bilateral pleural effusions. There is dependent basilar atelectasis adjacent to the effusions. There is no pneumothorax detected. The cardiac silhouette is mildly enlarged. There is no pericardial effusion identified. There are mild calcifications of the thoracic aorta. There are mild calcifications of the coronary arteries. There is calcification along the mitral annulus. There is no mediastinal or hilar lymphadenopathy by size criteria. The visualized upper abdomen shows no acute abnormality. The visualized osseous structures show mild degenerative changes of the thoracic spine without acute fracture. Impression: * Minimal bilateral pleural effusions with adjacent dependent basilar atelectasis; no focal lobar consolidation to suggest bacterial pneumonia on this noncontrast computed tomography. * Mild cardiomegaly. Interlobular septal prominence. Pulmonary venous congestion likely * Atherosclerotic calcifications of the thoracic aorta and coronary arteries, and mitral annular calcification. /[place] DICTATED BY: ROCHELLE COVARRUBIAS MD DATE: 06/22/252105 ELECTRONICALLY SIGNED BY: ROCHELLE COVARRUBIAS MD DATE: 06/22/252105 PATIENT: YUMIKO CARLOS MR#: [id number] : 1950 SEX: F AGE: 74 LOCATION: [facility] ORDER 33 STATUS: ADM IN REPORT#: [id number] SERVICE 31 REASON: fall, on eliquis, hyponatremia ORDERING PHYSICIAN: MALIK VELASQUEZ MD PROCEDURE: HEAD WO - CT HEAD/BRAIN W/O CONTRAST EXAM: CT Head Without IV contrast. CLINICAL HISTORY: fall, on eliquis, hyponatremia TECHNIQUE: Axial computed tomography images of the head/brain without intravenous contrast. COMPARISON: None provided. FINDINGS: BRAIN: No evidence of acute hemorrhage. No mass lesion. No CT evidence for acute territorial infarct. No midline shift or extra-axial collections. VENTRICLES: No hydrocephalus. ORBITS: The orbits are unremarkable. SINUSES AND MASTOIDS: The paranasal sinuses and mastoid air cells are clear. BONES: No fracture. SOFT TISSUES: Unremarkable. IMPRESSION: No acute intracranial abnormality. /[place] DICTATED BY: ROCHELLE COVARRUBIAS MD DATE: 06/22/251857 ELECTRONICALLY SIGNED BY: ROCHELLE COVARRUBIAS MD DATE: 06/22/251857 PATIENT: YUMIKO CARLOS MR#: [id number] : 1950 SEX: F AGE: 74 LOCATION: [facility] ORDER 31 STATUS: ADM IN REPORT#: [id number] SERVICE 29 REASON: s/p fall, r/o any fractures ORDERING PHYSICIAN: MALIK VELASQUEZ MD PROCEDURE: PELVIS - PELVIS 1-2VWS EXAM: CR Pelvis, 1 View. CLINICAL HISTORY: s/p fall, r/o any fractures COMPARISON: None provided. FINDINGS: BONES: Generalized osteopenia No definitive acute fracture JOINTS: Degenerative changes SOFT TISSUES: The soft tissues are unremarkable. IMPRESSION: 1. Degenerative changes 2. Generalized osteopenia 3. No definitive acute fracture /[place] DICTATED BY: ROCHELLE COVARRUBIAS MD DATE: 06/22/251950 ELECTRONICALLY SIGNED BY: ROCHELLE COVARRUBIAS MD DATE: 06/22/251950 PATIENT: YUMIKO CARLOS MR#: [id number] : 1950 SEX: F AGE: 74 LOCATION: [facility] REPORT#: [id number] SERVICE 29 REASON: s/p fall, r/o any fractures ORDERING PHYSICIAN: MALIK VELASQUEZ MD PROCEDURE: KNEE 2VBIL - KNEE 2VW BILATERAL EXAM: XR Both Knees, AP and Lateral (2) Views. CLINICAL HISTORY: Status post fall; clinical query for fracture or hardware-related complication. Known history of prior distal femur fixation. COMPARISON: No immediate prior imaging available for comparison. FINDINGS: BONES: No new acute fracture or focal osseous lesion identified in either knee. Left Knee (Post-operative Site): Internal plate fixation noted along the distal femur, consistent with prior fracture fixation. Cortical remodeling and signs of bony union seen at the prior fracture site ??? no evidence of non-union or millie-hardware lucency. One or more screw fixators appear broken at the proximal/superior end of the fixation plate, suggesting hardware fatigue or prior mechanical stress. No acute periprosthetic fracture or hardware migration seen. Right Knee: No prior fixation hardware or periarticular collection. JOINTS: No dislocation identified in either knee. Severe degenerative osteoarthritic changes seen in both knees, more pronounced in the medial tibiofemoral compartments. Marked reduction of tibiofemoral and patellofemoral joint spaces, with large periarticular osteophyte formation and subchondral sclerosis, consistent with advanced osteoarthritis. SOFT TISSUES: Mild diffuse periarticular soft tissue thickening noted, likely chronic degenerative or post-traumatic in nature. No significant joint effusion or soft tissue gas. IMPRESSION: 1. No acute fracture or dislocation in either knee. 2. Status post left distal femur fixation with plate and screws, with bony union. Broken screw(s) at the proximal aspect of the fixation plate without acute periprosthetic fracture or hardware migration. 3. Severe tricompartmental osteoarthritic changes in both knees, more pronounced in the medial tibiofemoral compartments. /[place] DICTATED BY: KRYSTLE VEGA MD DATE: 06/22/252008 ELECTRONICALLY SIGNED BY: KRYSTLE VEGA MD DATE: 06/22/252008 PATIENT: YUMIKO CARLOS MR#: [id number] : 1950 SEX: F AGE: 74 LOCATION: [facility] ORDER 152 STATUS: ADM IN REPORT#: [id number] SERVICE 152 REASON: r/o any DVT of the lowe etxremities, swellng, fall ORDERING PHYSICIAN: MALIK VELASQUEZ MD PROCEDURE: VENOUS BINA - US VENOUS DOPPLER BILATERAL EXAM: US Duplex BILATERAL Lower Extremity Veins. CLINICAL HISTORY: Swelling after a fall with clinical concern for deep venous thrombosis of the lower extremities. TECHNIQUE: Grayscale imaging with compression maneuvers, color Doppler, and pulsed-wave spectral Doppler was performed where anatomically feasible from the common femoral veins through the femoral, popliteal, and calf veins bilaterally. Respiratory phasicity and augmentation responses were assessed when obtainable. Evaluation of the left common femoral and left popliteal veins is limited by body habitus. COMPARISON: None provided. FINDINGS: DEEP VEINS: The right common femoral vein is fully compressible without intraluminal echogenic thrombus. The right femoral vein is fully compressible with normal color Doppler filling and normal spectral Doppler phasicity. The right popliteal vein is fully compressible without thrombus. The right posterior tibial veins are compressible without thrombus. The left femoral vein is fully compressible with normal color Doppler filling and normal spectral Doppler phasicity. The left posterior tibial veins are compressible without thrombus. The left common femoral vein is not adequately visualized because of body habitus, and compressibility could not be assessed; thrombus at this nonvisualized level cannot be excluded. The left popliteal vein is not adequately visualized because of body habitus, and compressibility could not be assessed; thrombus at this nonvisualized level cannot be excluded. No abnormal focal fluid collection is identified along the imaged course of the veins. SUPERFICIAL VEINS: Superficial veins were not evaluated. SOFT TISSUES: No popliteal fossa cyst or other abnormalities. IMPRESSION: 1. No sonographic evidence of deep venous thrombosis in the visualized segments of the right lower extremity and in the visualized segments of the left femoral and left posterior tibial veins. 2. Technical limitation: the left common femoral vein and the left popliteal vein are not adequately visualized because of body habitus; thrombus at these nonvisualized levels cannot be excluded. /[place] DICTATED BY: KRYSTLE VEGA MD DATE: 06/22/252134 ELECTRONICALLY SIGNED BY: KRYSTLE VEGA MD DATE: 06/22/252134 PATIENT: YUMIKO CARLOS MR#: [id number] : 1950 SEX: F AGE: 74 LOCATION: [facility] ORDER 36 STATUS: REG ER REPORT#: [id number] SERVICE 34 REASON: sob ORDERING PHYSICIAN: SATISH WEEMS MD PROCEDURE: CXR1VW - CHEST 1VW EXAM: CR Chest, 1 View. CLINICAL HISTORY: sob COMPARISON: May 22 2023 FINDINGS: LUNGS: There is no mass, infiltrate, or acute pulmonary abnormality. PLEURAL SPACES: No evidence of pleural effusion or pneumothorax. MEDIASTINUM: There is cardiomegaly BONES: No aggressive appearing osseous lesion seen. IMPRESSION: No acute cardiopulmonary pathology is evident. /[place] DICTATED BY: SWATHI HAM MD DATE: 06/22/251541 ELECTRONICALLY SIGNED BY: SWATHI HAM MD DATE: 06/22/251541 ASSESSMENT: Severe hyponatremia Acute hypoxic respiratory failure, likely from viral infection Positive for influenza Ground level fall Obesity hypoventilation syndrome, does not use CPAP at home Paroxysmal atrial fibrillation, rate controlled, currently on Eliquis Hyperlipidemia Hypertension urgency PLAN: Labs, diagnostic, radiologic exams reviewed and interpreted by myself and supervising physician. We have reviewed external records in detail We will discontinue sodium chloride tablets due to hypertension. She was counseled on importance of fluid restriction Hydrochlorothiazide should be stopped. Avoid drugs which can potentiate hyponatremia Require close monitoring of renal function and electrolytes Order CBC, CMP, and electrolytes in am BiPAP as necessary, for respiratory distress Monitor blood pressure adjust medication doses as needed Avoid hypotensive episodes May use Dilaudid 0.5 mg IV every 6 hours as needed for severe pain Monitor blood sugars Strict intake, output, and daily weight should be monitored Continue to monitor renal function, anemia, electrolytes Treatment plan discussed with patient Questions were answered We have discussed with the other team physicians in detail about the care plan We will continue to monitor the patient closely ATTESTATION BY PHYSICIAN I have seen and examined the patient. I reviewed the documentation, medical decision making, and treatment plan as noted by the mid-level provider above. I agree with the findings and plan of care. LAENA PHILLIPS MD, ELIZABETH FNP Jun 26, 2025 14:21
--- NOTE | 2025-06-26 16:12 | PN ---
PROGRESS NOTE Date of Service: Jun 26, 2025 Time of Service: 16:11 SUBJECTIVE: [ ] REVIEW OF SYSTEMS CONSTITUTIONAL: Denies fever, chills, or fatigue. HEAD/FACE: No signs of trauma. EENT: Denies eye pain, blurred vision, double vision, or light sensitivity. RESPIRATORY: Denies shortness of breath, cough, wheezing CARDIOVASCULAR: Denies chest pain, palpitation, syncope GASTROINTESTINAL/ABDOMINAL: Denies abdominal pain, constipation, diarrhea, nausea or vomiting GENITOURINARY: Denies dysuria or hematuria. MUSCULOSKELETAL: Denies joint pain, tenderness, or trauma. INTEGUMENTARY: Denies rash or itchiness NEUROLOGICAL/PSYCH: Denies anxiety, depression, heat or cold intolerance. PHYSICAL EXAM EYES: Anicteric. Pupils equal and reactive. HENT: No oral thrush seen, moist Oral mucosa NECK: Supple, no JVD or thyromegaly. LUNGS: Good air entry. No rales, no rhonchi. CARDIOVASCULAR: S1, S2 regular. No murmur heard. ABDOMEN: Soft, non tender, bowel sounds present, no organomegaly CENTRAL NERVOUS SYSTEM: Awake, alert, oriented x 3. No focal deficits. SKIN: No rashes, no swelling. LYMPHATICS: No peripheral lymphadenopathy MUSCULOSKELETAL: No joint swelling, erythema or tenderness. EXTREMITIES: No cyanosis or clubbing BACK: No deformity, no pressure ulcer. GENITOURINARY: small abrasion noted to left labia majora, noted with granulation, no drainage noted Vital Signs (last 8hr) Date Time Temp Pulse Resp B/P (MAP) Pulse Ox O2 Delivery O2 Flow Rate FiO2 06/26/25 15:18 175/76 06/26/25 12:00 98.1 82 18 175/76 95 Nasal Cannula 2.0 06/26/25 11:18 78 18 LABS: Laboratory: Test 06/26/25 15:58 06/26/25 05:12 Range/Units Whole Blood Glucose 149 H 70-110 MG/DL White Blood Count 8.8 4.8-10.8 K/uL Red Blood Count 4.65 4.00-5.50 MIL/uL Hemoglobin 14.6 12.0-16.0 g/dL Hematocrit 41.5 36-48 % Mean Corpuscular Volume 89.2 79-99 fL Mean Corpuscular Hemoglobin 31.4 27.0-33.0 pg Mean Corpuscular Hemoglobin Concent 35.2 32.0-36.0 g/dL Red Cell Distribution Width 12.4 11.0-15.5 % Platelet Count 137 130-400 K/uL Mean Platelet Volume 10.5 7.5-10.5 fL Immature Granulocyte % (Auto) 0.8 0-1 % Neutrophils (%) (Auto) 76.6 40.0-77.0 % Lymphocytes (%) (Auto) 11.2 L 21.0-51.0 % Monocytes (%) (Auto) 9.7 3.0-13.0 % Eosinophils (%) (Auto) 1.4 0.0-8.0 % Basophils (%) (Auto) 0.3 0.0-5.0 % Neutrophils # (Auto) 6.7 1.8-7.7 K/uL Lymphocytes # (Auto) 1.0 1.0-4.8 K/uL Monocytes # (Auto) 0.9 0.1-1.0 K/uL Eosinophils # (Auto) 0.12 0.00-0.70 K/uL Basophils # (Auto) 0.03 0.00-0.20 K/uL Absolute Immature Granulocyte (auto 0.07 0-1 K/uL Nucleated Red Blood Cells 0.0 0.0-0.19 % Sodium Level 129 L 136-145 mmol/L Potassium Level 3.9 3.5-5.1 mmol/L Chloride Level 91 L 101-111 mmol/L Carbon Dioxide Level 37 H 21-32 mmol/L Blood Urea Nitrogen 13 7-18 mg/dL Creatinine 0.4 L 0.5-1.0 mg/dL Glomerular Filtration Rate Calc 103 >90 mL/min Random Glucose 122 H 70-105 mg/dL Total Calcium 8.2 L 8.5-10.1 mg/dL Magnesium Level 1.90 1.80-2.40 mg/dL Total Bilirubin 0.9 0.2-1.0 mg/dL Aspartate Amino Transf (AST/SGOT) 21 10-37 U/L Alanine Aminotransferase (ALT/SGPT) 24 12-78 U/L Alkaline Phosphatase 85 50-136 U/L Total Protein 6.3 6.0-8.3 g/dL Albumin 2.9 L 3.5-5.0 g/dL DIAGNOSTICS / RADIOLOGY: [ ] PROBLEM LIST : Medical Problems: Unspecified open wound of unspecified external genital organs, female, initial encounter Tinea PLAN: Wound care to left labia wound: Cleanse with normal saline, pat dry, apply mu pirocin ointment bid Wound care to abdominal fold: apply nystatin powder BID Keep wounds clean and dry Offloading/reposition q 2 hours Comorbidities per primary care team Further Management per hospital course. Thank You for the consult and allowing us to participate in the care of this patient. ATTESTATION BY PHYSICIAN I have seen and examined the patient. I reviewed the documentation, medical decision making, and treatment plan as noted by the mid-level provider above. I agree with the findings and plan of care. CASANDRA FUNG MD, MICHELLE A [employer] PATTERN [employer]TER Jun 26, 2025 16:12
--- NOTE | 2025-06-26 16:21 | PN ---
[facility] PROGRESS NOTE Date Patient Seen: Jun 26, 2025 Time of Visit: 16:17 Supervising Physician: [ ] Consulting Physician: Hospitalist Outpatient Specialists: [ ] Inpatient Consults: [ ] PROBLEM LIST: Acute hypoxic respiratory failure, Positive for influenza, Hyponatremia Super Super Obesity Obesity hypoventilation syndrome, Obstructive Sleep Apnea - Suspected Paroxysmal atrial fibrillation on chronic anticoagulation therapy Hyperlipidemia Hypertension urgency on admission INTERVAL HISTORY: Patient seen and evaluated at bedside Hyponatremia continues to improve. We will obtain 6 minute walk test before discharge Patient will need follow up with Dr. Dunne for LINDA after discharge REVIEW OF SYSTEMS: 12 point ROS reviewed with patient. Pertinent positives mentioned above. Otherwise negative. PHYSICAL EXAM: GENERAL: alert, weak, awake oriented x 3 HEENT: EOMI, Sclera non icteric, moist mucosa NECK: Supple, no JVD, trachea midline LUNGS: Fine crackles bilaterally, no wheezing HEART: Regular rate and rhythm. Normal S1 and S2, without murmurs ABD: Large body habitus EXT: No clubbing cyanosis or edema NEURO: Alert and oriented to person, follows commands Vital Signs (last 8hr) Date Time Temp Pulse Resp B/P (MAP) Pulse Ox O2 Delivery O2 Flow Rate FiO2 06/26/25 15:18 175/76 06/26/25 12:00 98.1 82 18 175/76 95 Nasal Cannula 2.0 06/26/25 11:18 78 18 LABS: Hematology Labs: Test 06/26/25 05:12 Range/Units White Blood Count 8.8 4.8-10.8 K/uL Red Blood Count 4.65 4.00-5.50 MIL/uL Hemoglobin 14.6 12.0-16.0 g/dL Hematocrit 41.5 36-48 % Mean Corpuscular Volume 89.2 79-99 fL Mean Corpuscular Hemoglobin 31.4 27.0-33.0 pg Mean Corpuscular Hemoglobin Concent 35.2 32.0-36.0 g/dL Red Cell Distribution Width 12.4 11.0-15.5 % Platelet Count 137 130-400 K/uL Mean Platelet Volume 10.5 7.5-10.5 fL Immature Granulocyte % (Auto) 0.8 0-1 % Neutrophils (%) (Auto) 76.6 40.0-77.0 % Lymphocytes (%) (Auto) 11.2 L 21.0-51.0 % Monocytes (%) (Auto) 9.7 3.0-13.0 % Eosinophils (%) (Auto) 1.4 0.0-8.0 % Basophils (%) (Auto) 0.3 0.0-5.0 % Neutrophils # (Auto) 6.7 1.8-7.7 K/uL Lymphocytes # (Auto) 1.0 1.0-4.8 K/uL Monocytes # (Auto) 0.9 0.1-1.0 K/uL Eosinophils # (Auto) 0.12 0.00-0.70 K/uL Basophils # (Auto) 0.03 0.00-0.20 K/uL Absolute Immature Granulocyte (auto 0.07 0-1 K/uL Nucleated Red Blood Cells 0.0 0.0-0.19 % Chemistry Labs: Test 06/26/25 15:58 06/26/25 05:12 Range/Units Whole Blood Glucose 149 H 70-110 MG/DL Sodium Level 129 L 136-145 mmol/L Potassium Level 3.9 3.5-5.1 mmol/L Chloride Level 91 L 101-111 mmol/L Carbon Dioxide Level 37 H 21-32 mmol/L Blood Urea Nitrogen 13 7-18 mg/dL Creatinine 0.4 L 0.5-1.0 mg/dL Glomerular Filtration Rate Calc 103 >90 mL/min Random Glucose 122 H 70-105 mg/dL Total Calcium 8.2 L 8.5-10.1 mg/dL Magnesium Level 1.90 1.80-2.40 mg/dL Total Bilirubin 0.9 0.2-1.0 mg/dL Aspartate Amino Transf (AST/SGOT) 21 10-37 U/L Alanine Aminotransferase (ALT/SGPT) 24 12-78 U/L Alkaline Phosphatase 85 50-136 U/L Total Protein 6.3 6.0-8.3 g/dL Albumin 2.9 L 3.5-5.0 g/dL DIAGNOSTICS / RADIOLOGY RESULTS: [ ] PLAN Airborne isolation Complete Tamiflu continue broad spectrum antibiotics continue sodium tablets repeat CMP in the morning NEURO: Minimize central acting medications as possible. Maintain fall precautions, adequate lighting during the day PULMONARY: Supplemental 02 as needed. Maintain aspiration precautions at all times CARDIOVASCULAR: Follow hemodynamics. Vital signs per facility protocol GI & NUTRITION: Continue with nutritional support. Continue stool softeners and laxatives as needed. KIDNEYS & ELECTROLYTES: Strict monitoring of intake, output and overall fluid balance. Avoid nephrotoxic medications to the extent possible. Medications to be dosed according to renal function. Monitor electrolytes and replace as needed ENDOCRINE: Maintain blood glucose between 100-180 at all times. Hypoglycemia protocol in place INFECTIOUS DISEASE: Trend temperature, WBC and procalcitonin level Follow cultures, deescalate antibiotics as soon as possible. Panculture if new onset fever ONCOLOGY/HEMATOLOGY/COAGULATION: Monitor for s/s of bleeding Monitor hemoglobin, coagulation studies as needed SKIN: Pressure ulcer prevention per facility protocol Specialty mattress ORTHO/REHAB: Continue PT/OT Prophylaxis: Continue GI and DVT prophylaxis Code Status: Full Resuscitation Disposition: SAVAGE CAMPBELL MD Jun 26, 2025 16:21
[2025-06-27] VITALS (14 sets, daily range): BP systolic 111–167; BP diastolic 50–75; PULSE 65–88; RESP 18–26; TEMP 97.5–98.1; O2SAT 95–99
[2025-06-27 05:22] LABS: NUCLEATED RED BLOOD CELLS 0.0 % (0.0-0.19); PLATELET COUNT (AUTO) 125.0 K/uL (130-400); RED BLOOD CELL COUNT(AUTO) 4.15 MIL/uL (4.00-5.50); RED CELL DISTRIBUTION WIDTH 12.3 % (11.0-15.5); WHITE BLOOD COUNT (AUTO) 6.4 K/uL (4.8-10.8)
[2025-06-27 05:47] LABS: ASPARTATE AMINOTRANSFERASE 22.0 U/L (10-37); CREATININE 0.4 mg/dL (0.5-1.0); GLOMERULAR FILTR. RATE CALC 103.0 mL/min (>90); GLUCOSE,RANDOM 118.0 mg/dL (70-105); SODIUM SERUM 136.0 mmol/L (136-145); TOTAL PROTEIN, SERUM 5.6 g/dL (6.0-8.3); UREA NITROGEN, BLOOD 15.0 mg/dL (7-18)
[2025-06-27] MEDS: LACTULOSE 20 GM/30 ML UDCUP PO PRN (09:18)
--- NOTE | 2025-06-27 13:44 | PN ---
NEPHROLOGY PROGRESS NOTE Date/Time Patient Seen: Jun 27, 2025 SUBJECTIVE: This is a 74-year-old female with underlying history of severe morbid obesity, suspected ohs/LINDA with chronic hypercapnic respiratory failure, history of atrial fibrillation maintained on chronic anticoagulation with damari Baugh She presented to the ER secondary to fall, dizziness, poor oral intake with nausea. The patient had a fall. The patient also has very low sodium of 114 and the patient has a low magnesium. Severe hypertension has been detected. The patient is detected with influenza and being admitted with these problems to the ICU. She continues on Tamiflu and antibiotics We are consulted for hyponatremia Sodium today was 136 mmol/L, sodium tablets were discontinued yesterday Hydrochlorothiazide has been discontinued Renal function is stable Medication list was reviewed Blood pressure is under adequate control She was seen in the medical floor, in no acute distress Family at the bedside Condition is critical REVIEW OF SYSTEMS: GENERAL: Negative for any nausea, vomiting, fevers, chills, or weight loss. NEUROLOGIC: Negative for any blurry vision, blind spots, double vision, facial asymmetry, dysphagia, dysarthria, hemiparesis, hemisensory deficits, vertigo, ataxia. HEENT: Negative for any head trauma, neck trauma, neck stiffness, photophobia, phonophobia, sinusitis, rhinitis. CARDIAC: Negative for any chest pain, dyspnea on exertion, paroxysmal nocturnal dyspnea, peripheral edema. PULMONARY: Negative for any shortness of breath, wheezing, COPD, or TB exposure. GASTROINTESTINAL: Negative for any abdominal pain, nausea, vomiting, bright red blood per rectum, melena. GENITOURINARY: Negative for any dysuria, hematuria, incontinence. INTEGUMENTARY: Negative for any rashes, cuts, insect bites. RHEUMATOLOGIC: Negative for any joint pains, photosensitive rashes, history of vasculitis or kidney problems. HEMATOLOGIC: Negative for any abnormal bruising, frequent infections or bleeding. Vital Signs (last 8hr) Date Time Temp Pulse Resp B/P (MAP) Pulse Ox O2 Delivery O2 Flow Rate FiO2 06/27/25 12:00 97.5 79 19 111/50 92 Room Air 06/27/25 10:58 67 18 06/27/25 09:16 139/98 06/27/25 08:00 97.9 68 20 136/66 94 Nasal Cannula 2.0 06/27/25 06:57 75 18 10/18/25 06:39 75 18 06/27/25 06:38 75 18 N/Cannula Low lpm 2.0 28 PHYSICAL EXAM: GENERAL: Alert and oriented x 3. No acute distress. Well-nourished. EYES: EOMI. Anicteric. HENT: Moist mucous membranes. No scleral icterus. No cervical lymphadenopathy. LUNGS: Clear to auscultation bilaterally. No accessory muscle use. CARDIOVASCULAR: Regular rate and rhythm. No murmur. No JVD. ABDOMEN: Soft, non-tender and non-distended. No palpable masses. EXTREMITIES: No edema. Non-tender. SKIN: No rashes or lesions. Warm. NEUROLOGIC: No focal neurological deficits. CN II-XII grossly intact, but not individually tested. PSYCHIATRIC: Cooperative. Appropriate mood and affect. Current Medications Medications (Trade) Dose Ordered Sig/Conchis Route Start Time Stop Time Status Last Admin Dose Admin Apixaban (EliquIS) 5 mg BID PO 06/23/25 09:00 07/23/25 08:59 06/27/25 09:16 5 MG Atorvastatin Calcium (LIPItor 10MG) 10 mg HS PO 06/22/25 21:00 07/22/25 20:59 06/26/25 20:42 10 MG Budesonide (Pulmicort 0.5 Mg/2ml) 0.5 mg BIDRESP IH 06/22/25 18:00 07/22/25 17:59 06/27/25 06:35 0.5 MG Carvedilol (Coreg 25MG) 25 mg BID PO 06/22/25 21:00 06/23/25 13:35 DC 06/22/25 21:18 25 MG Carvedilol (Coreg 25MG) 25 mg BID PO 06/26/25 14:00 07/26/25 13:59 06/27/25 09:16 25 MG Carvedilol (Coreg 25MG) 25 mg BID PO 06/26/25 21:00 06/26/25 13:34 DC Ceftriaxone Sodium (ROCEphine 1G INJ) 1 gm Q12H IVPB 06/22/25 15:30 07/02/25 15:29 06/27/25 03:46 1 GM Docusate Sodium (COLace 100MG CAP) 100 mg BID PO 06/22/25 21:00 07/22/25 20:59 06/27/25 09:16 100 MG Doxycycline Hyclate (Doxycycline Hyclate) 100 mg BID PO 06/22/25 21:00 07/02/25 20:59 06/27/25 09:15 100 MG Famotidine (Pepcid 20mg Tab) 20 mg BID PO 06/23/25 21:00 07/23/25 20:59 06/27/25 09:16 20 MG Fish Oil (Fish Oil 1000 Mg/Cap) 1,000 mg DAILY PO 06/23/25 09:00 07/23/25 08:59 06/27/25 09:16 1,000 MG Home Med (Home Medication) Soluble [facility] Fiber/ Inu... DAILY PO 06/23/25 09:00 07/23/25 08:59 Insulin Human Regular (humuLIN R 100 UNIT/ML 3ML) INSULIN SLIDING SCAL... ACHS SQ 06/22/25 16:30 07/22/25 16:29 06/25/25 13:05 2 UNIT Ipratropium [place] (AtrovENT UD) 0.5 mg [id number] IH 06/22/25 18:00 07/22/25 17:59 06/27/25 10:58 0.5 MG Losartan Potassium (CozAAR 100MG TAB) 100 mg DAILY PO 06/23/25 09:00 06/23/25 13:35 DC 06/23/25 10:19 100 MG Losartan Potassium (CozAAR 100MG TAB) 100 mg DAILY PO 06/27/25 09:00 07/27/25 08:59 06/27/25 09:16 100 MG Magnesium Sulfate 50 ml @ 0 mls/hr PROTOCOL IV 06/22/25 15:30 07/22/25 15:29 06/27/25 06:14 20 MLS/HR Mupirocin (Bactroban Oint) 1 APPL BID TP 06/24/25 21:00 07/24/25 20:59 06/27/25 09:17 1 APPL Nystatin (NystOP 15 GM POWDER) abdominal folds BID TP 06/26/25 21:00 07/26/25 20:59 06/27/25 09:17 1 APPL Oseltamivir Phosphate (Tamiflu) 75 mg BID PO 06/22/25 21:00 06/27/25 20:59 06/27/25 09:16 75 MG Sodium Chloride 1,000 ml @ 75 mls/hr [id number] IV 06/22/25 15:30 06/23/25 13:34 DC 06/23/25 04:42 75 MLS/HR Sodium Chloride (Sodium Chloride) 1,000 mg BID PO 06/24/25 21:00 06/26/25 14:22 DC 06/26/25 09:33 1,000 MG Sodium Chloride (Sodium Chloride) 2,000 mg Q8H6 PO 06/23/25 14:00 06/24/25 12:37 DC 06/24/25 05:58 2,000 MG Thiamine HCl (Vitamin B-1) 100 mg DAILY IVP 06/23/25 09:00 07/23/25 08:59 06/27/25 09:16 100 MG LABORATORY: [ ] Hematology Labs: Test 06/27/25 04:08 06/26/25 05:12 Range/Units White Blood Count 6.4 # 4.8-10.8 K/uL Red Blood Count 4.15 4.00-5.50 MIL/uL Hemoglobin 13.1 12.0-16.0 g/dL Hematocrit 37.7 36-48 % Mean Corpuscular Volume 90.8 79-99 fL Mean Corpuscular Hemoglobin 31.6 27.0-33.0 pg Mean Corpuscular Hemoglobin Concent 34.7 32.0-36.0 g/dL Red Cell Distribution Width 12.3 11.0-15.5 % Platelet Count 125 L 130-400 K/uL Mean Platelet Volume 10.7 H 7.5-10.5 fL Nucleated Red Blood Cells 0.0 0.0-0.19 % Immature Granulocyte % (Auto) 0.8 0-1 % Neutrophils (%) (Auto) 76.6 40.0-77.0 % Lymphocytes (%) (Auto) 11.2 L 21.0-51.0 % Monocytes (%) (Auto) 9.7 3.0-13.0 % Eosinophils (%) (Auto) 1.4 0.0-8.0 % Basophils (%) (Auto) 0.3 0.0-5.0 % Neutrophils # (Auto) 6.7 1.8-7.7 K/uL Lymphocytes # (Auto) 1.0 1.0-4.8 K/uL Monocytes # (Auto) 0.9 0.1-1.0 K/uL Eosinophils # (Auto) 0.12 0.00-0.70 K/uL Basophils # (Auto) 0.03 0.00-0.20 K/uL Absolute Immature Granulocyte (auto 0.07 0-1 K/uL Chemistry Labs: Test 06/27/25 10:58 06/27/25 04:08 Range/Units Whole Blood Glucose 153 H 70-110 MG/DL Sodium Level 136 136-145 mmol/L Potassium Level 4.2 3.5-5.1 mmol/L Chloride Level 93 L 101-111 mmol/L Carbon Dioxide Level 37 H 21-32 mmol/L Blood Urea Nitrogen 15 7-18 mg/dL Creatinine 0.4 L 0.5-1.0 mg/dL Glomerular Filtration Rate Calc 103 >90 mL/min Random Glucose 118 H 70-105 mg/dL Total Calcium 7.9 L 8.5-10.1 mg/dL Magnesium Level 1.70 L 1.80-2.40 mg/dL Total Bilirubin 0.7 # 0.2-1.0 mg/dL Aspartate Amino Transf (AST/SGOT) 22 10-37 U/L Alanine Aminotransferase (ALT/SGPT) 23 12-78 U/L Alkaline Phosphatase 74 50-136 U/L Total Protein 5.6 L 6.0-8.3 g/dL Albumin 2.5 L 3.5-5.0 g/dL DIAGNOSTICS / RADIOLOGY: [address] [address] IMAGING REPORT Signed PATIENT: YUMIKO CARLOS MR#: [id number] : 1950 SEX: F AGE: 74 LOCATION: 2[facility] ORDER 35 STATUS: ADM IN [facility] REPORT#: [id number] SERVICE 7 REASON: hx of a fib, r/o cardiomyopathy ORDERING PHYSICIAN: MALIK VELASQUEZ MD PROCEDURE: ECHO CMP - ECHO 2-D COMPLETE APPROVED REPORT EXAM: Two-dimensional and M-mode echocardiogram with Doppler and color Doppler. Study Details: Hx: A-Fib INDICATION ICD: Rule out cardiomyopathy 2D Dimensions RVDd 4.3 cm LVEF(%) 77.4 (>50%) LVED Vol(simp.) 40.0 mL IVSd 1.2 (0.7-1.1cm) FS(%) 45 % LVES Vol(simp.) 15.0 mL LVDd 3.6 (3.8-5.6cm) LA (2D) 4.5 (1.6-4.0cm) LVEF(%, simp.) 62 % PWd 1.3 (0.7-1.1cm) Ao Root(2D) 2.6 (2.0-3.7cm) LA ESV INDEX (4CH) 32.22 mL/m2 IVSs 1.4 cm LVOT diam 1.5 (1.8-2.4cm) LVDs 2.0 (2.5-4.0cm) PWs 1.7 cm M-Mode Dimensions EPSS 0.4 cm LA (MM) 4.0 (1.6-4.0cm) Ao Root(MM) 2.4 (2.0-3.7cm) Aortic Valve AoV Vmax 1.4 m/s Ao Peak GR 7.3 mmHg LVOT Vmax 1.0 m/s AoV VTI 0.3 m Ao Mean GR 3.7 mmHg LVOT VTI 0.21 m [place] (VMAX) 1.30 cm2 [place] (VTI) 1.4 cm2 Mitral Valve MV E Vmax 134.1 cm/s DECEL Time 192 ms MV A Vmax 43.6 cm/s P 1/2 T 44 ms E/A ratio 3.1 MVA (PHT) 5.0 cm2 TDI E/E' Medial 28.1 E/E' Lateral 37.6 Medial E' Peak V 4.78 cm/s Lateral E' Peak V 3.57 cm/s Pulmonary Valve PV Vmax 0.8 m/s PV VTI 0.16 m PV Mean GR 1.1 mmHg PV Peak GR 2.5 mmHg PI End Gladis. Alexandr 64.3 cm/s Tricuspid Valve TR Vmax 2.8 m/s RAP (EST) 3 mmHg RVSP 36.8 mmHg TR Peak GR 33.8 mmHg Left Ventricle Left ventricular cavity size is normal. There is normal LV segmental wall mo tion. There is mild left ventricular wall thickness. The LVEF is > 65%. Stage III diastolic dysfunction. Right Ventricle The right ventricle is normal size. The right ventricular systolic function is normal. Atria The left atrium is mildly dilated. The right atrium is mildly dilated by visual assessment. Aortic Valve The aortic valve is normal in structure. No aortic regurgitation is present. There is no aortic valvular stenosis. Mitral Valve The mitral valve is normal in structure and function. There is trace mitral valve regurgitation noted. There is no mitral valve stenosis. Tricuspid Valve The tricuspid valve is normal in structure. There is trace of tricuspid valve regurgitation noted. Pulmonic Valve Pulmonic valve is not well visualized. There is trace of pulmonic valvular regurgitation. Great Vessels The aortic root is normal in size. The IVC is normal in size and collapses >50% with inspiration. Pericardium There is no pericardial effusion. Other Information Quality : Technically difficult study due to body habitus Conclusion Left ventricular cavity size is normal. The LVEF is > 65% with normal LV segmental wall motion. There is mild left ventricular wall thickness. Stage III diastolic dysfunction. The right ventricular systolic function is normal. The left atrium is mildly dilated. No hemodynamically signifcant valvular abnormalities. There is no pericardial effusion. DICTATED BY: ROCHELLE BARRY MD DATE: 06/23/25826 ELECTRONICALLY SIGNED BY: ROCHELLE BARRY MD DATE: 06/23/251308 PATIENT: YUMIKO CARLOS MR#: [id number] : 1950 SEX: F AGE: 74 LOCATION: [facility] ORDER 44 STATUS: ADM IN REPORT#: [id number] SERVICE 42 REASON: persistent nausea x 1 week, hyponatremia, bloating, morbid obesity ORDERING PHYSICIAN: MALIK VELASQUEZ MD PROCEDURE: ABD PEL WO - CT ABDOMEN/PELVIS W/O CONTRAST EXAM: CT Abdomen and Pelvis without Intravenous Contrast CLINICAL HISTORY: Persistent nausea for one week, hyponatremia, abdominal bloating, and morbid obesity. TECHNIQUE: Axial helical CT scan of the abdomen and pelvis was performed without intravenous contrast. Multiplanar reformatted images were obtained in coronal and sagittal planes. Radiation dose optimization techniques utilized (CTDIvol: 26.9 mGy; DLP: 1698.6 mGy???cm). CONTRAST: Without COMPARISON: No prior CT available for comparison. FINDINGS: LUNG BASES: Visualized bilateral lung bases show mild pleural-based thickening and subpleural scarring, likely representing chronic post-inflammatory or fibrotic change. No active consolidation or pleural effusion. Cardiomegaly with calcific atherosclerosis involving coronary arteries, notably along the LAD and RCA courses. LIVER: Liver normal in size and contour with homogeneous attenuation; no focal hepatic lesions or biliary dilatation. GALLBLADDER AND BILE DUCTS: Gallbladder contains a large calcified calculus (3.5 x 2.5 cm) with normal wall thickness and no pericholecystic fluid or surrounding inflammatory change. Common bile duct of normal caliber. PANCREAS: Pancreas appears normal with preserved morphology and attenuation. No focal lesion or peripancreatic fat stranding. SPLEEN: Spleen appears normal with preserved morphology and attenuation. ADRENAL GLANDS: Adrenal glands appear normal with preserved morphology and attenuation. KIDNEYS, URETERS, AND BLADDER: Right mid-pole cortical scarring with coarse calcification consistent with prior inflammatory or ischemic insult. Mild bilateral perinephric fat stranding, nonspecific???may reflect chronic venous congestion or low-grade inflammation. No hydronephrosis, renal calculus, or hydroureter. Urinary bladder well distended, normal wall thickness, no intraluminal calculi. STOMACH AND BOWEL: Stomach and small bowel loops are mildly distended but nondilated; normal wall thickness. Colonic diverticulosis involving sigmoid and descending colon without pericolic stranding???uncomplicated diverticulosis. APPENDIX: Appendix visualized, normal in caliber with no periappendiceal inflammation???no CT evidence of appendicitis. PERITONEUM: Minimal localized internal fluid collection noted in the lower abdomen, measuring small in volume and without gas locules???nonspecific, could represent mild sterile or resolving inflammatory collection. Calcified intraperitoneal lymph node (2.3 x 1.6 cm) in right anterior lower abdomen???likely chronic, healed granulomatous origin. No ascites or pneumoperitoneum. LYMPH NODES: Calcified intraperitoneal lymph node (2.3 x 1.6 cm) in right anterior lower abdomen???likely chronic, healed granulomatous origin. No other significant lymphadenopathy. REPRODUCTIVE: Uterus surgically absent. Adnexal regions and pelvic soft tissues appear unremarkable. VASCULATURE: No aortic aneurysm. ABDOMINAL WALL AND SOFT TISSUES: Anterior abdominal wall oedema, most prominent in the lumbar region extending into bilateral iliac fossae. BONES: Age-appropriate thoracolumbar spondylosis with anterior osteophytes and facet arthropathy. No acute fracture or lytic/sclerotic lesions. IMPRESSION: 1. No acute intraabdominal or pelvic findings. 2. Mild gastric and small bowel distension without obstruction. 3. Minimal localized internal fluid collection in the lower abdomen, nonspecific. 4. Large gallbladder calculus (3.5 ??? 2.5 cm) without acute cholecystitis. 5. Right mid-pole renal cortical scarring with coarse calcification. 6. Uncomplicated colonic diverticulosis. 7. Age-appropriate thoracolumbar spondylosis with anterior osteophytes and facet arthropathy. 8. Several stable chronic and incidental findings are noted, as detailed in the body of the report, including mild pleural/subpleural scarring at the lung bases, cardiomegaly with coronary artery atherosclerosis, mild bilateral perinephric fat stranding, calcified intraperitoneal lymph node likely granulomatous in origin, anterior abdominal wall edema, and postsurgical absence of the uterus. /[place] DICTATED BY: KRYSTLE VEGA MD DATE: 06/22/252231 ELECTRONICALLY SIGNED BY: KRYSTLE VEGA MD DATE: 06/22/252231 PATIENT: YUMIKO CARLOS MR#: [id number] : 1950 SEX: F AGE: 74 LOCATION: [facility] ORDER 35 STATUS: ADM IN REPORT#: [id number] SERVICE 33 REASON: influenza positive, morbid obesity, r/o pneumonia vs edema ORDERING PHYSICIAN: MALIK VELASQUEZ MD PROCEDURE: CHEST WO - CT CHEST W/O CONTRAST EXAM: COMPUTED TOMOGRAPHY OF THE CHEST WITHOUT INTRAVENOUS CONTRAST Technique: Computed tomography of the chest was performed without intravenous contrast from the thoracic inlet through the upper abdomen with axial acquisition and coronal and sagittal reformations. Dose optimization included automated exposure control, patient size???based tube current and tube voltage modulation, and iterative reconstruction. Cardiac and vascular assessment is limited without contrast. Clinical Information: Influenza positive; morbid obesity; evaluation for pneumonia versus edema. Comparison: No prior chest computed tomography available. Findings: The chest wall and imaged lower neck soft tissues show no focal mass or acute abnormality. The trachea and main bronchi are patent without endoluminal lesion. There is no focal lobar consolidation identified. There are no suspicious pulmonary nodules identified. There are minimal bilateral pleural effusions. There is dependent basilar atelectasis adjacent to the effusions. There is no pneumothorax detected. The cardiac silhouette is mildly enlarged. There is no pericardial effusion identified. There are mild calcifications of the thoracic aorta. There are mild calcifications of the coronary arteries. There is calcification along the mitral annulus. There is no mediastinal or hilar lymphadenopathy by size criteria. The visualized upper abdomen shows no acute abnormality. The visualized osseous structures show mild degenerative changes of the thoracic spine without acute fracture. Impression: * Minimal bilateral pleural effusions with adjacent dependent basilar atelectasis; no focal lobar consolidation to suggest bacterial pneumonia on this noncontrast computed tomography. * Mild cardiomegaly. Interlobular septal prominence. Pulmonary venous congestion likely * Atherosclerotic calcifications of the thoracic aorta and coronary arteries, and mitral annular calcification. /[place] DICTATED BY: ROCHELLE COVARRUBIAS MD DATE: 06/22/252105 ELECTRONICALLY SIGNED BY: ROCHELLE COVARRUBIAS MD DATE: 06/22/252105 PATIENT: YUMIKO CARLOS MR#: [id number] : 1950 SEX: F AGE: 74 LOCATION: [facility] ORDER 33 STATUS: ADM IN REPORT#: [id number] SERVICE 153 REASON: fall, on eliquis, hyponatremia ORDERING PHYSICIAN: MALIK VELASQUEZ MD PROCEDURE: HEAD WO - CT HEAD/BRAIN W/O CONTRAST EXAM: CT Head Without IV contrast. CLINICAL HISTORY: fall, on eliquis, hyponatremia TECHNIQUE: Axial computed tomography images of the head/brain without intravenous contrast. COMPARISON: None provided. FINDINGS: BRAIN: No evidence of acute hemorrhage. No mass lesion. No CT evidence for acute territorial infarct. No midline shift or extra-axial collections. VENTRICLES: No hydrocephalus. ORBITS: The orbits are unremarkable. SINUSES AND MASTOIDS: The paranasal sinuses and mastoid air cells are clear. BONES: No fracture. SOFT TISSUES: Unremarkable. IMPRESSION: No acute intracranial abnormality. /[place] DICTATED BY: ROCHELLE COVARRUBIAS MD DATE: 06/22/251857 ELECTRONICALLY SIGNED BY: ROCHELLE COVARRUBIAS MD DATE: 06/22/251857 PATIENT: YUMIKO CARLOS MR#: [id number] : 1950 SEX: F AGE: 74 LOCATION: [facility] ORDER 31 STATUS: ADM IN REPORT#: [id number] SERVICE 29 REASON: s/p fall, r/o any fractures ORDERING PHYSICIAN: MALIK VEALSQUEZ MD PROCEDURE: PELVIS - PELVIS 1-2VWS EXAM: CR Pelvis, 1 View. CLINICAL HISTORY: s/p fall, r/o any fractures COMPARISON: None provided. FINDINGS: BONES: Generalized osteopenia No definitive acute fracture JOINTS: Degenerative changes SOFT TISSUES: The soft tissues are unremarkable. IMPRESSION: 1. Degenerative changes 2. Generalized osteopenia 3. No definitive acute fracture /[place] DICTATED BY: ROCHELLE COVARRUBIAS MD DATE: 06/22/251950 ELECTRONICALLY SIGNED BY: ROCHELLE COVARRUBIAS MD DATE: 06/22/251950 PATIENT: YUMIKO CARLOS MR#: [id number] : 1950 SEX: F AGE: 74 LOCATION: [facility] ORDER 31 STATUS: ADM [facility] REPORT#: [id number] SERVICE 29 REASON: s/p fall, r/o any fractures ORDERING PHYSICIAN: MALIK VELASQUEZ MD PROCEDURE: KNEE 2VBIL - KNEE 2VW BILATERAL EXAM: XR Both Knees, AP and Lateral (2) Views. CLINICAL HISTORY: Status post fall; clinical query for fracture or hardware-related complication. Known history of prior distal femur fixation. COMPARISON: No immediate prior imaging available for comparison. FINDINGS: BONES: No new acute fracture or focal osseous lesion identified in either knee. Left Knee (Post-operative Site): Internal plate fixation noted along the distal femur, consistent with prior fracture fixation. Cortical remodeling and signs of bony union seen at the prior fracture site ??? no evidence of non-union or millie-hardware lucency. One or more screw fixators appear broken at the proximal/superior end of the fixation plate, suggesting hardware fatigue or prior mechanical stress. No acute periprosthetic fracture or hardware migration seen. Right Knee: No prior fixation hardware or periarticular collection. JOINTS: No dislocation identified in either knee. Severe degenerative osteoarthritic changes seen in both knees, more pronounced in the medial tibiofemoral compartments. Marked reduction of tibiofemoral and patellofemoral joint spaces, with large periarticular osteophyte formation and subchondral sclerosis, consistent with advanced osteoarthritis. SOFT TISSUES: Mild diffuse periarticular soft tissue thickening noted, likely chronic degenerative or post-traumatic in nature. No significant joint effusion or soft tissue gas. IMPRESSION: 1. No acute fracture or dislocation in either knee. 2. Status post left distal femur fixation with plate and screws, with bony union. Broken screw(s) at the proximal aspect of the fixation plate without acute periprosthetic fracture or hardware migration. 3. Severe tricompartmental osteoarthritic changes in both knees, more pronounced in the medial tibiofemoral compartments. /[place] DICTATED BY: KRYSTLE VEGA MD DATE: 06/22/252008 ELECTRONICALLY SIGNED BY: KRYSTLE VEGA MD DATE: 06/22/252008 PATIENT: YUMIKO CARLOS MR#: [id number] : 1950 SEX: F AGE: 74 LOCATION: 2[facility] ORDER 28 STATUS: ADM IN REPORT#: [id number] SERVICE 152 REASON: r/o any DVT of the lowe etxremities, swellng, fall ORDERING PHYSICIAN: MALIK VELASQUEZ MD PROCEDURE: VENOUS BINA - US VENOUS DOPPLER BILATERAL EXAM: US Duplex BILATERAL Lower Extremity Veins. CLINICAL HISTORY: Swelling after a fall with clinical concern for deep venous thrombosis of the lower extremities. TECHNIQUE: Grayscale imaging with compression maneuvers, color Doppler, and pulsed-wave spectral Doppler was performed where anatomically feasible from the common femoral veins through the femoral, popliteal, and calf veins bilaterally. Respiratory phasicity and augmentation responses were assessed when obtainable. Evaluation of the left common femoral and left popliteal veins is limited by body habitus. COMPARISON: None provided. FINDINGS: DEEP VEINS: The right common femoral vein is fully compressible without intraluminal echogenic thrombus. The right femoral vein is fully compressible with normal color Doppler filling and normal spectral Doppler phasicity. The right popliteal vein is fully compressible without thrombus. The right posterior tibial veins are compressible without thrombus. The left femoral vein is fully compressible with normal color Doppler filling and normal spectral Doppler phasicity. The left posterior tibial veins are compressible without thrombus. The left common femoral vein is not adequately visualized because of body habitus, and compressibility could not be assessed; thrombus at this nonvisualized level cannot be excluded. The left popliteal vein is not adequately visualized because of body habitus, and compressibility could not be assessed; thrombus at this nonvisualized level cannot be excluded. No abnormal focal fluid collection is identified along the imaged course of the veins. SUPERFICIAL VEINS: Superficial veins were not evaluated. SOFT TISSUES: No popliteal fossa cyst or other abnormalities. IMPRESSION: 1. No sonographic evidence of deep venous thrombosis in the visualized segments of the right lower extremity and in the visualized segments of the left femoral and left posterior tibial veins. 2. Technical limitation: the left common femoral vein and the left popliteal vein are not adequately visualized because of body habitus; thrombus at these nonvisualized levels cannot be excluded. /[place] DICTATED BY: KRYSTLE VEGA MD DATE: 06/22/252134 ELECTRONICALLY SIGNED BY: KRYSTLE VEGA MD DATE: 06/22/252134 PATIENT: YUMIKO CARLOS MR#: [id number] : 1950 SEX: F AGE: 74 LOCATION: [facility] ORDER 36 STATUS: REG ER REPORT#: [id number] SERVICE 34 REASON: sob ORDERING PHYSICIAN: SATISH WEEMS MD PROCEDURE: CXR1VW - CHEST 1VW EXAM: CR Chest, 1 View. CLINICAL HISTORY: sob COMPARISON: May 22 2023 FINDINGS: LUNGS: There is no mass, infiltrate, or acute pulmonary abnormality. PLEURAL SPACES: No evidence of pleural effusion or pneumothorax. MEDIASTINUM: There is cardiomegaly BONES: No aggressive appearing osseous lesion seen. IMPRESSION: No acute cardiopulmonary pathology is evident. /[place] DICTATED BY: SWATHI HAM MD DATE: 06/22/251541 ELECTRONICALLY SIGNED BY: SWATHI HAM MD DATE: 06/22/251541 ASSESSMENT: Severe hyponatremia, due to hydrochlorothiazide Acute hypoxic respiratory failure Positive for influenza Ground level fall Obesity hypoventilation syndrome, does not use CPAP at home Paroxysmal atrial fibrillation, rate controlled, currently on Eliquis Hyperlipidemia Hypertension urgency PLAN: Labs, diagnostic, radiologic exams reviewed and interpreted by myself and supervising physician. We have reviewed external records in detail From Nephrology standpoint, patient may be discharged Do not resume hydrochlorothiazide, Hydrochlorothiazide to be listed as an allergy due to severe hyponatremia Discontinue sodium chloride tablets Avoid drugs which can potentiate hyponatremia Require close monitoring of renal function and electrolytes Order CBC, CMP, and electrolytes in am BiPAP as necessary, for respiratory distress Monitor blood pressure adjust medication doses as needed Avoid hypotensive episodes May use Dilaudid 0.5 mg IV every 6 hours as needed for severe pain Monitor blood sugars Strict intake, output, and daily weight should be monitored Continue to monitor renal function, anemia, electrolytes Treatment plan discussed with patient Questions were answered We have discussed with the other team physicians in detail about the care plan We will continue to monitor the patient closely ATTESTATION BY PHYSICIAN I have seen and examined the patient. I reviewed the documentation, medical decision making, and treatment plan as noted by the mid-level provider above. I agree with the findings and plan of care. ALENA PHILLIPS MD, [facility] Jun 27, 2025 13:44
[2025-06-27] MEDS ORDERED: FURO20TA4 PO (16:22)
--- NOTE | 2025-06-27 17:14 | DS ---
Discharge Summary Hospital Course Summary: Addendum to previously dictated discharge summary. Patient did not leave on 06/27/2025 but left on 06/28/2025. Reason for the delay was the retirement facility did not have BiPAP which the patient needs at night to prevent desaturation. She should also have an outpatient sleep study confirm presence of obstructive sleep apnea. Patient does look like she has obesity hypoventilation syndrome or Pickwickian syndrome. Therefore, I agree with both the sleep study and use of BiPAP for while the patient is at the SNF. Foster Care Therapist(s): CONSULTATION REPORT Name: YUMIKO CARLOS Acct: [id number] MR: [id number] : 1950 Admit Date: 06/22/25 WILFREDO BENZ [address] [address] [facility] CONSULTATION NOTE Date Patient Seen: Jun 22, 2025 Time of Visit: 19:06 Supervising Physician: Dr. Lucius Dunne Reason for Consultation: Severe hyponatremia Consulting Physician: Hospitalist Outpatient Specialists: [ ] Inpatient Consults: [ ] PROBLEM LIST: Acute hypoxic respiratory failure, likely from viral infection POA Positive for influenza, POA Ground level fall, POA Hyponatremia, initial sodium level of 114, currently on NS at 75 cc/ hour, POA Obesity hypoventilation syndrome, does not use CPAP at home, POA Paroxysmal atrial fibrillation, rate controlled, currently on Eliquis Hyperlipidemia, POA Hypertension urgency, POA PLAN: Admit per primary Continue slow sodium correction, 6-8 mEq in 24 hours BNP q.6 Continue NS at 75 cc an hour Continue O2 to keep O2 saturation above 90% May use CPAP at night DuoNeb q.6 Aspiration precaution Isolation precaution Continue Tamiflu Pulmonary toilet Early mobilization Keep SBP less than 160 P.r.n. hydralazine and labetalol Treat fever aggressively Monitor temperature curve CBC, CMP, magnesium level daily HPI: 74-year-old female with past medical history of paroxysmal atrial fibrillation, on chronic anticoagulation, morbidly obese, hyperlipidemia, LINDA/obesity hypoventilation syndrome who presented to ED via EMS with complaint of fall, with associated shortness of breaths and generalized body weakness and found to have hypertensive urgency, severe hyponatremia, and acute respiratory failure. Patient was seen and examined in ED with no relatives present at bedside. At present patient is currently on nasal cannula with appropriate oxygen saturation, according to her she has been having generalized body weakness, and shortness of breaths for the past several days had multiple abscess of falling at home. Initial evaluation in ED patient was noted to have T-max of 98.2 F, heart rate of 72, blood pressure of 187/78. BMP is remarkable for sodium of 114, potassium 4.2, chloride of 76, creatinine of 0.4, magnesium 1.3, BNP of 146. Chest x-ray showed no acute infiltrates on consolidation, CT of the head unrevealing for any acute injury. Patient was also found to be positive with flu virus. Patient is currently on Tamiflu. ICU consulted for critical care evaluation and hyponatremia management. At present patient is currently hemodynamically stable, GCS 15, able to answer questions appropriately, still with scattered wheezing on auscultation, and mild respiratory distress. In ED patient was given1 L of NS then subsequently decreased to 75 cc/hour. PAST MEDICAL HX: see above PAST SURGICAL HX: noncontributory SOCIAL HISTORY: No tobacco, ETOH, or illicit drug use Coded Allergies: No Known Drug Allergies (Verified Allergy, 12/27/12) REVIEW OF SYSTEMS: 12 point ROS reviewed with patient. Pertinent positives mentioned above. Otherwise negative. PHYSICAL EXAM: GENERAL: alert, weak, awake oriented x 3 HEENT: EOMI, Sclera non icteric, moist mucosa NECK: Supple, no JVD, trachea midline LUNGS: Coarse bilateral lung sounds on auscultation HEART: Regular rate and rhythm. Normal S1 and S2, without murmurs ABD: Large body habitus EXT: No clubbing cyanosis or edema NEURO: Alert and oriented to person, follows commands Vital Signs (last 8hr) Date Time Temp Pulse Resp B/P (MAP) Pulse Ox O2 Delivery O2 Flow Rate FiO2 06/22/25 18:49 61 22 N/Cannula Low lpm 3.0 32 06/22/25 18:48 61 22 06/22/25 18:25 97.5 67 25 167/81 97 Nasal Cannula* 3 32 06/22/25 16:05 61 193/83 06/22/25 16:04 18 N/Cannula Low lpm 2.0 28 06/22/25 15:40 71 18 06/22/25 14:41 97.7 65 22 197/91 99 Room Air* 0 21 06/22/25 13:24 98.2 72 24 187/78 99 Nasal Cannula 3.0 LABS: Hematology Labs: Test 06/22/25 13:48 Range/Units White Blood Count 9.9 4.8-10.8 K/uL Red Blood Count 4.93 4.00-5.50 MIL/uL Hemoglobin 15.3 12.0-16.0 g/dL Hematocrit 40.6 36-48 % Mean Corpuscular Volume 82.4 79-99 fL Mean Corpuscular Hemoglobin 31.0 27.0-33.0 pg Mean Corpuscular Hemoglobin Concent 37.7 H 32.0-36.0 g/dL Red Cell Distribution Width 11.9 11.0-15.5 % Platelet Count 171 130-400 K/uL Mean Platelet Volume 10.8 H 7.5-10.5 fL Immature Granulocyte % (Auto) 1.3 H 0-1 % Neutrophils (%) (Auto) 82.5 H 40.0-77.0 % Lymphocytes (%) (Auto) 8.8 L 21.0-51.0 % Monocytes (%) (Auto) 7.0 3.0-13.0 % Eosinophils (%) (Auto) 0.1 0.0-8.0 % Basophils (%) (Auto) 0.3 0.0-5.0 % Neutrophils # (Auto) 8.2 H 1.8-7.7 K/uL Lymphocytes # (Auto) 0.9 L 1.0-4.8 K/uL Monocytes # (Auto) 0.7 0.1-1.0 K/uL Eosinophils # (Auto) 0.01 0.00-0.70 K/uL Basophils # (Auto) 0.03 0.00-0.20 K/uL Absolute Immature Granulocyte (auto 0.13 0-1 K/uL Nucleated Red Blood Cells 0.0 0.0-0.19 % White Cell Morphology Comment See comments Red Blood Cell Morphology See comments Erythrocyte Sedimentation Rate 15 0-30 MM/HR Chemistry Labs: Test 06/22/25 18:06 06/22/25 13:48 Range/Units Whole Blood Glucose 167 H 70-110 MG/DL Sodium Level 114 L 136-145 mmol/L Potassium Level 4.2 3.5-5.1 mmol/L Chloride Level 76 *L 101-111 mmol/L Carbon Dioxide Level 31 21-32 mmol/L Blood Urea Nitrogen 13 7-18 mg/dL Creatinine 0.4 L 0.5-1.0 mg/dL Glomerular Filtration Rate Calc 103 >90 mL/min Random Glucose 183 H 70-105 mg/dL Hemoglobin A1c 6.1 H 4.0-6.0 % Estimated Average Glucose (eAG) 128 H 70-126 mg/dL Total Calcium 8.5 8.5-10.1 mg/dL Magnesium Level 1.30 L 1.80-2.40 mg/dL Total Bilirubin 1.4 H 0.2-1.0 mg/dL Direct Bilirubin 0.5 H 0.0-0.3 mg/dL Aspartate Amino Transf (AST/SGOT) 28 10-37 U/L Alanine Aminotransferase (ALT/SGPT) 27 12-78 U/L Alkaline Phosphatase 84 50-136 U/L Lactate Dehydrogenase 257 H 81-234 U/L Troponin I High Sensitivity 11 4-50 ng/L C-Reactive Protein, Quantitative 3.40 H 0.5-3.0 mg/L B-Type Natriuretic Peptide 146 H 0-100 pg/mL Total Protein 6.9 6.0-8.3 g/dL Albumin 3.3 L 3.5-5.0 g/dL Procalcitonin < 0.05 L 0.05-0.5 ng/mL Thyroid Stimulating Hormone (TSH) 1.91 0.36-3.74 uIU/mL Coagulation Labs: Test 06/22/25 13:58 Range/Units Prothrombin Time 15.0 H 9.6-11.6 SEC Prothromb Time International Ratio 1.47 H 0.85-1.15 Activated Partial Thromboplast Time 33.6 26.3-35.5 SEC DIAGNOSTICS / RADIOLOGY RESULTS: EXAM: CT Head Without IV contrast. CLINICAL HISTORY: fall, on eliquis, hyponatremia TECHNIQUE: Axial computed tomography images of the head/brain without intravenous contrast. COMPARISON: None provided. FINDINGS: BRAIN: No evidence of acute hemorrhage. No mass lesion. No CT evidence for acute territorial infarct. No midline shift or extra-axial collections. VENTRICLES: No hydrocephalus. ORBITS: The orbits are unremarkable. SINUSES AND MASTOIDS: The paranasal sinuses and mastoid air cells are clear. BONES: No fracture. SOFT TISSUES: Unremarkable. IMPRESSION: No acute intracranial abnormality. EXAM: CR Chest, 1 View. CLINICAL HISTORY: sob COMPARISON: May 22 2023 FINDINGS: LUNGS: There is no mass, infiltrate, or acute pulmonary abnormality. PLEURAL SPACES: No evidence of pleural effusion or pneumothorax. MEDIASTINUM: There is cardiomegaly BONES: No aggressive appearing osseous lesion seen. IMPRESSION: No acute cardiopulmonary pathology is evident. PLAN NEURO: Minimize central acting medications as possible. Fall Precautions. Well lighted room through the day and minimize interruptions through the night to prevent acute delirium. PULMONARY: Supplemental 02 as needed Titrate Fio2 to keep Spo2 > or = 90% DuoNebs and CPT as needed IS hourly while awake for pulmonary hygiene Out of bed to chair as tolerated CARDIOVASCULAR: Follow hemodynamics. Titrate vasopressor to keep MAP >65 or systolic blood pressure >95mmHg DIPS: Normal saline at 75 cc an hour LINES: PIV GI & NUTRITION: Continue nutritional support Aspirations precautions Prokinetic agents and laxatives as needed KIDNEYS & ELECTROLYTES: Strict monitoring of intake and output Daily weights Avoid nephrotoxic agents Monitor electrolytes and replace as needed Goal urine output of 30mL/hr or 0.5mL/kg/hr ENDOCRINE: Maintain blood glucose between 100-180 at all times. Insulin sliding scale for blood glucose management INFECTIOUS DISEASE: Trend temperature. Leigh-culture if febrile. Micro: [ ] Antibiotics: [ ] HEMATOLOGY & COAGULATION: Monitor H&H. Keep Hgb > 7 Transfuse 1 unit of PRBC for Hgb < 7 Transfuse 1 pack of platelets of platelets < 20, 000 Watch for any signs and symptoms of bleeding SKIN: Pressure ulcer prevention per facility protocol Rehab: PT/OT Prophylaxis: GI: PPI DVT: Bilateral SCDs Code Status: Full Resuscitation Disposition: ICU Other: Total patient care time exceeds 35 minutes excluding all procedures. Supervising physician: Dr. Lucius BENZ,WILFREDO Ibarra AGACNP Jun 22, 2025 19:06 Electronically Signed by: WILFREDO BENZ [id number] Electronically Co-Signed by: KITTY DUNNE MD06/23/25 1010 CONSULTATION REPORT Name: YUMIKO CARLOS Acct: [id number] MR: [id number] : 1950 Admit Date: 06/22/25 ALENA PHILLIPS MD [facility] [address] [place] [address] NEPHROLOGY CONSULTATION REASON FOR CONSULTATION: The patient has hyponatremia htn and multiple other comorbidities. HISTORY OF PRESENT ILLNESS: This 74-year-old lady who came to the emergency room, critically ill, morbidly obese, suspected sleep apnea, history of atrial fibrillation. The patient had a fall. The patient also has very low sodium of 114 and the patient has a low magnesium. Severe hypertension has been detected. The patient is detected of influenza and being admitted with these problems to the ICU. PAST MEDICAL HISTORY: As above, significant for diabetes, obesity, hypertension, atrial fibrillation, and possibly obstructive sleep apnea. PAST SURGICAL HISTORY: Hysterectomy. SOCIAL HISTORY: No reported smoking or alcohol or drug abuse reported. ALLERGIES: None. MEDICATIONS: None. FAMILY HISTORY: Unremarkable. REVIEW OF SYSTEMS: CONSTITUTIONAL: Has been weak. No fever, chills, or rigors. HEENT: No headache,With no headache or sore throat or difficulty swallowing. No new vision complaints. RESPIRATORY: No hemoptysis or shortness of breath. Cough and congestion present. GASTROINTESTINAL: Negative for nausea, vomiting or diarrhea. : Negative for hematuria. DERMATOLOGIC: No rashes, pruritus or skin lesion. ENDOCRINE: No polyuria, polydipsia or polyphagia. PSYCHIATRIC: Negative for anxiety, depression or hallucinations. NEUROLOGIC: No seizures or syncope. PHYSICAL EXAMINATION: GENERAL: Pale, in no other distress or deformities. Lying in bed. VITAL SIGNS: Blood pressure is 193/83, pulse 61. Respiratory rate is 18 and afebrile. HEENT: Head is atraumatic, normocephalic. Pupils are round, reactive to light. Sclerae anicteric. Conjunctivae not pale. Oral mucosa is not dry. NECK: Without masses or bruits. Thyroid is palpable. Neck has no bruits. CHEST: Shows equal thoracic percussion note being resonant in all areas. CARDIAC: Regular rhythm. No rubs. No S3 or S4. No parasternal heave. ABDOMEN: No guarding or tenderness. Bowel sounds are normoactive. No free fluid. EXTREMITIES: Extremities with no edema and no cyanosis or clubbing. BACK: No back tenderness or back deformities. LYMPHATIC: Lymphatic with no lymph node swelling. NEUROLOGIC: Awake, alert, nonfocal ____. LABORATORY DATA: We have reviewed available labs and hemoglobin is up to 15.3, hematocrit is 40.6. The patient has low sodium of 114, BUN of 13, creatinine 0.4. TSH is normal. Magnesium has been low. A1c was 6.1. IMAGING STUDIES: We have reviewed the imaging studies personally. Abdominal and pelvic CT has been ordered. X-rays, head CT was reviewed with no acute findings. Old records have been reviewed. External records reviewed. PROBLEMS: Include: * Severe hyponatremia. * The patient has underlying diabetes. * Underlying hypertension, was on hydrochlorothiazide at home. * Underlying obesity. * Underlying anemia. * Underlying type 2 diabetes. * Atrial fibrillation, on anticoagulation. * The patient has influenza now positive, B positive. PLAN: * The patient is critically ill being admitted to ICU. * Hydrochlorothiazide should be stopped. * Free water should be restricted. * Monitor blood pressure. * Alternating antihypertensives to use. * Serum osmolarity. * Uric acid. * TSH. * Urine electrolytes * Urine osmolality. * Serial monitoring of electrolytes very closely. * If neurological symptoms, hypotonic saline can be considered. For rate of correction, try not to exceed 6 to 8 mEq in a day. I will suggest to follow up on electrolyte, renal function and blood pressure overall status. We have discussed with Dr. Coker personally. We have reviewed the old record, external records. We have ordered the followup labs for continued monitoring on all these issues. Condition is critical and guarded. I will avoid drugs which can potentiate hyponatremia. Thank you for this patient. TID: [id number] RECEIPT: [id number] Electronically Signed by: ALENA PHILLIPS MD06/23/25 6240 Electronically Co-Signed by: Procedure(s): [facility] [address] [place] [address] IMAGING REPORT Signed PATIENT: YUMIKO CARLOS MR#: [id number] : 1950 SEX: F AGE: 74 LOCATION: ED ORDER [id number] STATUS: REG ER REPORT#: [id number] SERVICE 1335 REASON: sob ORDERING PHYSICIAN: SATISH WEEMS MD PROCEDURE: CXR1VW - CHEST 1VW EXAM: CR Chest, 1 View. CLINICAL HISTORY: sob COMPARISON: May 22 2023 FINDINGS: LUNGS: There is no mass, infiltrate, or acute pulmonary abnormality. PLEURAL SPACES: No evidence of pleural effusion or pneumothorax. MEDIASTINUM: There is cardiomegaly BONES: No aggressive appearing osseous lesion seen. IMPRESSION: No acute cardiopulmonary pathology is evident. /[facility] DICTATED BY: SWATHI HAM MD DATE: 06/22/251541 ELECTRONICALLY SIGNED BY: SWATHI HAM MD DATE: 06/22/251541 [address] [address] [place] [address] IMAGING REPORT Signed PATIENT: YUMIKO CARLOS MR#: [id number] : 1950 SEX: F AGE: 74 LOCATION: 2BH ORDER 28 STATUS: ADM IN REPORT#: [id number] SERVICE 24 REASON: r/o any DVT of the lowe etxremities, swellng, fall ORDERING PHYSICIAN: MALIK COKER MD PROCEDURE: VENOUS BINA - US VENOUS DOPPLER BILATERAL EXAM: US Duplex BILATERAL Lower Extremity Veins. CLINICAL HISTORY: Swelling after a fall with clinical concern for deep venous thrombosis of the lower extremities. TECHNIQUE: Grayscale imaging with compression maneuvers, color Doppler, and pulsed-wave spectral Doppler was performed where anatomically feasible from the common femoral veins through the femoral, popliteal, and calf veins bilaterally. Respiratory phasicity and augmentation responses were assessed when obtainable. Evaluation of the left common femoral and left popliteal veins is limited by body habitus. COMPARISON: None provided. FINDINGS: DEEP VEINS: The right common femoral vein is fully compressible without intraluminal echogenic thrombus. The right femoral vein is fully compressible with normal color Doppler filling and normal spectral Doppler phasicity. The right popliteal vein is fully compressible without thrombus. The right posterior tibial veins are compressible without thrombus. The left femoral vein is fully compressible with normal color Doppler filling and normal spectral Doppler phasicity. The left posterior tibial veins are compressible without thrombus. The left common femoral vein is not adequately visualized because of body habitus, and compressibility could not be assessed; thrombus at this nonvisualized level cannot be excluded. The left popliteal vein is not adequately visualized because of body habitus, and compressibility could not be assessed; thrombus at this nonvisualized level cannot be excluded. No abnormal focal fluid collection is identified along the imaged course of the veins. SUPERFICIAL VEINS: Superficial veins were not evaluated. SOFT TISSUES: No popliteal fossa cyst or other abnormalities. IMPRESSION: 1. No sonographic evidence of deep venous thrombosis in the visualized segments of the right lower extremity and in the visualized segments of the left femoral and left posterior tibial veins. 2. Technical limitation: the left common femoral vein and the left popliteal vein are not adequately visualized because of body habitus; thrombus at these nonvisualized levels cannot be excluded. /[place] DICTATED BY: KRYSTLE VEGA MD DATE: 06/22/252134 ELECTRONICALLY SIGNED BY: KRYSTLE VEGA MD DATE: 06/22/252134 [place] [address] IMAGING REPORT Signed PATIENT: YUMIKO CARLOS MR#: [id number] : 1950 SEX: F AGE: 74 LOCATION: ED[facility]IP ORDER 31 [facility]US: [facility] REPORT#: [id number] SERVICE 29 REASON: s/p fall, r/o any fractures ORDERING PHYSICIAN: MALIK COKER MD PROCEDURE: KNEE 2VBIL - KNEE 2VW BILATERAL EXAM: XR Both Knees, AP and Lateral (2) Views. CLINICAL HISTORY: Status post fall; clinical query for fracture or hardware-related complication. Known history of prior distal femur fixation. COMPARISON: No immediate prior imaging available for comparison. FINDINGS: BONES: No new acute fracture or focal osseous lesion identified in either knee. Left Knee (Post-operative Site): Internal plate fixation noted along the distal femur, consistent with prior fracture fixation. Cortical remodeling and signs of bony union seen at the prior fracture site ??? no evidence of non-union or millie-hardware lucency. One or more screw fixators appear broken at the proximal/superior end of the fixation plate, suggesting hardware fatigue or prior mechanical stress. No acute periprosthetic fracture or hardware migration seen. Right Knee: No prior fixation hardware or periarticular collection. JOINTS: No dislocation identified in either knee. Severe degenerative osteoarthritic changes seen in both knees, more pronounced in the medial tibiofemoral compartments. Marked reduction of tibiofemoral and patellofemoral joint spaces, with large periarticular osteophyte formation and subchondral sclerosis, consistent with advanced osteoarthritis. SOFT TISSUES: Mild diffuse periarticular soft tissue thickening noted, likely chronic degenerative or post-traumatic in nature. No significant joint effusion or soft tissue gas. IMPRESSION: 1. No acute fracture or dislocation in either knee. 2. Status post left distal femur fixation with plate and screws, with bony union. Broken screw(s) at the proximal aspect of the fixation plate without acute periprosthetic fracture or hardware migration. 3. Severe tricompartmental osteoarthritic changes in both knees, more pronounced in the medial tibiofemoral compartments. /[place] DICTATED BY: KRYSTLE VEGA MD DATE: 06/22/252008 ELECTRONICALLY SIGNED BY: KRYSTLE VEGA MD DATE: 06/22/252008 [address] [address] IMAGING REPORT Signed PATIENT: YUMIKO CARLOS MR#: [id number] : 1950 SEX: F AGE: 74 LOCATION: EDHIP ORDER 31 STATUS: ADM IN REPORT#: [id number] SERVICE 29 REASON: s/p fall, r/o any fractures ORDERING PHYSICIAN: MALIK COKER MD PROCEDURE: PELVIS - PELVIS 1-2VWS EXAM: CR Pelvis, 1 View. CLINICAL HISTORY: s/p fall, r/o any fractures COMPARISON: None provided. FINDINGS: BONES: Generalized osteopenia No definitive acute fracture JOINTS: Degenerative changes SOFT TISSUES: The soft tissues are unremarkable. IMPRESSION: 1. Degenerative changes 2. Generalized osteopenia 3. No definitive acute fracture /[facility] DICTATED BY: ROCHELLE COVARRUBIAS MD DATE: 06/22/251950 ELECTRONICALLY SIGNED BY: ROCHELLE COVARRUBIAS MD DATE: 06/22/251950 [address] [id number] IMAGING REPORT Signed PATIENT: YUMIKO CARLOS MR#: [id number] : 1950 SEX: F AGE: 74 LOCATION: EDHIP ORDER 33 STATUS: ADM IN REPORT#: [id number] SERVICE 31 REASON: fall, on eliquis, hyponatremia ORDERING PHYSICIAN: MALIK COKER MD PROCEDURE: HEAD WO - CT HEAD/BRAIN W/O CONTRAST EXAM: CT Head Without IV contrast. CLINICAL HISTORY: fall, on eliquis, hyponatremia TECHNIQUE: Axial computed tomography images of the head/brain without intravenous contrast. COMPARISON: None provided. FINDINGS: BRAIN: No evidence of acute hemorrhage. No mass lesion. No CT evidence for acute territorial infarct. No midline shift or extra-axial collections. VENTRICLES: No hydrocephalus. ORBITS: The orbits are unremarkable. SINUSES AND MASTOIDS: The paranasal sinuses and mastoid air cells are clear. BONES: No fracture. SOFT TISSUES: Unremarkable. IMPRESSION: No acute intracranial abnormality. /[facility] DICTATED BY: ROCHELLE COVARRUBIAS MD DATE: 06/22/251857 ELECTRONICALLY SIGNED BY: ROCHELLE COVARRUBIAS MD DATE: 06/22/251857 [place] [address] [address] IMAGING REPORT Signed PATIENT: YUMIKO CARLOS MR#: [id number] : 1950 SEX: F AGE: 74 LOCATION: EDHIP ORDER 35 STATUS: ADM IN REPORT#: [id number] SERVICE 33 REASON: influenza positive, morbid obesity, r/o pneumonia vs edema ORDERING PHYSICIAN: MALIK COKER MD PROCEDURE: CHEST WO - CT CHEST W/O CONTRAST EXAM: COMPUTED TOMOGRAPHY OF THE CHEST WITHOUT INTRAVENOUS CONTRAST Technique: Computed tomography of the chest was performed without intravenous contrast from the thoracic inlet through the upper abdomen with axial acquisition and coronal and sagittal reformations. Dose optimization included automated exposure control, patient size???based tube current and tube voltage modulation, and iterative reconstruction. Cardiac and vascular assessment is limited without contrast. Clinical Information: Influenza positive; morbid obesity; evaluation for pneumonia versus edema. Comparison: No prior chest computed tomography available. Findings: The chest wall and imaged lower neck soft tissues show no focal mass or acute abnormality. The trachea and main bronchi are patent without endoluminal lesion. There is no focal lobar consolidation identified. There are no suspicious pulmonary nodules identified. There are minimal bilateral pleural effusions. There is dependent basilar atelectasis adjacent to the effusions. There is no pneumothorax detected. The cardiac silhouette is mildly enlarged. There is no pericardial effusion identified. There are mild calcifications of the thoracic aorta. There are mild calcifications of the coronary arteries. There is calcification along the mitral annulus. There is no mediastinal or hilar lymphadenopathy by size criteria. The visualized upper abdomen shows no acute abnormality. The visualized osseous structures show mild degenerative changes of the thoracic spine without acute fracture. Impression: * Minimal bilateral pleural effusions with adjacent dependent basilar atelectasis; no focal lobar consolidation to suggest bacterial pneumonia on this noncontrast computed tomography. * Mild cardiomegaly. Interlobular septal prominence. Pulmonary venous congestion likely * Atherosclerotic calcifications of the thoracic aorta and coronary arteries, and mitral annular calcification. /[place] DICTATED BY: ROCHELLE COVARRUBIAS MD DATE: 06/22/252105 ELECTRONICALLY SIGNED BY: ROCHELLE COVARRUBIAS MD DATE: 06/22/252105 [facility] [address] [place] [address] IMAGING REPORT Signed PATIENT: YUMIKO CARLOS MR#: [id number] : 1950 SEX: F AGE: 74 LOCATION: 2BH ORDER 44 STATUS: ADM IN REPORT#: [id number] SERVICE 42 REASON: persistent nausea x 1 week, hyponatremia, bloating, morbid obesity ORDERING PHYSICIAN: MALIK COKER MD PROCEDURE: ABD PEL WO - CT ABDOMEN/PELVIS W/O CONTRAST EXAM: CT Abdomen and Pelvis without Intravenous Contrast CLINICAL HISTORY: Persistent nausea for one week, hyponatremia, abdominal bloating, and morbid obesity. TECHNIQUE: Axial helical CT scan of the abdomen and pelvis was performed without intravenous contrast. Multiplanar reformatted images were obtained in coronal and sagittal planes. Radiation dose optimization techniques utilized (CTDIvol: 26.9 mGy; DLP: 1698.6 mGy???cm). CONTRAST: Without COMPARISON: No prior CT available for comparison. FINDINGS: LUNG BASES: Visualized bilateral lung bases show mild pleural-based thickening and subpleural scarring, likely representing chronic post-inflammatory or fibrotic change. No active consolidation or pleural effusion. Cardiomegaly with calcific atherosclerosis involving coronary arteries, notably along the LAD and RCA courses. LIVER: Liver normal in size and contour with homogeneous attenuation; no focal hepatic lesions or biliary dilatation. GALLBLADDER AND BILE DUCTS: Gallbladder contains a large calcified calculus (3.5 x 2.5 cm) with normal wall thickness and no pericholecystic fluid or surrounding inflammatory change. Common bile duct of normal caliber. PANCREAS: Pancreas appears normal with preserved morphology and attenuation. No focal lesion or peripancreatic fat stranding. SPLEEN: Spleen appears normal with preserved morphology and attenuation. ADRENAL GLANDS: Adrenal glands appear normal with preserved morphology and attenuation. KIDNEYS, URETERS, AND BLADDER: Right mid-pole cortical scarring with coarse calcification consistent with prior inflammatory or ischemic insult. Mild bilateral perinephric fat stranding, nonspecific???may reflect chronic venous congestion or low-grade inflammation. No hydronephrosis, renal calculus, or hydroureter. Urinary bladder well distended, normal wall thickness, no intraluminal calculi. STOMACH AND BOWEL: Stomach and small bowel loops are mildly distended but nondilated; normal wall thickness. Colonic diverticulosis involving sigmoid and descending colon without pericolic stranding???uncomplicated diverticulosis. APPENDIX: Appendix visualized, normal in caliber with no periappendiceal inflammation???no CT evidence of appendicitis. PERITONEUM: Minimal localized internal fluid collection noted in the lower abdomen, measuring small in volume and without gas locules???nonspecific, could represent mild sterile or resolving inflammatory collection. Calcified intraperitoneal lymph node (2.3 x 1.6 cm) in right anterior lower abdomen???likely chronic, healed granulomatous origin. No ascites or pneumoperitoneum. LYMPH NODES: Calcified intraperitoneal lymph node (2.3 x 1.6 cm) in right anterior lower abdomen???likely chronic, healed granulomatous origin. No other significant lymphadenopathy. REPRODUCTIVE: Uterus surgically absent. Adnexal regions and pelvic soft tissues appear unremarkable. VASCULATURE: No aortic aneurysm. ABDOMINAL WALL AND SOFT TISSUES: Anterior abdominal wall oedema, most prominent in the lumbar region extending into bilateral iliac fossae. BONES: Age-appropriate thoracolumbar spondylosis with anterior osteophytes and facet arthropathy. No acute fracture or lytic/sclerotic lesions. IMPRESSION: 1. No acute intraabdominal or pelvic findings. 2. Mild gastric and small bowel distension without obstruction. 3. Minimal localized internal fluid collection in the lower abdomen, nonspecific. 4. Large gallbladder calculus (3.5 ??? 2.5 cm) without acute cholecystitis. 5. Right mid-pole renal cortical scarring with coarse calcification. 6. Uncomplicated colonic diverticulosis. 7. Age-appropriate thoracolumbar spondylosis with anterior osteophytes and facet arthropathy. 8. Several stable chronic and incidental findings are noted, as detailed in the body of the report, including mild pleural/subpleural scarring at the lung bases, cardiomegaly with coronary artery atherosclerosis, mild bilateral perinephric fat stranding, calcified intraperitoneal lymph node likely granulomatous in origin, anterior abdominal wall edema, and postsurgical absence of the uterus. /[place] DICTATED BY: KRYSTLE VEGA MD DATE: 06/22/252231 ELECTRONICALLY SIGNED BY: KRYSTLE VEGA MD DATE: 06/22/252231 [place] [address] [address] IMAGING REPORT Signed PATIENT: YUMIKO CARLOS MR#: [id number] : 1950 SEX: F AGE: 74 LOCATION: 2B ORDER 35 [facility]US: [facility] REPORT#: [id number] SERVICE 7 REASON: hx of a fib, r/o cardiomyopathy ORDERING PHYSICIAN: MALIK COKER MD PROCEDURE: ECHO CMP - ECHO 2-D COMPLETE APPROVED REPORT EXAM: Two-dimensional and M-mode echocardiogram with Doppler and color Doppler. Study Details: Hx: A-Fib INDICATION ICD: Rule out cardiomyopathy 2D Dimensions RVDd 4.3 cm LVEF(%) 77.4 (>50%) LVED Vol(simp.) 40.0 mL IVSd 1.2 (0.7-1.1cm) FS(%) 45 % LVES Vol(simp.) 15.0 mL LVDd 3.6 (3.8-5.6cm) LA (2D) 4.5 (1.6-4.0cm) LVEF(%, simp.) 62 % PWd 1.3 (0.7-1.1cm) Ao Root(2D) 2.6 (2.0-3.7cm) LA ESV INDEX (4CH) 32.22 mL/m2 IVSs 1.4 cm LVOT diam 1.5 (1.8-2.4cm) LVDs 2.0 (2.5-4.0cm) PWs 1.7 cm M-Mode Dimensions EPSS 0.4 cm LA (MM) 4.0 (1.6-4.0cm) Ao Root(MM) 2.4 (2.0-3.7cm) Aortic Valve AoV Vmax 1.4 m/s Ao Peak GR 7.3 mmHg LVOT Vmax 1.0 m/s AoV VTI 0.3 m Ao Mean GR 3.7 mmHg LVOT VTI 0.21 m DALLAS (VMAX) 1.30 cm2 D[place] (VTI) 1.4 cm2 Mitral Valve MV E Vmax 134.1 cm/s DECEL Time 192 ms MV A Vmax 43.6 cm/s P 1/2 T 44 ms E/A ratio 3.1 MVA (PHT) 5.0 cm2 TDI E/E' Medial 28.1 E/E' Lateral 37.6 Medial E' Peak V 4.78 cm/s Lateral E' Peak V 3.57 cm/s Pulmonary Valve PV Vmax 0.8 m/s PV VTI 0.16 m PV Mean GR 1.1 mmHg PV Peak GR 2.5 mmHg PI End Gladis. Alexandr 64.3 cm/s Tricuspid Valve TR Vmax 2.8 m/s RAP (EST) 3 mmHg RVSP 36.8 mmHg TR Peak GR 33.8 mmHg Left Ventricle Left ventricular cavity size is normal. There is normal LV segmental wall motion. There is mild left ventricular wall thickness. The LVEF is > 65%. Stage III diastolic dysfunction. Right Ventricle The right ventricle is normal size. The right ventricular systolic function is normal. Atria The left atrium is mildly dilated. The right atrium is mildly dilated by visual assessment. Aortic Valve The aortic valve is normal in structure. No aortic regurgitation is present. There is no aortic valvular stenosis. Mitral Valve The mitral valve is normal in structure and function. There is trace mitral valve regurgitation noted. There is no mitral valve stenosis. Tricuspid Valve The tricuspid valve is normal in structure. There is trace of tricuspid valve regurgitation noted. Pulmonic Valve Pulmonic valve is not well visualized. There is trace of pulmonic valvular regurgitation. Great Vessels The aortic root is normal in size. The IVC is normal in size and collapses >50% with inspiration. Pericardium There is no pericardial effusion. Other Information Quality : Technically difficult study due to body habitus Conclusion Left ventricular cavity size is normal. The LVEF is > 65% with normal LV segmental wall motion. There is mild left ventricular wall thickness. Stage III diastolic dysfunction. The right ventricular systolic function is normal. The left atrium is mildly dilated. No hemodynamically signifcant valvular abnormalities. There is no pericardial effusion. DICTATED BY: ROCHELLE BARRY MD DATE: 06/23/25 [id number] ELECTRONICALLY SIGNED BY: ROCHELLE BARRY MD DATE: 06/23/25 6635 Assessment/Plan: ASSESSMENT: Severe hyponatremia, POA Hypertensive urgency, POA History of HCTZ use as outpatient, POA Active influenza bronchitis, POA Super morbid obesity (BMI 62), POA Underlying history of atrial fibrillation, POA History of chronic anticoagulation with Eliquis, POA Hypomagnesemia, POA Debility, POA Chronic hypercapnic respiratory failure, POA Untreated ohs/LINDA, POA History of hypertension, POA Hyperlipidemia, POA Type 2 diabetes mellitus, POA Urinary tract infection, POA PLAN: Severe hyponatremia, POA -patient's sodium level at presentation was 114. -patient's sodium level has been improved to 129 this morning. -continue sodium chloride 1 g twice daily -correction of sodium of 6-8 mEq per24 hours -hydrochlorothiazide was stopped and patient was put on fluid restriction of 1 L daily. -stopped IV fluids, losartan as per Nephrology recommendations. -we will trend BMP 6 hourly -nephrology on board, we will follow up with the recommendations. Hypertensive urgency, POA -on presentation patient's blood pressure was 187/78 -patient received 1 dose of hydralazine 10 mg in ED -hydrochlorothiazide was discontinued due to severe hyponatremia -hydralazine 10 mg IV p.r.n. if systolic blood pressure greater than 170 mmHg. Active influenza bronchitis, POA -on presentation to ED patient tested positive for influenza type B antigen -patient was started on Tamiflu 75 mg b.i.d. PO (day 5) -doxycycline 100 mg b.i.d. PO (day 5) , Rocephin 1 g IV q.12h (day 5) to prevent secondary bacterial infection. -budesonide 0.5 mg b.i.d. resp IH, ipratropium bromide 0.5 mg Q 6 resp IH Urinary tract infection, POA -patient's urine positive for leukocyte esterase, WBC. -urine culture showed no growth after 18-24 hours. -final culture reports showed no growth after 48 hours Underlying history of atrial fibrillation, POA -patient is known case of atrial fibrillation, on Eliquis 5 mg daily at home -EKG on presentation showed atrial fibrillation -patient was started on Eliquis 5 mg b.i.d. PO Super morbid obesity (BMI 62), POA -patients BMI was 62 on presentation to ED -patient is requiring BiPAP during night her maintaining saturations probably due to obstructive sleep apnea -we will recommend sleep study Patient receiving thiamine supplementation Patient remains high-risk due to severe obesity and chronic hypercapnic res piratory failure with metabolic compensation We will request consultation with Physical therapy in the morning We will avoid any narcotics/sedatives to reduce risk of any worsening acute on chronic hypercapnia Patient will benefit from BiPAP/CPAP therapy at bedtime All labs will be repeated in the morning Discharge Instructions: The patient was treated for acute respiratory failure secondary to influenza and severe hyponatremia. Continue incentive spirometry and monitor for any recurrence of shortness of breath or fever. STOP and avoid any hydrochlorothiazide or any thiazide diuretics, as they contributed to hyponatremia. Monitor daily weight and report any sinificant weight gain. Use BiPAP at night for the breathing support. Call 911 or visit the nearest emergency department if you experience any chest pain, shortness of breath or any symptoms that requires urgent evaluation Follow up with PCP within 1 week of the discharge from the care home. Follow up with Dr. Dunne for the underlying LINDA and schedulling a sleep study. Home Medications: Reported Medications Soluble [place] Fiber/Inulin (Metamucil 1.7 gm Fiber Gummies) 1.7 Gram Tab.chew, 1.7 GM PO DAILY, TAB.CHEW 06/22/25 Atorvastatin Calcium (LIPITOR) 10 Mg Tab, 10 MG PO HS, TAB 06/22/25 Apixaban (Eliquis) 5 Mg Tablet, 5 MG PO BID, TAB 06/22/25 Hydrochlorothiazide (Hydrochlorothiazide) 25 Mg Tablet, 25 MG PO DAILY, TAB 06/22/25 Losartan Potassium (Losartan Potassium) 100 Mg Tablet, 100 MG PO DAILY, TAB 06/22/25 Carvedilol (Carvedilol) 25 Mg Tablet, 25 MG PO BID, TAB 06/22/25 [place]-3 Fatty Acids/Fish Oil ([place] 3 1,000 mg Softgel) 1 Each Capsule, 1 EACH PO DAILY, CAP 09/08/17 Docusate Sodium (Stool Softener) 100 Mg Capsule, 100 MG PO BID, CAP 09/08/17 Discontinued Reported Medications Glimepiride (Glimepiride) 4 Mg Tablet, 4 MG PO BIDAC, TAB 05/04/18 Clonidine HCl (Clonidine HCl) 0.2 Mg Tablet, 0.2 MG PO [id number] PRN for IF SBP GREATER THAN 150, TAB 05/04/18 Cholecalciferol (Vitamin D3) (D3-2000) 2,000 Unit Capsule, 2000 UNIT PO DAILY, CAP 09/08/17 Vitamin E Acetate (Vitamin E) 400 Unit Capsule, 400 UNIT PO DAILY, CAP 09/08/17 Metoprolol Tartrate (Metoprolol Tartrate) 100 Mg Tablet, 100 MG PO BID, TAB 09/08/17 Metformin HCl (Metformin HCl) 500 Mg Tablet, 1000 MG PO BID, TAB 09/08/17 Discontinued Scripts Hydralazine HCl (Apresoline) 25 Mg Tab, 50 MG PO TID for 30 Days, TAB Prov:GAL ALVAREZ [facility] 05/05/18 Amlodipine Besylate/Benazepril (Lotrel 10-20 mg Capsule) 1 Each Capsule, 1 EACH PO DAILY, #30 CAP Prov:GAL ALVAREZ [facility] 05/05/18 New Medications: Furosemide (Furosemide) 20 Mg Tablet 1 TAB PO DAILY for 14 Days, #14 TAB 0 Refills Continued Medications: Apixaban (Eliquis) 5 Mg Tablet 5 MG PO BID, TAB Atorvastatin Calcium (Lipitor) 10 Mg Tab 10 MG PO HS, TAB Carvedilol (Carvedilol) 25 Mg Tablet 25 MG PO BID, TAB Docusate Sodium (Stool Softener) 100 Mg Capsule 100 MG PO BID, CAP Losartan Potassium (Losartan Potassium) 100 Mg Tablet 100 MG PO DAILY, TAB [place]-3 Fatty Acids/Fish Oil ([place] 3 1,000 mg Softgel) 1 Each Capsule 1 EACH PO DAILY, CAP Soluble [place] Fiber/Inulin (Metamucil 1.7 gm Fiber Gummies) 1.7 Gram Tab.chew 1.7 GM PO DAILY, TAB.CHEW Discontinued Medications: Hydrochlorothiazide (Hydrochlorothiazide) 25 Mg Tablet 25 MG PO DAILY, TAB Time spent arranging discharge: 1-30 minutes ATTESTATION BY PHYSICIAN I have seen and examined the patient. I reviewed the documentation, medical decision making, and treatment plan as noted by the resident physician above. I agree with the findings and plan of care. JANES CM MD, ADIL SHAH QUADRI MD Jun 27, 2025 17:14 FRANK DEL CID MD Jun 28, 2025 14:39
--- NOTE | 2025-06-27 19:27 | NUR ---
cm note EMS set up for pt, for transfer to [facility], updated primary nurse
--- NOTE | 2025-06-27 21:40 | PN ---
Endocrinology progress note DOS:06/27/25 subjective: BMP remarkable for sodium of 114, potassium 4.2, chloride of 76, creatinine of 0.4, magnesium 1.3, BNP of 146. sodium improving to 126 Chest x-ray showed no acute infiltrates. am cortisol 16.9, tsh 1.91 patient sodium was low at 114 that is improving to 124-->136 now. nephrology is following and hyponatremia likely caused by HCTZ. reports that she gained more than 30 lbs weight but otherwise denies any other signs/symptoms of traci syndrome. denies steroid intake. Hba1c 6.1% REVIEW OF SYSTEMS: CONSTITUTIONAL: generalized malaise, weight gain, obesity NEUROLOGICAL: Denies headache, amaurosis fugax, motor weakness, sensory deficit, vertigo/spinning sensation, gait abnormalities, or tremors. ENT: No hearing loss, otalgia, otorrhea, rhinitis, rhinorrhea, hoarseness, or sore throat. CARDIOVASCULAR: denies any chest pain, denies palpitations PULMONARY: cough, congestion , rhinorrhea SLEEP: Denies morning headaches, daytime somnolence or napping. Denies difficulty falling asleep, staying asleep, waking from sleep. Denies knowledge of snoring. GASTROINTESTINAL: Denies any type of dysphagia to either liquids or solids. Denies nausea, vomiting, pyrosis, early satiety, abdominal pain, diarrhea, constipation, or changes in stool consistency or caliber. Denies coffee-ground emesis, hematemesis, hematochezia, or melanotic stools. GENITOURINARY: Denies frequency, urgency, nocturia, hematuria or incontinence (Storage/Irritative symptoms.) Low urinary stream, straining to void, urinary intermittency or hesitancy, splitting of the voiding stream, terminal dribbling. ENDOCRINOLOGIC: Denies polyuria, polydipsia, polyphagia or heat/cold intolerances. HEMATOLOGIC: Denies thrombophilia/previous clots, or coagulopathy/bleeding disorders. ONCOLOGIC: Denies personal history of malignancy. DERMATOLOGIC: Denies rashes or pruritus. PSYCHIATRIC: Denies any suicidal or homicidal ideation. Denies hallucinations. ADDITIONAL PAST MEDICAL HISTORY: [Diabetes mellitus type 2, severe morbid obesity, hypertension, A-fib on chronic anticoagulation with Eliquis 5 mg twice daily, untreated LINDA/OHS] SOCIAL HISTORY: [Negative for smoking, alcohol use, drug use. Patient requires assistance with IADLs. 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 CLINICAL HISTORY: sob COMPARISON: May 22 2023 FINDINGS: LUNGS: There is no mass, infiltrate, or acute pulmonary abnormality. PLEURAL SPACES: No evidence of pleural effusion or pneumothorax. MEDIASTINUM: There is cardiomegaly BONES: No aggressive appearing osseous lesion seen. IMPRESSION: No acute cardiopulmonary pathology is evident. /[place] DICTATED BY: SWATHI HAM MD DATE: 06/22/251541 ELECTRONICALLY SIGNED BY: SWATHI HAM MD DATE: 06/22/251541 ASSESSMENT: Severe hyponatremia, POA am cortisol 16.9, tsh 1.91 patient sodium was low at 114 that is improving to 124-->126-->136 now. nephrology is following and hyponatremia likely caused by HCTZ. reports that she gained more than 30 lbs weight but otherwise denies any other signs/symptoms of traci syndrome. denies steroid intake. Hypertensive urgency, POA History of HCTZ use as outpatient, POA Active influenza bronchitis, POA Super morbid obesity (BMI 62), POA Type 2 diabetes mellitus, POA Hba1c 6.1% controlled with diet Underlying history of atrial fibrillation, POA History of chronic anticoagulation with Eliquis, POA Hypomagnesemia, POA Debility, POA Chronic hypercapnic respiratory failure, POA Untreated ohs/LINDA, POA History of hypertension, POA Hyperlipidemia, POA PLAN: Patient wants traci work up as outpatient and will do detail traci labs as outpatient. off HCTZ monitor sodium. Monitor glucose q x 12 hourly. Continue carb consistent diet. Vitals/Labs Vital Signs Date Time Temp Pulse Resp B/P (MAP) Pulse Ox O2 Delivery O2 Flow Rate FiO2 06/27/25 20:23 154/73 06/27/25 20:00 98.1 86 18 90 Nasal Cannula 2.0 06/27/25 18:58 28 Laboratory Tests 06/27/25 04:08 Medications Current Medications Sodium Chloride 500 ml @ 125 mls/hr Q4H ONCE IV Last administered on 06/22/25at 14:59; Start 06/22/25 at 15:00; Stop 06/22/25 at 15:23; Status DC Albuterol 2 udvial ONCE ONCE IH Last administered on 06/22/25at 15:59; Start 06/22/25 at 15:30; Stop 06/22/25 at 15:31; Status DC Oseltamivir Phosphate 75 mg ONCE ONCE PO Last administered on 06/22/25at 16:04; Start 06/22/25 at 15:30; Stop 06/22/25 at 15:31; Status DC Sodium Chloride 1,000 ml @ 75 mls/hr [id number] IV Last administered on 06/23/25at 04:42; Start 06/22/25 at 15:30; Stop 06/23/25 at 13:34; Status DC Ipratropium Cardale 0.5 mg [id number] IH Last administered on 06/27/25at 18:58; Start 06/22/25 at 18:00; Stop 07/22/25 at 17:59 Budesonide 0.5 mg BIDRESP IH Last administered on 06/27/25at 18:58; Start 06/22/25 at 18:00; Stop 07/22/25 at 17:59 Ceftriaxone Sodium 1 gm Q12H IVPB Last administered on 06/27/25at 18:08; Start 06/22/25 at 15:30; Stop 07/02/25 at 15:29 Doxycycline Hyclate 100 mg BID PO Last administered on 06/27/25at 20:22; Start 06/22/25 at 21:00; Stop 07/02/25 at 20:59 Thiamine HCl 100 mg DAILY IVP Last administered on 06/27/25at 09:16; Start 06/23/25 at 09:00; Stop 07/23/25 at 08:59 Hydralazine HCl 10 mg Q6H PRN IV Last administered on 06/22/25at 16:05; Start 06/22/25 at 15:30; Stop 07/22/25 at 15:29 Magnesium Sulfate 50 ml @ 0 mls/hr PROTOCOL IV Last administered on 06/27/25at 06:14; Start 06/22/25 at 15:30; Stop 07/22/25 at 15:29 Potassium Chloride 100 ml @ 100 mls/hr AD PRN IV; Start 06/22/25 at 15:30; Stop 07/22/25 at 15:29 Potassium Chloride 20 meq AD PRN PO; Start 06/22/25 at 15:30; Stop 07/22/25 at 15:29 Potassium Chloride 20 meq AD PRN PO; Start 06/22/25 at 15:30; Stop 07/22/25 at 15:29 Oseltamivir Phosphate 75 mg BID PO Last administered on 06/27/25at 09:16; Start 06/22/25 at 21:00; Stop 06/27/25 at 20:59; Status DC Acetaminophen 650 mg Q6H PRN PO; Start 06/22/25 at 15:30; Stop 07/22/25 at 15:29 Ondansetron HCl 4 mg Q6H PRN IVP; Start 06/22/25 at 15:30; Stop 07/22/25 at 15:29 Losartan Potassium 100 mg DAILY PO Last administered on 06/23/25at 10:19; Start 06/23/25 at 09:00; Stop 06/23/25 at 13:35; Status DC Insulin Human Regular INSULIN SLIDING SCAL... ACHS SQ Last administered on 06/25/25at 13:05; Start 06/22/25 at 16:30; Stop 07/22/25 at 16:29 Carvedilol 25 mg BID PO Last administered on 06/22/25at 21:18; Start 06/22/25 at 21:00; Stop 06/23/25 at 13:35; Status DC Atorvastatin Calcium 10 mg HS PO Last administered on 06/27/25at 20:22; Start 06/22/25 at 21:00; Stop 07/22/25 at 20:59 Docusate Sodium 100 mg BID PO Last administered on 06/27/25at 20:22; Start 06/22/25 at 21:00; Stop 07/22/25 at 20:59 Fish Oil 1,000 mg DAILY PO Last administered on 06/27/25at 09:16; Start 06/23/25 at 09:00; Stop 07/23/25 at 08:59 Home Med Soluble [place] Fiber/ Inu... DAILY PO; Start 06/23/25 at 09:00; Stop 07/23/25 at 08:59 Apixaban 5 mg BID PO Last administered on 06/27/25at 20:22; Start 06/23/25 at 09:00; Stop 07/23/25 at 08:59 Acetaminophen/ Hydrocodone Bitart 1 tab Q6H PRN PO; Start 06/23/25 at 11:30; Stop 06/23/25 at 11:13; Status DC Famotidine 20 mg BID PO Last administered on 06/27/25at 20:22; Start 06/23/25 at 21:00; Stop 07/23/25 at 20:59 Sodium Chloride 2,000 mg Q8H6 PO Last administered on 06/24/25at 05:58; Start 06/23/25 at 14:00; Stop 06/24/25 at 12:37; Status DC Artificial Tears 1 DROP DAILY20 ONCE OU; Start 06/24/25 at 20:00; Stop 06/24/25 at 20:01; Status DC Sodium Chloride 1,000 mg BID PO Last administered on 06/26/25at 09:33; Start 06/24/25 at 21:00; Stop 06/26/25 at 14:22; Status DC Mupirocin 1 APPL BID TP Last administered on 06/27/25at 20:25; Start 06/24/25 at 21:00; Stop 07/24/25 at 20:59 Lactulose 20 gm ONCE ONCE PO Last administered on 06/26/25at 13:33; Start 06/26/25 at 11:00; Stop 06/26/25 at 11:01; Status DC Lactulose 20 gm BID PRN PO Last administered on 06/27/25at 13:35; Start 06/26/25 at 14:00; Stop 07/26/25 at 13:59 Carvedilol 25 mg BID PO; Start 06/26/25 at 21:00; Stop 06/26/25 at 13:34; Status DC Losartan Potassium 100 mg DAILY PO Last administered on 06/27/25at 09:16; Start 06/27/25 at 09:00; Stop 07/27/25 at 08:59 Carvedilol 25 mg BID PO Last administered on 06/27/25at 20:23; Start 06/26/25 at 14:00; Stop 07/26/25 at 13:59 Nystatin abdominal folds BID TP Last administered on 06/27/25at 20:25; Start 06/26/25 at 21:00; Stop 07/26/25 at 20:59 JASSON TRUJILLO MD Jun 27, 2025 21:40
--- NOTE | 2025-06-27 23:15 | PN ---
[facility] PROGRESS NOTE Date Patient Seen: Jun 27, 2025 Time of Visit: 23:15 Supervising Physician: Dr. Devine Consulting Physician: Hospitalist Outpatient Specialists: [ ] Inpatient Consults: [ ] PROBLEM LIST: Acute hypoxic respiratory failure, Positive for influenza, Hyponatremia Super Super Obesity Obesity hypoventilation syndrome, Obstructive Sleep Apnea - Suspected Paroxysmal atrial fibrillation on chronic anticoagulation therapy Hyperlipidemia Hypertension urgency on admission INTERVAL HISTORY: Patient seen and evaluated at bedside Reviewed and discussed laboratory results, vital signs, and diagnostic tests. Patient denies chest pain, fever, chills, nauseousness and diarrhea Hyponatremia continues to improve. We will obtain 6 minute walk test before discharge Patient will need follow up with Dr. Dunne for LINDA after discharge REVIEW OF SYSTEMS: 12 point ROS reviewed with patient. Pertinent positives mentioned above. Otherwise negative. PHYSICAL EXAM: GENERAL: alert, weak, awake oriented x 3 HEENT: EOMI, Sclera non icteric, moist mucosa NECK: Supple, no JVD, trachea midline LUNGS: Fine crackles bilaterally, no wheezing HEART: Regular rate and rhythm. Normal S1 and S2, without murmurs ABD: Large body habitus EXT: No clubbing cyanosis or edema NEURO: Alert and oriented to person, follows commands Vital Signs (last 8hr) Date Time Temp Pulse Resp B/P (MAP) Pulse Ox O2 Delivery O2 Flow Rate FiO2 06/27/25 20:23 154/73 06/27/25 20:00 98.1 86 18 154/73 90 Nasal Cannula 2.0 06/27/25 18:59 79 18 06/27/25 18:58 79 18 N/Cannula Low lpm 2.0 28 06/27/25 16:00 97.5 77 19 167/75 91 Room Air LABS: Hematology Labs: Test 06/27/25 04:08 06/26/25 05:12 Range/Units White Blood Count 6.4 # 4.8-10.8 K/uL Red Blood Count 4.15 4.00-5.50 MIL/uL Hemoglobin 13.1 12.0-16.0 g/dL Hematocrit 37.7 36-48 % Mean Corpuscular Volume 90.8 79-99 fL Mean Corpuscular Hemoglobin 31.6 27.0-33.0 pg Mean Corpuscular Hemoglobin Concent 34.7 32.0-36.0 g/dL Red Cell Distribution Width 12.3 11.0-15.5 % Platelet Count 125 L 130-400 K/uL Mean Platelet Volume 10.7 H 7.5-10.5 fL Nucleated Red Blood Cells 0.0 0.0-0.19 % Immature Granulocyte % (Auto) 0.8 0-1 % Neutrophils (%) (Auto) 76.6 40.0-77.0 % Lymphocytes (%) (Auto) 11.2 L 21.0-51.0 % Monocytes (%) (Auto) 9.7 3.0-13.0 % Eosinophils (%) (Auto) 1.4 0.0-8.0 % Basophils (%) (Auto) 0.3 0.0-5.0 % Neutrophils # (Auto) 6.7 1.8-7.7 K/uL Lymphocytes # (Auto) 1.0 1.0-4.8 K/uL Monocytes # (Auto) 0.9 0.1-1.0 K/uL Eosinophils # (Auto) 0.12 0.00-0.70 K/uL Basophils # (Auto) 0.03 0.00-0.20 K/uL Absolute Immature Granulocyte (auto 0.07 0-1 K/uL Chemistry Labs: Test 06/27/25 19:57 06/27/25 04:08 Range/Units Whole Blood Glucose 125 H 70-110 MG/DL Sodium Level 136 136-145 mmol/L Potassium Level 4.2 3.5-5.1 mmol/L Chloride Level 93 L 101-111 mmol/L Carbon Dioxide Level 37 H 21-32 mmol/L Blood Urea Nitrogen 15 7-18 mg/dL Creatinine 0.4 L 0.5-1.0 mg/dL Glomerular Filtration Rate Calc 103 >90 mL/min Random Glucose 118 H 70-105 mg/dL Total Calcium 7.9 L 8.5-10.1 mg/dL Magnesium Level 1.70 L 1.80-2.40 mg/dL Total Bilirubin 0.7 # 0.2-1.0 mg/dL Aspartate Amino Transf (AST/SGOT) 22 10-37 U/L Alanine Aminotransferase (ALT/SGPT) 23 12-78 U/L Alkaline Phosphatase 74 50-136 U/L Total Protein 5.6 L 6.0-8.3 g/dL Albumin 2.5 L 3.5-5.0 g/dL DIAGNOSTICS / RADIOLOGY RESULTS: [ ] PLAN Airborne isolation Complete Tamiflu, 5 days therapy continue broad spectrum antibiotics continue sodium tablets repeat CMP in the morning NEURO: Minimize central acting medications as possible. Maintain fall precautions, adequate lighting during the day PULMONARY: Supplemental 02 as needed. Maintain aspiration precautions at all times CARDIOVASCULAR: Follow hemodynamics. Vital signs per facility protocol GI & NUTRITION: Continue with nutritional support. Continue stool softeners and laxatives as needed. KIDNEYS & ELECTROLYTES: Strict monitoring of intake, output and overall fluid balance. Avoid nephrotoxic medications to the extent possible. Medications to be dosed according to renal function. Monitor electrolytes and replace as needed ENDOCRINE: Maintain blood glucose between 100-180 at all times. Hypoglycemia protocol in place INFECTIOUS DISEASE: Trend temperature, WBC and procalcitonin level Follow cultures, deescalate antibiotics as soon as possible. Panculture if new onset fever ONCOLOGY/HEMATOLOGY/COAGULATION: Monitor for s/s of bleeding Monitor hemoglobin, coagulation studies as needed SKIN: Pressure ulcer prevention per facility protocol Specialty mattress ORTHO/REHAB: Continue PT/OT Prophylaxis: Continue GI and DVT prophylaxis Code Status: Full Resuscitation Disposition: TERESA MORALES AGACNP Jun 27, 2025 23:15
[2025-06-28] VITALS (14 sets, daily range): BP systolic 113–164; BP diastolic 51–86; PULSE 65–87; RESP 17–24; TEMP 97.6–99.1; O2SAT 95–99
--- NOTE | 2025-06-28 00:54 | HMCIMG ---
EXAM: CR Chest, 1 view. CLINICAL HISTORY: Cough. COMPARISON: None provided. FINDINGS: Basal regions of both lung carmona are not well visualized, likely due to breast shadow. No pleural effusion or pneumothorax. Cardiomegaly is noted. No acute osseous abnormality. IMPRESSION: Basal regions of both lung carmona are not well visualized, likely due to breast shadow. No pleural effusion or pneumothorax. Cardiomegaly is noted. /Telferner
[2025-06-28 03:51] LABS: NUCLEATED RED BLOOD CELLS 0.0 % (0.0-0.19); PLATELET COUNT (AUTO) 117.0 K/uL (130-400); RED BLOOD CELL COUNT(AUTO) 4.38 MIL/uL (4.00-5.50); RED CELL DISTRIBUTION WIDTH 12.2 % (11.0-15.5); WHITE BLOOD COUNT (AUTO) 6.8 K/uL (4.8-10.8)
[2025-06-28 04:03] LABS: CREATININE 0.4 mg/dL (0.5-1.0); GLOMERULAR FILTR. RATE CALC 103.0 mL/min (>90); GLUCOSE,RANDOM 118.0 mg/dL (70-105); SODIUM SERUM 135.0 mmol/L (136-145); UREA NITROGEN, BLOOD 21.0 mg/dL (7-18)
[2025-06-28 04:09] LABS: ASPARTATE AMINOTRANSFERASE 19.0 U/L (10-37); TOTAL PROTEIN, SERUM 5.8 g/dL (6.0-8.3)
--- NOTE | 2025-06-28 10:03 | PN ---
NEPHROLOGY PROGRESS NOTE Date/Time Patient Seen: Jun 28, 2025 SUBJECTIVE: This is a 74-year-old female with underlying history of severe morbid obesity, suspected ohs/LINDA with chronic hypercapnic respiratory failure, history of atrial fibrillation maintained on chronic anticoagulation with damari Baugh She presented to the ER secondary to fall, dizziness, poor oral intake with nausea. The patient had a fall. The patient also has very low sodium of 114 and the patient has a low magnesium. Severe hypertension has been detected. The patient is detected with influenza and being admitted with these problems to the ICU. She continues on Tamiflu and antibiotics We are consulted for hyponatremia Sodium today was 135 mmol/L, sodium tablets were discontinued Hydrochlorothiazide has been discontinued Renal function is stable Medication list was reviewed Blood pressure is under adequate control She was seen in the medical floor, in no acute distress Family at the bedside Condition is critical REVIEW OF SYSTEMS: GENERAL: Negative for any nausea, vomiting, fevers, chills, or weight loss. NEUROLOGIC: Negative for any blurry vision, blind spots, double vision, facial asymmetry, dysphagia, dysarthria, hemiparesis, hemisensory deficits, vertigo, ataxia. HEENT: Negative for any head trauma, neck trauma, neck stiffness, photophobia, phonophobia, sinusitis, rhinitis. CARDIAC: Negative for any chest pain, dyspnea on exertion, paroxysmal nocturnal dyspnea, peripheral edema. PULMONARY: Negative for any shortness of breath, wheezing, COPD, or TB exposure. GASTROINTESTINAL: Negative for any abdominal pain, nausea, vomiting, bright red blood per rectum, melena. GENITOURINARY: Negative for any dysuria, hematuria, incontinence. INTEGUMENTARY: Negative for any rashes, cuts, insect bites. RHEUMATOLOGIC: Negative for any joint pains, photosensitive rashes, history of v asculitis or kidney problems. HEMATOLOGIC: Negative for any abnormal bruising, frequent infections or bleed ing. Vital Signs (last 8hr) Date Time Temp Pulse Resp B/P (MAP) Pulse Ox O2 Delivery O2 Flow Rate FiO2 06/28/25 08:57 138/81 06/28/25 08:00 99.1 77 18 145/67 99 Nasal Cannula 1.0 06/28/25 06:50 78 18 06/28/25 06:28 78 18 06/28/25 06:28 78 18 N/Cannula Low lpm 2.0 28 06/28/25 04:00 98.1 76 20 147/78 95 Nasal Cannula 2.0 06/28/25 02:15 87 19 32 PHYSICAL EXAM: GENERAL: Alert and oriented x 3. No acute distress. Well-nourished. EYES: EOMI. Anicteric. HENT: Moist mucous membranes. No scleral icterus. No cervical lymphadenopathy. LUNGS: Clear to auscultation bilaterally. No accessory muscle use. CARDIOVASCULAR: Regular rate and rhythm. No murmur. No JVD. ABDOMEN: Soft, non-tender and non-distended. No palpable masses. EXTREMITIES: No edema. Non-tender. SKIN: No rashes or lesions. Warm. NEUROLOGIC: No focal neurological deficits. CN II-XII grossly intact, but not individually tested. PSYCHIATRIC: Cooperative. Appropriate mood and affect. Current Medications Medications (Trade) Dose Ordered Sig/Conchis Route Start Time Stop Time Status Last Admin Dose Admin Apixaban (EliquIS) 5 mg BID PO 06/23/25 09:00 07/23/25 08:59 06/27/25 09:16 5 MG Atorvastatin Calcium (LIPItor 10MG) 10 mg HS PO 06/22/25 21:00 07/22/25 20:59 06/26/25 20:42 10 MG Budesonide (Pulmicort 0.5 Mg/2ml) 0.5 mg BIDRESP IH 06/22/25 18:00 07/22/25 17:59 06/27/25 06:35 0.5 MG Carvedilol (Coreg 25MG) 25 mg BID PO 06/22/25 21:00 06/23/25 13:35 DC 06/22/25 21:18 25 MG Carvedilol (Coreg 25MG) 25 mg BID PO 06/26/25 14:00 07/26/25 13:59 06/27/25 09:16 25 MG Carvedilol (Coreg 25MG) 25 mg BID PO 06/26/25 21:00 06/26/25 13:34 DC Ceftriaxone Sodium (ROCEphine 1G INJ) 1 gm Q12H IVPB 06/22/25 15:30 07/02/25 15:29 06/27/25 03:46 1 GM Docusate Sodium (COLace 100MG CAP) 100 mg BID PO 06/22/25 21:00 11/12/25 20:59 06/27/25 09:16 100 MG Doxycycline Hyclate (Doxycycline Hyclate) 100 mg BID PO 06/22/25 21:00 07/02/25 20:59 06/27/25 09:15 100 MG Famotidine (Pepcid 20mg Tab) 20 mg BID PO 06/23/25 21:00 07/23/25 20:59 06/27/25 09:16 20 MG Fish Oil (Fish Oil 1000 Mg/Cap) 1,000 mg DAILY PO 06/23/25 09:00 07/23/25 08:59 06/27/25 09:16 1,000 MG Home Med (Home Medication) Soluble [place] Fiber/ Inu... DAILY PO 06/23/25 09:00 07/23/25 08:59 Insulin Human Regular (humuLIN R 100 UNIT/ML 3ML) INSULIN SLIDING SCAL... ACHS SQ 06/22/25 16:30 07/22/25 16:29 06/25/25 13:05 2 UNIT Ipratropium [place] (AtrovENT UD) 0.5 mg [id number] IH 06/22/25 18:00 07/22/25 17:59 06/27/25 10:58 0.5 MG Losartan Potassium (CozAAR 100MG TAB) 100 mg DAILY PO 06/23/25 09:00 06/23/25 13:35 DC 06/23/25 10:19 100 MG Losartan Potassium (CozAAR 100MG TAB) 100 mg DAILY PO 06/27/25 09:00 07/27/25 08:59 06/27/25 09:16 100 MG Magnesium Sulfate 50 ml @ 0 mls/hr PROTOCOL IV 06/22/25 15:30 07/22/25 15:29 06/27/25 06:14 20 MLS/HR Mupirocin (Bactroban Oint) 1 APPL BID TP 06/24/25 21:00 07/24/25 20:59 06/27/25 09:17 1 APPL Nystatin (NystOP 15 GM POWDER) abdominal folds BID TP 06/26/25 21:00 07/26/25 20:59 06/27/25 09:17 1 APPL Oseltamivir Phosphate (Tamiflu) 75 mg BID PO 06/22/25 21:00 06/27/25 20:59 06/27/25 09:16 75 MG Sodium Chloride 1,000 ml @ 75 mls/hr [id number] IV 06/22/25 15:30 06/23/25 13:34 DC 06/23/25 04:42 75 MLS/HR Sodium Chloride (Sodium Chloride) 1,000 mg BID PO 06/24/25 21:00 06/26/25 14:22 DC 06/26/25 09:33 1,000 MG Sodium Chloride (Sodium Chloride) 2,000 mg Q8H6 PO 06/23/25 14:00 06/24/25 12:37 DC 06/24/25 05:58 2,000 MG Thiamine HCl (Vitamin B-1) 100 mg DAILY IVP 06/23/25 09:00 07/23/25 08:59 06/27/25 09:16 100 MG LABORATORY: [ ] Hematology Labs: Test 06/28/25 03:36 Range/Units White Blood Count 6.8 4.8-10.8 K/uL Red Blood Count 4.38 4.00-5.50 MIL/uL Hemoglobin 13.8 12.0-16.0 g/dL Hematocrit 40.0 36-48 % Mean Corpuscular Volume 91.3 79-99 fL Mean Corpuscular Hemoglobin 31.5 27.0-33.0 pg Mean Corpuscular Hemoglobin Concent 34.5 32.0-36.0 g/dL Red Cell Distribution Width 12.2 11.0-15.5 % Platelet Count 117 L 130-400 K/uL Mean Platelet Volume 10.3 7.5-10.5 fL Nucleated Red Blood Cells 0.0 0.0-0.19 % Chemistry Labs: Test 06/28/25 05:17 06/28/25 03:36 Range/Units Whole Blood Glucose 129 H 70-110 MG/DL Sodium Level 135 L 136-145 mmol/L Potassium Level 4.4 3.5-5.1 mmol/L Chloride Level 96 L 101-111 mmol/L Carbon Dioxide Level 36 H 21-32 mmol/L Blood Urea Nitrogen 21 H 7-18 mg/dL Creatinine 0.4 L 0.5-1.0 mg/dL Glomerular Filtration Rate Calc 103 >90 mL/min Random Glucose 118 H 70-105 mg/dL Total Calcium 8.4 L 8.5-10.1 mg/dL Magnesium Level 2.00 1.80-2.40 mg/dL Total Bilirubin 0.7 0.2-1.0 mg/dL Aspartate Amino Transf (AST/SGOT) 19 10-37 U/L Alanine Aminotransferase (ALT/SGPT) 22 12-78 U/L Alkaline Phosphatase 84 50-136 U/L Total Protein 5.8 L 6.0-8.3 g/dL Albumin 2.6 L 3.5-5.0 g/dL DIAGNOSTICS / RADIOLOGY: [facility] [facility] [id number] [place] [address] IMAGING REPORT Signed PATIENT: YUMIKO CARLOS MR#: [id number] : 1950 SEX: F AGE: 74 LOCATION: 4CH ORDER 1511 STATUS: ADM IN REPORT#: [id number] SERVICE 07 REASON: f/up pulmonary edema ORDERING PHYSICIAN: PRATIK MORRISON MD PROCEDURE: CXR1VW - CHEST 1VW EXAM: CR Chest, 1 view. CLINICAL HISTORY: Cough. COMPARISON: None provided. FINDINGS: Basal regions of both lung carmona are not well visualized, likely due to breast shadow. No pleural effusion or pneumothorax. Cardiomegaly is noted. No acute osseous abnormality. IMPRESSION: Basal regions of both lung carmona are not well visualized, likely due to breast shadow. No pleural effusion or pneumothorax. Cardiomegaly is noted. /[facility] DICTATED BY: CORY LOPEZ Jr., MD DATE: 06/28/25152 ELECTRONICALLY SIGNED BY: CORY LOPEZ Jr., MD DATE: 06/28/25152 PATIENT: YUMIKO CARLOS MR#: [id number] : 1950 SEX: F AGE: 74 LOCATION: 2BH ORDER 1536 STATUS: ADM IN [facility] REPORT#: [id number] SERVICE 0818 REASON: hx of a fib, r/o cardiomyopathy ORDERING PHYSICIAN: MALIK VELASQUEZ MD PROCEDURE: ECHO CMP - ECHO 2-D COMPLETE APPROVED REPORT EXAM: Two-dimensional and M-mode echocardiogram with Doppler and color Doppler. Study Details: Hx: A-Fib INDICATION ICD: Rule out cardiomyopathy 2D Dimensions RVDd 4.3 cm LVEF(%) 77.4 (>50%) LVED Vol(simp.) 40.0 mL IVSd 1.2 (0.7-1.1cm) FS(%) 45 % LVES Vol(simp.) 15.0 mL LVDd 3.6 (3.8-5.6cm) LA (2D) 4.5 (1.6-4.0cm) LVEF(%, simp.) 62 % PWd 1.3 (0.7-1.1cm) Ao Root(2D) 2.6 (2.0-3.7cm) LA ESV INDEX (4CH) 32.22 mL/m2 IVSs 1.4 cm LVOT diam 1.5 (1.8-2.4cm) LVDs 2.0 (2.5-4.0cm) PWs 1.7 cm M-Mode Dimensions EPSS 0.4 cm LA (MM) 4.0 (1.6-4.0cm) Ao Root(MM) 2.4 (2.0-3.7cm) Aortic Valve AoV Vmax 1.4 m/s Ao Peak GR 7.3 mmHg LVOT Vmax 1.0 m/s AoV VTI 0.3 m Ao Mean GR 3.7 mmHg LVOT VTI 0.21 m DALLAS (VMAX) 1.30 cm2 [place] (VTI) 1.4 cm2 Mitral Valve MV E Vmax 134.1 cm/s DECEL Time 192 ms MV A Vmax 43.6 cm/s P 1/2 T 44 ms E/A ratio 3.1 MVA (PHT) 5.0 cm2 TDI E/E' Medial 28.1 E/E' Lateral 37.6 Medial E' Peak V 4.78 cm/s Lateral E' Peak V 3.57 cm/s Pulmonary Valve PV Vmax 0.8 m/s PV VTI 0.16 m PV Mean GR 1.1 mmHg PV Peak GR 2.5 mmHg PI End Gladis. Alexandr 64.3 cm/s Tricuspid Valve TR Vmax 2.8 m/s RAP (EST) 3 mmHg RVSP 36.8 mmHg TR Peak GR 33.8 mmHg Left Ventricle Left ventricular cavity size is normal. There is normal LV segmental wall motion. There is mild left ventricular wall thickness. The LVEF is > 65%. Stage III diastolic dysfunction. Right Ventricle The right ventricle is normal size. The right ventricular systolic function is normal. Atria The left atrium is mildly dilated. The right atrium is mildly dilated by visual assessment. Aortic Valve The aortic valve is normal in structure. No aortic regurgitation is present. There is no aortic valvular stenosis. Mitral Valve The mitral valve is normal in structure and function. There is trace mitral valve regurgitation noted. There is no mitral valve stenosis. Tricuspid Valve The tricuspid valve is normal in structure. There is trace of tricuspid valve regurgitation noted. Pulmonic Valve Pulmonic valve is not well visualized. There is trace of pulmonic valvular regurgitation. Great Vessels The aortic root is normal in size. The IVC is normal in size and collapses >50% with inspiration. Pericardium There is no pericardial effusion. Other Information Quality : Technically difficult study due to body habitus Conclusion Left ventricular cavity size is normal. The LVEF is > 65% with normal LV segmental wall motion. There is mild left ventricular wall thickness. Stage III diastolic dysfunction. The right ventricular systolic function is normal. The left atrium is mildly dilated. No hemodynamically signifcant valvular abnormalities. There is no pericardial effusion. DICTATED BY: ROCHELLE BARRY MD DATE: 06/23/25826 ELECTRONICALLY SIGNED BY: ROCHELLE BARRY MD DATE: 06/23/25 1309 PATIENT: YUMIKO CARLOS MR#: [id number] : 1950 SEX: F AGE: 74 LOCATION: 2BH ORDER 44 STATUS: ADM IN REPORT#: [id number] SERVICE 42 REASON: persistent nausea x 1 week, hyponatremia, bloating, morbid obesity ORDERING PHYSICIAN: MALIK VELASQUEZ MD PROCEDURE: ABD PEL WO - CT ABDOMEN/PELVIS W/O CONTRAST EXAM: CT Abdomen and Pelvis without Intravenous Contrast CLINICAL HISTORY: Persistent nausea for one week, hyponatremia, abdominal bloating, and morbid obesity. TECHNIQUE: Axial helical CT scan of the abdomen and pelvis was performed without intravenous contrast. Multiplanar reformatted images were obtained in coronal and sagittal planes. Radiation dose optimization techniques utilized (CTDIvol: 26.9 mGy; DLP: 1698.6 mGy???cm). CONTRAST: Without COMPARISON: No prior CT available for comparison. FINDINGS: LUNG BASES: Visualized bilateral lung bases show mild pleural-based thickening and subpleural scarring, likely representing chronic post-inflammatory or fibrotic change. No active consolidation or pleural effusion. Cardiomegaly with calcific atherosclerosis involving coronary arteries, notably along the LAD and RCA courses. LIVER: Liver normal in size and contour with homogeneous attenuation; no focal hepatic lesions or biliary dilatation. GALLBLADDER AND BILE DUCTS: Gallbladder contains a large calcified calculus (3.5 x 2.5 cm) with normal wall thickness and no pericholecystic fluid or surrounding inflammatory change. Common bile duct of normal caliber. PANCREAS: Pancreas appears normal with preserved morphology and attenuation. No focal lesion or peripancreatic fat stranding. SPLEEN: Spleen appears normal with preserved morphology and attenuation. ADRENAL GLANDS: Adrenal glands appear normal with preserved morphology and attenuation. KIDNEYS, URETERS, AND BLADDER: Right mid-pole cortical scarring with coarse calcification consistent with prior inflammatory or ischemic insult. Mild bilateral perinephric fat stranding, nonspecific???may reflect chronic venous congestion or low-grade inflammation. No hydronephrosis, renal calculus, or hydroureter. Urinary bladder well distended, normal wall thickness, no intraluminal calculi. STOMACH AND BOWEL: Stomach and small bowel loops are mildly distended but nondilated; normal wall thickness. Colonic diverticulosis involving sigmoid and descending colon without pericolic stranding???uncomplicated diverticulosis. APPENDIX: Appendix visualized, normal in caliber with no periappendiceal inflammation???no CT evidence of appendicitis. PERITONEUM: Minimal localized internal fluid collection noted in the lower abdomen, measuring small in volume and without gas locules???nonspecific, could represent mild sterile or resolving inflammatory collection. Calcified intraperitoneal lymph node (2.3 x 1.6 cm) in right anterior lower abdomen???likely chronic, healed granulomatous origin. No ascites or pneumoperitoneum. LYMPH NODES: Calcified intraperitoneal lymph node (2.3 x 1.6 cm) in right anterior lower abdomen???likely chronic, healed granulomatous origin. No other significant lymphadenopathy. REPRODUCTIVE: Uterus surgically absent. Adnexal regions and pelvic soft tissues appear unremarkable. VASCULATURE: No aortic aneurysm. ABDOMINAL WALL AND SOFT TISSUES: Anterior abdominal wall oedema, most prominent in the lumbar region extending into bilateral iliac fossae. BONES: Age-appropriate thoracolumbar spondylosis with anterior osteophytes and facet arthropathy. No acute fracture or lytic/sclerotic lesions. IMPRESSION: 1. No acute intraabdominal or pelvic findings. 2. Mild gastric and small bowel distension without obstruction. 3. Minimal localized internal fluid collection in the lower abdomen, nonspecific. 4. Large gallbladder calculus (3.5 ??? 2.5 cm) without acute cholecystitis. 5. Right mid-pole renal cortical scarring with coarse calcification. 6. Uncomplicated colonic diverticulosis. 7. Age-appropriate thoracolumbar spondylosis with anterior osteophytes and facet arthropathy. 8. Several stable chronic and incidental findings are noted, as detailed in the body of the report, including mild pleural/subpleural scarring at the lung bases, cardiomegaly with coronary artery atherosclerosis, mild bilateral perinephric fat stranding, calcified intraperitoneal lymph node likely granulomatous in origin, anterior abdominal wall edema, and postsurgical absence of the uterus. /[facility] DICTATED BY: KRYSTLE VEGA MD DATE: 06/22/252231 ELECTRONICALLY SIGNED BY: KRYSTLE VEGA MD DATE: 06/22/252231 PATIENT: YUMIKO CARLOS MR#: [id number] : 1950 SEX: F AGE: 74 LOCATION: EDHIP ORDER 35 STATUS: ADM IN REPORT#: [id number] SERVICE 33 REASON: influenza positive, morbid obesity, r/o pneumonia vs edema ORDERING PHYSICIAN: MALIK VELASQUEZ MD PROCEDURE: CHEST WO - CT CHEST W/O CONTRAST EXAM: COMPUTED TOMOGRAPHY OF THE CHEST WITHOUT INTRAVENOUS CONTRAST Technique: Computed tomography of the chest was performed without intravenous contrast from the thoracic inlet through the upper abdomen with axial acquisition and coronal and sagittal reformations. Dose optimization included automated exposure control, patient size???based tube current and tube voltage modulation, and iterative reconstruction. Cardiac and vascular assessment is limited without contrast. Clinical Information: Influenza positive; morbid obesity; evaluation for pneumonia versus edema. Comparison: No prior chest computed tomography available. Findings: The chest wall and imaged lower neck soft tissues show no focal mass or acute abnormality. The trachea and main bronchi are patent without endoluminal lesion. There is no focal lobar consolidation identified. There are no suspicious pulmonary nodules identified. There are minimal bilateral pleural effusions. There is dependent basilar atelectasis adjacent to the effusions. There is no pneumothorax detected. The cardiac silhouette is mildly enlarged. There is no pericardial effusion identified. There are mild calcifications of the thoracic aorta. There are mild calcifications of the coronary arteries. There is calcification along the mitral annulus. There is no mediastinal or hilar lymphadenopathy by size criteria. The visualized upper abdomen shows no acute abnormality. The visualized osseous structures show mild degenerative changes of the thoracic spine without acute fracture. Impression: * Minimal bilateral pleural effusions with adjacent dependent basilar atelectasis; no focal lobar consolidation to suggest bacterial pneumonia on this noncontrast computed tomography. * Mild cardiomegaly. Interlobular septal prominence. Pulmonary venous congestion likely * Atherosclerotic calcifications of the thoracic aorta and coronary arteries, and mitral annular calcification. /[facility] DICTATED BY: ROCHELLE COVARRUBIAS MD DATE: 06/22/252105 ELECTRONICALLY SIGNED BY: ROCHELLE COVARRUBIAS MD DATE: 06/22/252105 PATIENT: YUMIKO CARLOS MR#: [id number] : 1950 SEX: F AGE: 74 LOCATION: EDHIP ORDER 33 STATUS: ADM IN REPORT#: [id number] SERVICE 31 REASON: fall, on eliquis, hyponatremia ORDERING PHYSICIAN: MALIK VELASQUEZ MD PROCEDURE: HEAD WO - CT HEAD/BRAIN W/O CONTRAST EXAM: CT Head Without IV contrast. CLINICAL HISTORY: fall, on eliquis, hyponatremia TECHNIQUE: Axial computed tomography images of the head/brain without intravenous contrast. COMPARISON: None provided. FINDINGS: BRAIN: No evidence of acute hemorrhage. No mass lesion. No CT evidence for acute territorial infarct. No midline shift or extra-axial collections. VENTRICLES: No hydrocephalus. ORBITS: The orbits are unremarkable. SINUSES AND MASTOIDS: The paranasal sinuses and mastoid air cells are clear. BONES: No fracture. SOFT TISSUES: Unremarkable. IMPRESSION: No acute intracranial abnormality. /[facility] DICTATED BY: ROCHELLE COVARRUBIAS MD DATE: 06/22/251857 ELECTRONICALLY SIGNED BY: ROCHELLE COVARRUBIAS MD DATE: 06/22/251857 PATIENT: YUMIKO CARLOS MR#: [id number] : 1950 SEX: F AGE: 74 LOCATION: EDHIP ORDER 31 STATUS: ADM IN REPORT#: [id number] SERVICE 29 REASON: s/p fall, r/o any fractures ORDERING PHYSICIAN: MALIK VELASQUEZ MD PROCEDURE: PELVIS - PELVIS 1-2VWS EXAM: CR Pelvis, 1 View. CLINICAL HISTORY: s/p fall, r/o any fractures COMPARISON: None provided. FINDINGS: BONES: Generalized osteopenia No definitive acute fracture JOINTS: Degenerative changes SOFT TISSUES: The soft tissues are unremarkable. IMPRESSION: 1. Degenerative changes 2. Generalized osteopenia 3. No definitive acute fracture /[facility] DICTATED BY: ROCHELLE COVARRUBIAS MD DATE: 06/22/251950 ELECTRONICALLY SIGNED BY: ROCHELLE COVARRUBIAS MD DATE: 06/22/251950 PATIENT: YUMIKO CARLOS MR#: [id number] : 1950 SEX: F AGE: 74 LOCATION: EDHIP ORDER 31 STATUS: ADM IN [facility] REPORT#: [id number] SERVICE 1530 REASON: s/p fall, r/o any fractures ORDERING PHYSICIAN: MALIK VELASQUEZ MD PROCEDURE: KNEE 2VBIL - KNEE 2VW BILATERAL EXAM: XR Both Knees, AP and Lateral (2) Views. CLINICAL HISTORY: Status post fall; clinical query for fracture or hardware-related complication. Known history of prior distal femur fixation. COMPARISON: No immediate prior imaging available for comparison. FINDINGS: BONES: No new acute fracture or focal osseous lesion identified in either knee. Left Knee (Post-operative Site): Internal plate fixation noted along the distal femur, consistent with prior fracture fixation. Cortical remodeling and signs of bony union seen at the prior fracture site ??? no evidence of non-union or millie-hardware lucency. One or more screw fixators appear broken at the proximal/superior end of the fixation plate, suggesting hardware fatigue or prior mechanical stress. No acute periprosthetic fracture or hardware migration seen. Right Knee: No prior fixation hardware or periarticular collection. JOINTS: No dislocation identified in either knee. Severe degenerative osteoarthritic changes seen in both knees, more pronounced in the medial tibiofemoral compartments. Marked reduction of tibiofemoral and patellofemoral joint spaces, with large periarticular osteophyte formation and subchondral sclerosis, consistent with advanced osteoarthritis. SOFT TISSUES: Mild diffuse periarticular soft tissue thickening noted, likely chronic degenerative or post-traumatic in nature. No significant joint effusion or soft tissue gas. IMPRESSION: 1. No acute fracture or dislocation in either knee. 2. Status post left distal femur fixation with plate and screws, with bony union. Broken screw(s) at the proximal aspect of the fixation plate without acute periprosthetic fracture or hardware migration. 3. Severe tricompartmental osteoarthritic changes in both knees, more pronounced in the medial tibiofemoral compartments. /[facility] DICTATED BY: KRYSTLE VEGA MD DATE: 06/22/252008 ELECTRONICALLY SIGNED BY: KRYSTLE VEGA MD DATE: 06/22/252008 PATIENT: YUMIKO CARLOS MR#: [id number] : 1950 SEX: F AGE: 74 LOCATION: 2BH ORDER 28 STATUS: ADM IN REPORT#: [id number] SERVICE 24 REASON: r/o any DVT of the lowe etxremities, swellng, fall ORDERING PHYSICIAN: MALIK VELASQUEZ MD PROCEDURE: VENOUS BINA - US VENOUS DOPPLER BILATERAL EXAM: US Duplex BILATERAL Lower Extremity Veins. CLINICAL HISTORY: Swelling after a fall with clinical concern for deep venous thrombosis of the lower extremities. TECHNIQUE: Grayscale imaging with compression maneuvers, color Doppler, and pulsed-wave spectral Doppler was performed where anatomically feasible from the common femoral veins through the femoral, popliteal, and calf veins bilaterally. Respiratory phasicity and augmentation responses were assessed when obtainable. Evaluation of the left common femoral and left popliteal veins is limited by body habitus. COMPARISON: None provided. FINDINGS: DEEP VEINS: The right common femoral vein is fully compressible without intraluminal echogenic thrombus. The right femoral vein is fully compressible with normal color Doppler filling and normal spectral Doppler phasicity. The right popliteal vein is fully compressible without thrombus. The right posterior tibial veins are compressible without thrombus. The left femoral vein is fully compressible with normal color Doppler filling and normal spectral Doppler phasicity. The left posterior tibial veins are compressible without thrombus. The left common femoral vein is not adequately visualized because of body habitus, and compressibility could not be assessed; thrombus at this nonvisualized level cannot be excluded. The left popliteal vein is not adequately visualized because of body habitus, and compressibility could not be assessed; thrombus at this nonvisualized level cannot be excluded. No abnormal focal fluid collection is identified along the imaged course of the veins. SUPERFICIAL VEINS: Superficial veins were not evaluated. SOFT TISSUES: No popliteal fossa cyst or other abnormalities. IMPRESSION: 1. No sonographic evidence of deep venous thrombosis in the visualized segments of the right lower extremity and in the visualized segments of the left femoral and left posterior tibial veins. 2. Technical limitation: the left common femoral vein and the left popliteal vein are not adequately visualized because of body habitus; thrombus at these nonvisualized levels cannot be excluded. /[facility] DICTATED BY: KRYSTLE VEGA MD DATE: 06/22/252134 ELECTRONICALLY SIGNED BY: KRYSTLE VEGA MD DATE: 06/22/252134 PATIENT: YUMIKO CARLOS MR#: [id number] : 1950 SEX: F AGE: 74 LOCATION: EDH ORDER 36 STATUS: REG ER REPORT#: [id number] SERVICE 34 REASON: sob ORDERING PHYSICIAN: SATISH WEEMS MD PROCEDURE: CXR1VW - CHEST 1VW EXAM: CR Chest, 1 View. CLINICAL HISTORY: sob COMPARISON: May 22 2023 FINDINGS: LUNGS: There is no mass, infiltrate, or acute pulmonary abnormality. PLEURAL SPACES: No evidence of pleural effusion or pneumothorax. MEDIASTINUM: There is cardiomegaly BONES: No aggressive appearing osseous lesion seen. IMPRESSION: No acute cardiopulmonary pathology is evident. /[facility] DICTATED BY: SWATHI HAM MD DATE: 06/22/251541 ELECTRONICALLY SIGNED BY: SWATHI HAM MD DATE: 06/22/251541 ASSESSMENT: Severe hyponatremia, due to hydrochlorothiazide Acute hypoxic respiratory failure Positive for influenza Ground level fall Obesity hypoventilation syndrome, does not use CPAP at home Paroxysmal atrial fibrillation, rate controlled, currently on Eliquis Hyperlipidemia Hypertension urgency PLAN: Labs, diagnostic, radiologic exams reviewed and interpreted by myself and supervising physician. We have reviewed external records in detail Discontinue Sharpe catheter From Nephrology standpoint, patient may be discharged Do not resume hydrochlorothiazide, Hydrochlorothiazide to be listed as an allergy due to severe hyponatremia Avoid drugs which can potentiate hyponatremia Require close monitoring of renal function and electrolytes Order CBC, CMP, and electrolytes in am BiPAP as necessary, for respiratory distress Monitor blood pressure adjust medication doses as needed Avoid hypotensive episodes May use Dilaudid 0.5 mg IV every 6 hours as needed for severe pain Monitor blood sugars Strict intake, output, and daily weight should be monitored Continue to monitor renal function, anemia, electrolytes Treatment plan discussed with patient Questions were answered We have discussed with the other team physicians in detail about the care plan We will continue to monitor the patient closely ATTESTATION BY PHYSICIAN I have seen and examined the patient. I reviewed the documentation, medical decision making, and treatment plan as noted by the mid-level provider above. I agree with the findings and plan of care. ALENA PHILLIPS MD, [facility] Jun 28, 2025 10:03
--- NOTE | 2025-06-28 10:54 | NUR ---
cm note spoke to kaylee marie at [facility] and states they have bipap at facility and pt is accepted. updated primary nurse.
--- NOTE | 2025-06-28 15:41 | PN ---
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 Patient denies chest pain, fever, chills, nauseousness and diarrhea Hyponatremia continues to improve. We will obtain 6 minute walk test before discharge Patient will need follow up with Dr. Dunne for LINDA after discharge REVIEW OF SYSTEMS: 12 point ROS reviewed with patient. Pertinent positives mentioned above. Otherwise negative. PHYSICAL EXAM: GENERAL: alert, weak, awake oriented x 3 HEENT: EOMI, Sclera non icteric, moist mucosa NECK: Supple, no JVD, trachea midline LUNGS: increased WOB HEART: Regular rate and rhythm. Normal S1 and S2, without murmurs ABD: brutally obese EXT: edema noted NEURO: Alert and oriented to person, follows commands Vital Signs (last 8hr) Date Time Temp Pulse Resp B/P (MAP) Pulse Ox O2 Delivery O2 Flow Rate FiO2 06/28/25 12:00 98.1 71 19 164/67 97 Nasal Cannula 2.0 06/28/25 08:57 138/81 06/28/25 08:00 99.1 77 18 145/67 99 Nasal Cannula 1.0 06/28/25 08:00 96 Nasal Cannula* 2 28 LABS: Hematology Labs: Test 06/28/25 03:36 Range/Units White Blood Count 6.8 4.8-10.8 K/uL Red Blood Count 4.38 4.00-5.50 MIL/uL Hemoglobin 13.8 12.0-16.0 g/dL Hematocrit 40.0 36-48 % Mean Corpuscular Volume 91.3 79-99 fL Mean Corpuscular Hemoglobin 31.5 27.0-33.0 pg Mean Corpuscular Hemoglobin Concent 34.5 32.0-36.0 g/dL Red Cell Distribution Width 12.2 11.0-15.5 % Platelet Count 117 L 130-400 K/uL Mean Platelet Volume 10.3 7.5-10.5 fL Nucleated Red Blood Cells 0.0 0.0-0.19 % Chemistry Labs: Test 06/28/25 11:11 06/28/25 03:36 Range/Units Whole Blood Glucose 166 H 70-110 MG/DL Sodium Level 135 L 136-145 mmol/L Potassium Level 4.4 3.5-5.1 mmol/L Chloride Level 96 L 101-111 mmol/L Carbon Dioxide Level 36 H 21-32 mmol/L Blood Urea Nitrogen 21 H 7-18 mg/dL Creatinine 0.4 L 0.5-1.0 mg/dL Glomerular Filtration Rate Calc 103 >90 mL/min Random Glucose 118 H 70-105 mg/dL Total Calcium 8.4 L 8.5-10.1 mg/dL Magnesium Level 2.00 1.80-2.40 mg/dL Total Bilirubin 0.7 0.2-1.0 mg/dL Aspartate Amino Transf (AST/SGOT) 19 10-37 U/L Alanine Aminotransferase (ALT/SGPT) 22 12-78 U/L Alkaline Phosphatase 84 50-136 U/L Total Protein 5.8 L 6.0-8.3 g/dL Albumin 2.6 L 3.5-5.0 g/dL DIAGNOSTICS / RADIOLOGY RESULTS: [ ] PLAN: We will arrange home NIV Will need home O2 SAVAGE ANDRADE MD Jun 28, 2025 15:41
--- NOTE | 2025-06-28 16:51 | NUR ---
COOPER CATHETER WAS REMOVED AT 1415 PENDING TO VOID , DR DEL CID ROUNDED AND STATED NEED TO WAIT FOR VOID ON OWN BEFORE SENDING TO SNF .
--- NOTE | 2025-06-28 22:00 | NUR ---
NO VOID PATIENT DUE TO VOID. HAS NOT BEEN ABLE TO. BLADDER SCAN SHOWS 311ML. DR DEL CID NOTIFIED DUE TO PATIENT PENDING TO VOID SO THAT SHE COULD BE DISCHARGED TO [facility]. PER DR DEL CID , SAID TO NOTIFY FINANCIAL SERVICES INTERN FINANCIAL ADMINISTRATIVE ASSISTANT HOSPITALIST AND STATED THAT HE WOULD PROBABLY KEEP HER UNTIL TOMORROW. FAVIAN ORANTES NP NOTIFIED. ORDERS TO PLACE COOPER BACK AND TO START BLADDER TRAINING PATIENT.
--- NOTE | 2025-06-28 22:50 | PN ---
Endocrinology progress note DOS:06/28/25 subjective: BMP remarkable for sodium of 114, potassium 4.2, chloride of 76, creatinine of 0.4, magnesium 1.3, BNP of 146. sodium improving to 126 Chest x-ray showed no acute infiltrates. am cortisol 16.9, tsh 1.91 patient sodium was low at 114 that is improving to 124-->136 now. nephrology is following and hyponatremia likely caused by HCTZ. reports that she gained more than 30 lbs weight but otherwise denies any other signs/symptoms of traic syndrome. denies steroid intake. Hba1c 6.1% REVIEW OF SYSTEMS: CONSTITUTIONAL: generalized malaise, weight gain, obesity NEUROLOGICAL: Denies headache, amaurosis fugax, motor weakness, sensory deficit, vertigo/spinning sensation, gait abnormalities, or tremors. ENT: No hearing loss, otalgia, otorrhea, rhinitis, rhinorrhea, hoarseness, or sore throat. CARDIOVASCULAR: denies any chest pain, denies palpitations PULMONARY: cough, congestion , rhinorrhea SLEEP: Denies morning headaches, daytime somnolence or napping. Denies difficulty falling asleep, staying asleep, waking from sleep. Denies knowledge of snoring. GASTROINTESTINAL: Denies any type of dysphagia to either liquids or solids. Denies nausea, vomiting, pyrosis, early satiety, abdominal pain, diarrhea, constipation, or changes in stool consistency or caliber. Denies coffee-ground emesis, hematemesis, hematochezia, or melanotic stools. GENITOURINARY: Denies frequency, urgency, nocturia, hematuria or incontinence (Storage/Irritative symptoms.) Low urinary stream, straining to void, urinary intermittency or hesitancy, splitting of the voiding stream, terminal dribbling. ENDOCRINOLOGIC: Denies polyuria, polydipsia, polyphagia or heat/cold intolerances. HEMATOLOGIC: Denies thrombophilia/previous clots, or coagulopathy/bleeding disorders. ONCOLOGIC: Denies personal history of malignancy. DERMATOLOGIC: Denies rashes or pruritus. PSYCHIATRIC: Denies any suicidal or homicidal ideation. Denies hallucinations. ADDITIONAL PAST MEDICAL HISTORY: [Diabetes mellitus type 2, severe morbid obesity, hypertension, A-fib on chronic anticoagulation with Eliquis 5 mg twice daily, untreated LINDA/OHS] SOCIAL HISTORY: [Negative for smoking, alcohol use, drug use. Patient requires assistance with IADLs. 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 CLINICAL HISTORY: sob COMPARISON: May 22 2023 FINDINGS: LUNGS: There is no mass, infiltrate, or acute pulmonary abnormality. PLEURAL SPACES: No evidence of pleural effusion or pneumothorax. MEDIASTINUM: There is cardiomegaly BONES: No aggressive appearing osseous lesion seen. IMPRESSION: No acute cardiopulmonary pathology is evident. /[place] DICTATED BY: SWATHI HAM MD DATE: 06/22/251541 ELECTRONICALLY SIGNED BY: SWATHI HAM MD DATE: 06/22/251541 ASSESSMENT: Severe hyponatremia, POA am cortisol 16.9, tsh 1.91 patient sodium was low at 114 that is improving to 124-->126-->136 now. nephrology is following and hyponatremia likely caused by HCTZ. reports that she gained more than 30 lbs weight but otherwise denies any other signs/symptoms of traci syndrome. denies steroid intake. Hypertensive urgency, POA History of HCTZ use as outpatient, POA Active influenza bronchitis, POA Super morbid obesity (BMI 62), POA Type 2 diabetes mellitus, POA Hba1c 6.1% controlled with diet Underlying history of atrial fibrillation, POA History of chronic anticoagulation with Eliquis, POA Hypomagnesemia, POA Debility, POA Chronic hypercapnic respiratory failure, POA Untreated ohs/LINDA, POA History of hypertension, POA Hyperlipidemia, POA PLAN: Patient wants traci work up as outpatient and will do detail traci labs as outpatient. off HCTZ monitor sodium. Monitor glucose q x 12 hourly. Continue carb consistent diet. Vitals/Labs Vital Signs Date Time Temp Pulse Resp B/P (MAP) Pulse Ox O2 Delivery O2 Flow Rate FiO2 06/28/25 21:50 144/86 06/28/25 20:00 98.1 74 20 95 Nasal Cannula 2.0 24 Laboratory Tests 06/28/25 03:36 Medications Current Medications Sodium Chloride 500 ml @ 125 mls/hr Q4H ONCE IV Last administered on 06/22/25at 14:59; Start 06/22/25 at 15:00; Stop 06/22/25 at 15:23; Status DC Albuterol 2 udvial ONCE ONCE IH Last administered on 06/22/25at 15:59; Start 06/22/25 at 15:30; Stop 06/22/25 at 15:31; Status DC Oseltamivir Phosphate 75 mg ONCE ONCE PO Last administered on 06/22/25at 16:04; Start 06/22/25 at 15:30; Stop 06/22/25 at 15:31; Status DC Sodium Chloride 1,000 ml @ 75 mls/hr [id number] IV Last administered on 06/23/25at 04:42; Start 06/22/25 at 15:30; Stop 06/23/25 at 13:34; Status DC Ipratropium [place] 0.5 mg [id number] IH Last administered on 06/28/25at 19:07; Start 06/22/25 at 18:00; Stop 07/22/25 at 17:59 Budesonide 0.5 mg BIDRESP IH Last administered on 06/28/25at 19:07; Start 06/22/25 at 18:00; Stop 07/22/25 at 17:59 Ceftriaxone Sodium 1 gm Q12H IVPB Last administered on 06/28/25at 17:31; Start 06/22/25 at 15:30; Stop 07/02/25 at 15:29 Doxycycline Hyclate 100 mg BID PO Last administered on 06/28/25at 21:50; Start 06/22/25 at 21:00; Stop 07/02/25 at 20:59 Thiamine HCl 100 mg DAILY IVP Last administered on 06/28/25at 08:57; Start 06/23/25 at 09:00; Stop 07/23/25 at 08:59 Hydralazine HCl 10 mg Q6H PRN IV Last administered on 06/22/25at 16:05; Start 06/22/25 at 15:30; Stop 07/22/25 at 15:29 Magnesium Sulfate 50 ml @ 0 mls/hr PROTOCOL IV Last administered on 06/27/25at 06:14; Start 06/22/25 at 15:30; Stop 07/22/25 at 15:29 Potassium Chloride 100 ml @ 100 mls/hr AD PRN IV; Start 06/22/25 at 15:30; Stop 07/22/25 at 15:29 Potassium Chloride 20 meq AD PRN PO; Start 06/22/25 at 15:30; Stop 07/22/25 at 15:29 Potassium Chloride 20 meq AD PRN PO; Start 06/22/25 at 15:30; Stop 07/22/25 at 15:29 Oseltamivir Phosphate 75 mg BID PO Last administered on 06/27/25at 09:16; Start 06/22/25 at 21:00; Stop 06/27/25 at 20:59; Status DC Acetaminophen 650 mg Q6H PRN PO; Start 06/22/25 at 15:30; Stop 07/22/25 at 15:29 Ondansetron HCl 4 mg Q6H PRN IVP; Start 06/22/25 at 15:30; Stop 07/22/25 at 15:29 Losartan Potassium 100 mg DAILY PO Last administered on 06/23/25at 10:19; Start 06/23/25 at 09:00; Stop 06/23/25 at 13:35; Status DC Insulin Human Regular INSULIN SLIDING SCAL... ACHS SQ Last administered on 06/25/25at 13:05; Start 06/22/25 at 16:30; Stop 07/22/25 at 16:29 Carvedilol 25 mg BID PO Last administered on 06/22/25at 21:18; Start 06/22/25 at 21:00; Stop 06/23/25 at 13:35; Status DC Atorvastatin Calcium 10 mg HS PO Last administered on 06/28/25at 21:50; Start 06/22/25 at 21:00; Stop 07/22/25 at 20:59 Docusate Sodium 100 mg BID PO Last administered on 06/28/25at 21:49; Start 06/22/25 at 21:00; Stop 07/22/25 at 20:59 Fish Oil 1,000 mg DAILY PO Last administered on 06/28/25at 08:56; Start 06/23/25 at 09:00; Stop 07/23/25 at 08:59 Home Med Soluble [place] Fiber/ Inu... DAILY PO; Start 06/23/25 at 09:00; Stop 07/23/25 at 08:59 Apixaban 5 mg BID PO Last administered on 06/28/25at 21:50; Start 06/23/25 at 09:00; Stop 07/23/25 at 08:59 Acetaminophen/ Hydrocodone Bitart 1 tab Q6H PRN PO; Start 06/23/25 at 11:30; Stop 06/23/25 at 11:13; Status DC Famotidine 20 mg BID PO Last administered on 06/28/25at 21:49; Start 06/23/25 at 21:00; Stop 07/23/25 at 20:59 Sodium Chloride 2,000 mg Q8H6 PO Last administered on 06/24/25at 05:58; Start 06/23/25 at 14:00; Stop 06/24/25 at 12:37; Status DC Artificial Tears 1 DROP DAILY20 ONCE OU; Start 06/24/25 at 20:00; Stop 06/24/25 at 20:01; Status DC Sodium Chloride 1,000 mg BID PO Last administered on 06/26/25at 09:33; Start 06/24/25 at 21:00; Stop 06/26/25 at 14:22; Status DC Mupirocin 1 APPL BID TP Last administered on 06/28/25at 08:58; Start 06/24/25 at 21:00; Stop 07/24/25 at 20:59 Lactulose 20 gm ONCE ONCE PO Last administered on 06/26/25at 13:33; Start 06/26/25 at 11:00; Stop 06/26/25 at 11:01; Status DC Lactulose 20 gm BID PRN PO Last administered on 06/27/25at 13:35; Start 06/26/25 at 14:00; Stop 07/26/25 at 13:59 Carvedilol 25 mg BID PO; Start 06/26/25 at 21:00; Stop 06/26/25 at 13:34; Status DC Losartan Potassium 100 mg DAILY PO Last administered on 06/28/25at 08:57; Start 06/27/25 at 09:00; Stop 07/27/25 at 08:59 Carvedilol 25 mg BID PO Last administered on 06/28/25at 21:50; Start 06/26/25 at 14:00; Stop 07/26/25 at 13:59 Nystatin abdominal folds BID TP Last administered on 06/28/25at 08:58; Start 06/26/25 at 21:00; Stop 07/26/25 at 20:59 JASSON TRUJILLO MD Jun 28, 2025 22:50
[2025-06-29] VITALS (10 sets, daily range): BP systolic 123–166; BP diastolic 59–92; PULSE 66–75; RESP 18–20; TEMP 97.5–98; O2SAT 90–99
--- NOTE | 2025-06-29 | NUR ---
16 FR COOPER PLACED AT THIS TIME. 600ML CLEAR YELLOW URINE RETURNED. COOPER STAT LOCK PLACED ON RIGHT LEG. DRAINING TO GRAVITY. PATIENT TOLERATED WELL. BLADDER TRAINING INITIATED AT THIS TIME
--- NOTE | 2025-06-29 12:36 | NUR ---
Called [facility]pe[facility] and gave report to nurse Scarlet. All questions answered- patient will be DC via EMS.
--- NOTE | 2025-06-29 12:47 | PN ---
NEPHROLOGY PROGRESS NOTE Date/Time Patient Seen: Jun 29, 2025 SUBJECTIVE: This is a 74-year-old female with underlying history of severe morbid obesity, suspected ohs/LINDA with chronic hypercapnic respiratory failure, history of atrial fibrillation maintained on chronic anticoagulation with damari Baugh She presented to the ER secondary to fall, dizziness, poor oral intake with nausea. The patient had a fall. The patient also has very low sodium of 114 and the patient has a low magnesium. Severe hypertension has been detected. The patient is detected with influenza and being admitted with these problems to the ICU. We are consulted for hyponatremia Sodium is stable, sodium tablets were discontinued Hydrochlorothiazide has been discontinued Renal function is stable Medication list was reviewed Blood pressure is under adequate control Pending discharge disposition later today REVIEW OF SYSTEMS: GENERAL: Negative for any nausea, vomiting, fevers, chills, or weight loss. NEUROLOGIC: Negative for any blurry vision, blind spots, double vision, facial asymmetry, dysphagia, dysarthria, hemiparesis, hemisensory deficits, vertigo, ataxia. HEENT: Negative for any head trauma, neck trauma, neck stiffness, photophobia, phonophobia, sinusitis, rhinitis. CARDIAC: Negative for any chest pain, dyspnea on exertion, paroxysmal nocturnal dyspnea, peripheral edema. PULMONARY: Negative for any shortness of breath, wheezing, COPD, or TB exposure. GASTROINTESTINAL: Negative for any abdominal pain, nausea, vomiting, bright red blood per rectum, melena. GENITOURINARY: Negative for any dysuria, hematuria, incontinence. INTEGUMENTARY: Negative for any rashes, cuts, insect bites. RHEUMATOLOGIC: Negative for any joint pains, photosensitive rashes, history of vasculitis or kidney problems. HEMATOLOGIC: Negative for any abnormal bruising, frequent infections or bleeding. Vital Signs (last 8hr) Date Time Temp Pulse Resp B/P (MAP) Pulse Ox O2 Delivery O2 Flow Rate FiO2 06/29/25 11:53 97.9 72 20 166/79 92 Room Air 06/29/25 11:29 72 20 N/A Room Air 21 06/29/25 11:23 72 20 06/29/25 09:34 153/92 06/29/25 08:00 99 Nasal Cannula* 2 28 06/29/25 07:51 97.5 72 18 153/92 99 Nasal Cannula 2.0 06/29/25 06:14 75 20 N/A Room Air 21 06/29/25 06:11 75 18 PHYSICAL EXAM: GENERAL: Alert and oriented x 3. No acute distress. Well-nourished. EYES: EOMI. Anicteric. HENT: Moist mucous membranes. No scleral icterus. No cervical lymphadenopathy. LUNGS: Clear to auscultation bilaterally. No accessory muscle use. CARDIOVASCULAR: Regular rate and rhythm. No murmur. No JVD. ABDOMEN: Soft, non-tender and non-distended. No palpable masses. EXTREMITIES: No edema. Non-tender. SKIN: No rashes or lesions. Warm. NEUROLOGIC: No focal neurological deficits. CN II-XII grossly intact, but not individually tested. PSYCHIATRIC: Cooperative. Appropriate mood and affect. Current Medications Medications (Trade) Dose Ordered Sig/Conchis Route Start Time Stop Time Status Last Admin Dose Admin Apixaban (EliquIS) 5 mg BID PO 06/23/25 09:00 07/23/25 08:59 06/27/25 09:16 5 MG Atorvastatin Calcium (LIPItor 10MG) 10 mg HS PO 06/22/25 21:00 07/22/25 20:59 06/26/25 20:42 10 MG Budesonide (Pulmicort 0.5 Mg/2ml) 0.5 mg BIDRESP IH 06/22/25 18:00 07/22/25 17:59 06/27/25 06:35 0.5 MG Carvedilol (Coreg 25MG) 25 mg BID PO 06/22/25 21:00 06/23/25 13:35 DC 06/22/25 21:18 25 MG Carvedilol (Coreg 25MG) 25 mg BID PO 06/26/25 14:00 07/26/25 13:59 06/27/25 09:16 25 MG Carvedilol (Coreg 25MG) 25 mg BID PO 06/26/25 21:00 06/26/25 13:34 DC Ceftriaxone Sodium (ROCEphine 1G INJ) 1 gm Q12H IVPB 06/22/25 15:30 07/02/25 15:29 06/27/25 03:46 1 GM Docusate Sodium (COLace 100MG CAP) 100 mg BID PO 06/22/25 21:00 07/22/25 20:59 06/27/25 09:16 100 MG Doxycycline Hyclate (Doxycycline Hyclate) 100 mg BID PO 06/22/25 21:00 07/02/25 20:59 06/27/25 09:15 100 MG Famotidine (Pepcid 20mg Tab) 20 mg BID PO 06/23/25 21:00 07/23/25 20:59 06/27/25 09:16 20 MG Fish Oil (Fish Oil 1000 Mg/Cap) 1,000 mg DAILY PO 06/23/25 09:00 07/23/25 08:59 06/27/25 09:16 1,000 MG Home Med (Home Medication) Soluble [place] Fiber/ Inu... DAILY PO 06/23/25 09:00 07/23/25 08:59 Insulin Human Regular (humuLIN R 100 UNIT/ML 3ML) INSULIN SLIDING SCAL... ACHS SQ 06/22/25 16:30 07/22/25 16:29 06/25/25 13:05 2 UNIT Ipratropium [place] (AtrovENT UD) 0.5 mg [id number] IH 06/22/25 18:00 07/22/25 17:59 06/27/25 10:58 0.5 MG Losartan Potassium (CozAAR 100MG TAB) 100 mg DAILY PO 06/23/25 09:00 06/23/25 13:35 DC 06/23/25 10:19 100 MG Losartan Potassium (CozAAR 100MG TAB) 100 mg DAILY PO 06/27/25 09:00 07/27/25 08:59 06/27/25 09:16 100 MG Magnesium Sulfate 50 ml @ 0 mls/hr PROTOCOL IV 06/22/25 15:30 07/22/25 15:29 06/27/25 06:14 20 MLS/HR Mupirocin (Bactroban Oint) 1 APPL BID TP 06/24/25 21:00 07/24/25 20:59 06/27/25 09:17 1 APPL Nystatin (NystOP 15 GM POWDER) abdominal folds BID TP 06/26/25 21:00 07/26/25 20:59 06/27/25 09:17 1 APPL Oseltamivir Phosphate (Tamiflu) 75 mg BID PO 06/22/25 21:00 06/27/25 20:59 06/27/25 09:16 75 MG Sodium Chloride 1,000 ml @ 75 mls/hr [id number] IV 06/22/25 15:30 06/23/25 13:34 DC 06/23/25 04:42 75 MLS/HR Sodium Chloride (Sodium Chloride) 1,000 mg BID PO 06/24/25 21:00 06/26/25 14:22 DC 06/26/25 09:33 1,000 MG Sodium Chloride (Sodium Chloride) 2,000 mg Q8H6 PO 06/23/25 14:00 06/24/25 12:37 DC 06/24/25 05:58 2,000 MG Thiamine HCl (Vitamin B-1) 100 mg DAILY IVP 06/23/25 09:00 07/23/25 08:59 06/27/25 09:16 100 MG LABORATORY: [ ] Hematology Labs: Test 06/28/25 03:36 Range/Units White Blood Count 6.8 4.8-10.8 K/uL Red Blood Count 4.38 4.00-5.50 MIL/uL Hemoglobin 13.8 12.0-16.0 g/dL Hematocrit 40.0 36-48 % Mean Corpuscular Volume 91.3 79-99 fL Mean Corpuscular Hemoglobin 31.5 27.0-33.0 pg Mean Corpuscular Hemoglobin Concent 34.5 32.0-36.0 g/dL Red Cell Distribution Width 12.2 11.0-15.5 % Platelet Count 117 L 130-400 K/uL Mean Platelet Volume 10.3 7.5-10.5 fL Nucleated Red Blood Cells 0.0 0.0-0.19 % Chemistry Labs: Test 06/29/25 11:26 06/28/25 03:36 Range/Units Whole Blood Glucose 149 H 70-110 MG/DL Sodium Level 135 L 136-145 mmol/L Potassium Level 4.4 3.5-5.1 mmol/L Chloride Level 96 L 101-111 mmol/L Carbon Dioxide Level 36 H 21-32 mmol/L Blood Urea Nitrogen 21 H 7-18 mg/dL Creatinine 0.4 L 0.5-1.0 mg/dL Glomerular Filtration Rate Calc 103 >90 mL/min Random Glucose 118 H 70-105 mg/dL Total Calcium 8.4 L 8.5-10.1 mg/dL Magnesium Level 2.00 1.80-2.40 mg/dL Total Bilirubin 0.7 0.2-1.0 mg/dL Aspartate Amino Transf (AST/SGOT) 19 10-37 U/L Alanine Aminotransferase (ALT/SGPT) 22 12-78 U/L Alkaline Phosphatase 84 50-136 U/L Total Protein 5.8 L 6.0-8.3 g/dL Albumin 2.6 L 3.5-5.0 g/dL DIAGNOSTICS / RADIOLOGY: [address] [address] IMAGING REPORT Signed PATIENT: YUMIKO CARLOS MR#: [id number] : 1950 SEX: F AGE: 74 LOCATION: [facility] ORDER 1511 STATUS: ADM IN REPORT#: [id number] SERVICE 1508 REASON: f/up pulmonary edema ORDERING PHYSICIAN: PRATIK MORRISON MD PROCEDURE: CXR1VW - CHEST 1VW EXAM: CR Chest, 1 view. CLINICAL HISTORY: Cough. COMPARISON: None provided. FINDINGS: Basal regions of both lung carmona are not well visualized, likely due to breast shadow. No pleural effusion or pneumothorax. Cardiomegaly is noted. No acute osseous abnormality. IMPRESSION: Basal regions of both lung carmona are not well visualized, likely due to breast shadow. No pleural effusion or pneumothorax. Cardiomegaly is noted. /[place] DICTATED BY: CORY LOPEZ Jr., MD DATE: 06/28/25152 ELECTRONICALLY SIGNED BY: CORY LOPEZ Jr., MD DATE: 06/28/25152 PATIENT: YUMIKO CARLOS MR#: [id number] : 1950 SEX: F AGE: 74 LOCATION: [facility] ORDER 1536 STATUS: [facility] REPORT#: [id number] SERVICE 0818 REASON: hx of a fib, r/o cardiomyopathy ORDERING PHYSICIAN: MALIK VELASQUEZ MD PROCEDURE: ECHO CMP - ECHO 2-D COMPLETE APPROVED REPORT EXAM: Two-dimensional and M-mode echocardiogram with Doppler and color Doppler. Study Details: Hx: A-Fib INDICATION ICD: Rule out cardiomyopathy 2D Dimensions RVDd 4.3 cm LVEF(%) 77.4 (>50%) LVED Vol(simp.) 40.0 mL IVSd 1.2 (0.7-1.1cm) FS(%) 45 % LVES Vol(simp.) 15.0 mL LVDd 3.6 (3.8-5.6cm) LA (2D) 4.5 (1.6-4.0cm) LVEF(%, simp.) 62 % PWd 1.3 (0.7-1.1cm) Ao Root(2D) 2.6 (2.0-3.7cm) LA ESV INDEX (4CH) 32.22 mL/m2 IVSs 1.4 cm LVOT diam 1.5 (1.8-2.4cm) LVDs 2.0 (2.5-4.0cm) PWs 1.7 cm M-Mode Dimensions EPSS 0.4 cm LA (MM) 4.0 (1.6-4.0cm) Ao Root(MM) 2.4 (2.0-3.7cm) Aortic Valve AoV Vmax 1.4 m/s Ao Peak GR 7.3 mmHg LVOT Vmax 1.0 m/s AoV VTI 0.3 m Ao Mean GR 3.7 mmHg LVOT VTI 0.21 m [place] (VMAX) 1.30 cm2 [place] (VTI) 1.4 cm2 Mitral Valve MV E Vmax 134.1 cm/s DECEL Time 192 ms MV A Vmax 43.6 cm/s P 1/2 T 44 ms E/A ratio 3.1 MVA (PHT) 5.0 cm2 TDI E/E' Medial 28.1 E/E' Lateral 37.6 Medial E' Peak V 4.78 cm/s Lateral E' Peak V 3.57 cm/s Pulmonary Valve PV Vmax 0.8 m/s PV VTI 0.16 m PV Mean GR 1.1 mmHg PV Peak GR 2.5 mmHg PI End Gladis. Alexandr 64.3 cm/s Tricuspid Valve TR Vmax 2.8 m/s RAP (EST) 3 mmHg RVSP 36.8 mmHg TR Peak GR 33.8 mmHg Left Ventricle Left ventricular cavity size is normal. There is normal LV segmental wall motion. There is mild left ventricular wall thickness. The LVEF is > 65%. Stage III diastolic dysfunction. Right Ventricle The right ventricle is normal size. The right ventricular systolic function is normal. Atria The left atrium is mildly dilated. The right atrium is mildly dilated by visual assessment. Aortic Valve The aortic valve is normal in structure. No aortic regurgitation is present. There is no aortic valvular stenosis. Mitral Valve The mitral valve is normal in structure and function. There is trace mitral valve regurgitation noted. There is no mitral valve stenosis. Tricuspid Valve The tricuspid valve is normal in structure. There is trace of tricuspid valve regurgitation noted. Pulmonic Valve Pulmonic valve is not well visualized. There is trace of pulmonic valvular regurgitation. Great Vessels The aortic root is normal in size. The IVC is normal in size and collapses >50% with inspiration. Pericardium There is no pericardial effusion. Other Information Quality : Technically difficult study due to body habitus Conclusion Left ventricular cavity size is normal. The LVEF is > 65% with normal LV segmental wall motion. There is mild left ventricular wall thickness. Stage III diastolic dysfunction. The right ventricular systolic function is normal. The left atrium is mildly dilated. No hemodynamically signifcant valvular abnormalities. There is no pericardial effusion. DICTATED BY: ROCHELLE BARRY MD DATE: 06/23/25826 ELECTRONICALLY SIGNED BY: ROCHELLE BARRY MD DATE: 06/23/25 1309 PATIENT: YUMIKO CARLOS MR#: [id number] : 1950 SEX: F AGE: 74 LOCATION: [facility] ORDER 44 STATUS: ADM IN REPORT#: [id number] SERVICE 42 REASON: persistent nausea x 1 week, hyponatremia, bloating, morbid obesity ORDERING PHYSICIAN: MALIK VELASQUEZ MD PROCEDURE: ABD PEL WO - CT ABDOMEN/PELVIS W/O CONTRAST EXAM: CT Abdomen and Pelvis without Intravenous Contrast CLINICAL HISTORY: Persistent nausea for one week, hyponatremia, abdominal bloating, and morbid obesity. TECHNIQUE: Axial helical CT scan of the abdomen and pelvis was performed without intravenous contrast. Multiplanar reformatted images were obtained in coronal and sagittal planes. Radiation dose optimization techniques utilized (CTDIvol: 26.9 mGy; DLP: 1698.6 mGy???cm). CONTRAST: Without COMPARISON: No prior CT available for comparison. FINDINGS: LUNG BASES: Visualized bilateral lung bases show mild pleural-based thickening and subpleural scarring, likely representing chronic post-inflammatory or fibrotic change. No active consolidation or pleural effusion. Cardiomegaly with calcific atherosclerosis involving coronary arteries, notably along the LAD and RCA courses. LIVER: Liver normal in size and contour with homogeneous attenuation; no focal hepatic lesions or biliary dilatation. GALLBLADDER AND BILE DUCTS: Gallbladder contains a large calcified calculus (3.5 x 2.5 cm) with normal wall thickness and no pericholecystic fluid or surrounding inflammatory change. Common bile duct of normal caliber. PANCREAS: Pancreas appears normal with preserved morphology and attenuation. No focal lesion or peripancreatic fat stranding. SPLEEN: Spleen appears normal with preserved morphology and attenuation. ADRENAL GLANDS: Adrenal glands appear normal with preserved morphology and attenuation. KIDNEYS, URETERS, AND BLADDER: Right mid-pole cortical scarring with coarse calcification consistent with prior inflammatory or ischemic insult. Mild bilateral perinephric fat stranding, nonspecific???may reflect chronic venous congestion or low-grade inflammation. No hydronephrosis, renal calculus, or hydroureter. Urinary bladder well distended, normal wall thickness, no intraluminal calculi. STOMACH AND BOWEL: Stomach and small bowel loops are mildly distended but nondilated; normal wall thickness. Colonic diverticulosis involving sigmoid and descending colon without pericolic stranding???uncomplicated diverticulosis. APPENDIX: Appendix visualized, normal in caliber with no periappendiceal inflammation???no CT evidence of appendicitis. PERITONEUM: Minimal localized internal fluid collection noted in the lower abdomen, measuring small in volume and without gas locules???nonspecific, could represent mild sterile or resolving inflammatory collection. Calcified intraperitoneal lymph node (2.3 x 1.6 cm) in right anterior lower abdomen???likely chronic, healed granulomatous origin. No ascites or pneumoperitoneum. LYMPH NODES: Calcified intraperitoneal lymph node (2.3 x 1.6 cm) in right anterior lower abdomen???likely chronic, healed granulomatous origin. No other significant lymphadenopathy. REPRODUCTIVE: Uterus surgically absent. Adnexal regions and pelvic soft tissues appear unremarkable. VASCULATURE: No aortic aneurysm. ABDOMINAL WALL AND SOFT TISSUES: Anterior abdominal wall oedema, most prominent in the lumbar region extending into bilateral iliac fossae. BONES: Age-appropriate thoracolumbar spondylosis with anterior osteophytes and facet arthropathy. No acute fracture or lytic/sclerotic lesions. IMPRESSION: 1. No acute intraabdominal or pelvic findings. 2. Mild gastric and small bowel distension without obstruction. 3. Minimal localized internal fluid collection in the lower abdomen, nonspecific. 4. Large gallbladder calculus (3.5 ??? 2.5 cm) without acute cholecystitis. 5. Right mid-pole renal cortical scarring with coarse calcification. 6. Uncomplicated colonic diverticulosis. 7. Age-appropriate thoracolumbar spondylosis with anterior osteophytes and facet arthropathy. 8. Several stable chronic and incidental findings are noted, as detailed in the body of the report, including mild pleural/subpleural scarring at the lung bases, cardiomegaly with coronary artery atherosclerosis, mild bilateral perinephric fat stranding, calcified intraperitoneal lymph node likely granulomatous in origin, anterior abdominal wall edema, and postsurgical absence of the uterus. /[place] DICTATED BY: KRYSTLE VEGA MD DATE: 06/22/252231 ELECTRONICALLY SIGNED BY: KRYSTLE VEGA MD DATE: 06/22/252231 PATIENT: YUMIKO CARLOS MR#: [id number] : 1950 SEX: F AGE: 74 LOCATION: [facility] ORDER 35 STATUS: ADM IN REPORT#: [id number] SERVICE 33 REASON: influenza positive, morbid obesity, r/o pneumonia vs edema ORDERING PHYSICIAN: MALIK VELASQUEZ MD PROCEDURE: CHEST WO - CT CHEST W/O CONTRAST EXAM: COMPUTED TOMOGRAPHY OF THE CHEST WITHOUT INTRAVENOUS CONTRAST Technique: Computed tomography of the chest was performed without intravenous contrast from the thoracic inlet through the upper abdomen with axial acquisition and coronal and sagittal reformations. Dose optimization included automated exposure control, patient size???based tube current and tube voltage modulation, and iterative reconstruction. Cardiac and vascular assessment is limited without contrast. Clinical Information: Influenza positive; morbid obesity; evaluation for pneumonia versus edema. Comparison: No prior chest computed tomography available. Findings: The chest wall and imaged lower neck soft tissues show no focal mass or acute abnormality. The trachea and main bronchi are patent without endoluminal lesion. There is no focal lobar consolidation identified. There are no suspicious pulmonary nodules identified. There are minimal bilateral pleural effusions. There is dependent basilar atelectasis adjacent to the effusions. There is no pneumothorax detected. The cardiac silhouette is mildly enlarged. There is no pericardial effusion identified. There are mild calcifications of the thoracic aorta. There are mild calcifications of the coronary arteries. There is calcification along the mitral annulus. There is no mediastinal or hilar lymphadenopathy by size criteria. The visualized upper abdomen shows no acute abnormality. The visualized osseous structures show mild degenerative changes of the thoracic spine without acute fracture. Impression: * Minimal bilateral pleural effusions with adjacent dependent basilar atelectasis; no focal lobar consolidation to suggest bacterial pneumonia on this noncontrast computed tomography. * Mild cardiomegaly. Interlobular septal prominence. Pulmonary venous congestion likely * Atherosclerotic calcifications of the thoracic aorta and coronary arteries, and mitral annular calcification. /[place] DICTATED BY: ROCHELLE COVARRUBIAS MD DATE: 06/22/252105 ELECTRONICALLY SIGNED BY: ROCHELLE COVARRUBIAS MD DATE: 06/22/252105 PATIENT: YUMIKO CARLOS MR#: [id number] : 1950 SEX: F AGE: 74 LOCATION: [facility] ORDER 33 STATUS: ADM IN REPORT#: [id number] SERVICE 31 REASON: fall, on eliquis, hyponatremia ORDERING PHYSICIAN: MALIK VELASQUEZ MD PROCEDURE: HEAD WO - CT HEAD/BRAIN W/O CONTRAST EXAM: CT Head Without IV contrast. CLINICAL HISTORY: fall, on eliquis, hyponatremia TECHNIQUE: Axial computed tomography images of the head/brain without intravenous contrast. COMPARISON: None provided. FINDINGS: BRAIN: No evidence of acute hemorrhage. No mass lesion. No CT evidence for acute territorial infarct. No midline shift or extra-axial collections. VENTRICLES: No hydrocephalus. ORBITS: The orbits are unremarkable. SINUSES AND MASTOIDS: The paranasal sinuses and mastoid air cells are clear. BONES: No fracture. SOFT TISSUES: Unremarkable. IMPRESSION: No acute intracranial abnormality. /[place] DICTATED BY: ROCHELLE COVARRUBIAS MD DATE: 06/22/251857 ELECTRONICALLY SIGNED BY: ROCHELLE COVARRUBIAS MD DATE: 06/22/251857 PATIENT: YUMIKO CARLOS MR#: [id number] : 1950 SEX: F AGE: 74 LOCATION: [facility] ORDER 31 STATUS: ADM IN REPORT#: [id number] SERVICE 29 REASON: s/p fall, r/o any fractures ORDERING PHYSICIAN: MALIK VELASQUEZ MD PROCEDURE: PELVIS - PELVIS 1-2VWS EXAM: CR Pelvis, 1 View. CLINICAL HISTORY: s/p fall, r/o any fractures COMPARISON: None provided. FINDINGS: BONES: Generalized osteopenia No definitive acute fracture JOINTS: Degenerative changes SOFT TISSUES: The soft tissues are unremarkable. IMPRESSION: 1. Degenerative changes 2. Generalized osteopenia 3. No definitive acute fracture /[place] DICTATED BY: ROCHELLE COVARRUBIAS MD DATE: 06/22/251950 ELECTRONICALLY SIGNED BY: ROCHELLE COVARRUBIAS MD DATE: 06/22/251950 PATIENT: YUMIKO CARLOS MR#: [id number] : 1950 SEX: F AGE: 74 LOCATION: [facility] ORDER 31 STATUS: ADM IN [facility] REPORT#: [id number] SERVICE 1530 REASON: s/p fall, r/o any fractures ORDERING PHYSICIAN: MALIK VELASQUEZ MD PROCEDURE: KNEE 2VBIL - KNEE 2VW BILATERAL EXAM: XR Both Knees, AP and Lateral (2) Views. CLINICAL HISTORY: Status post fall; clinical query for fracture or hardware-related complication. Known history of prior distal femur fixation. COMPARISON: No immediate prior imaging available for comparison. FINDINGS: BONES: No new acute fracture or focal osseous lesion identified in either knee. Left Knee (Post-operative Site): Internal plate fixation noted along the distal femur, consistent with prior fracture fixation. Cortical remodeling and signs of bony union seen at the prior fracture site ??? no evidence of non-union or millie-hardware lucency. One or more screw fixators appear broken at the proximal/superior end of the fixation plate, suggesting hardware fatigue or prior mechanical stress. No acute periprosthetic fracture or hardware migration seen. Right Knee: No prior fixation hardware or periarticular collection. JOINTS: No dislocation identified in either knee. Severe degenerative osteoarthritic changes seen in both knees, more pronounced in the medial tibiofemoral compartments. Marked reduction of tibiofemoral and patellofemoral joint spaces, with large periarticular osteophyte formation and subchondral sclerosis, consistent with advanced osteoarthritis. SOFT TISSUES: Mild diffuse periarticular soft tissue thickening noted, likely chronic degenerative or post-traumatic in nature. No significant joint effusion or soft tissue gas. IMPRESSION: 1. No acute fracture or dislocation in either knee. 2. Status post left distal femur fixation with plate and screws, with bony union. Broken screw(s) at the proximal aspect of the fixation plate without acute periprosthetic fracture or hardware migration. 3. Severe tricompartmental osteoarthritic changes in both knees, more pronounced in the medial tibiofemoral compartments. /[place] DICTATED BY: KRYSTLE VEGA MD DATE: 06/22/252008 ELECTRONICALLY SIGNED BY: KRYSTLE VEGA MD DATE: 06/22/252008 PATIENT: YUMIKO CARLOS MR#: [id number] : 1950 SEX: F AGE: 74 LOCATION: [facility] ORDER 28 STATUS: ADM IN REPORT#: [id number] SERVICE 24 REASON: r/o any DVT of the lowe etxremities, swellng, fall ORDERING PHYSICIAN: MALIK VELASQUEZ MD PROCEDURE: VENOUS BINA - US VENOUS DOPPLER BILATERAL EXAM: US Duplex BILATERAL Lower Extremity Veins. CLINICAL HISTORY: Swelling after a fall with clinical concern for deep venous thrombosis of the lower extremities. TECHNIQUE: Grayscale imaging with compression maneuvers, color Doppler, and pulsed-wave spectral Doppler was performed where anatomically feasible from the common femoral veins through the femoral, popliteal, and calf veins bilaterally. Respiratory phasicity and augmentation responses were assessed when obtainable. Evaluation of the left common femoral and left popliteal veins is limited by body habitus. COMPARISON: None provided. FINDINGS: DEEP VEINS: The right common femoral vein is fully compressible without intraluminal echogenic thrombus. The right femoral vein is fully compressible with normal color Doppler filling and normal spectral Doppler phasicity. The right popliteal vein is fully compressible without thrombus. The right posterior tibial veins are compressible without thrombus. The left femoral vein is fully compressible with normal color Doppler filling and normal spectral Doppler phasicity. The left posterior tibial veins are compressible without thrombus. The left common femoral vein is not adequately visualized because of body habitus, and compressibility could not be assessed; thrombus at this nonvisualized level cannot be excluded. The left popliteal vein is not adequately visualized because of body habitus, and compressibility could not be assessed; thrombus at this nonvisualized level cannot be excluded. No abnormal focal fluid collection is identified along the imaged course of the veins. SUPERFICIAL VEINS: Superficial veins were not evaluated. SOFT TISSUES: No popliteal fossa cyst or other abnormalities. IMPRESSION: 1. No sonographic evidence of deep venous thrombosis in the visualized segments of the right lower extremity and in the visualized segments of the left femoral and left posterior tibial veins. 2. Technical limitation: the left common femoral vein and the left popliteal vein are not adequately visualized because of body habitus; thrombus at these nonvisualized levels cannot be excluded. /[place] DICTATED BY: KRYSTLE VEGA MD DATE: 06/22/252134 ELECTRONICALLY SIGNED BY: KRYSTLE VEGA MD DATE: 06/22/252134 PATIENT: YUMIKO CARLOS MR#: [id number] : 1950 SEX: F AGE: 74 LOCATION: [facility] ORDER 36 STATUS: REG ER REPORT#: [id number] SERVICE 34 REASON: sob ORDERING PHYSICIAN: SATISH WEEMS MD PROCEDURE: CXR1VW - CHEST 1VW EXAM: CR Chest, 1 View. CLINICAL HISTORY: sob COMPARISON: May 22 2023 FINDINGS: LUNGS: There is no mass, infiltrate, or acute pulmonary abnormality. PLEURAL SPACES: No evidence of pleural effusion or pneumothorax. MEDIASTINUM: There is cardiomegaly BONES: No aggressive appearing osseous lesion seen. IMPRESSION: No acute cardiopulmonary pathology is evident. /[place] DICTATED BY: SWATHI HAM MD DATE: 06/22/251541 ELECTRONICALLY SIGNED BY: SWATHI HAM MD DATE: 06/22/251541 ASSESSMENT: Severe hyponatremia, due to hydrochlorothiazide Acute hypoxic respiratory failure Positive for influenza Ground level fall Obesity hypoventilation syndrome, does not use CPAP at home Paroxysmal atrial fibrillation, rate controlled, currently on Eliquis Hyperlipidemia Hypertension urgency PLAN: Labs, diagnostic, radiologic exams reviewed and interpreted by myself and supervising physician. We have reviewed external records in detail Pending discharge disposition later today From Nephrology standpoint, patient may be discharged Do not resume hydrochlorothiazide, Hydrochlorothiazide to be listed as an allergy due to severe hyponatremia Avoid drugs which can potentiate hyponatremia Require close monitoring of renal function and electrolytes Order CBC, CMP, and electrolytes in am BiPAP as necessary, for respiratory distress Monitor blood pressure adjust medication doses as needed Avoid hypotensive episodes May use Dilaudid 0.5 mg IV every 6 hours as needed for severe pain Monitor blood sugars Strict intake, output, and daily weight should be monitored Continue to monitor renal function, anemia, electrolytes Treatment plan discussed with patient Questions were answered We have discussed with the other team physicians in detail about the care plan We will continue to monitor the patient closely ATTESTATION BY PHYSICIAN I have seen and examined the patient. I reviewed the documentation, medical decision making, and treatment plan as noted by the mid-level provider above. I agree with the findings and plan of care. ALENA PHILLIPS MD, [facility] Jun 29, 2025 12:47
--- NOTE | 2025-06-29 12:58 | PN ---
[facility] PROGRESS NOTE Date of Service: Jun 29, 2025 Time of Service: 12:57 SUBJECTIVE: This is a 74-year-old female with underlying history of severe morbid obesity, suspected ohs/LINDA with chronic hypercapnic respiratory failure, history of atrial fibrillation maintained on chronic anticoagulation with Eliquis, hyperlipidemia presented to the ER secondary to fall, dizziness, poor oral intake with nausea. Patient states that as she was ambulating to the restroom, she lost balance and fell and landed on her back. Denies hitting her head. She has been maintained on chronic anticoagulation with Eliquis as outpatient. She is followed by Cardiology as outpatient due to prior history of atrial fibrillation. She is mostly sedentary at home and has been having issues with weight for long time. She reports that she has been slowly gaining weight over the last several years. She is having pain involving the left knee since the fall. She does report having history of sleep apnea but does not use CPAP machi ne at home. She reports drinking about 2L of water daily to maintain hydration. Has been having some cough, congestion and mild wheezing. Denies any previous history of COPD or asthma. She has been having some mild nausea but denies any headache or significant weakness of bilateral upper or lower extremity. She does have history of hypertension and is maintained on antihypertensives with losartan 100 mg daily, mg b.i.d., HCTZ 25 mg daily. She reports taking all her antihypertensives this morning prior to coming to the ER. On presentation to the hospital, patient was noted to have T- max of 98.2 F, heart rate of 72, blood pressure of 187/78. Labs on presentation showed WBC count of 9900, hemoglobin 15.3, platelet count of [id number]. BMP remarka ble for sodium of 114, potassium 4.2, chloride of 76, creatinine of 0.4, magnesium 1.3, BNP of 146. Chest x-ray showed no acute infiltrates. Patient will be admitted to ICU for management of severe hyponatremia, hypertensive urgency, active influenza infection, and we will monitor this patient closely due to underlying obesity and underlying comorbidities. Including untreated OHS /LINDA All antihypertensives will be resumed. Condition remains critical. 06/23/2025: Patient was seen and examined bedside in room 210. Patient is awake, alert, oriented x3. patient tested positive for influenza type B antigen, started on droplet precaution. Patient is receiving Tamiflu, IV doxycycline and Rocephin to prevent secondary bacterial infection. Lab shows sodium 116, potassium 3.7 and patient is on 1.5 L fluid restriction, receiving IV fluids NaCl at 75 mL/hour. Pending cortisol, urine sodium, urine potassium, echo 2D. nephrology on board, we will follow up with the recommendations. 06/24/2025: Patient was seen and examined bedside in room 210. Patient is awake, alert, oriented x3. patient is requiring BiPAP with FiO2 30 during night probably due to obstructive sleep apnea. Her sodium has been improved from 116 to 120. Stopped NaCl75 mL/hour, losartan 100 mg and started sodium chloride pills 2g Q 8 as per Nephrology recommendation. 2D echo showed left ventricular ejection fraction > 65, stage III diastolic dysfunction. Urine Positive for leukocyte esterase, urine culture shows no growth at 18-24 hours. We will continue Tamiflu, IV antibiotics, salt pills. 06/25/2025: Patient was seen and evaluated at bedside in room 418. Case Discussed with RN, no acute overnight events. Patient's sodium level has been improved from 120 to 126 this morning. Dose of salt pills have been reduced from 2 g Q 8 to 1 g q.12h. Final urine culture report showed no growth after 48 hours. Nephrology on board, we will follow up with the recommendations. 06/26/2025: Patient was seen and evaluated at bedside in room 418. Discussed with RN, no acute overnight events. Patient's sodium level has been improved from 126 to 129 this morning. We will continue salt pills, IV antibiotics Tamiflu. Nephrology, pulmonology on board we will follow up with their recommendations. 06/29 patient is seen and examined at bedside, discussed with the RN, no acute events overnight, possible discharge to detention facility today. REVIEW OF SYSTEMS: CONSTITUTIONAL: generalized malaise, weight gain, obesity NEUROLOGICAL: Denies headache, amaurosis fugax, motor weakness, sensory deficit, vertigo/spinning sensation, gait abnormalities, or tremors. ENT: No hearing loss, otalgia, otorrhea, rhinitis, rhinorrhea, hoarseness, or sore throat. CARDIOVASCULAR: denies any chest pain, denies palpitations PULMONARY: cough, congestion , rhinorrhea SLEEP: Denies morning headaches, daytime somnolence or napping. Denies difficulty falling asleep, staying asleep, waking from sleep. Denies knowledge of snoring. GASTROINTESTINAL: Denies any type of dysphagia to either liquids or solids. Denies nausea, vomiting, pyrosis, early satiety, abdominal pain, diarrhea, constipation, or changes in stool consistency or caliber. Denies coffee-ground emesis, hematemesis, hematochezia, or melanotic stools. GENITOURINARY: Denies frequency, urgency, nocturia, hematuria or incontinence (Storage/Irritative symptoms.) Low urinary stream, straining to void, urinary intermittency or hesitancy, splitting of the voiding stream, terminal dribbling. ENDOCRINOLOGIC: Denies polyuria, polydipsia, polyphagia or heat/cold intolerances. HEMATOLOGIC: Denies thrombophilia/previous clots, or coagulopathy/bleeding disorders. ONCOLOGIC: Denies personal history of malignancy. DERMATOLOGIC: Denies rashes or pruritus. PSYCHIATRIC: Denies any suicidal or homicidal ideation. Denies hallucinations. PHYSICAL EXAM GENERAL APPEARANCE: The patient is awake, alert, appears chronically ill, on 2 L of O2 by nasal canula, patient is morbidly obese NEUROLOGICAL: Cranial nerves II-XII grossly intact. neurological exam is non focal, patient has pain to left knee, strength exam is limited due to pain HEENT: Face is symmetric. Pupils are equal and reactive. Extraocular movements are intact. NECK: Supple. No JVD. No thyromegaly. No submental, submandibular, pre- /postauricular, occipital or supraclavicular lymphadenopathy. CHEST: Normal chest expansion. No Telemetry. LUNGS: minimal crackles noted of the bilateral lung bases CARDIOVASCULAR: Regular. S1 and S2 normal. No appreciable rubs, murmurs or gallops. ABDOMEN: Soft, nontender, and nondistended. There is no rebound, voluntary guarding, or rigidity. : Deferred. No Sharpe. EXTREMITIES: trace edema noted of the bilateral lower extremities SKIN: No skin breakdown. Vital Signs (last 8hr) Date Time Temp Pulse Resp B/P (MAP) Pulse Ox O2 Delivery O2 Flow Rate FiO2 06/29/25 11:53 97.9 72 20 166/79 92 Room Air 06/29/25 11:29 72 20 N/A Room Air 21 06/29/25 11:23 72 20 06/29/25 09:34 153/92 06/29/25 08:00 99 Nasal Cannula* 2 28 06/29/25 07:51 97.5 72 18 153/92 99 Nasal Cannula 2.0 06/29/25 06:14 75 20 N/A Room Air 21 06/29/25 06:11 75 18 LABS: Laboratory: Test 06/29/25 11:26 06/28/25 03:36 Range/Units Whole Blood Glucose 149 H 70-110 MG/DL White Blood Count 6.8 4.8-10.8 K/uL Red Blood Count 4.38 4.00-5.50 MIL/uL Hemoglobin 13.8 12.0-16.0 g/dL Hematocrit 40.0 36-48 % Mean Corpuscular Volume 91.3 79-99 fL Mean Corpuscular Hemoglobin 31.5 27.0-33.0 pg Mean Corpuscular Hemoglobin Concent 34.5 32.0-36.0 g/dL Red Cell Distribution Width 12.2 11.0-15.5 % Platelet Count 117 L 130-400 K/uL Mean Platelet Volume 10.3 7.5-10.5 fL Nucleated Red Blood Cells 0.0 0.0-0.19 % Sodium Level 135 L 136-145 mmol/L Potassium Level 4.4 3.5-5.1 mmol/L Chloride Level 96 L 101-111 mmol/L Carbon Dioxide Level 36 H 21-32 mmol/L Blood Urea Nitrogen 21 H 7-18 mg/dL Creatinine 0.4 L 0.5-1.0 mg/dL Glomerular Filtration Rate Calc 103 >90 mL/min Random Glucose 118 H 70-105 mg/dL Total Calcium 8.4 L 8.5-10.1 mg/dL Magnesium Level 2.00 1.80-2.40 mg/dL Total Bilirubin 0.7 0.2-1.0 mg/dL Aspartate Amino Transf (AST/SGOT) 19 10-37 U/L Alanine Aminotransferase (ALT/SGPT) 22 12-78 U/L Alkaline Phosphatase 84 50-136 U/L Total Protein 5.8 L 6.0-8.3 g/dL Albumin 2.6 L 3.5-5.0 g/dL Current Medications Medications (Trade) Dose Ordered Sig/Conchis Route PRN Reason Start Time Stop Time Status Last Admin Dose Admin Acetaminophen (TYLenol 325MG TAB) 650 mg Q6H PRN PO MILD PAIN (1-3) 06/22/25 15:30 07/22/25 15:29 Acetaminophen/ Hydrocodone Bitart (NORco 5/325MG) 1 tab Q6H PRN PO MODERATE PAIN (4-6) 06/23/25 11:30 06/23/25 11:13 DC Apixaban (EliquIS) 5 mg BID PO 06/23/25 09:00 07/23/25 08:59 06/29/25 09:34 5 MG Atorvastatin Calcium (LIPItor 10MG) 10 mg HS PO 06/22/25 21:00 07/22/25 20:59 06/28/25 21:50 10 MG Budesonide (Pulmicort 0.5 Mg/2ml) 0.5 mg BIDRESP IH 06/22/25 18:00 07/22/25 17:59 06/29/25 06:11 0.5 MG Carvedilol (Coreg 25MG) 25 mg BID PO 06/22/25 21:00 06/23/25 13:35 DC 06/22/25 21:18 25 MG Carvedilol (Coreg 25MG) 25 mg BID PO 06/26/25 14:00 07/26/25 13:59 06/29/25 09:34 25 MG Carvedilol (Coreg 25MG) 25 mg BID PO 06/26/25 21:00 06/26/25 13:34 DC Ceftriaxone Sodium (ROCEphine 1G INJ) 1 gm Q12H IVPB 06/22/25 15:30 07/02/25 15:29 06/29/25 03:56 1 GM Docusate Sodium (COLace 100MG CAP) 100 mg BID PO 06/22/25 21:00 07/22/25 20:59 06/29/25 09:34 100 MG Doxycycline Hyclate (Doxycycline Hyclate) 100 mg BID PO 06/22/25 21:00 07/02/25 20:59 06/29/25 09:34 100 MG Famotidine (Pepcid 20mg Tab) 20 mg BID PO 06/23/25 21:00 07/23/25 20:59 06/29/25 09:34 20 MG Fish Oil (Fish Oil 1000 Mg/Cap) 1,000 mg DAILY PO 06/23/25 09:00 07/23/25 08:59 06/29/25 09:34 1,000 MG Home Med (Home Medication) Soluble [place] Fiber/ Inu... DAILY PO 06/23/25 09:00 07/23/25 08:59 Hydralazine HCl (APRESOLine 20MG INJ) 10 mg Q6H PRN IV ADMINISTER FOR SBP > 170 06/22/25 15:30 07/22/25 15:29 06/22/25 16:05 10 MG Insulin Human Regular (humuLIN R 100 UNIT/ML 3ML) INSULIN SLIDING SCAL... ACHS SQ 06/22/25 16:30 07/22/25 16:29 06/25/25 13:05 2 UNIT Ipratropium [place] (AtrovENT UD) 0.5 mg [id number] IH 06/22/25 18:00 07/22/25 17:59 06/29/25 11:23 0.5 MG Lactulose (Constulose 20gm/ 30ml Udcup) 20 gm BID PRN PO CONSTIPATION 06/26/25 14:00 07/26/25 13:59 06/27/25 13:35 20 GM Losartan Potassium (CozAAR 100MG TAB) 100 mg DAILY PO 06/23/25 09:00 06/23/25 13:35 DC 06/23/25 10:19 100 MG Losartan Potassium (CozAAR 100MG TAB) 100 mg DAILY PO 06/27/25 09:00 07/27/25 08:59 06/29/25 09:34 100 MG Magnesium Sulfate 50 ml @ 0 mls/hr PROTOCOL IV 06/22/25 15:30 07/22/25 15:29 06/27/25 06:14 20 MLS/HR Mupirocin (Bactroban Oint) 1 APPL BID TP 06/24/25 21:00 07/24/25 20:59 06/29/25 09:36 1 APPL Nystatin (NystOP 15 GM POWDER) abdominal folds BID TP 06/26/25 21:00 07/26/25 20:59 06/29/25 09:36 1 APPL Ondansetron HCl (zoFRAN 4MG INJ) 4 mg Q6H PRN IVP NAUSEA/VOMITING 06/22/25 15:30 07/22/25 15:29 Oseltamivir Phosphate (Tamiflu) 75 mg BID PO 06/22/25 21:00 06/27/25 20:59 DC 06/27/25 09:16 75 MG Potassium Chloride 100 ml @ 100 mls/hr AD PRN IV POTASSIUM PROTOCOL 06/22/25 15:30 07/22/25 15:29 Potassium Chloride (K-Dur/Klor-Con 20meq) 20 meq AD PRN PO POTASSIUM PROTOCOL 06/22/25 15:30 07/22/25 15:29 Potassium Chloride (KCl 10% Elixir 20meq/15ml) 20 meq AD PRN PO POTASSIUM PROTOCOL 06/22/25 15:30 07/22/25 15:29 Sodium Chloride 1,000 ml @ 75 mls/hr [id number] IV 06/22/25 15:30 06/23/25 13:34 DC 06/23/25 04:42 75 MLS/HR Sodium Chloride (Sodium Chloride) 1,000 mg BID PO 06/24/25 21:00 06/26/25 14:22 DC 06/26/25 09:33 1,000 MG Sodium Chloride (Sodium Chloride) 2,000 mg Q8H6 PO 06/23/25 14:00 06/24/25 12:37 DC 06/24/25 05:58 2,000 MG Thiamine HCl (Vitamin B-1) 100 mg DAILY IVP 06/23/25 09:00 07/23/25 08:59 06/29/25 09:35 100 MG DIAGNOSTICS / RADIOLOGY: [ ] ASSESSMENT: Severe hyponatremia, POA Hypertensive urgency, POA History of HCTZ use as outpatient, POA Active influenza bronchitis, POA Super morbid obesity (BMI 62), POA Underlying history of atrial fibrillation, POA History of chronic anticoagulation with Eliquis, POA Hypomagnesemia, POA Debility, POA Chronic hypercapnic respiratory failure, POA Untreated ohs/LINDA, POA History of hypertension, POA Hyperlipidemia, POA Type 2 diabetes mellitus, POA Urinary tract infection, POA PLAN: Severe hyponatremia, POA -patient's sodium level at presentation was 114. -patient's sodium level has been improved to 129 this morning. -continue sodium chloride 1 g twice daily -correction of sodium of 6-8 mEq per24 hours -hydrochlorothiazide was stopped and patient was put on fluid restriction of 1 L daily. -stopped IV fluids, losartan as per Nephrology recommendations. -we will trend BMP 6 hourly -nephrology on board, we will follow up with the recommendations. Hypertensive urgency, POA -on presentation patient's blood pressure was 187/78 -patient received 1 dose of hydralazine 10 mg in ED -hydrochlorothiazide was discontinued due to severe hyponatremia -hydralazine 10 mg IV p.r.n. if systolic blood pressure greater than 170 mmHg. Active influenza bronchitis, POA -on presentation to ED patient tested positive for influenza type B antigen -patient was started on Tamiflu 75 mg b.i.d. PO (day 5) -doxycycline 100 mg b.i.d. PO (day 5) , Rocephin 1 g IV q.12h (day 5) to prevent secondary bacterial infection. -budesonide 0.5 mg b.i.d. resp IH, ipratropium bromide 0.5 mg Q 6 resp IH Urinary tract infection, POA -patient's urine positive for leukocyte esterase, WBC. -urine culture showed no growth after 18-24 hours. -final culture reports showed no growth after 48 hours Underlying history of atrial fibrillation, POA -patient is known case of atrial fibrillation, on Eliquis 5 mg daily at home -EKG on presentation showed atrial fibrillation -patient was started on Eliquis 5 mg b.i.d. PO Super morbid obesity (BMI 62), POA -patients BMI was 62 on presentation to ED -patient is requiring BiPAP during night her maintaining saturations probably due to obstructive sleep apnea -we will recommend sleep study Patient receiving thiamine supplementation Patient remains high-risk due to severe obesity and chronic hypercapnic respiratory failure with metabolic compensation We will request consultation with Physical therapy in the morning We will avoid any narcotics/sedatives to reduce risk of any worsening acute on chronic hypercapnia Patient will benefit from BiPAP/CPAP therapy at bedtime All labs will be repeated in the morning ASHLEY RIGGINS MD Jun 29, 2025 12:58
--- NOTE | 2025-06-29 13:00 | NUR ---
PATIENT ALERT AND ORIENTED WITH AT BEDSIDE DISCHARGED WITH SNF. AWAITING EMS TO [employer] PATIENT. ALL QUESTIONS ANSWERED, PATIENT VERBALIZED COMPLETE UNDERSTANDING. SPOUSE GATHERED ALL BELONGINGS AND TOOK WITH HIM AT DC.
--- NOTE | 2025-06-29 14:05 | NUR ---
ems picked up patient at this time.
--- NOTE | 2025-06-29 19:37 | PN ---
Endocrinology progress note DOS:06/29/25 subjective: BMP remarkable for sodium of 114, potassium 4.2, chloride of 76, creatinine of 0.4, magnesium 1.3, BNP of 146. sodium improving to 126 Chest x-ray showed no acute infiltrates. am cortisol 16.9, tsh 1.91 patient sodium was low at 114 that is improving to 124-->136 now. nephrology is following and hyponatremia likely caused by HCTZ. reports that she gained more than 30 lbs weight but otherwise denies any other signs/symptoms of traci syndrome. denies steroid intake. Hba1c 6.1% REVIEW OF SYSTEMS: CONSTITUTIONAL: generalized malaise, weight gain, obesity NEUROLOGICAL: Denies headache, amaurosis fugax, motor weakness, sensory deficit, vertigo/spinning sensation, gait abnormalities, or tremors. ENT: No hearing loss, otalgia, otorrhea, rhinitis, rhinorrhea, hoarseness, or sore throat. CARDIOVASCULAR: denies any chest pain, denies palpitations PULMONARY: cough, congestion , rhinorrhea SLEEP: Denies morning headaches, daytime somnolence or napping. Denies difficulty falling asleep, staying asleep, waking from sleep. Denies knowledge of snoring. GASTROINTESTINAL: Denies any type of dysphagia to either liquids or solids. Denies nausea, vomiting, pyrosis, early satiety, abdominal pain, diarrhea, constipation, or changes in stool consistency or caliber. Denies coffee-ground emesis, hematemesis, hematochezia, or melanotic stools. GENITOURINARY: Denies frequency, urgency, nocturia, hematuria or incontinence (Storage/Irritative symptoms.) Low urinary stream, straining to void, urinary intermittency or hesitancy, splitting of the voiding stream, terminal dribbling. ENDOCRINOLOGIC: Denies polyuria, polydipsia, polyphagia or heat/cold intolerances. HEMATOLOGIC: Denies thrombophilia/previous clots, or coagulopathy/bleeding disorders. ONCOLOGIC: Denies personal history of malignancy. DERMATOLOGIC: Denies rashes or pruritus. PSYCHIATRIC: Denies any suicidal or homicidal ideation. Denies hallucinations. ADDITIONAL PAST MEDICAL HISTORY: [Diabetes mellitus type 2, severe morbid obesity, hypertension, A-fib on chronic anticoagulation with Eliquis 5 mg twice daily, untreated LINDA/OHS] SOCIAL HISTORY: [Negative for smoking, alcohol use, drug use. Patient requires assistance with IADLs. 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 CLINICAL HISTORY: sob COMPARISON: May 22 2023 FINDINGS: LUNGS: There is no mass, infiltrate, or acute pulmonary abnormality. PLEURAL SPACES: No evidence of pleural effusion or pneumothorax. MEDIASTINUM: There is cardiomegaly BONES: No aggressive appearing osseous lesion seen. IMPRESSION: No acute cardiopulmonary pathology is evident. /[place] DICTATED BY: SWATHI HAM MD DATE: 06/22/251541 ELECTRONICALLY SIGNED BY: SWATHI HAM MD DATE: 06/22/251541 ASSESSMENT: Severe hyponatremia, POA am cortisol 16.9, tsh 1.91 patient sodium was low at 114 that is improving to 124-->126-->136 now. nephrology is following and hyponatremia likely caused by HCTZ. reports that she gained more than 30 lbs weight but otherwise denies any other signs/symptoms of traci syndrome. denies steroid intake. Hypertensive urgency, POA History of HCTZ use as outpatient, POA Active influenza bronchitis, POA Super morbid obesity (BMI 62), POA Type 2 diabetes mellitus, POA Hba1c 6.1% controlled with diet Underlying history of atrial fibrillation, POA History of chronic anticoagulation with Eliquis, POA Hypomagnesemia, POA Debility, POA Chronic hypercapnic respiratory failure, POA Untreated ohs/LINDA, POA History of hypertension, POA Hyperlipidemia, POA PLAN: Patient wants traci work up as outpatient and will do detail traci labs as outpatient. off HCTZ monitor sodium. Monitor glucose q x 12 hourly. Continue carb consistent diet. Vitals/Labs Vital Signs Date Time Temp Pulse Resp B/P (MAP) Pulse Ox O2 Delivery O2 Flow Rate FiO2 06/29/25 11:53 97.9 72 20 166/79 92 Room Air 06/29/25 11:29 21 06/29/25 08:00 2 Medications Current Medications Sodium Chloride 500 ml @ 125 mls/hr Q4H ONCE IV Last administered on 06/22/25at 14:59; Start 06/22/25 at 15:00; Stop 06/22/25 at 15:23; Status DC Albuterol 2 udvial ONCE ONCE IH Last administered on 06/22/25at 15:59; Start 06/22/25 at 15:30; Stop 06/22/25 at 15:31; Status DC Oseltamivir Phosphate 75 mg ONCE ONCE PO Last administered on 06/22/25at 16:04; Start 06/22/25 at 15:30; Stop 06/22/25 at 15:31; Status DC Sodium Chloride 1,000 ml @ 75 mls/hr [id number] IV Last administered on 06/23/25at 04:42; Start 06/22/25 at 15:30; Stop 06/23/25 at 13:34; Status DC Ipratropium [place] 0.5 mg [id number] IH Last administered on 06/29/25at 11:23; Start 06/22/25 at 18:00; Stop 06/29/25 at 14:54; Status DC Budesonide 0.5 mg BIDRESP IH Last administered on 06/29/25at 06:11; Start 06/22/25 at 18:00; Stop 06/29/25 at 14:54; Status DC Ceftriaxone Sodium 1 gm Q12H IVPB Last administered on 06/29/25at 03:56; Start 06/22/25 at 15:30; Stop 06/29/25 at 14:54; Status DC Doxycycline Hyclate 100 mg BID PO Last administered on 06/29/25at 09:34; Start 06/22/25 at 21:00; Stop 06/29/25 at 14:54; Status DC Thiamine HCl 100 mg DAILY IVP Last administered on 06/29/25at 09:35; Start 06/10 01/02 at 09:00; Stop 06/29/25 at 14:54; Status DC Hydralazine HCl 10 mg Q6H PRN IV Last administered on 06/22/25at 16:05; Start 06/22/25 at 15:30; Stop 06/29/25 at 14:54; Status DC Magnesium Sulfate 50 ml @ 0 mls/hr PROTOCOL IV Last administered on 06/27/25at 06:14; Start 06/22/25 at 15:30; Stop 06/29/25 at 14:54; Status DC Potassium Chloride 100 ml @ 100 mls/hr AD PRN IV; Start 06/22/25 at 15:30; Stop 06/29/25 at 14:54; Status DC Potassium Chloride 20 meq AD PRN PO; Start 06/22/25 at 15:30; Stop 06/29/25 at 14:54; Status DC Potassium Chloride 20 meq AD PRN PO; Start 06/22/25 at 15:30; Stop 06/29/25 at 14:54; Status DC Oseltamivir Phosphate 75 mg BID PO Last administered on 06/27/25at 09:16; Start 06/22/25 at 21:00; Stop 06/27/25 at 20:59; Status DC Acetaminophen 650 mg Q6H PRN PO; Start 06/22/25 at 15:30; Stop 06/29/25 at 14:54; Status DC Ondansetron HCl 4 mg Q6H PRN IVP; Start 06/22/25 at 15:30; Stop 06/29/25 at 14:54; Status DC Losartan Potassium 100 mg DAILY PO Last administered on 06/23/25at 10:19; Start 06/23/25 at 09:00; Stop 06/23/25 at 13:35; Status DC Insulin Human Regular INSULIN SLIDING SCAL... ACHS SQ Last administered on 06/25/25at 13:05; Start 06/22/25 at 16:30; Stop 06/29/25 at 14:54; Status DC Carvedilol 25 mg BID PO Last administered on 06/22/25at 21:18; Start 06/22/25 at 21:00; Stop 06/23/25 at 13:35; Status DC Atorvastatin Calcium 10 mg HS PO Last administered on 06/28/25at 21:50; Start 06/22/25 at 21:00; Stop 06/29/25 at 14:54; Status DC Docusate Sodium 100 mg BID PO Last administered on 06/29/25at 09:34; Start 06/22/25 at 21:00; Stop 06/29/25 at 14:54; Status DC Fish Oil 1,000 mg DAILY PO Last administered on 06/29/25at 09:34; Start 06/23/25 at 09:00; Stop 06/29/25 at 14:54; Status DC Home Med Soluble [place] Fiber/ Inu... DAILY PO; Start 06/23/25 at 09:00; Stop 06/29/25 at 14:54; Status DC Apixaban 5 mg BID PO Last administered on 06/29/25at 09:34; Start 06/23/25 at 09:00; Stop 06/29/25 at 14:54; Status DC Acetaminophen/ Hydrocodone Bitart 1 tab Q6H PRN PO; Start 06/23/25 at 11:30; Stop 06/23/25 at 11:13; Status DC Famotidine 20 mg BID PO Last administered on 06/29/25at 09:34; Start 06/23/25 at 21:00; Stop 06/29/25 at 14:54; Status DC Sodium Chloride 2,000 mg Q8H6 PO Last administered on 06/24/25at 05:58; Start 06/23/25 at 14:00; Stop 06/24/25 at 12:37; Status DC Artificial Tears 1 DROP DAILY20 ONCE OU; Start 06/24/25 at 20:00; Stop 06/24/25 at 20:01; Status DC Sodium Chloride 1,000 mg BID PO Last administered on 06/26/25at 09:33; Start 06/24/25 at 21:00; Stop 06/26/25 at 14:22; Status DC Mupirocin 1 APPL BID TP Last administered on 06/29/25at 09:36; Start 06/24/25 at 21:00; Stop 06/29/25 at 14:54; Status DC Lactulose 20 gm ONCE ONCE PO Last administered on 06/26/25at 13:33; Start 06/26/25 at 11:00; Stop 06/26/25 at 11:01; Status DC Lactulose 20 gm BID PRN PO Last administered on 06/27/25at 13:35; Start 06/26/25 at 14:00; Stop 06/29/25 at 14:54; Status DC Carvedilol 25 mg BID PO; Start 06/26/25 at 21:00; Stop 06/26/25 at 13:34; Status DC Losartan Potassium 100 mg DAILY PO Last administered on 06/29/25at 09:34; Start 06/27/25 at 09:00; Stop 06/29/25 at 14:54; Status DC Carvedilol 25 mg BID PO Last administered on 06/29/25at 09:34; Start 06/26/25 at 14:00; Stop 06/29/25 at 14:54; Status DC Nystatin abdominal folds BID TP Last administered on 06/29/25at 09:36; Start 06/26/25 at 21:00; Stop 06/29/25 at 14:54; Status DC JASSON TRUJILLO MD Jun 29, 2025 19:37
--- NOTE | 2025-06-30 09:08 | DS ---
Discharge Summary Hospital Course Summary: Date of service 06/29/2025 Patient admitted to the hospital June 22, 2025 with the following history of the present illness: This is a 74-year-old female with underlying history of severe morbid obesity, suspected ohs/LINDA with chronic hypercapnic respiratory failure, history of atrial fibrillation maintained on chronic anticoagulation with Eliquis, hyperlipidemia presented to the ER secondary to fall, dizziness, poor oral intak e with nausea. Patient states that as she was ambulating to the restroom, she lost balance and fell and landed on her back. Denies hitting her head. She has been maintained on chronic anticoagulation with Eliquis as outpatient. She is followed by Cardiology as outpatient due to prior history of atrial fibrillation. She is mostly sedentary at home and has been having issues with weight for long time. She reports that she has been slowly gaining weight over the last several years. She is having pain involving the left knee since the fall. She does report having history of sleep apnea but does not use CPAP machine at home. She reports drinking about 2L of water daily to maintain hydration. Has been having some cough, congestion and mild wheezing. Denies any previous history of COPD or asthma. She has been having some mild nausea but denies any headache or significant weakness of bilateral upper or lower extremity. She does have history of hypertension and is maintained on antihypertensives with losartan 100 mg daily, [id number] mg b.i.d., HCTZ 25 mg daily. She reports taking all her antihypertensives this morning prior to coming to the ER. On presentation to the hospital, patient was noted to have T-max of 98.2 F, heart rate of 72, blood pressure of 187/78. Labs on presentation showed WBC count of 9900, hemoglobin 15.3, platelet count of 636644. BMP remarkable for sodium of 114, potassium 4.2, chloride of 76, creatinine of 0.4, magnesium 1.3, BNP of 146. Chest x-ray showed no acute infiltrates. Patient admitted to ICU for management of severe hyponatremia, hypertensive urgency, active influenza infection, and we will monitor this patient closely due to underlying obesity and underlying comorbidities. Including untreated OHS/LINDA All antihypertensives will be resumed. Condition remains critical. HOSPITAL COURSE 06/23/2025: Patient was seen and examined bedside in room 210. Patient is awake, alert, oriented x3. patient tested positive for influenza type B antigen, started on droplet precaution. Patient is receiving Tamiflu, IV doxycycline and Rocephin to prevent secondary bacterial infection. Lab shows sodium 116, potassium 3.7 and patient is on 1.5 L fluid restriction, receiving IV fluids NaCl at 75 mL/hour. Pending cortisol, urine sodium, urine potassium, echo 2D. nephrology on board, we will follow up with the recommendations. 06/24/2025: Patient was seen and examined bedside in room 210. Patient is awake, alert, oriented x3. patient is requiring BiPAP with FiO2 30 during night probably due to obstructive sleep apnea. Her sodium has been improved from 116 to 120. Stopped NaCl75 mL/hour, losartan 100 mg and started sodium chloride pills 2g Q 8 as per Nephrology recommendation. 2D echo showed left ventricular ejection fraction > 65, stage III diastolic dysfunction. Urine Positive for leukocyte esterase, urine culture shows no growth at 18-24 hours. We will continue Tamiflu, IV antibiotics, salt pills. 06/25/2025: Patient was seen and evaluated at bedside in room 418. Case Discussed with RN, no acute overnight events. Patient's sodium level has been improved from 120 to 126 this morning. Dose of salt pills have been reduced from 2 g Q 8 to 1 g q.12h. Final urine culture report showed no growth after 48 hours. Nephrology on board, we will follow up with the recommendations. 06/26/2025: Patient was seen and evaluated at bedside in room 418. Discussed with RN, no acute overnight events. Patient's sodium level has been improved from 126 to 129 this morning. We will continue salt pills, IV antibiotics Tamiflu. Nephrology, pulmonology on board we will follow up with their recommendations. 06/29 patient is seen and examined at bedside, discussed with the RN, no acute events overnight, possible discharge to [facility] facility today. Laundry Helper(s): ENDOCRINOLOGY AND PULMONARY SERVICES Assessment/Plan: FINAL DIAGNOSIS Severe hyponatremia, POA Hypertensive urgency, POA History of HCTZ use as outpatient, POA Active influenza bronchitis, POA Super morbid obesity (BMI 62), POA Underlying history of atrial fibrillation, POA History of chronic anticoagulation with Eliquis, POA Hypomagnesemia, POA Debility, POA Chronic hypercapnic respiratory failure, POA Untreated ohs/LINDA, POA History of hypertension, POA Hyperlipidemia, POA Type 2 diabetes mellitus, POA Urinary tract infection, POA Discharge Instructions: PATIENT TO BE DISCHARGED TO ASSISTED FACILITY FOR CONTINUATION OF MEDICAL CARE, RETURN TO THE HOSPITAL IF CONDITION CHANGES, PATIENT AGREED AND UNDERSTOOD THE INFORMATION PROVIDED. Home Medications: Active Scripts Furosemide (Furosemide) 20 Mg Tablet, 1 TAB PO DAILY for 14 Days, #14 TAB 0 Refills Prov:PRATIK MORRISON MD 06/27/25 Reported Medications Soluble [place] Fiber/Inulin (Metamucil 1.7 gm Fiber Gummies) 1.7 Gram Tab.chew, 1.7 GM PO DAILY, TAB.CHEW 06/22/25 Atorvastatin Calcium (LIPITOR) 10 Mg Tab, 10 MG PO HS, TAB 06/22/25 Apixaban (Eliquis) 5 Mg Tablet, 5 MG PO BID, TAB 06/22/25 Losartan Potassium (Losartan Potassium) 100 Mg Tablet, 100 MG PO DAILY, TAB 06/22/25 Carvedilol (Carvedilol) 25 Mg Tablet, 25 MG PO BID, TAB 06/22/25 [place]-3 Fatty Acids/Fish Oil ([place] 3 1,000 mg Softgel) 1 Each Capsule, 1 EACH PO DAILY, CAP 09/08/17 Docusate Sodium (Stool Softener) 100 Mg Capsule, 100 MG PO BID, CAP 09/08/17 Discontinued Reported Medications Hydrochlorothiazide (Hydrochlorothiazide) 25 Mg Tablet, 25 MG PO DAILY, TAB 06/22/25 Time spent arranging discharge: 31-60 minutes ASHLEY RIGGINS MD Jun 30, 2025 09:08
== END 2025-06-29 14:05 | DRG 640 ==
LOC: EDH 13:20 → EDHIP 15:21 → 2BH 20:32 → 4CH 06-24 22:38
PROVIDERS: ADMIT Internal Medicine; ATTEND Internal Medicine
PROC: 5A09357 Assistance with Respiratory Ventilation, Less than 24 Consecutive Hours, Continuous Positive Airway Pressure (ICD-10-PCS; principal; 2025-06-23)
PROC: 5A09357 Assistance with Respiratory Ventilation, Less than 24 Consecutive Hours, Continuous Positive Airway Pressure (ICD-10-PCS; 2025-06-25)
PROC: 5A09357 Assistance with Respiratory Ventilation, Less than 24 Consecutive Hours, Continuous Positive Airway Pressure (ICD-10-PCS; 2025-06-29)
DX: E87.1 Hypo-osmolality and hyponatremia (principal); I50.31 Acute diastolic (congestive) heart failure; J96.21 Acute and chronic respiratory failure with hypoxia; J96.22 Acute and chronic respiratory failure with hypercapnia; E66.2 Morbid (severe) obesity with alveolar hypoventilation; Z68.44 Body mass index [BMI] 60.0-69.9, adult; N39.0 Urinary tract infection, site not specified; J10.1 Influenza due to other identified influenza virus with other respiratory manifestations; I11.0 Hypertensive heart disease with heart failure; I16.0 Hypertensive urgency; E83.42 Hypomagnesemia; E11.9 Type 2 diabetes mellitus without complications; J44.89 Other specified chronic obstructive pulmonary disease; D64.9 Anemia, unspecified; I25.10 Atherosclerotic heart disease of native coronary artery without angina pectoris; I48.0 Paroxysmal atrial fibrillation; K57.30 Diverticulosis of large intestine without perforation or abscess without bleeding; M85.80 Other specified disorders of bone density and structure, unspecified site; M47.815 Spondylosis without myelopathy or radiculopathy, thoracolumbar region; I34.81 Nonrheumatic mitral (valve) annulus calcification; T50.2X5A Adverse effect of carbonic-anhydrase inhibitors, benzothiadiazides and other diuretics, initial encounter; E78.00 Pure hypercholesterolemia, unspecified; E87.8 Other disorders of electrolyte and fluid balance, not elsewhere classified; Y92.009 Unspecified place in unspecified non-institutional (private) residence as the place of occurrence of the external cause; Z79.01 Long term (current) use of anticoagulants; Z79.899 Other long term (current) drug therapy; Z90.710 Acquired absence of both cervix and uterus
CPT/HCPCS: 36415; 36600; 70450; 71045; 71250; 72170; 73565; 74176; 80048; 80051; 80053; 80061; 80076; 81001; 82435; 82533; 82570; 82803; 82947; 82948; 83036; 83605; 83615; 83735; 83880; 83930; 83935; 84100; 84132; 84145; 84295; 84443; 84484; 84550; 85018; 85025; 85027; 85610; 85651; 85730; 86140; 87086; 87635; 87804; 87880; 93005; 93306; 93970; 94640; 94660; 94664; 99285; A6250; G0378; J0360; J0696; J1815; J3411; J3475; 73560